=== PATIENT | female | born 1930 | race Caucasian/White ===

== ENCOUNTER 2016-07-16 15:06 | Emergency (ER) | payer MEDICARE, OTHER ==
[2016-07-16 15:14] VITALS: BMI 25.6
[2016-07-16 15:21] VITALS: RESP 18
[2016-07-16 16:09] LABS: ADD MANUAL DIFF? NO
[2016-07-16 16:14] LABS: BASO # 0.06 K/mm3 (0.0-2.0); BASO % 0.6 % (0.0-3.0); EOS # 0.1 (0.0-0.7); EOS % 1.3 % (1.5-5.0); GRAN # 8.74 (1.4-6.5); GRAN % 86.5 % (50.0-68.0); HEMATOCRIT 39.9 % (36.0-48.0); LYMPH # 0.7 (1.2-3.4); LYMPH % 6.9 % (22.0-35.0); MEAN CORPUSCULAR HEMOGLOBIN 32.1 pg (25.0-35.0); MEAN CORPUSCULAR HGB CONC 33.8 g/dl (31.0-37.0); MEAN PLATELET VOLUME 11.2 fl (7.0-11.0); MONO # 0.5 (0.1-0.6); MONO % 4.7 % (1.0-6.0); PLATELET COUNT 199 10^3/uL (120.0-450.0); RED CELL DISTRIBUTION WIDTH 14.9 % (11.5-14.5); WHITE BLOOD COUNT 10.1 10^3/ul (4.5-11.0)
[2016-07-16 16:24] LABS: BLOOD UREA NITROGEN 45 mg/dL (7-21); CALCIUM 9.9 mg/dL (8.4-10.5); CARBON DIOXIDE 28 mmol/L (21-33); CHLORIDE 98 mmol/L (98-107); GFR AFRICAN-AMERICAN 32; GLUCOSE,RANDOM 102 mg/dL (70-110); POTASSIUM 4.7 mmol/L (3.6-5.0); SODIUM 135 mmol/L (132-148)
--- NOTE | 2016-07-16 16:32 | ED PDOC ---
Arrival/HPI - General Chief Complaint: Palpitations Time Seen by Provider: 07/16/16 15:13 Historian: Patient, Family - History of Present Illness Narrative History of Present Illness (Text): 07/16/16 16:26 86 yo female, h/o DM, HCL, COPD, Pulmonary Fibrosis, GERD, Anxiety, presents to the ED c/o palpitations and shortness of exertion x 3 days. She doesn't feel it at rest. Patient states she gets shortness at times at baseline but recently it' s getting worse. No cough or fever. She has trace lower extremity swelling. No chest pain or back pain. PMD: Dr. Gold Past Medical History - Provider Review Nursing Documentation Reviewed: Yes - Infectious Disease Hx of Infectious Diseases: None - Tetanus Immunization Tetanus Immunization: Unknown - Cardiac Hx Cardiac Disorders: Yes Hx Congestive Heart Failure: Yes Hx Hypertension: Yes - Pulmonary Hx Asthma: Yes Hx Chronic Obstructive Pulmonary Disease (COPD): Yes - Neurological HX Cerebrovascular Accident: Yes - HEENT Hx HEENT Disorder: No (WEARS RX GLASSES) Hx Blind: No Hx Cataracts: No Hx Deafness: No Hx Difficulty Chewing: No Hx Epistaxis: No Hx Glaucoma: No Hx Macular Degeneration: No Other/Comment: WEARS RX GLASSES - Renal Hx Renal Failure: Yes - Endocrine/Metabolic Hx Diabetes Mellitus Type 1: Yes Hx Hypothyroidism: Yes - Hematological/Oncological Hx Blood Disorders: No Hx AIDS: No Hx Anemia: No Hx Cancer: No Hx Chemotherapy: No Hx Cirrhosis: No Hx Hemophilia: No Hx Hepatitis A: No Hx Hepatitis B: No Hx Hepatitis C: No Hx Metastasis: No Hx Shingles: No Hx Sickle Cell Disease: No Hx Unexplained Bleeding: No - Integumentary Hx Dermatological Disorder: No Hx Basal Cell Carcinoma: No Hx Eczema: No Hx Melanoma: No Hx Psoriasis: No Hx Squamous Cell Carcinoma: No Other/Comment: multiple brown discolorations chest and face - Musculoskeletal/Rheumatological Hx Arthritis: Yes - Gastrointestinal Hx Gastrointestinal Disorders: Yes Hx Colostomy: No Hx Crohn's Disease: No Hx Diverticulitis: Yes Hx Gall Bladder Disease: No Hx Gastroesophageal Reflux: Yes Hx Ileostomy: No Hx Liver Failure: No Hx Pancreatitis: No HX Swallowing Problems: No - Genitourinary/Gynecological Hx Reproductive Disorders: (neg r breast bx 35 yrs ago) - Psychiatric Hx Psychophysiologic Disorder: Yes Hx Anxiety: Yes Hx Bipolar Disorder: No Hx Depression: No Hx Emotional Abuse: No Hx Hallucinations: No Hx Panic Disorder: No Hx Post Traumatic Stress Disorder: No Hx Psychosis: No Hx Physical Abuse: No Hx Schizophrenia: No Hx Sexual Abuse: No Hx Substance Use: No - Past Surgical History Past Surgical History: No Previous - Surgical History Hx Amputation: No Hx Appendectomy: No Hx Cardiac Catheterization: No Hx Cholecystectomy: No Hx Coronary Stent: No Hx Gastric Bypass Surgery: No Hx Hysterectomy: No Hx Joint Replacement: No Hx Kidney Transplant: No Hx Liver Transplant: No Hx Mastectomy: No Hx Musculoskeletal Surgery: No Hx Open Heart Surgery: No Hx Orthopedic Surgery: No Hx Splenectomy: No Hx Valve Replacement: No Other/Comment: HX L BREAST BX/BENIGN - Anesthesia Hx Anesthesia: Yes Hx Anesthesia Reactions: No Hx Malignant Hyperthermia: No - Suicidal Assessment Feels Threatened In Home Enviroment: No Family/Social History - Physician Review Nursing Documentation Reviewed: Yes Family/Social History: No Known Family HX Smoking Status: Never Smoked Hx Alcohol Use: No Hx Substance Use: No Hx Substance Use Treatment: No Allergies/Home Meds Allergies/Adverse Reactions: Allergies levofloxacin [From Levaquin] Allergy (Verified 07/16/16 15:14) ANGIOEDEMA Home Medications: Home Meds Medication Instructions Recorded Confirmed Montelukast [Singulair] 10 mg PO HS 06/10/14 07/16/16 Omeprazole Magnesium [Prilosec Otc] 20 mg PO DAILY 06/10/14 07/16/16 Enalapril Maleate 2.5 mg PO DAILY 02/16/15 07/16/16 predniSONE [predniSONE Tab] 7.5 mg PO DAILY 02/16/15 07/16/16 Aspirin [Adult Low Dose Aspirin EC] 81 tab PO DAILY 11/21/15 07/16/16 Calcitonin,[place],Synthetic 1 in [place] PRN PRN 11/21/15 07/16/16 [Calcitonin-[place]] Furosemide [Furosemide] 20 tab PO DAILY 11/21/15 07/16/16 Ipratropium/Albuterol Sulfate 1 inh INH PRN PRN 11/21/15 07/16/16 [Combivent Respimat Inhal [place]] Isosorbide Mononitrate [Isosorbide 30 tab PO DAILY 11/21/15 07/16/16 Mononitrate ER] Methenamine Hippurate [Methenamine 1 gm PO DAILY 11/21/15 07/16/16 Hippurate] Metoprolol Tartrate [Lopressor] 25 mg PO BID 11/21/15 07/16/16 Simvastatin [Zocor] 20 mg PO DAILY 11/21/15 07/16/16 Review of Systems - Physician Review All systems were reviewed & negative as marked: Yes - Review of Systems Constitutional: Normal Eyes: Normal ENT: Normal Respiratory: SOB. absent: Cough, Sputum, Wheezing Cardiovascular: Palpitations, Edema, LYN. absent: Chest Pain, Calf Pain, Orthopnea, Syncope Gastrointestinal: Normal Genitourinary Female: Normal Musculoskeletal: Normal Skin: Normal Neurological: Normal Endocrine: Normal Hemo/Lymphatic: Normal Psychiatric: Normal Physical Exam Vital Signs Reviewed: Yes Vital Signs Temp Pulse Resp BP Pulse Ox 07/16/16 15:07 97.6 F 71 18 119/78 97 Temperature: Afebrile Blood Pressure: Normal Pulse: Regular Respiratory Rate: Normal Appearance: Positive for: Well-Appearing, Non-Toxic, Comfortable Pain Distress: None Mental Status: Positive for: Alert and Oriented X 3 - Systems Exam Head: Present: Atraumatic, Normocephalic Pupils: Present: PERRL Extroacular Muscles: Present: EOMI Conjunctiva: Present: Normal Mouth: Present: Moist Mucous Membranes Neck: Present: Normal Range of Motion Respiratory/Chest: Present: Clear to Auscultation, Good Air Exchange. No: Respiratory Distress, Accessory Muscle Use Cardiovascular: Present: Regular Rate and Rhythm, Normal S1, S2. No: Murmurs Abdomen: Present: Normal Bowel Sounds. No: Tenderness, Distention, Peritoneal Signs Back: Present: Normal Inspection Upper Extremity: Present: Normal Inspection. No: Cyanosis, Edema Lower Extremity: Present: Normal Inspection. No: Edema Neurological: Present: GCS=15, CN II-XII Intact, Speech Normal Skin: Present: Warm, Dry, Normal Color. No: Rashes Psychiatric: Present: Alert, Oriented x 3, Normal Insight, Normal Concentration Medical Decision Making ED Course and Treatment: 07/16/16 16:33 86 yo female with palpitations and LYN r/o CHF r/o arrythmia -- Labs -- CXR, EKG -- Reevaluate and disposition 07/16/16 17:12 On exam, lungs clear. No w/r/r. CXR no change from previous. Patient does not have symptoms now or as she walks in the ED. I discussed case with Dr. Gold. She agrees that patient can follow up as an outpatient. Advised her and her daughter to return if symptoms worsen or any other concern. - Lab Interpretations Lab Results: 07/16/16 15:15 07/16/16 15:15 Lab Results 07/16/16 15:15: WBC 10.1, RBC 4.20, Hgb 13.5, Hct 39.9, MCV 95.0, MCH 32.1, MCHC 33.8, RDW 14.9 H, Plt Count 199, MPV 11.2 H, Gran % 86.5 H, Lymph % (Auto) 6.9 L, [place] % (Auto) 4.7, Eos % (Auto) 1.3 L, Baso % (Auto) 0.6, Gran # 8.74 H, Lymph # 0.7 L, [place] # 0.5, Eos # 0.1, Baso # 0.06, Sodium 135, Potassium 4.7, Chloride 98, Carbon Dioxide 28, Anion Gap 14, BUN 45 H, Creatinine 1.8 H, Est GFR ( Amer) 32, Est GFR (Non-Af Amer) 27, Random Glucose 102, Calcium 9.9 , Lactate Dehydrogenase 580, Total Creatine Kinase 33 L, Troponin I < 0.01, NT- Pro-B Natriuret Pep 402 I have reviewed the lab results: Yes Interpretation: All labs normal - RAD Interpretation Radiology Orders: 07/16/16 15:41 CHEST PORTABLE [RAD] Stat Production Quality Manager: ED Physician - EKG Interpretation Interpreted by ED Physician: Yes (NSR at [address] elevations, nl intervals) Type: 12 lead EKG Disposition/Present on Arrival - Present on Arrival Any Indicators Present on Arrival: No History of DVT/PE: No History of Uncontrolled Diabetes: No Urinary Catheter: No History of Decub. Ulcer: No History Surgical Site Infection Following: None - Disposition Have Diagnosis and Disposition been Completed?: Yes Diagnosis: Palpitations Disposition: HOME/ ROUTINE Disposition Time: 17:15 Patient Plan: Discharge Patient Problems: Current Active Problems Problem Status Diagnosed COPD exacerbation Acute Condition: IMPROVED Referrals: Pretty Guerrero DO [Primary Care Provider] - Follow up with primary
--- NOTE | 2016-07-16 16:38 | RAD ---
HISTORY: sob r/o chf COMPARISON: CT chest from 06/10 2016 FINDINGS: LUNGS: There is low lung volume on the right and chronic changes in the right lung. The left lung is clear. PLEURA: There are extensive calcified pleural plaques on the right and a small calcified plaque in the left mid to lower. CARDIOVASCULAR: Stable in appearance. OSSEOUS STRUCTURES: No significant abnormalities. VISUALIZED UPPER ABDOMEN: Normal. OTHER FINDINGS: None. IMPRESSION: Extensive right calcified pleural plaques and chronic changes in the right lung with low lung volume on the right. No acute findings.
[2016-07-16 16:56] LABS: TROPONIN I < 0.01 ng/mL
[2016-07-16 17:27] VITALS: BP 125/78; PULSE 78; TEMP 99.8; O2SAT 98
--- NOTE | 2016-07-17 15:44 | CARD ---
APPROVED REPORT EKG Measurement Heart [id number] <Conclusion> Normal sinus rhythm Normal ECG
== END 2016-07-16 17:27 | disposition home or self-care (01) ==
LOC: ED 15:06
DX: R00.2 Palpitations (principal); I11.0 Hypertensive heart disease with heart failure; I50.9 Heart failure, unspecified; Z86.73 Personal history of transient ischemic attack (TIA), and cerebral infarction without residual deficits

== ENCOUNTER 2016-08-15 10:37 | Emergency (ER) | payer MEDICARE, OTHER ==
[2016-08-15 10:45] VITALS: BMI 25.4
[2016-08-15 10:53] VITALS: TEMP 97.3
[2016-08-15] MEDS ORDERED: Albuterol-Ipratrop 3 mg / 0.5 (3 ml) UD IH STA (10:55)
--- NOTE | 2016-08-15 11:00 | ED PDOC ---
Arrival/HPI - General Chief Complaint: Shortness Of Breath Time Seen by Provider: 08/15/16 10:49 Historian: Patient, Family (2 daughters) - History of Present Illness Time/Duration: Other (1-2 weeks) Symptom Onset: Gradual Symptom Course: Worsening Severity Level: Moderate Activities at Onset: Rest Associated Symptoms (Text): 08/15/16 10:57 Patient complains of a one to two-week history of increasing shortness of breath. There is a very mild intermittent nonproductive cough. No chest pain. No back pain. No fever. Patient gets no relief from her high flow nebulizer. Her dispute resolution analyst ordered home oxygen, but it has not arrived yet. No abdominal pain nausea vomiting or diarrhea. No genitourinary symptoms. She appears uncomfortable, though her pulse oximetry is 99% on room air. Past Medical History - Infectious Disease Hx of Infectious Diseases: None - Tetanus Immunization Tetanus Immunization: Unknown - Reproductive Menopause: Yes - Cardiac Hx Cardiac Disorders: Yes Hx Congestive Heart Failure: Yes Hx Hypertension: Yes - Pulmonary Hx Asthma: Yes Hx Chronic Obstructive Pulmonary Disease (COPD): Yes - Neurological HX Cerebrovascular Accident: Yes - HEENT Hx HEENT Disorder: No (WEARS RX GLASSES) Other/Comment: WEARS RX GLASSES - Renal Hx Renal Failure: Yes - Endocrine/Metabolic Hx Diabetes Mellitus Type 1: Yes Hx Hypothyroidism: Yes - Hematological/Oncological Hx Blood Disorders: No Hx Sickle Cell Disease: No Hx Unexplained Bleeding: No - Integumentary Hx Dermatological Disorder: No Other/Comment: multiple brown discolorations chest and face - Musculoskeletal/Rheumatological Hx Arthritis: Yes - Gastrointestinal Hx Gastrointestinal Disorders: Yes Hx Diverticulitis: Yes Hx Gastroesophageal Reflux: Yes - Genitourinary/Gynecological Hx Reproductive Disorders: (neg r breast bx 35 yrs ago) - Psychiatric Hx Psychophysiologic Disorder: Yes Hx Anxiety: Yes Hx Substance Use: No - Past Surgical History Past Surgical History: No Previous - Surgical History Other/Comment: HX L BREAST BX/BENIGN - Anesthesia Hx Anesthesia: Yes Hx Anesthesia Reactions: No Hx Malignant Hyperthermia: No - Suicidal Assessment Feels Threatened In Home Enviroment: No Family/Social History - Physician Review Nursing Documentation Reviewed: Yes Family/Social History: Unknown Family HX Smoking Status: Never Smoked Hx Alcohol Use: No Hx Substance Use: No Hx Substance Use Treatment: No Allergies/Home Meds Allergies/Adverse Reactions: Allergies levofloxacin [From Levaquin] Allergy (Verified 07/16/16 15:14) ANGIOEDEMA Home Medications: Home Meds Medication Instructions Recorded Confirmed Montelukast [Singulair] 10 mg PO HS 06/10/14 08/15/16 Omeprazole Magnesium [Prilosec Otc] 20 mg PO DAILY 06/10/14 08/15/16 Enalapril Maleate 2.5 mg PO DAILY 02/16/15 08/15/16 predniSONE [predniSONE Tab] 5 mg PO DAILY 02/16/15 08/15/16 Aspirin [Adult Low Dose Aspirin EC] 81 tab PO DAILY 11/21/15 08/15/16 Calcitonin,[place],Synthetic 1 in IN PRN PRN 11/21/15 08/15/16 [Calcitonin-[place]] Furosemide [Furosemide] 20 tab PO DAILY 11/21/15 08/15/16 Ipratropium/Albuterol Sulfate 1 inh INH PRN PRN 11/21/15 08/15/16 [Combivent Respimat Inhal [place]] Isosorbide Mononitrate [Isosorbide 30 tab PO DAILY 11/21/15 08/15/16 Mononitrate ER] Methenamine Hippurate [Methenamine 1 gm PO DAILY 11/21/15 08/15/16 Hippurate] Metoprolol Tartrate [Lopressor] 25 mg PO BID 11/21/15 08/15/16 Simvastatin [Zocor] 20 mg PO DAILY 11/21/15 08/15/16 Review of Systems - Physician Review All systems were reviewed & negative as marked: Yes - Review of Systems Constitutional: Fatigue. absent: Fevers Respiratory: SOB. absent: Sputum, Wheezing Cardiovascular: absent: Chest Pain, Palpitations, Syncope Gastrointestinal: absent: Abdominal Pain, Diarrhea, Nausea, Vomiting Genitourinary Female: absent: Dysuria, Frequency, Hematuria Neurological: absent: Headache, Dizziness Physical Exam Vital Signs Temp Pulse Resp BP Pulse Ox 08/15/16 10:55 22 08/15/16 10:37 97.3 F L 66 20 118/59 L 96 Temperature: Afebrile Blood Pressure: Normal Pulse: Regular Respiratory Rate: Normal Appearance: Positive for: Well-Appearing, Non-Toxic, Uncomfortable Pain Distress: None Mental Status: Positive for: Alert and Oriented X 3 - Systems Exam Head: Present: Atraumatic, Normocephalic Pupils: Present: PERRL Extroacular Muscles: Present: EOMI Conjunctiva: Present: Normal Ears: Present: NORMAL TM, Normal Canal. No: Erythema Mouth: Present: Moist Mucous Membranes Pharnyx: No: ERYTHEMA, EXUDATE, TONSILS ENLARGED Neck: Present: Normal Range of Motion. No: MIDLINE TENDERNESS, Paraspinal Tenderness Respiratory/Chest: Present: Clear to Auscultation, Good Air Exchange, Decreased Breath Sounds. No: Respiratory Distress, Accessory Muscle Use, Tender to Palpation Cardiovascular: Present: Regular Rate and Rhythm, Normal S1, S2. No: Murmurs Abdomen: Present: Normal Bowel Sounds. No: Tenderness, Distention, Peritoneal Signs, Rebound, Guarding Upper Extremity: Present: Normal Inspection. No: Cyanosis, Edema Lower Extremity: Present: Normal Inspection. No: Edema, CALF TENDERNESS Neurological: Present: GCS=15, CN II-XII Intact, Speech Normal, Motor Func Grossly Intact Skin: Present: Warm, Dry, Normal Color. No: Rashes Psychiatric: Present: Alert, Oriented x 3, Normal Insight, Normal Concentration Medical Decision Making ED Course and Treatment: 08/15/16 12:36 EKG shows normal sinus rhythm rate approximately [address] elevation consistent with pericarditis and no acute findings 08/15/16 16:31 CTA of the chest as read by the radiologist as negative for pulmonary embolus. 08/15/16 16:31 Discussed in detail with who requested consult with . was here and saw the patient and will discharge home and make arrangements for home oxygen. Follow-up in the office. Follow up in ER as needed. - Lab Interpretations Lab Results: 08/15/16 10:50 08/15/16 10:50 Lab Results 08/15/16 10:50: Sodium 141, Potassium 3.6, Chloride 101, Carbon Dioxide 28, Anion Gap 16, BUN 47 H, Creatinine 1.6 H, Est GFR ( Amer) 37, Est GFR ( Non-Af Amer) 31, Random Glucose 109, Calcium 9.2, Total Bilirubin 0.6, AST 24, ALT 31, Alkaline Phosphatase 46, Lactate Dehydrogenase 500, Total Creatine Kinase 40, Troponin I < 0.01, NT-Pro-B Natriuret Pep 338, Total Protein 6.6, Albumin 3.9, Globulin 2.8, Albumin/Globulin Ratio 1.4 08/15/16 10:50: PT 10.6, INR 0.98, APTT 24.1, D-Dimer, Quantitative 1.93 H 08/15/16 10:50: WBC 8.9, RBC 4.14, Hgb 12.7, Hct 39.9, MCV 96.4, MCH 30.7, MCHC 31.8, RDW 14.6 H, Plt Count 219, MPV 10.8, Gran % 71.5 H, Lymph % (Auto) 11.9 L , [place] % (Auto) 13.0 H, Eos % (Auto) 3.0, Baso % (Auto) 0.6, Gran # 6.39, Lymph # 1.1 L, [place] # 1.2 H, Eos # 0.3, Baso # 0.05 - RAD Interpretation Radiology Orders: 08/15/16 10:55 CHEST PORTABLE [RAD] Stat 08/15/16 11:29 ANGIO CHEST PE PROTOCOL [CT] Stat Chest 1 view shows extensive right sided pleural plaques, with a calcified left sided nodule no different from previous Store Hand: ED Physician - Medication Orders Current Medication Orders: Sodium Chloride (Sodium Chloride 0.9%) 500 mls @ 500 mls/hr IV ONCE ONE Stop: 08/15/16 17:29 Discontinued Medications Albuterol/Ipratropium (Duoneb 3 Mg/0.5 Mg (3 Ml) Ud) 3 ml IH ONCE STA Stop: 08/15/16 10:56 Last Admin: 08/15/16 11:16 Dose: 3 ml Sodium Chloride (Sodium Chloride 0.9%) 500 mls @ 500 mls/hr IV ONCE ONE Stop: 08/15/16 12:28 Last Admin: 08/15/16 11:30 Dose: 500 mls/hr Iodixanol (Visipaque 320 Mg/Ml 100 Ml) Confirm Administered Dose 100 ml IV .STK- MED ONE Stop: 08/15/16 14:17 Disposition/Present on Arrival - Present on Arrival Any Indicators Present on Arrival: No History of DVT/PE: No History of Uncontrolled Diabetes: No Urinary Catheter: No History of Decub. Ulcer: No History Surgical Site Infection Following: None - Disposition Have Diagnosis and Disposition been Completed?: Yes Diagnosis: Dyspnea Disposition: HOME/ ROUTINE Disposition Time: 16:32 Patient Plan: Discharge Condition: GOOD Discharge Instructions (ExitCare): Dyspnea (ED) Referrals: Marce Gold MD [Primary Care Provider] - Follow up with primary
[2016-08-15 11:01] LABS: ADD MANUAL DIFF? NO
[2016-08-15 11:07] LABS: BASO # 0.05 K/mm3 (0.0-2.0); BASO % 0.6 % (0.0-3.0); EOS # 0.3 (0.0-0.7); GRAN # 6.39 (1.4-6.5); GRAN % 71.5 % (50.0-68.0); HEMATOCRIT 39.9 % (36.0-48.0); LYMPH # 1.1 (1.2-3.4); LYMPH % 11.9 % (22.0-35.0); MEAN CELL VOLUME 96.4 fL (80.0-105.0); MEAN CORPUSCULAR HEMOGLOBIN 30.7 pg (25.0-35.0); MEAN CORPUSCULAR HGB CONC 31.8 g/dl (31.0-37.0); MEAN PLATELET VOLUME 10.8 fl (7.0-11.0); MONO # 1.2 (0.1-0.6); PLATELET COUNT 219 10^3/uL (120.0-450.0); RED CELL DISTRIBUTION WIDTH 14.6 % (11.5-14.5); WHITE BLOOD COUNT 8.9 10^3/ul (4.5-11.0)
[2016-08-15 11:14] LABS: INR 0.98 (0.93-1.08); PARTIAL THROMBOPLASTIN TIME 24.1 Seconds (23.7-30.8)
[2016-08-15 11:17] LABS: ALB/GLOB RATIO 1.4 (1.1-1.8); ALKALINE PHOSPHATASE 46 U/L (38-133); ALT/SGPT 31 U/L (7-56); AST/SGOT 24 U/L (15-39); BILIRUBIN,TOTAL 0.6 mg/dL (0.2-1.3); BLOOD UREA NITROGEN 47 mg/dL (7-21); CALCIUM 9.2 mg/dL (8.4-10.5); CARBON DIOXIDE 28 mmol/L (21-33); CHLORIDE 101 mmol/L (98-107); GFR AFRICAN-AMERICAN 37; GLUCOSE,RANDOM 109 mg/dL (70-110); POTASSIUM 3.6 mmol/L (3.6-5.0); SODIUM 141 mmol/L (132-148); TOTAL PROTEIN 6.6 g/dL (5.8-8.3)
[2016-08-15 11:27] LABS: D DIMER 1.93 mg/L FEU (0-0.50)
[2016-08-15] MEDS ORDERED: Sodium Chloride 0.9% 500 ML IV ONE ×3 (11:29→16:30)
[2016-08-15 11:45] LABS: TROPONIN I < 0.01 ng/mL
--- NOTE | 2016-08-15 12:30 | RAD ---
HISTORY: sob COMPARISON: 07/16/2016 FINDINGS: LUNGS: No active pulmonary disease. PLEURA: There is extensive calcification of the pleura in the right upper lobe. This is unchanged CARDIOVASCULAR: Normal. OSSEOUS STRUCTURES: No significant abnormalities. VISUALIZED UPPER ABDOMEN: Normal. OTHER FINDINGS: None. IMPRESSION: No active disease.
[2016-08-15] MEDS ORDERED: Iodixanol 320 MG/ML 100 ML BOTTLE IV ONE (14:16)
--- NOTE | 2016-08-15 15:21 | CT ---
PROCEDURE: CT Chest with contrast (Pulmonary Angiogram) HISTORY: elevated dimer COMPARISON: None available. TECHNIQUE: Axial computed tomography images were obtained of the chest in the pulmonary arterial phase of enhancement. Coronal and sagittal reformatted images were created and reviewed. Intravenous contrast dose: 100 cc of Visipaque Radiation dose: Total exam DLP = 366 mGy-cm. This CT exam was performed using one or more of the following dose reduction techniques: Automated exposure control, adjustment of the mA and/or kV according to patient size, and/or use of iterative reconstruction technique. FINDINGS: PULMONARY ARTERIES: Unremarkable. No pulmonary embolism. AORTA: No acute findings. No thoracic aortic aneurysm. LUNGS: Mild chronic interstitial changes. Volume loss in the right lung with apical scarring and pleural calcifications. There is a calcified granuloma in the left upper lobe PLEURAL SPACES: Pleural calcifications are seen on the right. HEART: Unremarkable. No cardiomegaly. No significant pericardial effusion. LYMPH NODES: No lymphadenopathy. BONES, CHEST WALL: Unremarkable. No fracture or destructive lesion OTHER FINDINGS: Unremarkable. IMPRESSION: No evidence of pulmonary embolus.
[2016-08-15 17:12] VITALS: BP 124/72; PULSE 75; RESP 18; O2SAT 99
--- NOTE | 2016-08-16 13:15 | CARD ---
APPROVED REPORT EKG Measurement Heart [id number] <Conclusion> Normal sinus rhythm Normal ECG
== END 2016-08-15 17:13 | disposition home or self-care (01) ==
LOC: ED 10:37
DX: R06.00 Dyspnea, unspecified (principal); I10 Essential (primary) hypertension
CPT/HCPCS: 71010; 71275; 80053; 82550; 83615; 83880; 84484; 85025; 85378; 85610; 85730; 93005; 96360; 96361; 99284; J7040; Q9967

== ENCOUNTER 2016-09-11 11:08 | Emergency (ER) | payer MEDICARE, OTHER ==
[2016-09-11 11:09] VITALS: BMI 25.4
[2016-09-11 11:25] VITALS: TEMP 98.4
--- NOTE | 2016-09-11 11:34 | ED PDOC ---
Arrival/HPI - General Chief Complaint: Shortness Of Breath Time Seen by Provider: 09/11/16 11:15 Historian: Patient, Family - History of Present Illness Narrative History of Present Illness (Text): 09/11/16 11:33 Patient is an 86 year old female whose past medical history includes COPD, pulmonary fibrosis, on home O2, presenting to the emergency department with shortness of breath and left rib pain for the past 2 weeks. Family also reports lower extremity swelling in the ankles. Family reports negative stress test in Mar/Apr of this year. Denies chest pain, fever, or cough. PMD: Dr. Gold Senior Portfolio Analyst: Dr. Ramon Equipment Sterilizer: Dr. Méndez Time/Duration: > week Symptom Onset: Gradual Symptom Course: Unchanged Modifying Factors (Text): None Past Medical History - Provider Review Nursing Documentation Reviewed: Yes - Infectious Disease Hx of Infectious Diseases: None - Tetanus Immunization Tetanus Immunization: Unknown - Cardiac Hx Cardiac Disorders: Yes Hx Congestive Heart Failure: Yes Hx Hypertension: Yes - Pulmonary Hx Asthma: Yes Hx Chronic Obstructive Pulmonary Disease (COPD): Yes - Neurological HX Cerebrovascular Accident: Yes - HEENT Hx HEENT Disorder: No Other/Comment: WEARS RX GLASSES - Renal Hx Renal Failure: Yes - Endocrine/Metabolic Hx Diabetes Mellitus Type 1: Yes Hx Hypothyroidism: Yes - Hematological/Oncological Hx Blood Disorders: No Hx Sickle Cell Disease: No Hx Unexplained Bleeding: No - Integumentary Hx Dermatological Disorder: No Other/Comment: multiple brown discolorations chest and face - Musculoskeletal/Rheumatological Hx Arthritis: Yes - Gastrointestinal Hx Gastrointestinal Disorders: Yes Hx Diverticulitis: Yes Hx Gastroesophageal Reflux: Yes - Genitourinary/Gynecological Hx Reproductive Disorders: (neg r breast bx 35 yrs ago) - Psychiatric Hx Psychophysiologic Disorder: Yes Hx Anxiety: Yes Hx Substance Use: No - Past Surgical History Past Surgical History: No Previous - Surgical History Other/Comment: HX L BREAST BX/BENIGN - Anesthesia Hx Anesthesia: Yes Hx Anesthesia Reactions: No Hx Malignant Hyperthermia: No - Suicidal Assessment Feels Threatened In Home Enviroment: No Family/Social History - Physician Review Nursing Documentation Reviewed: Yes Family/Social History: Unknown Family HX Smoking Status: Never Smoked Hx Alcohol Use: No Hx Substance Use: No Hx Substance Use Treatment: No Allergies/Home Meds Allergies/Adverse Reactions: Allergies lactose Allergy (Verified 09/11/16 11:13) VOMITING levofloxacin [From Levaquin] Allergy (Verified 09/11/16 11:13) ANGIOEDEMA Home Medications: Home Meds Medication Instructions Recorded Confirmed Montelukast [Singulair] 10 mg PO HS 06/10/14 09/11/16 Omeprazole Magnesium [Prilosec Otc] 20 mg PO DAILY 06/10/14 09/11/16 Enalapril Maleate 2.5 mg PO DAILY 02/16/15 09/11/16 predniSONE [predniSONE Tab] 7.5 mg PO DAILY 02/16/15 09/11/16 Aspirin [Adult Low Dose Aspirin EC] 81 tab PO DAILY 11/21/15 09/11/16 Furosemide [Furosemide] 20 mg PO DAILY 11/21/15 09/11/16 Ipratropium/Albuterol Sulfate 1 inh INH PRN PRN 11/21/15 09/11/16 [Combivent Respimat Inhal [place]] Isosorbide Mononitrate [Isosorbide 30 tab PO DAILY 11/21/15 09/11/16 Mononitrate ER] Methenamine Hippurate [Methenamine 1 gm PO DAILY 11/21/15 09/11/16 Hippurate] Metoprolol Tartrate [Lopressor] 25 mg PO BID 11/21/15 09/11/16 Simvastatin [Zocor] 20 mg PO DAILY 11/21/15 09/11/16 Review of Systems - Review of Systems Constitutional: absent: Fevers Eyes: absent: Vision Changes ENT: absent: Hearing Changes Respiratory: SOB, Cough, Wheezing. absent: Sputum Cardiovascular: Edema. absent: Chest Pain, Palpitations Gastrointestinal: absent: Abdominal Pain, Constipation, Diarrhea, Nausea, Vomiting Genitourinary Female: absent: Dysuria Musculoskeletal: absent: Arthralgias Skin: absent: Rash Neurological: absent: Headache, Dizziness Physical Exam Vital Signs Reviewed: Yes Vital Signs Temp Pulse Resp BP Pulse Ox 09/11/16 13:52 71 16 116/69 99 09/11/16 12:18 62 18 106/62 99 09/11/16 11:51 97 09/11/16 11:22 98.4 F 93 H 18 109/64 98 Temperature: Afebrile Blood Pressure: Normal Pulse: Regular Respiratory Rate: Normal Appearance: Positive for: Well-Appearing, Non-Toxic, Comfortable Pain Distress: None Mental Status: Positive for: Alert and Oriented X 3 - Systems Exam Head: Present: Atraumatic, Normocephalic Pupils: Present: PERRL Extroacular Muscles: Present: EOMI Conjunctiva: Present: Normal Mouth: Present: Moist Mucous Membranes Neck: Present: Normal Range of Motion Respiratory/Chest: Present: Other (Decreased air entry). No: Respiratory Distress, Accessory Muscle Use, Wheezes, Rales Cardiovascular: Present: Regular Rate and Rhythm, Normal S1, S2. No: Murmurs Abdomen: Present: Normal Bowel Sounds. No: Tenderness, Distention, Peritoneal Signs Back: Present: Normal Inspection Upper Extremity: Present: Normal Inspection. No: Cyanosis, Edema Lower Extremity: Present: Edema Neurological: Present: GCS=15, CN II-XII Intact, Speech Normal Skin: Present: Warm, Dry, Normal Color. No: Rashes Psychiatric: Present: Alert, Oriented x 3, Normal Insight, Normal Concentration Medical Decision Making ED Course and Treatment: Impression: Patient is an 86 year old female whose past medical history includes COPD, pulmonary fibrosis, on home O2, presenting to the emergency department with shortness of breath and left rib pain for the past 2 weeks. Plan: -- EKG, Chest X-ray -- Labs -- Reassess and disposition Prior Visits: Patient last seen in ED on 08/15/16 for shortness of breath and discharged home. Patient had abnormal stress test in April 2014. Progress Notes: EKG shows NSR at 62 BPM, compared to 08/15/16, morphology appears similar to prior ekg, with no evidence of reciprocal changes. 09/11/16 11:44 Dr. Gold evaluated patient at bedside. Reports that patient has had extensive cardiac workup including stress recently. Reports that Dr. Méndez pulmonary was working with patient due to end stage pulmonary fibrosis. Reports if xray negative and labs WNL, patient can be discharged. Chest X-ray Sap Administrator : Rodrick Nunez MD Report Date : 09/11/2016 12:37:17 IMPRESSION: Apical scarring and pleural calcifications on the right. No acute findings 09/11/16 12:45 Spoke to patient who states she feels better. Chest X-ray and labs grossly normal. Creatinine baseline. Will discuss with Dr. Méndez for recommendations, otherwise patient will be discharged home. 09/11/16 13:[address] Méndez. Will follow-up Sunday. Tushar mmends steroid taper with prednisone 20mg x 5 days, 10mg x 5 days and 5mg x 5 days. - Lab Interpretations Lab Results: 09/11/16 11:30 09/11/16 11:30 Lab Results 09/11/16 11:30: Sodium 141, Potassium 4.1, Chloride 103, Carbon Dioxide 31, Anion Gap 11, BUN 45 H, Creatinine 1.8 H, Est GFR ( Amer) 32, Est GFR ( Non-Af Amer) 27, Random Glucose 77, Calcium 9.2, Total Bilirubin 0.4, AST 31, ALT 31, Alkaline Phosphatase 48, Lactate Dehydrogenase 512, Total Creatine Kinase 50, Troponin I < 0.01, NT-Pro-B Natriuret Pep 483 H, Total Protein 6.3, Albumin 3.6, Globulin 2.7, Albumin/Globulin Ratio 1.3 09/11/16 11:30: WBC 8.5, RBC 4.06, Hgb 12.2, Hct 39.1, MCV 96.3, MCH 30.0, MCHC 31.2, RDW 14.5, Plt Count 200, MPV 10.8, Gran % 79.3 H, Lymph % (Auto) 9.7 L, [place] % (Auto) 7.7 H, Eos % (Auto) 2.7, Baso % (Auto) 0.6, Gran # 6.74 H, Lymph # 0.8 L, [place] # 0.7 H, Eos # 0.2, Baso # 0.05 - RAD Interpretation Radiology Orders: 09/11/16 11:30 CHEST PORTABLE [RAD] Stat - EKG Interpretation Interpreted by ED Physician: Yes Type: 12 lead EKG - Scribe Statement The provider has reviewed the documentation as recorded by the Marcelle Huizar Provider Scribe Attestation: All medical record entries made by the Marcelle were at my direction and personally dictated by me. I have reviewed the chart and agree that the record accurately reflects my personal performance of the history, physical exam, medical decision making, and the department course for this patient. I have also personally directed, reviewed, and agree with the discharge instructions and disposition. Disposition/Present on Arrival - Present on Arrival Any Indicators Present on Arrival: No History of DVT/PE: No History of Uncontrolled Diabetes: No Urinary Catheter: No History of Decub. Ulcer: No History Surgical Site Infection Following: None - Disposition Have Diagnosis and Disposition been Completed?: Yes Diagnosis: COPD exacerbation, Shortness of breath Disposition: HOME/ ROUTINE Disposition Time: 12:46 Patient Plan: Discharge Condition: GOOD Discharge Instructions (ExitCare): Dyspnea (ED) Additional Instructions: Follow up with PMD within 2 days. Return to ED if condition worsens. Follow- up with Dr. Méndez and Dr. Gold. Call at 930 next Sunday for appt with Dr. Méndez. Prescriptions: predniSONE [predniSONE Tab] 5 mg PO DAILY #35 tab Referrals: Marce Gold MD [Primary Care Provider] - Follow up with primary
[2016-09-11 11:38] LABS: ADD MANUAL DIFF? NO
[2016-09-11 11:42] LABS: BASO # 0.05 K/mm3 (0.0-2.0); BASO % 0.6 % (0.0-3.0); EOS # 0.2 (0.0-0.7); EOS % 2.7 % (1.5-5.0); GRAN # 6.74 (1.4-6.5); GRAN % 79.3 % (50.0-68.0); HEMATOCRIT 39.1 % (36.0-48.0); LYMPH # 0.8 (1.2-3.4); LYMPH % 9.7 % (22.0-35.0); MEAN CELL VOLUME 96.3 fL (80.0-105.0); MEAN CORPUSCULAR HGB CONC 31.2 g/dl (31.0-37.0); MEAN PLATELET VOLUME 10.8 fl (7.0-11.0); MONO # 0.7 (0.1-0.6); MONO % 7.7 % (1.0-6.0); PLATELET COUNT 200 10^3/uL (120.0-450.0); RED CELL DISTRIBUTION WIDTH 14.5 % (11.5-14.5); WHITE BLOOD COUNT 8.5 10^3/ul (4.5-11.0)
[2016-09-11 11:51] LABS: ALB/GLOB RATIO 1.3 (1.1-1.8); ALKALINE PHOSPHATASE 48 U/L (38-133); ALT/SGPT 31 U/L (7-56); AST/SGOT 31 U/L (15-39); BILIRUBIN,TOTAL 0.4 mg/dL (0.2-1.3); BLOOD UREA NITROGEN 45 mg/dL (7-21); CALCIUM 9.2 mg/dL (8.4-10.5); CARBON DIOXIDE 31 mmol/L (21-33); CHLORIDE 103 mmol/L (98-107); GFR AFRICAN-AMERICAN 32; GLUCOSE,RANDOM 77 mg/dL (70-110); POTASSIUM 4.1 mmol/L (3.6-5.0); SODIUM 141 mmol/L (132-148); TOTAL PROTEIN 6.3 g/dL (5.8-8.3)
[2016-09-11 12:03] LABS: TROPONIN I < 0.01 ng/mL
[2016-09-11 12:18] VITALS: O2SAT 99
--- NOTE | 2016-09-11 12:38 | RAD ---
HISTORY: shortness of breath COMPARISON: 08/15/2016 FINDINGS: LUNGS: No active pulmonary disease. PLEURA: Pleural calcification can be seen in the right upper lobe. Apical scarring with superior retraction of the jose miguel CARDIOVASCULAR: Normal. OSSEOUS STRUCTURES: No significant abnormalities. VISUALIZED UPPER ABDOMEN: Normal. OTHER FINDINGS: None. IMPRESSION: Apical scarring and pleural calcifications on the right. No acute findings
[2016-09-11 13:52] VITALS: PULSE 71; RESP 16
[2016-09-11 13:59] VITALS: BP 116/69
--- NOTE | 2016-09-11 20:26 | CARD ---
APPROVED REPORT EKG Measurement Heart [id number] <Conclusion> Normal sinus rhythm Low voltage QRS possible pericarditis VS Ischemia vs Early repolarization corelate clinacally. Abnormal ECG
--- NOTE | 2016-09-12 08:04 | CON ---
DATE: 09/11/2016 HISTORY OF PRESENT ILLNESS: This 86-year-old female was examined at her bedside. Her case was reviewed with Dr. Brittney Clark from the Emergency Room as well as both daughters present at the bedside, Paulette and Ida Peralta. The patient is an 86-year-old female with longstanding chronic obstructive pulmonary disease and advanced pulmonary fibrosis who was brought to the Emergency Room by her daughters with the complaint of shortness of breath. The patient is under the pulmonary care of Dr. Amor Méndez, who has currently prescribed both home O2 as well as portable O2 which initially the patient was resistant to using. However, the family demonstrated that she had brought her portable O2 PAP with her to the Emergency Room today. The patient has multiple medical comorbidities including chronic anxiety neurosis as well as chronic renal failure, chronic hypertension, stable atherosclerotic heart disease, chronic obstructive pulmonary disease, pulmonary fibrosis, hypertension, peptic ulcer disease with GERD, hyperlipidemia, recurrent urinary tract infections and degenerative arthritis. OUTPATIENT MEDICATIONS: Include Combivent inhaler, Advair Diskus inhaler, Ecotrin, Singulair, Imdur, prednisone, metoprolol tartrate, Prilosec, Lasix, enalapril, Zocor, methenamine hippurate. ALLERGIES: SHE HAS SENSITIVITIES TO LACTOSE AND LEVOFLOXACIN WHICH CAUSES ANGIOEDEMA. On further questioning of the patient, she denied any fever or chills. She complains of chronic shortness of breath. She denied any productive sputum, or hemoptysis and states her appetite has been good. REVIEW OF SYSTEMS: HEAD: No headache or seizures. EYES: No change in visual acuity. EARS: No hearing loss. THROAT: No swallowing difficulty. NECK: No stiffness. CARDIAC: She is status post a recent outpatient echocardiogram and stress test with Dr. Zackary Ramon, which was unremarkable. PULMONARY: Chronic obstructive pulmonary disease and advanced pulmonary fibrosis that is monitored by Dr. Amor Méndez from pulmonary. No hemoptysis. No productive sputum. GASTROINTESTINAL: Peptic ulcer disease with GERD. GENITOURINARY: Chronic renal failure, stage III. VASCULAR: No claudication. PSYCHOLOGICAL: Chronic anxiety. NEUROLOGICAL: No knowledge of stroke. ENDOCRINE: Diet controlled diabetes mellitus. FAMILY HISTORY: Noncontributory. SOCIAL HISTORY: She is a current nondrinker, nonsmoker, non-IV drug misuser. 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 PHYSICAL EXAMINATION: VITAL SIGNS: Temperature 98.4, respirations 18, pulse 62, blood pressure 106/ 62 with a pulse ox of 98%, wearing 2 liters nasal cannula. HEENT: Normocephalic, atraumatic. Eyes: No icterus. Ears clear. Throat not injected. NECK: Supple. HEART: S1, S2. No pathological rubs, murmurs, or gallops. LUNGS: No wheezing, no rhonchi. ABDOMEN: Soft. EXTREMITIES: No edema. SKIN: Without rash. NEUROLOGIC: Intact. PSYCHOLOGICAL: Chronic anxiety. VASCULAR: Legs warm to touch. LABORATORY DATA: Sodium 141, K 4.1, chloride 103, bicarb 31, BUN 45, creatinine 1.8, random blood sugar was 77. All liver function testing was normal including bilirubin 0.4, AST 31, ALT 31, alk phos 48. Her CPK was 50, normal. Troponin was less than 0.01, normal. White count 8500, hemoglobin 12.2 , hematocrit 39.1, platelets 200,000. Chest x-ray showed no active disease and changes of apical scarring, pulmonary fibrosis and chronic obstructive pulmonary disease. EKG reportedly showed normal sinus rhythm with nonspecific ST-T wave changes. IMPRESSION: An 86-year-old female with chronic obstructive pulmonary disease, pulmonary fibrosis, comorbidities of chronic hypertension, stable atherosclerotic heart disease, peptic ulcer disease with gastroesophageal reflux disease, degenerative arthritis, hyperlipidemia, chronic renal failure stage III, anxiety neurosis. The patient's case was discussed by the Emergency Room physician, Dr. Brittney Clark with Dr. Amor Méndez who will be seeing the patient within the next several days. The patient is rescheduled to have a PFT that she had canceled and will have her pulmonary medication followed and monitored by him. The case was discussed in detail with the patient and her 2 daughters at the bedside and she was advised for any change in signs and symptoms to represent to the [facility] ER. It was the patient and family's desire for her to be discharged to home and the patient was clinically stable for this recommendation. Her overall prognosis remains poor given the gravity of her multiple medical comorbidities and her advanced chronic obstructive pulmonary disease and pulmonary fibrosis which is now being managed with medication and portable and home O2 on a chronic basis. Greater than fifty minutes was spent in the care, review of care and coordination of care for this patient today. Family is aware of the above situation and prognosis. Marce Gold MD cc: [phone] TT: 09/11/2016 19:36:05 Confirmation # [id number] Dictation # [id number] [id number]
== END 2016-09-11 13:59 | disposition home or self-care (01) ==
LOC: ED 11:08
DX: J44.1 Chronic obstructive pulmonary disease with (acute) exacerbation (principal); J84.10 Pulmonary fibrosis, unspecified; Z99.81 Dependence on supplemental oxygen; I11.0 Hypertensive heart disease with heart failure; I50.9 Heart failure, unspecified; Z86.73 Personal history of transient ischemic attack (TIA), and cerebral infarction without residual deficits

== ENCOUNTER 2016-10-29 18:07 | Inpatient (IN) | payer MEDICARE, OTHER ==
[2016-10-29 18:07] VITALS: BMI 25.4
[2016-10-29] MEDS ORDERED: Levalbuterol 1.25 MG/3 ML Inhal Soln UD IH STA ×2 (18:21→18:22)
[2016-10-29] MEDS ORDERED: Ipratropium 0.02% Inhal Soln (0.5 mg/2.5 ml) UD IH STA (18:22)
--- NOTE | 2016-10-29 18:36 | ED PDOC ---
Arrival/HPI - General Chief Complaint: Shortness Of Breath Time Seen by Provider: 10/29/16 18:08 Historian: Patient, Parent (daughter ) - History of Present Illness Narrative History of Present Illness (Text): 10/29/16 18:31 Eloina Kennedy is a 86 year old female, with a history of COPD on home O2, pulmonary fibrosis, and CHF, presents to the emergency department complaining of shortness of breath since today morning. Patient reports of difficulty breathing since today morning despite using her usual home O2. She also complains of cough and bilateral lower extremity swelling since yesterday. Also reports of multiple episodes of dizzy spells today. Denies fever, chills, headache, chest pain, nausea, vomiting, diarrhea, urinary symptoms, or any other complaints at this time. Time/Duration: Other (today morning ) Symptom Onset: Gradual Symptom Course: Worsening Severity Level: Mild Activities at Onset: Light Context: Home Past Medical History - Provider Review Nursing Documentation Reviewed: Yes - Infectious Disease Hx of Infectious Diseases: None - Tetanus Immunization Tetanus Immunization: Unknown - Reproductive Menopause: Yes - Cardiac Hx Cardiac Disorders: Yes Hx Congestive Heart Failure: Yes Hx Hypertension: Yes - Pulmonary Hx Asthma: Yes Hx Chronic Obstructive Pulmonary Disease (COPD): Yes - Neurological HX Cerebrovascular Accident: Yes - HEENT Hx HEENT Disorder: No Other/Comment: WEARS RX GLASSES - Renal Hx Renal Failure: Yes - Endocrine/Metabolic Hx Diabetes Mellitus Type 1: Yes Hx Hypothyroidism: Yes - Hematological/Oncological Hx Blood Disorders: No Hx Sickle Cell Disease: No Hx Unexplained Bleeding: No - Integumentary Hx Dermatological Disorder: No Other/Comment: multiple brown discolorations chest and face - Musculoskeletal/Rheumatological Hx Arthritis: Yes - Gastrointestinal Hx Gastrointestinal Disorders: Yes Hx Diverticulitis: Yes Hx Gastroesophageal Reflux: Yes - Genitourinary/Gynecological Hx Reproductive Disorders: (neg r breast bx 35 yrs ago) - Psychiatric Hx Psychophysiologic Disorder: Yes Hx Anxiety: Yes Hx Substance Use: No - Past Surgical History Past Surgical History: No Previous - Surgical History Other/Comment: HX L BREAST BX/BENIGN - Anesthesia Hx Anesthesia: Yes Hx Anesthesia Reactions: No Hx Malignant Hyperthermia: No - Suicidal Assessment Feels Threatened In Home Enviroment: No Family/Social History - Physician Review Nursing Documentation Reviewed: Yes Family/Social History: No Known Family HX Smoking Status: Never Smoked Hx Alcohol Use: No Hx Substance Use: No Hx Substance Use Treatment: No Allergies/Home Meds Allergies/Adverse Reactions: Allergies lactose Allergy (Verified 10/29/16 18:13) VOMITING levofloxacin [From Levaquin] Allergy (Verified 10/29/16 18:13) ANGIOEDEMA Home Medications: Home Meds Medication Instructions Recorded Confirmed Omeprazole Magnesium [Prilosec Otc] 20 mg PO DAILY 06/10/14 10/29/16 Enalapril Maleate 2.5 mg PO DAILY 02/16/15 10/29/16 Aspirin [Adult Low Dose Aspirin EC] 81 tab PO DAILY 11/21/15 10/29/16 Furosemide [Furosemide] 20 mg PO DAILY 11/21/15 10/29/16 Ipratropium/Albuterol Sulfate 1 inh INH PRN PRN 11/21/15 10/29/16 [Combivent Respimat Inhal [place]] Methenamine Hippurate [Methenamine 1 gm PO DAILY 11/21/15 09/11/16 Hippurate] Simvastatin [Zocor] 20 mg PO DAILY 11/21/15 10/29/16 Review of Systems - Physician Review All systems were reviewed & negative as marked: Yes - Review of Systems Constitutional: Normal. absent: Fatigue, Fevers Respiratory: SOB, Cough. absent: Sputum Cardiovascular: absent: Chest Pain, Palpitations Gastrointestinal: absent: Diarrhea, Nausea, Vomiting Musculoskeletal: Other (b/l LE swelling ). absent: Back Pain Neurological: Dizziness. absent: Headache Physical Exam Vital Signs Reviewed: Yes Vital Signs Temp Pulse Resp BP Pulse Ox 10/29/16 18:16 98.2 F 82 20 114/58 L 100 Temperature: Afebrile Blood Pressure: Hypotensive Pulse: Regular Respiratory Rate: Normal Appearance: Positive for: Non-Toxic, Uncomfortable Pain Distress: None Mental Status: Positive for: Alert and Oriented X 3 - Systems Exam Head: Present: Atraumatic, Normocephalic Pupils: Present: PERRL Conjunctiva: Present: Normal Mouth: Present: Moist Mucous Membranes Pharnyx: Present: Normal. No: ERYTHEMA, EXUDATE Neck: No: JVD Respiratory/Chest: Present: Decreased Breath Sounds (Diminished breath sounds with crackles at right lung base. ). No: Respiratory Distress, Accessory Muscle Use Cardiovascular: Present: Regular Rate and Rhythm, Normal S1, S2. No: Murmurs Abdomen: Present: Normal Bowel Sounds. No: Tenderness, Distention, Peritoneal Signs Upper Extremity: Present: Normal Inspection. No: Cyanosis, Edema Lower Extremity: Present: Edema (Trace b/l lower extremity edema ), NORMAL PULSES, Neurovascularly Intact. No: CALF TENDERNESS, Tenderness, Swelling, Erythema, Deformity Neurological: Present: GCS=15, CN II-XII Intact, Speech Normal, Motor Func Grossly Intact, Normal Sensory Function Skin: Present: Warm, Dry, Normal Color. No: Rashes Psychiatric: Present: Alert, Oriented x 3, Normal Insight, Normal Concentration Medical Decision Making ED Course and Treatment: 10/29/16 18:40 Impression: A 86 year old female who presents to the emergency department complaining of worsening shortness of breath since today am. Differential Diagnosis include but are not limited to: COPD vs. CHF vs. pneumonia with underlying fibrosis Plan: -- EKG -- Labs, cardiac enzymes -- CXR -- Atrovent -- Xopenex -- Solumedrol -- Blood Culture -- Reassess and disposition Progress Notes: 10/29/16 20:10 Patient's labs are at baseline. Patient with improvement of symptoms but still with some tachypnea; maintained on her O2, she is able to saturate reasonably well, but will need close watch and be admitted given underlying COPD, CHF, and pulmonary fibrosis. Spoke with Dr. Gold, who said to admit and place on solumedrol Q6H. - Lab Interpretations Lab Results: 10/29/16 18:10 10/29/16 18:10 Lab Results 10/29/16 18:10: Sodium 137, Potassium 4.8, Chloride 104, Carbon Dioxide 25, Anion Gap 13, BUN 47 H, Creatinine 2.0 H, Est GFR ( Amer) 29, Est GFR ( Non-Af Amer) 24, Random Glucose 130 H, Calcium 9.1, Magnesium 1.9, Total Bilirubin 0.4, AST 27, ALT 29, Alkaline Phosphatase 51, Lactate Dehydrogenase 532, Total Creatine Kinase 62, Troponin I < 0.01, NT-Pro-B Natriuret Pep 752 H, Total Protein 6.5, Albumin 3.8, Globulin 2.7, Albumin/Globulin Ratio 1.4, Lipase 306 H 10/29/16 18:10: PT 10.7, INR 0.99, APTT 26.7 10/29/16 18:10: WBC 8.9, RBC 4.04, Hgb 12.2, Hct 38.8, MCV 96.0, MCH 30.2, MCHC 31.4, RDW 14.4, Plt Count 212, MPV 10.8, Gran % 81.2 H, Lymph % (Auto) 9.6 L, [place] % (Auto) 6.8 H, Eos % (Auto) 1.8, Baso % (Auto) 0.6, Gran # 7.22 H, Lymph # 0.9 L, [place] # 0.6, Eos # 0.2, Baso # 0.05 - RAD Interpretation Radiology Orders: 10/29/16 18:25 CHEST PORTABLE [RAD] Stat - EKG Interpretation EKG Interpretation (Text): 10/29/16 20:13 NSR @ 82 with normal intervals and normal axis; no ST/T changes. - Medication Orders Current Medication Orders: Furosemide (Lasix) 40 mg IVP STAT STA Stop: 10/29/16 20:10 Levalbuterol HCl (Xopenex) 0.63 mg IH ONCE STA Stop: 10/29/16 20:09 Methylprednisolone (Solu-Medrol) 60 mg IVP Q6H JEREMY Discontinued Medications Ipratropium [place] (Atrovent) 0.5 mg IH STAT STA Stop: 10/29/16 18:23 Last Admin: 10/29/16 18:51 Dose: 0.5 mg Levalbuterol HCl (Xopenex) 1.25 mg IH STAT STA Stop: 10/29/16 18:22 Last Admin: 10/29/16 18:50 Dose: 1.25 mg Levalbuterol HCl (Xopenex) 1.25 mg IH STAT STA Stop: 10/29/16 18:23 Last Admin: 10/29/16 18:51 Dose: 1.25 mg Methylprednisolone (Solu-Medrol) 125 mg IVP STAT STA Stop: 10/29/16 18:22 Last Admin: 10/29/16 18:50 Dose: 125 mg - Scribe Statement The provider has reviewed the documentation as recorded by the Marcelle Esteban Provider Attestation: Provider Deliciaibe Attestation: All medical record entries made by the Marcelle were at my direction and personally dictated by me. I have reviewed the chart and agree that the record accurately reflects my personal performance of the history, physical exam, medical decision making, and the department course for this patient. I have also personally directed, reviewed, and agree with the discharge instructions and disposition. Disposition/Present on Arrival - Present on Arrival Any Indicators Present on Arrival: No History of DVT/PE: No History of Uncontrolled Diabetes: No Urinary Catheter: No History of Decub. Ulcer: No History Surgical Site Infection Following: None - Disposition Have Diagnosis and Disposition been Completed?: Yes Diagnosis: COPD exacerbation, CHF (congestive heart failure), Pulmonary fibrosis Disposition: HOSPITALIZED Disposition Time: 20:00 Patient Plan: Admission Condition: FAIR Discharge Instructions (ExitCare): Heart Failure (ED)
[2016-10-29 18:39] LABS: BASO # 0.05 K/mm3 (0.0-2.0); BASO % 0.6 % (0.0-3.0); EOS # 0.2 (0.0-0.7); EOS % 1.8 % (1.5-5.0); GRAN # 7.22 (1.4-6.5); GRAN % 81.2 % (50.0-68.0); HEMOGLOBIN 12.2 gm/dL (12.0-16.0); LYMPH # 0.9 (1.2-3.4); LYMPH % 9.6 % (22.0-35.0); MEAN CORPUSCULAR HEMOGLOBIN 30.2 pg (25.0-35.0); MEAN CORPUSCULAR HGB CONC 31.4 g/dl (31.0-37.0); MEAN PLATELET VOLUME 10.8 fl (7.0-11.0); MONO # 0.6 (0.1-0.6); MONO % 6.8 % (1.0-6.0); PLATELET COUNT 212 10^3/uL (120.0-450.0); RBC 4.04 10^6/uL (3.5-6.1); RED CELL DISTRIBUTION WIDTH 14.4 % (11.5-14.5); WHITE BLOOD COUNT 8.9 10^3/ul (4.5-11.0)
[2016-10-29 18:50] LABS: INR 0.99 (0.93-1.08); PARTIAL THROMBOPLASTIN TIME 26.7 Seconds (23.7-30.8); PROTHROMBIN TIME 10.7 Seconds (9.9-11.8)
[2016-10-29 18:52] LABS: ALB/GLOB RATIO 1.4 (1.1-1.8); ALBUMIN 3.8 g/dL (3.0-4.8); ALT/SGPT 29 U/L (7-56); AST/SGOT 27 U/L (15-39); BLOOD UREA NITROGEN 47 mg/dL (7-21); CALCIUM 9.1 mg/dL (8.4-10.5); GFR AFRICAN-AMERICAN 29; GFR NON-AFRICAN AMERICAN 24; LIPASE 306 U/L (23-300); MAGNESIUM 1.9 mg/dL (1.7-2.2)
[2016-10-29 19:03] LABS: B-TYPE NATRIURETIC PEPTIDE 752 pg/mL (0-450)
[2016-10-29 19:35] LABS: TROPONIN I < 0.01 ng/mL
[2016-10-29] MEDS ORDERED: Levalbuterol 0.63 MG/3 ML Inhal Soln UD IH STA (20:08)
[2016-10-29] MEDS ORDERED: MethylPREDNISolone 40 mg Vial IVP SCH (20:15)
[2016-10-29] MEDS ORDERED: guaiFENesin 100 mg/5 ml Syrup UD PO PRN ×2 (23:12→23:19)
[2016-10-30] MEDS: Albuterol-Ipratrop 3 mg / 0.5 (3 ml) UD IH SCH ×4 (01:20→20:00)
[2016-10-30] MEDS: Pantoprazole 40 mg EC Tab PO SCH (07:25)
--- NOTE | 2016-10-30 07:46 | RAD ---
HISTORY: sob COMPARISON: Comparison made with prior study dated 09/11/[address] scan chest 08/15/2016. FINDINGS: LUNGS: No active pulmonary disease. PLEURA: Re- demonstrated is extensive pleural base calcification within the right upper and mid to lesser degree mid to lower lung field. Findings likely postinflammatory on. Exposure to asbestos not completely excluded though less likely due to the lack of obvious pleural base calcification not throughout the left lung. Large calcified granuloma left lower lobe . Chronic interstitial changes/ fibrosis/ scarring throughout both lung peralta. CARDIOVASCULAR: Normal. OSSEOUS STRUCTURES: No significant abnormalities. VISUALIZED UPPER ABDOMEN: Normal. OTHER FINDINGS: None. IMPRESSION: Extensive pleural base calcification within the right upper and mid to lesser degree mid to lower lung field. Findings likely postinflammatory on. Exposure to asbestos not completely excluded though less likely due to the lack of obvious pleural base calcification not throughout the left lung. Large calcified granuloma left lower lobe . Chronic interstitial changes/ fibrosis/ scarring throughout both lung peralta.
[2016-10-30] MEDS: Insulin Reg-LOW-Coverage SC SCH ×4 (07:48→21:18)
--- NOTE | 2016-10-30 09:08 | CP.PCM.PN ---
Subjective - Date & Time of Evaluation Date of Evaluation: 10/30/16 Time of Evaluation: 08:00 - Subjective Subjective: Patient was admitted with worsening SOB at home. This was despite using home O2 and nebulizers in her home. 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 The Patient has less SOB on IV antibiotics and IV steroids. She has a productive cough but no fever or chills today. While at the bedside with the patient and her daughter Rachele the patient was short of breath at rest and was wheezing while wearing nasal O2. Subjectively, she stated she feels better than yesterday. We reviewed her missing medications she takes at home. The daughter explained that Dr. Méndez had lowered her Prednisone to 5mg daily in the last 2 weeks. However, the patient only noted the change in her breathing in the past day or so. The family is aware of our concerns regarding her skilled nursing Prednisone use which although necessary runs the risk of multiple complications. Unfortunately, it remains necessary at present. Objective - Vital Signs/Intake and Output Vital Signs (last 24 hours): Temp Pulse Resp BP Pulse Ox 98.1 F 90 18 117/68 99 10/30/16 08:00 10/30/16 08:00 10/30/16 08:00 10/30/16 08:00 10/30/16 08:00 Intake and Output: 10/30/16 10/30/16 06:59 18:59 Intake Total 120 Balance 120 - Medications Medications: Current Medications Acetaminophen (Tylenol 325mg Tab) 650 mg PO Q6H PRN PRN Reason: pain Albuterol/Ipratropium (Duoneb 3 Mg/0.5 Mg (3 Ml) Ud) 3 ml IH [id number] [facility] Last Admin: 10/30/16 07:34 Dose: 3 ml Arformoterol Tartrate (Brovana) 15 mcg IH [id number] [facility] Arformoterol Tartrate (Brovana) 15 mcg IH [id number] [facility] Aspirin (Ecotrin) 81 mg PO DAILY [facility] Atorvastatin Calcium (Lipitor) 10 mg PO DIN [facility] Budesonide (Pulmicort Respules) 0.25 mg IH [id number] [facility] Calcium Carbonate (Oscal) 500 mg PO TID [facility] Furosemide (Lasix) 20 mg PO DAILY [facility] Guaifenesin (Robitussin) 100 mg PO Q6H PRN PRN Reason: Cough Ceftriaxone Sodium (Rocephin 1 Gram Ivpb) 1 gm in 100 mls @ 100 mls/hr IVPB DAILY [facility] PRN Reason: Protocol Insulin Human Regular (Humulin R Low) 0 units SC ACHS [facility] PRN Reason: Protocol Last Admin: 10/30/16 07:48 Dose: Not Given Isosorbide Mononitrate (Imdur) 30 mg PO DAILY [facility] Lisinopril (Zestril) 2.5 mg PO DAILY [facility] Methylprednisolone (Solu-Medrol) 60 mg IVP Q6H [facility] Last Admin: 10/29/16 20:35 Dose: Not Given Metoprolol Tartrate (Lopressor) 12.5 mg PO BRKDIN [facility] Pantoprazole Sodium (Protonix Ec Tab) 40 mg PO 0600 [facility] Last Admin: 10/30/16 07:25 Dose: Not Given - Labs Labs: PT 10.7 Seconds (9.9-11.8) 10/29/16 18:10 INR 0.99 (0.93-1.08) 10/29/16 18:10 APTT 26.7 Seconds (23.7-30.8) 10/29/16 18:10 - Constitutional Appears: Other - Head Exam Head Exam: NORMAL INSPECTION, NORMOCEPHALIC - Eye Exam Eye Exam: EOMI, Normal appearance Pupil Exam: NORMAL ACCOMODATION, PERRL - ENT Exam ENT Exam: Mucous Membranes Moist, Normal External Ear Exam, Normal Oropharynx - Neck Exam Neck Exam: Full ROM, Normal Inspection - Respiratory Exam Respiratory Exam: Decreased Breath Sounds, Rhonchi, Wheezes - Cardiovascular Exam Cardiovascular Exam: REGULAR RHYTHM - GI/Abdominal Exam GI & Abdominal Exam: Soft, Normal Bowel Sounds - Rectal Exam Rectal Exam: Deferred - Extremities Exam Extremities Exam: Full ROM, Normal Inspection - Back Exam Back Exam: Full ROM - Neurological Exam Neurological Exam: Awake, CN II-XII Intact, Oriented x3, Reflexes Normal - Psychiatric Exam Psychiatric exam: Anxious - Skin Skin Exam: Intact, Normal Color, Warm Assessment and Plan - Assessment and Plan (Free Text) Assessment: 1 COPD exacerbation with active wheezing 2 Advanced Pulmonary Fibrosis 3 ASHD 4 Hypertension 5 CHF 6 Chronic Renal Failure Stage 3/4 7 Diverticulosis 8 History of UTIs 9 DJD 10 Hyperlipidemia 11 PUD with GERD 12 Anxiety neurosis PLAN: The patient continues on nasal O2 IV Rocephin IV Solumedrol 60mg IV Q 6H PO Protonix for GI protection Nebulizer treatments Pulmonary treatments Physical therapy Zestril, Ecotrin, Lipitor, Oscal, Metoprolol, Imdur, Singulair TCU eval Overall prognosis remains poor given advanced pulmonary disease and comorbities. Greater than fifty minutes was spent in the care, discussion of care, review of care with the patient , her family, her nurse, Latoya and consultants today. Family will bring nonformulary medications from home and she will take eyedrops from home as labeled. This was reviewedi with her nurse in detail.
[2016-10-30] MEDS: cefTRIAXone 1 gm 1 GM/100 ML BAG IVPB SCH (09:27)
--- NOTE | 2016-10-30 09:45 | CP.PCM.PN ---
Subjective - Date & Time of Evaluation Date of Evaluation: 10/30/16 Time of Evaluation: 07:00 - Subjective Subjective: CONSULTATION (Dictation System not working) 86 F known to me with admission yesterday for SOB, edema and dizziness worsening over several days. She feels much better today after pulm tx. No CP, syncope,palpitations, abd pain, N,V, D, C, F, C, rigor, sweats, hemoptysis. PMH: Severe pulmonary disease with childhood TB, pulm. fibrosis and home o2, CAD with remote IL and sev. LVD, CHF, Diabetes, HBP, CKD, HLD, diverticulosis, osteoporosis, anxiety, UTIs, PUD/GERD. No RF, CVA, Gout. Meds: ASA, Combivent, enalapril, Lasix, methenamine, omeprazole, Zocor, metoprolol, Imdur All: lactose, levofloxacin SH: Lives at home. No tob or ETOH. FH: N/C ROS: 10 point ROS otherwise unremarkable except as noted above PE: HEENT: Neg. Lungs: rhonchi Cor: irreg, S1S2, sytolic murmur Abd.: soft Ext.: mild pedal edema Neuro.: alert Skin: W+D Psych: Nl. mood and affect ECG: RSR, no acute changes CXR: noted. Severe fibrosis and calcifications. See report. Lab noted: Cr. = 2.0, trop. < 0.01, BNP 752 Objective - Vital Signs/Intake and Output Vital Signs (last 24 hours): Temp Pulse Resp BP Pulse Ox 98.1 F 90 18 117/68 99 10/30/16 08:00 10/30/16 09:02 10/30/16 08:00 10/30/16 09:02 10/30/16 08:00 Intake and Output: 10/30/16 10/30/16 06:59 18:59 Intake Total 120 Balance 120 - Medications Medications: Current Medications Acetaminophen (Tylenol 325mg Tab) 650 mg PO Q6H PRN PRN Reason: pain Albuterol/Ipratropium (Duoneb 3 Mg/0.5 Mg (3 Ml) Ud) 3 ml IH [id number] [facility] Last Admin: 10/30/16 07:34 Dose: 3 ml Arformoterol Tartrate (Brovana) 15 mcg IH [id number] [facility] Aspirin (Ecotrin) 81 mg PO DAILY [facility] Last Admin: 10/30/16 09:00 Dose: 81 mg Atorvastatin Calcium (Lipitor) 10 mg PO DIN [facility] Budesonide (Pulmicort Respules) 0.25 mg IH [id number] [facility] Calcium Carbonate (Oscal) 500 mg PO TID [facility] Last Admin: 10/30/16 09:00 Dose: 500 mg Furosemide (Lasix) 20 mg PO DAILY [facility] Last Admin: 10/30/16 09:00 Dose: 20 mg Guaifenesin (Robitussin) 100 mg PO Q6H PRN PRN Reason: Cough Ceftriaxone Sodium (Rocephin 1 Gram Ivpb) 1 gm in 100 mls @ 100 mls/hr IVPB DAILY [facility] PRN Reason: Protocol Insulin Human Regular (Humulin R Low) 0 units SC ACHS [facility] PRN Reason: Protocol Last Admin: 10/30/16 07:48 Dose: Not Given Isosorbide Mononitrate (Imdur) 30 mg PO DAILY [facility] Last Admin: 10/30/16 09:01 Dose: 30 mg Lisinopril (Zestril) 2.5 mg PO DAILY [facility] Last Admin: 10/30/16 09:02 Dose: Not Given Methylprednisolone (Solu-Medrol) 60 mg IVP Q6H [facility] Last Admin: 10/30/16 08:59 Dose: 60 mg Metoprolol Tartrate (Lopressor) 12.5 mg PO BRKDIN [facility] Pantoprazole Sodium (Protonix Ec Tab) 40 mg PO 0600 [facility] Last Admin: 10/30/16 07:25 Dose: Not Given - Labs Labs: PT 10.7 Seconds (9.9-11.8) 10/29/16 18:10 INR 0.99 (0.93-1.08) 10/29/16 18:10 APTT 26.7 Seconds (23.7-30.8) 10/29/16 18:10 Assessment and Plan - Assessment and Plan (Free Text) Assessment: Dyspnea, Edema, Dizziness Severe chronic lung disease with exacerbation Pulm. 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 OOB to chair as stephanie. Will follow Conservative cardiac care anticipated.
--- NOTE | 2016-10-30 09:58 | CARD ---
APPROVED REPORT EKG Measurement Heart [id number] <Conclusion> Normal sinus rhythm with borderline 1st degree AVB
--- NOTE | 2016-10-30 10:33 | PQF CHF ---
This form is a permanent part of the medical record Dr. Gold, Please specify type and severity of CHF present in this patient Not present Clarification of your documentation is requested to better reflect the severity of illness and intensity of treatment of your patient. Indicators present [] Diagnosis of CHF and/or history of CHF [] BNP > 200 [] Imaging Finding of Pulmonary Edema /Pleural Effusions [] Fluid/Volume Overload [] Pitting edema [] Ejection Fraction < 40% (Indicative of Systolic Heart Failure) [] Ejection Fraction > 40% (Indicative of Diastolic Heart Failure) [] Dyspnea / Orthopenea / Paroxysmal Nocturnal Dyspnea [] Other: Location in the medical record that reflects the above clinical findings: [] Treatment Provided: [] PHYSICIAN'S RESPONSE Based on your medical judgment of the clinical indicators outlined above, are you treating this patient for a known or suspected: [] Acute CHF [] Systolic [] Diastolic [] Combined [] Chronic CHF [] Systolic [] Diastolic [] Combined [] Acute on Chronic CHF []Systolic [] Diastolic [] Combined [] CHF due hypertension [] Acute systolic []Chronic systolic [] Acute/ chronic systolic [] Other, please indicate: [] [] If Unable to Determine, please check the box, sign and date. Present On Admission (POA) Indicator: [] Present at the time of admission [x] Not present at the time of admission [] Clinically Undetermined In responding to this query, please exercise your independent professional judgment. The fact that a question is asked does not imply that any particular answer is desired or expected. Thank you for your clarification on this documentation. 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
--- NOTE | 2016-10-30 17:36 | CARD ---
APPROVED REPORT EKG Measurement Heart [id number] <Conclusion> Normal sinus rhythm Low voltage QRS Borderline ECG
[2016-10-30] MEDS: Arformoterol 15 mcg/2 ml Inh Sol IH SCH (20:00)
[2016-10-30] MEDS: Budesonide 0.25 mg/2 ml Inhal Susp UD IH SCH (20:00)
[2016-10-30] MEDS ORDERED: Arformoterol 15 mcg/2 ml Inh Sol IH SCH (20:00)
[2016-10-31] MEDS: Albuterol-Ipratrop 3 mg / 0.5 (3 ml) UD IH SCH ×4 (02:04→20:08)
[2016-10-31] MEDS: Pantoprazole 40 mg EC Tab PO SCH (06:01)
--- NOTE | 2016-10-31 07:47 | CP.PCM.PN ---
Subjective - Date & Time of Evaluation Date of Evaluation: 10/31/16 Time of Evaluation: 07:00 - Subjective Subjective: Stable on 3R. Breathing better. V/S noted. RSR PE: Lungs: rhonchi Cor.: S1S2 Abd.: soft Ext.: no edema Neuro.: alert Labs noted. trops neg x 2 BC x2 NG at 24 hrs. ECG 10/30: RSR. No acute changes Objective - Vital Signs/Intake and Output Vital Signs (last 24 hours): Temp Pulse Resp BP Pulse Ox 98 F 95 H 18 130/74 98 10/30/16 16:05 10/30/16 17:19 10/30/16 16:05 10/30/16 17:19 10/30/16 16:05 Intake and Output: 10/31/16 10/31/16 06:59 18:59 Intake Total 660 Balance 660 - Medications Medications: Current Medications Acetaminophen (Tylenol 325mg Tab) 650 mg PO Q6H PRN PRN Reason: pain Albuterol/Ipratropium (Duoneb 3 Mg/0.5 Mg (3 Ml) Ud) 3 ml IH [id number] [facility] Last Admin: 10/31/16 02:04 Dose: Not Given Arformoterol Tartrate (Brovana) 15 mcg IH [id number] [facility] Last Admin: 10/30/16 20:00 Dose: 15 mcg Aspirin (Ecotrin) 81 mg PO DAILY [facility] Last Admin: 10/30/16 09:00 Dose: 81 mg Atorvastatin Calcium (Lipitor) 10 mg PO DIN [facility] Last Admin: 10/30/16 17:19 Dose: 10 mg Budesonide (Pulmicort Respules) 0.25 mg IH [id number] [facility] Last Admin: 10/30/16 20:00 Dose: 0.25 mg Calcitonin [place] (Miacalcin) 200 iu NS DAILY [facility] Calcium Carbonate (Oscal) 500 mg PO TID [facility] Last Admin: 10/30/16 17:20 Dose: Not Given Furosemide (Lasix) 20 mg PO DAILY [facility] Last Admin: 10/30/16 09:00 Dose: 20 mg Guaifenesin (Robitussin) 100 mg PO Q6H PRN PRN Reason: Cough Last Admin: 10/30/16 21:15 Dose: 100 mg Ceftriaxone Sodium (Rocephin 1 Gram Ivpb) 1 gm in 100 mls @ 100 mls/hr IVPB DAILY [facility] PRN Reason: Protocol Last Admin: 10/30/16 09:27 Dose: 100 mls/hr Insulin Human Regular (Humulin R Low) 0 units SC ACHS [facility] PRN Reason: Protocol Last Admin: 10/30/16 21:18 Dose: Not Given Isosorbide Mononitrate (Imdur) 30 mg PO DAILY [facility] Last Admin: 10/30/16 09:01 Dose: 30 mg Lisinopril (Zestril) 2.5 mg PO DAILY [facility] Last Admin: 10/30/16 09:02 Dose: Not Given Methylprednisolone (Solu-Medrol) 60 mg IVP Q6H [facility] Last Admin: 10/31/16 02:32 Dose: 60 mg Metoprolol Tartrate (Lopressor) 12.5 mg PO BRKDIN [facility] Last Admin: 10/30/16 17:19 Dose: 12.5 mg Montelukast Sodium (Singulair) 10 mg PO HS [facility] Last Admin: 10/30/16 21:16 Dose: 10 mg Pantoprazole Sodium (Protonix Ec Tab) 40 mg PO 0600 [facility] Last Admin: 10/31/16 06:01 Dose: 40 mg - Labs Labs: PT 10.7 Seconds (9.9-11.8) 10/29/16 18:10 INR 0.99 (0.93-1.08) 10/29/16 18:10 APTT 26.7 Seconds (23.7-30.8) 10/29/16 18:10 Assessment and Plan - Assessment and Plan (Free Text) Assessment: Dyspnea, Edema, Dizziness Severe chronic lung disease with exacerbation Pulm. 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 OOB to chair as stephanie. Will follow Conservative cardiac care anticipated.
[2016-10-31] MEDS: Arformoterol 15 mcg/2 ml Inh Sol IH SCH ×2 (07:53→20:07)
[2016-10-31] MEDS: Budesonide 0.25 mg/2 ml Inhal Susp UD IH SCH ×2 (07:54→20:08)
[2016-10-31] MEDS: Insulin Reg-LOW-Coverage SC SCH ×4 (08:16→22:04)
[2016-10-31 08:24] VITALS: RESP 20
[2016-10-31 08:34] LABS: CALCIUM 9.4 mg/dL (8.4-10.5)
[2016-10-31] MEDS: MethylPREDNISolone 40 mg Vial IVP SCH ×3 (10:05→22:30)
[2016-10-31] MEDS: cefTRIAXone 1 gm 1 GM/100 ML BAG IVPB SCH (10:39)
[2016-10-31] MEDS: Calcitonin 200 Int Units/Inh Nasal Spray (3.7 ml) NS SCH (11:01)
[2016-11-01] MEDS: Albuterol-Ipratrop 3 mg / 0.5 (3 ml) UD IH SCH ×3 (01:10→13:01)
[2016-11-01] MEDS: MethylPREDNISolone 40 mg Vial IVP SCH ×3 (03:11→12:12)
[2016-11-01] MEDS: Pantoprazole 40 mg EC Tab PO SCH (06:13)
[2016-11-01] MEDS: Budesonide 0.25 mg/2 ml Inhal Susp UD IH SCH (07:30)
[2016-11-01] MEDS: Arformoterol 15 mcg/2 ml Inh Sol IH SCH (07:30)
[2016-11-01] MEDS: Insulin Reg-LOW-Coverage SC SCH ×2 (08:04→12:12)
[2016-11-01 08:13] VITALS: BP 129/79; PULSE 83; TEMP 98.1; O2SAT 98
[2016-11-01] MEDS: cefTRIAXone 1 gm 1 GM/100 ML BAG IVPB SCH (09:22)
[2016-11-01] MEDS: Calcitonin 200 Int Units/Inh Nasal Spray (3.7 ml) NS SCH (09:24)
--- NOTE | 2016-11-01 09:52 | CP.PCM.PN ---
Subjective - Date & Time of Evaluation Date of Evaluation: 11/01/16 Time of Evaluation: 08:45 - Subjective Subjective: Seen for followup. Feeling somewhat better. Continues to have exertional dyspnea , especially when off oxygen. Edema improved. Denies any chest pain. Objective - Vital Signs/Intake and Output Vital Signs (last 24 hours): Temp Pulse Resp BP Pulse Ox 98.1 F 83 20 129/79 98 11/01/16 08:12 11/01/16 09:22 11/01/16 08:12 11/01/16 09:23 11/01/16 08:12 Intake and Output: 11/01/16 11/01/16 06:59 18:59 Intake Total 420 Balance 420 - Medications Medications: Current Medications Acetaminophen (Tylenol 325mg Tab) 650 mg PO Q6H PRN PRN Reason: pain Albuterol/Ipratropium (Duoneb 3 Mg/0.5 Mg (3 Ml) Ud) 3 ml IH [id number] [facility] Last Admin: 11/01/16 07:30 Dose: 3 ml Arformoterol Tartrate (Brovana) 15 mcg IH [id number] [facility] Last Admin: 11/01/16 07:30 Dose: 15 mcg Aspirin (Ecotrin) 81 mg PO DAILY [facility] Last Admin: 11/01/16 09:22 Dose: 81 mg Atorvastatin Calcium (Lipitor) 10 mg PO DIN [facility] Last Admin: 10/31/16 17:00 Dose: 10 mg Budesonide (Pulmicort Respules) 0.25 mg IH [id number] [facility] Last Admin: 11/01/16 07:30 Dose: 0.25 mg Calcitonin [place] (Miacalcin) 200 iu NS DAILY [facility] Last Admin: 11/01/16 09:24 Dose: 200 iu Calcium Carbonate (Oscal) 500 mg PO TID [facility] Last Admin: 11/01/16 09:22 Dose: 500 mg Furosemide (Lasix) 20 mg PO DAILY [facility] Last Admin: 11/01/16 09:23 Dose: 20 mg Guaifenesin (Robitussin) 100 mg PO Q6H PRN PRN Reason: Cough Last Admin: 10/30/16 21:15 Dose: 100 mg Ceftriaxone Sodium (Rocephin 1 Gram Ivpb) 1 gm in 100 mls @ 100 mls/hr IVPB DAILY [facility] PRN Reason: Protocol Last Admin: 11/01/16 09:22 Dose: 100 mls/hr Insulin Human Regular (Humulin R Low) 0 units SC ACHS [facility] PRN Reason: Protocol Last Admin: 11/01/16 08:04 Dose: Not Given Isosorbide Mononitrate (Imdur) 30 mg PO DAILY [facility] Last Admin: 11/01/16 09:23 Dose: 30 mg Lisinopril (Zestril) 2.5 mg PO DAILY [facility] Last Admin: 11/01/16 09:22 Dose: 2.5 mg Loratadine (Claritin) 10 mg PO DAILY [facility] Last Admin: 11/01/16 09:22 Dose: 10 mg Methylprednisolone (Solu-Medrol) 40 mg IVP 0000,0600,1200,1800 [facility] Last Admin: 11/01/16 06:14 Dose: Not Given Metoprolol Tartrate (Lopressor) 25 mg PO BRKDIN [facility] Last Admin: 11/01/16 08:22 Dose: 25 mg Montelukast Sodium (Singulair) 10 mg PO HS [facility] Last Admin: 10/31/16 22:04 Dose: 10 mg Pantoprazole Sodium (Protonix Ec Tab) 40 mg PO 0600 [facility] Last Admin: 11/01/16 06:13 Dose: 40 mg - Labs Labs: 10/31/16 07:00 PT 10.7 Seconds (9.9-11.8) 10/29/16 18:10 INR 0.99 (0.93-1.08) 10/29/16 18:10 APTT 26.7 Seconds (23.7-30.8) 10/29/16 18:10 - Constitutional Appears: Chronically Ill - Neck Exam Neck Exam: Full ROM - Respiratory Exam Respiratory Exam: Rhonchi (bilateral scattered rhonchi present) - Cardiovascular Exam Cardiovascular Exam: REGULAR RHYTHM, Murmur (systolic murmur noted.. Soft heart tones present.) - GI/Abdominal Exam GI & Abdominal Exam: Soft, Normal Bowel Sounds - Extremities Exam Extremities Exam: Pedal Edema (trace ankle edema) - Psychiatric Exam Psychiatric exam: Normal Affect, Normal Mood Assessment and Plan - Assessment and Plan (Free Text) Assessment: Impression: * COPD exacerbation, clinically improved * Peripheral edema secondary to right heart failure, clinically improved * LV dysfunction, appears compensated * Pulmonary fibrosis. * anemia Recommendations: * Continue current cardiac medications. * Continue sodium woundrestriction. * Continue bronchodilator therapy. * Keep negative fluid balance in place. * Will follow.
[2016-11-01] MEDS ORDERED: Insulin Reg-LOW-Coverage SC SCH (11:30)
== END 2016-11-01 13:47 | DRG 191 ==
LOC: ED 18:07 → ERH 20:06 → 3RNO 21:35
PROVIDERS: ADMIT Internal Medicine; ATTEND Internal Medicine
DX: J44.1 Chronic obstructive pulmonary disease with (acute) exacerbation (principal); I42.9 Cardiomyopathy, unspecified; N18.4 Chronic kidney disease, stage 4 (severe); E11.22 Type 2 diabetes mellitus with diabetic chronic kidney disease; J84.10 Pulmonary fibrosis, unspecified; I12.9 Hypertensive chronic kidney disease with stage 1 through stage 4 chronic kidney disease, or unspecified chronic kidney disease; I25.10 Atherosclerotic heart disease of native coronary artery without angina pectoris; I25.2 Old myocardial infarction; E78.5 Hyperlipidemia, unspecified; M19.90 Unspecified osteoarthritis, unspecified site; M81.0 Age-related osteoporosis without current pathological fracture; K27.9 Peptic ulcer, site unspecified, unspecified as acute or chronic, without hemorrhage or perforation; K21.9 Gastro-esophageal reflux disease without esophagitis; K57.90 Diverticulosis of intestine, part unspecified, without perforation or abscess without bleeding; D64.9 Anemia, unspecified; E03.9 Hypothyroidism, unspecified; Z79.52 Long term (current) use of systemic steroids; Z79.82 Long term (current) use of aspirin; Z79.899 Other long term (current) drug therapy; Z86.73 Personal history of transient ischemic attack (TIA), and cerebral infarction without residual deficits; Z87.440 Personal history of urinary (tract) infections; Z99.81 Dependence on supplemental oxygen; L91.8 Other hypertrophic disorders of the skin; Z88.1 Allergy status to other antibiotic agents; F41.9 Anxiety disorder, unspecified; Z86.11 Personal history of tuberculosis

== ENCOUNTER 2016-11-01 13:50 | Inpatient (IN) | payer OTHER ==
[2016-11-01] MEDS ORDERED: MethylPREDNISolone 40 mg Vial IVP SCH (15:00)
[2016-11-01] MEDS ORDERED: Pneumococcal 23-Valent Vaccine IM ONE (16:51)
[2016-11-01 16:52] VITALS: BMI 25.9
[2016-11-01] MEDS: Insulin Reg-LOW-Coverage SC SCH ×2 (17:04→22:08)
[2016-11-01] MEDS: MethylPREDNISolone 40 mg Vial IVP SCH (17:50)
[2016-11-01] MEDS: Arformoterol 15 mcg/2 ml Inh Sol IH SCH (19:58)
[2016-11-01] MEDS: Albuterol-Ipratrop 3 mg / 0.5 (3 ml) UD IH SCH (19:59)
[2016-11-01] MEDS: Budesonide 0.25 mg/2 ml Inhal Susp UD IH SCH (20:28)
[2016-11-01] MEDS: guaiFENesin 100 mg/5 ml Syrup UD PO PRN (21:44)
[2016-11-02] MEDS: Albuterol-Ipratrop 3 mg / 0.5 (3 ml) UD IH SCH ×4 (01:01→20:03)
[2016-11-02] MEDS: MethylPREDNISolone 40 mg Vial IVP SCH ×5 (05:21→21:00)
[2016-11-02] MEDS ORDERED: Pantoprazole 40 mg EC Tab PO SCH (06:00)
[2016-11-02] MEDS: Insulin Reg-LOW-Coverage SC SCH ×4 (06:42→22:31)
[2016-11-02] MEDS: Arformoterol 15 mcg/2 ml Inh Sol IH SCH ×2 (07:11→20:03)
[2016-11-02] MEDS: Budesonide 0.25 mg/2 ml Inhal Susp UD IH SCH ×2 (07:11→20:02)
[2016-11-02] MEDS: METHENAMINE 1 GM PO SCH (09:51)
[2016-11-02] MEDS: cefTRIAXone 1 gm 1 GM/100 ML BAG IVPB SCH (09:51)
[2016-11-02] MEDS ORDERED: METHENAMINE PO SCH (10:00)
[2016-11-02] MEDS ORDERED: Home Med 1 UNIT PO SCH (10:00)
[2016-11-02] MEDS: Calcitonin 200 Int Units/Inh Nasal Spray (3.7 ml) NS SCH (10:28)
[2016-11-02] MEDS: guaiFENesin 100 mg/5 ml Syrup UD PO PRN (21:00)
[2016-11-03] MEDS: Albuterol-Ipratrop 3 mg / 0.5 (3 ml) UD IH SCH ×4 (02:27→21:34)
[2016-11-03] MEDS: MethylPREDNISolone 40 mg Vial IVP SCH ×3 (05:00→22:37)
[2016-11-03] MEDS: Pantoprazole 20 mg EC Tab PO SCH (05:12)
[2016-11-03] MEDS: Insulin Reg-LOW-Coverage SC SCH ×4 (07:13→23:17)
[2016-11-03] MEDS: Budesonide 0.25 mg/2 ml Inhal Susp UD IH SCH ×2 (07:17→21:35)
[2016-11-03] MEDS: Arformoterol 15 mcg/2 ml Inh Sol IH SCH ×2 (07:17→21:34)
[2016-11-03 08:09] LABS: HEMOGLOBIN 12.6 gm/dL (12.0-16.0)
[2016-11-03 08:17] LABS: CALCIUM 9.7 mg/dL (8.4-10.5)
[2016-11-03] MEDS: METHENAMINE 1 GM PO SCH (09:42)
[2016-11-03] MEDS: Calcitonin 200 Int Units/Inh Nasal Spray (3.7 ml) NS SCH (09:45)
[2016-11-03] MEDS: cefTRIAXone 1 gm 1 GM/100 ML BAG IVPB SCH (09:58)
[2016-11-03] MEDS ORDERED: MethylPREDNISolone 40 mg Vial IVP SCH (11:32)
[2016-11-04] MEDS: Albuterol-Ipratrop 3 mg / 0.5 (3 ml) UD IH SCH ×4 (02:29→19:55)
--- NOTE | 2016-11-04 05:11 | PN ---
DATE: 11/03/2016 SUBJECTIVE: This 86-year-old female was examined at her bedside. Her case was reviewed with her nurse and her daughter, Ida Peralta in detail. The patient remains hospitalized for acute exacerbation of chronic obstructive pulmonary disease for which she was admitted with overt wheezing and also shortness of breath. Since admission, the patient has been given parenteral IV Solu-Medrol as well as IV Lasix and her respiratory status improves daily. At present, she denies any chest pain. She denies any cough or hemoptysis and there have been no fever or chills reported. PHYSICAL EXAMINATION VITAL SIGNS: Her temperature is 98.1, respirations 18, pulse is 95, and blood pressure is 138/70 with a pulse oximetry of 99% on 2 liters nasal O2. HEENT: Head is normocephalic and atraumatic. Eyes: No icterus. Extraocular muscles are full. Pupils are equal, round, and reactive to light. Ears: Clear. Throat: Noninjected.. NECK: Supple. HEART: Regular S1 and S2. No pathological rubs, murmurs, or gallops. LUNGS: Posterior rhonchi. Mild expiratory wheezing that clears with coughing. ABDOMEN: Soft and nontender. There is no palpable organomegaly. There is no rebound. There is no guarding. There is no tenderness. EXTREMITIES: Trace edema. SKIN: Without rash. NEUROLOGIC: Intact. PSYCHOLOGIC: Chronic anxiety. VASCULAR: Legs are warm to touch. LABORATORY DATA: Hemoglobin 12.6, hematocrit 39.3. Sodium 140, K 4.2, chloride is 99, bicarbonate 31, BUN 66, creatinine 1.7. Estimated GFR is 28 mL per minute. Random blood sugar was 115. Blood sugars yesterday were fasting 122, before lunch 138, before dinner 210, and before bedtime 152. IMPRESSION: An 86-year-old female with exacerbation of chronic obstructive pulmonary disease manifested by shortness of breath and expiratory wheezing with history of pulmonary fibrosis, allergic rhinitis, history of remote myocardial infarction, history of cardiomyopathy, history of right heart failure manifested by pedal edema, also insulin-dependent diabetes mellitus, history of stable atherosclerotic heart disease, chronic hypertension, hyperlipidemia, osteoporosis, degenerative arthritis, peptic ulcer disease with gastroesophageal reflux disease, and asthma. PLAN: At present, continue heart healthy diabetic diet, nasal O2, blood sugar checks, a.c. meals and bedtime with regular low dose insulin coverage, a.c. meals and bedtime. She continues on daily physical therapy and occupational therapy. She will continue on Zestril 2.5 mg p.o. daily, Solu-Medrol 30 mg IV q. 8 hours., Singulair 10 mg p.o. bedtime, Rocephin 1 g IV daily, Robitussin DM 5 mL p.o. q.6 hours p.r.n. cough, Pulmicort and Brovana inhalational therapy, Protonix 20 mg p.o. daily, [place] 500 mg p.o. t.i.d., Miacalcin nasal spray alternate nostril daily, metoprolol tartrate 25 mg b.i.d., Lipitor 10 mg p.o. daily, Lasix 40 mg IV daily, Imdur 30 mg p.o. daily, Ecotrin 81 mg p.o. daily, DuoNeb nebulizer q.6 hours p.r.n. cough, Claritin 10 mg p.o. daily. The patient will have a repeat basic metabolic panel in the a.m. She will continue on steroid taper as tolerated. All of her above diagnoses have been discussed in detail with herself and her daughter at the bedside and greater than fifty minutes were spent in the care, coordination of care, review of care, and direction of care for this patient today. Overall, prognosis is still poor. The patient remains stable at present. Marce Gold MD MTDD
[2016-11-04] MEDS: MethylPREDNISolone 40 mg Vial IVP SCH ×3 (06:01→22:15)
[2016-11-04] MEDS: Pantoprazole 20 mg EC Tab PO SCH (06:03)
[2016-11-04] MEDS: Arformoterol 15 mcg/2 ml Inh Sol IH SCH ×2 (07:51→19:55)
[2016-11-04] MEDS: Budesonide 0.25 mg/2 ml Inhal Susp UD IH SCH ×2 (07:52→19:55)
[2016-11-04] MEDS: Insulin Reg-LOW-Coverage SC SCH ×4 (07:58→22:16)
[2016-11-04 08:23] LABS: CALCIUM 9.6 mg/dL (8.4-10.5)
[2016-11-04] MEDS: Calcitonin 200 Int Units/Inh Nasal Spray (3.7 ml) NS SCH (09:58)
[2016-11-04] MEDS: cefTRIAXone 1 gm 1 GM/100 ML BAG IVPB SCH (09:59)
[2016-11-04] MEDS ORDERED: Nitroglycerin 2% Ointment Foilpak UD TOP PRN (10:23)
[2016-11-04] MEDS: METHENAMINE 1 GM PO SCH (11:00)
[2016-11-04] MEDS ORDERED: Magnesium Hydroxide Susp 30 ml UD PO PRN (13:00)
[2016-11-05] MEDS: Albuterol-Ipratrop 3 mg / 0.5 (3 ml) UD IH SCH ×4 (01:59→20:59)
[2016-11-05] MEDS: MethylPREDNISolone 40 mg Vial IVP SCH ×3 (05:50→22:01)
[2016-11-05] MEDS: Pantoprazole 20 mg EC Tab PO SCH (05:50)
[2016-11-05] MEDS: Insulin Reg-LOW-Coverage SC SCH ×4 (06:34→22:00)
[2016-11-05] MEDS: Budesonide 0.25 mg/2 ml Inhal Susp UD IH SCH ×2 (07:33→20:59)
[2016-11-05] MEDS: Arformoterol 15 mcg/2 ml Inh Sol IH SCH ×2 (07:33→20:59)
--- NOTE | 2016-11-05 08:03 | PN ---
DATE: 11/04/2016 SUBJECTIVE: This 86-year-old female was examined at her bedside, and her case was reviewed in detail with nursing staff and her daughter, Ida Peralta. The patient is complaining of obstipation. 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 The patient denies any fever or chills. She has a cough that is productive of a clear sputum. She denies any active chest pain and is tolerating diet and medication and cooperating with physical and occupational therapy. PHYSICAL EXAMINATION VITAL SIGNS: Temperature is 98.3, respirations 20, pulse 92, and blood pressure 122/74 with pulse oximetry of 94% on room air. HEENT: Head is normocephalic and atraumatic. Eyes: No icterus. Ears clear. Throat non-injected. NECK: Supple. HEART: S1, S2, regular. No pathological rubs, murmurs or gallops. LUNGS: Have occasional rhonchi that clear with coughing. There is decreased wheezing noted in all lung peralta today. ABDOMEN: Soft, nontender. No palpable organomegaly. No rebound. No guarding. No tenderness. EXTREMITIES: Show no clubbing. No cyanosis. No edema. SKIN: Without rash. NEUROLOGICAL: Intact. PSYCHOLOGICAL: She is alert and oriented x3. VASCULAR: Legs are warm to touch. LABORATORY DATA: Hemoglobin 12.6, hematocrit 39.3. Sodium 140, potassium 4.3, chloride 101, bicarbonate 31, BUN 73, creatinine 1.7, estimated GFR 28 mL/min. Blood sugar a.c. breakfast 148 mg/dL and before lunch 122 mg/dL. IMPRESSION: This is an 86-year-old female with exacerbation of chronic obstructive pulmonary disease and pulmonary fibrosis, chronic respiratory insufficiency, history of allergic rhinitis, stable atherosclerotic heart disease, history of recurrent urinary tract infection, insulin-dependent diabetes mellitus, osteoporosis, chronic hypertension, chronic renal failure stage 4, hyperlipidemia, peptic ulcer disease with gastroesophageal reflux disease, anxiety neurosis, degenerative arthritis and now obstipation. PLAN: The plan as discussed with the patient and her daughter will be to order milk of magnesia 30 mL p.o. at bedtime tonight as per her request. She will continue on medications including Zestril 2.5 mg p.o. daily, Tylenol 650 mg p.o. q.6 hours p.r.n. pain or temperature greater than 101, Solu-Medrol 30 mg IV q.8 hours, Singulair 10 mg p.o. at bedtime, Rocephin 1 mg IV q.24 hours, Robitussin DM 5 mL p.o. q.6 hours p.r.n. cough, Pulmicort inhalation therapy q.12 hours, Protonix 20 mg p.o. daily, calcium carbonate 500 mg p.o. t.i.d., nitroglycerin ointment 1 inch to the chest wall q.4 hours if her systolic blood pressure greater than 160 or her diastolic blood pressure is greater than 100, Miacalcin nasal spray alternate nostril daily, metoprolol tartrate 50 mg p.o. b.i.d., Lipitor 10 mg p.o. at dinner time, Lasix 40 mg IV daily, Imdur 30 mg p.o. daily, regular low-dose insulin coverage a.c. meals and at bedtime, Ecotrin 81 mg p.o. daily, DuoNeb nebulizer inhalation therapy q.6 hours, Claritin 10 mg p.o. daily, and Brovana inhalation therapy q.12 hours. The patient continues on heart-healthy diabetic diet. She is receiving physical therapy for reconditioning and gait training. She will continue to need to have her blood sugars monitored, nasal O2, and ultimate plan will be for discharge to home with supervision by her family when medically stable. Greater than fifty minutes was spent in the care, coordination of care, review of care, and outlining of care and adjustment of mediation and discussion with the patient, nursing staff and her daughter Ida Peralta today. Marce Gold MD MTDD
[2016-11-05] MEDS: METHENAMINE 1 GM PO SCH (09:31)
[2016-11-05] MEDS: Calcitonin 200 Int Units/Inh Nasal Spray (3.7 ml) NS SCH (09:33)
[2016-11-05] MEDS: cefTRIAXone 1 gm 1 GM/100 ML BAG IVPB SCH (10:57)
[2016-11-06] MEDS: Albuterol-Ipratrop 3 mg / 0.5 (3 ml) UD IH SCH ×4 (01:48→19:02)
[2016-11-06] MEDS: Pantoprazole 20 mg EC Tab PO SCH (05:10)
[2016-11-06] MEDS: MethylPREDNISolone 40 mg Vial IVP SCH ×3 (05:11→23:01)
[2016-11-06] MEDS: Insulin Reg-LOW-Coverage SC SCH ×4 (06:49→23:27)
[2016-11-06] MEDS: Arformoterol 15 mcg/2 ml Inh Sol IH SCH ×2 (07:34→19:02)
[2016-11-06] MEDS: Budesonide 0.25 mg/2 ml Inhal Susp UD IH SCH ×2 (07:34→19:02)
[2016-11-06 08:01] LABS: HEMOGLOBIN 12.1 gm/dL (12.0-16.0)
[2016-11-06] MEDS: METHENAMINE 1 GM PO SCH (10:55)
[2016-11-06] MEDS: Calcitonin 200 Int Units/Inh Nasal Spray (3.7 ml) NS SCH (10:57)
[2016-11-06] MEDS: cefTRIAXone 1 gm 1 GM/100 ML BAG IVPB SCH (10:58)
--- NOTE | 2016-11-06 10:58 | PN ---
DATE: 11/02/2016 SUBJECTIVE: This 86-year-old female was examined while in physical therapy and her case was reviewed in detail with herself, her nurse, and physical therapist, Dank. The patient remains hospitalized with exacerbation of chronic obstructive pulmonary disease and comorbidities of stable atherosclerotic heart disease, history of pulmonary fibrosis advanced, chronic obstructive pulmonary disease for which the patient uses home O2 as well as history of remote myocardial infarction with cardiomyopathy, diet-controlled diabetes mellitus, hyperlipidemia, chronic hypertension, chronic renal failure stage 3 to 4, degenerative arthritis, osteoporosis, history of peptic ulcer disease with GERD, chronic anxiety, neurosis, history of asthma, and deconditioning. The patient was admitted to the [facility] with acute shortness of breath, expiratory wheezing, and was cleared by cardiology and pulmonary for transfer to transitional care rehab. The patient remains chronically anxious and is receiving medical therapy including Zestril, Tylenol, Solu-Medrol intravenously, Singulair, IV Rocephin, oral Robitussin, Pulmicort inhalational therapy, Brovana inhalational therapy, dual nebulizer inhalational therapy, oral Protonix, calcium carbonate, Miacalcin nasal spray, metoprolol tartrate, Lipitor, parenteral Lasix, oral Imdur, regular insulin coverage a.c. meals and at bedtime,Ecotrin and Claritin. On questioning the patient today, she is cooperating with physical therapy. She is feeling less short of breath and was doing her physical therapy without nasal O2. She denied any fever or chills. PHYSICAL EXAMINATION: VITAL SIGNS: Her temperature was 98.2, respirations 18, pulse 90, and blood pressure 110/62. HEENT: Head is normocephalic, atraumatic. Eyes show no icterus. Ears are clear. Throat is non-injected. NECK: Supple. CARDIOPULMONARY: Heart is regular S1 and S2. No pathological rubs, murmurs or gallops. LUNGS: Occasional rhonchi that cleared with coughing. There was no audible wheezing in the posterior lung peralta, but minimal audible wheezing in the anterior right lung field. ABDOMEN: Soft, nontender. No palpable organomegaly. No rebound. No guarding. No tenderness. EXTREMITIES: No clubbing. No cyanosis. No edema. SKIN: Without rash. No ulcerations. VASCULAR: Legs were warm to touch. PSYCHOLOGICAL: Alert, chronically anxious. NEUROLOGIC: Grossly intact. LABORATORY DATA: White count 8900, hemoglobin 12.2, hematocrit 38.8, platelets 212,000. PT/INR 0.99, PTT 26.7, normal. Sodium 133, potassium 4.9, chloride 98, bicarb 26, BUN 66, creatinine 2.0. Estimated GFR 24 mL/minute. Random blood sugar 136. All liver function testing was normal including bilirubin 0.4, AST 27, ALT 29, alk phos 51. Magnesium normal 1.9. CPK normal 62. Troponin normal less than 0.01 x2. Chest x-ray consistent with COPD, pulmonary fibrosis. No active CHF noted. IMPRESSION: An 86-year-old female with exacerbation of chronic obstructive pulmonary disease, advanced pulmonary fibrosis, respiratory insufficiency, which requires her to use nebulizers and nasal oxygen chronically at home and when ambulatory with comorbidities of allergic rhinitis, stable atherosclerotic heart disease, history of remote myocardial infarction, cardiomyopathy and stable right heart failure. Also with history of diet-controlled diabetes mellitus, history of hypertension, hyperlipidemia, degenerative arthritis, osteoporosis, peptic ulcer disease with gastroesophageal reflux disease and asthma. PLAN: At present is to continue her heart-healthy diabetic diet. She continues to receive physical and occupational therapy daily. She is ordered to have nasal O2 p.r.n. She is receiving medications including Zestril 2.5 mg p.o. daily, Tylenol 650 mg p.o. q. 6 hours p.r.n. pain or temperature greater than 101. I will decrease her Solu-Medrol to 30 mg IV q. 6, continue Singulair 10 mg at bedtime. She continues on Rocephin 1 g IV q. 24, Robitussin 5 mL p.o. q. 6 hours p.r.n. cough. She will continue on Pulmicort and Brovana inhalational therapy q. 12, dual nebulizer therapy inhalational q. 6, Protonix 20 mg p.o. daily, Os-Leon 500 mg p.o. t.i.d., Miacalcin nasal spray alternate nostril daily, metoprolol tartrate 25 mg p.o. b.i.d, Lipitor 10 mg p.o. daily, Lasix 40 mg IV daily, Imdur 30 mg p.o. daily, regular low-dose insulin coverage a.c. meals and at bedtime, Ecotrin 81 mg p.o. daily, Claritin 10 mg p.o. daily. The patient is ordered to have basic metabolic panel and a hemoglobin and hematocrit in the a.m. As discussed with her nurse, she will be remaining on a 1000 mL p.o. fluid restriction. She will receive pulmonary toiletry, cautious cardiovascular monitoring and overall prognosis so far remained stable at present. Greater than fifty minutes was spent in the care, coordination of care, review of care, and discussion of care with this patient, her nursing staff, physical therapist and family today. Marce Gold MD
--- NOTE | 2016-11-06 13:56 | PN ---
DATE: 11/06/2016 SUBJECTIVE: This is an 86-year-old female who was examined at her bedside. The case was reviewed with her daughter Ida Peralta and the nursing staff. The patient continues to require pulmonary toiletry, parenteral steroids, and inhalation therapy for exacerbation of chronic obstructive pulmonary disease in the setting of the advanced pulmonary fibrosis and chronic obstructive pulmonary disease. The patient denies any fever or chills and was able to move her bowels after the use of laxatives Sunday evening. PHYSICAL EXAMINATION VITAL SIGNS: Shows temperature of 98.2, respirations of 20, pulse of 78 and blood pressure of 128/78. HEENT: Head is normocephalic and atraumatic. Eyes: No icterus. Ears are clear. Throat is non-injected. NECK: Supple. HEART: Regular, S1 and S2. No pathological rubs, murmurs, or gallops. LUNGS: Have occasional wheezing that cleared with coughing and rhonchi that clear with coughing. There are no rales. ABDOMEN: Soft and nontender. EXTREMITIES: Show no clubbing and no cyanosis. Trace edema. SKIN: Without rash. NEUROLOGIC: Grossly intact. PSYCHOLOGIC: Chronic anxiety. VASCULAR: Legs warmth to touch. LABORATORY DATA: Hemoglobin 12.1 and hematocrit 38.7. Sodium 140, K 4.3, chloride 101, bicarb 31, BUN 73, creatinine 1.7, calcium normal 9.6. Blood sugar this morning 127. Blood sugar maximum yesterday 151 mg/dL. IMPRESSION: This is an 86-year-old female with exacerbation of chronic obstructive pulmonary disease and comorbidities including pulmonary fibrosis, allergic rhinitis, atherosclerotic heart disease,stable, history of remote myocardial infarction, cardiomyopathy with ejection fraction of approximately 28%, insulin-dependent diabetes mellitus, chronic renal failure stage III to IV, hyperlipidemia, chronic hypertension, osteoporosis, degenerative arthritis, anxiety neurosis, peptic ulcer disease, and gastroesophageal reflux disease. PLAN: At present is to continue heart healthy diabetic diet. She is receiving physical and occupational therapy, nasal O2 and pulmonary toiletry with Pulmicort inhalational therapy as well as Duo nebulizers. She will continue on Anusol HC suppositories b.i.d. for five days, Claritin 10 mg p.o. daily, Ecotrin 81 mg p.o. daily, regular low dose insulin protocol a.c. meals and at bedtime, Imdur 30 mg p.o. daily, Lasix 40 mg IV daily, Lipitor 10 mg p.o. daily, metoprolol tartrate 50 mg p.o. b.i.d., Miacalcin nasal spray alternate nostril daily, nitroglycerin ointment to chest wall 1 inch q. 4 hours. p.r.n. accelerated hypertension if systolic blood pressure greater than 160 or diastolic blood pressure greater than 100, Os-Leon 500 mg t.i.d., Protonix 20 mg p.o. daily, Rocephin 1 g IV q. 24 h., Singulair 10 mg p.o. at bedtime, Solu-Medrol 30 mg IV q. 8 h,, and Zestril 2.5 mg p.o. daily. She is wearing nasal O2. She remains on physical and occupational therapy and ultimate plan will be for discharge to home when medically stable. Greater than fifty minutes was spent in the coordination of care, review of care, ordering of care and discussion of care with this patient, her daughter and nursing staff today. Overall prognosis still poor, remains stable at present. Marce Gold MD MTDD
[2016-11-07] MEDS: Albuterol-Ipratrop 3 mg / 0.5 (3 ml) UD IH SCH ×4 (01:48→21:00)
[2016-11-07] MEDS: MethylPREDNISolone 40 mg Vial IVP SCH ×3 (06:11→22:44)
[2016-11-07] MEDS: Pantoprazole 20 mg EC Tab PO SCH (06:12)
[2016-11-07] MEDS: Budesonide 0.25 mg/2 ml Inhal Susp UD IH SCH ×2 (07:36→21:00)
[2016-11-07] MEDS: Arformoterol 15 mcg/2 ml Inh Sol IH SCH ×2 (07:36→21:00)
[2016-11-07] MEDS: Insulin Reg-LOW-Coverage SC SCH ×4 (07:48→22:42)
[2016-11-07] MEDS: cefTRIAXone 1 gm 1 GM/100 ML BAG IVPB SCH (10:00)
[2016-11-07] MEDS: METHENAMINE 1 GM PO SCH (12:28)
[2016-11-07] MEDS: Calcitonin 200 Int Units/Inh Nasal Spray (3.7 ml) NS SCH (12:30)
--- NOTE | 2016-11-07 17:13 | PN ---
DATE: 11/07/2016 HISTORY OF PRESENT ILLNESS: This 86-year-old female was examined at her bedside and her case was reviewed in detail with herself, her nurse and her daughter, Ida Peralta. The patient has multiple medical ongoing problems including exacerbation of chronic obstructive pulmonary disease, chronic pulmonary fibrosis, allergic rhinitis, stable atherosclerotic heart disease with remote myocardial infarction and cardiomyopathy, insulin-dependent diabetes mellitus, hyperlipidemia, chronic hypertension, chronic renal failure stage III, osteoporosis, peptic ulcer disease with GERD and anxiety neurosis. The patient has improved since admission with the addition of IV Solu-Medrol which is now being tapered along with pulmonary toiletry including Duo nebulizers and Pulmicort and Brovana inhalational therapy. She denies any fever, chills, chest pain or hemoptysis. PHYSICAL EXAMINATION VITAL SIGNS: At present, has a temperature of 98.7, respirations 18, pulse 75 and blood pressure 116/66 and a pulse ox of 96% on room air. HEENT: Head is normocephalic and atraumatic. Eyes, no icterus. Ears clear. Throat non-injected. NECK: Supple. HEART: Regular S1 and S2. No pathological rubs, murmurs, or gallops. LUNGS: Have occasional rhonchi that clears with cough. There is no audible wheezing. ABDOMEN: Soft and nontender, no palpable organomegaly. EXTREMITIES: No clubbing, no cyanosis, no edema. SKIN: Without rash. NEUROLOGIC: Intact. Motor strength 5/5 and sensory intact. VASCULAR: Legs warm to touch. PSYCHOLOGICAL: Alert and oriented x3. Chronic anxiety. LABORATORY DATA: Hemoglobin 12.1, hematocrit 38.7. Sodium 140, potassium 4.3, chloride 101, bicarb 31, BUN 73, creatinine 1.7, estimated GFR 28 mL/min. Random blood sugar showed fasting blood sugar 127; before lunch 234, before dinner 137 and at bedtime 153 that was last evening for 11/06/2016. IMPRESSION: This is an 86-year-old female with improving exacerbation of chronic obstructive pulmonary disease, advanced pulmonary fibrosis and comorbidities of allergic rhinitis, stable atherosclerotic heart disease, status post remote myocardial infarction with cardiomyopathy, history of insulin-dependent diabetes mellitus, chronic hypertension, hyperlipidemia, chronic renal failure stage III, degenerative arthritis, osteoporosis, peptic ulcer disease with gastroesophageal reflux disease, anxiety neurosis. PLAN: At present is to continue Zestril 2.5 mg p.o. daily. Her Solu-Medrol will be decreased to 20 mg IV q. 12. She continues on Singulair 10 mg p.o. at bedtime, Rocephin 1 mg IV q. 24, Robitussin 5 mL p.o. q. 6 hours p.r.n. cough, Pulmicort inhalational therapy q. 12, Brovana inhalational therapy q. 12 and Duo nebulizer inhalational therapy q. 6, Protonix 20 mg p.o. daily, Os-Leon 500 mg p.o. t.i.d., Miacalcin nasal spray alternate nostrils daily, metoprolol tartrate 50 mg b.i.d., Lipitor 10 p.o. at dinnertime, Lasix 40 mg IV daily, Imdur 30 mg p.o. daily, regular low-dose insulin coverage a.c. meals and at bedtime, Ecotrin 81 mg p.o. daily, Colace 100 mg p.o. daily, Claritin 10 mg p.o. daily. The plan for the patient is to continue her heart healthy renal diabetic diet. She is receiving daily physical and occupational therapy for reconditioning and gait training safety. She is being readied for discharge within the next 48 hours and the patient will be discharged to home with her outpatient support services as previously outlined. Greater than 50 minutes were spent in the care, coordination of care, review of care and discussion of care and ordering of care for this patient today. This case was reviewed in detail with social service and the case filler of the rehab unit as well. Marce Gold MD KIANA
[2016-11-08] MEDS: Albuterol-Ipratrop 3 mg / 0.5 (3 ml) UD IH SCH ×4 (03:00→20:45)
[2016-11-08] MEDS: Pantoprazole 20 mg EC Tab PO SCH (06:19)
[2016-11-08 06:58] VITALS: RESP 20; O2SAT 95
[2016-11-08] MEDS: Budesonide 0.25 mg/2 ml Inhal Susp UD IH SCH ×2 (07:23→20:45)
[2016-11-08] MEDS: Arformoterol 15 mcg/2 ml Inh Sol IH SCH ×2 (07:23→20:45)
[2016-11-08] MEDS: Insulin Reg-LOW-Coverage SC SCH ×4 (07:43→21:49)
[2016-11-08] MEDS: METHENAMINE 1 GM PO SCH (10:43)
[2016-11-08] MEDS: Calcitonin 200 Int Units/Inh Nasal Spray (3.7 ml) NS SCH (10:44)
[2016-11-08] MEDS: MethylPREDNISolone 40 mg Vial IVP SCH ×2 (11:48→22:56)
--- NOTE | 2016-11-08 16:59 | PN ---
DATE: 11/08/2016 SUBJECTIVE: This 86-year-old female was examined at her bedside. Her case was reviewed with herself, her daughter Ida Peralta, the nursing staff and physical therapy. She continues to improve. She was able to walk to therapy and complete her session without oxygen administration today. She denies any chest pain, shortness of breath, cough, hemoptysis, wheezing, shortness of breath, fever or chills. PHYSICAL EXAMINATION: VITAL SIGNS: Her temperature is 98.2, respirations 20, pulse 76 and blood pressure 144/81 with a pulse ox of 95% on room air. HEENT: Her head is normocephalic and atraumatic. Her eye exam, no icterus. Ears, clear. Throat, non-injected. NECK: Supple. HEART: Regular S1 and S2. No pathological rubs, murmurs, or gallops. LUNGS: Have no rhonchi. No wheezing. ABDOMEN: Soft and nontender, no palpable organomegaly. EXTREMITIES: No clubbing, no cyanosis, no edema. SKIN: Without rash. NEUROLOGIC: Intact. PSYCHOLOGICAL: Alert and oriented x3. VASCULAR: Legs are warm to touch. LABORATORY DATA: Her hemoglobin is 12.1, hematocrit 38.7. Blood sugar this morning was 122 and electrolytes show sodium 140, K 4.3, chloride 101, bicarbonate 31, BUN 73, creatinine 1.7 and estimated GFR 28 mL/min. Calcium is normal at 9.6. IMPRESSION: This is an 86-year-old female with improving exacerbation of chronic obstructive pulmonary disease, advanced pulmonary fibrosis and multiple comorbidities including allergic rhinitis, stable atherosclerotic heart disease, history of cardiomyopathy, remote myocardial infarction, history of recurrent urinary tract infections, insulin-dependent diabetes mellitus, hyperlipidemia, chronic hypertension, stage III chronic renal failure, degenerative arthritis, osteoporosis, anxiety neurosis, peptic ulcer disease with GERD. PLAN: At present is to continue nasal O2 p.r.n. The patient has home O2 ready for discharge. She continues on a heart healthy diabetic diet with insulin coverage a.c. meals and at bedtime. She is receiving daily physical and occupational therapy. She will continue on Zestril 2.5 mg p.o. daily, Tylenol 650 mg p.o. q. 6 hours p.r.n. pain, Solu-Medrol 20 mg IV q. 12, Singulair 10 mg p.o. at bedtime, Pulmicort, Brovana and Duo Nebulizer inhalational therapies, Protonix 20 mg p.o. daily, Os-Leon 500 mg p.o. t.i.d., Miacalcin nasal spray alternate nostrils daily, metoprolol tartrate 50 mg p.o. b.i.d., Lipitor 10 mg p.o. daily, Lasix 40 mg p.o. daily, Imdur 30 mg p.o. daily, regular low-dose insulin protocol a.c. meals and at bedtime, Ecotrin 81 mg p.o. daily, Colace 100 mg p.o. daily, Claritin 10 mg p.o. daily, and Anusol HC suppositories b.i.d.. Ultimate plan is for discharge to home tomorrow if medically stable. She will be monitored in my office as an outpatient closely. Overall prognosis, though poor, remains stable at present. She is ready with home O2, Greater than fifty minutes was spent in the care, coordination of care, review of care, outlining of care and discussion of care for this patient today. Marce Gold MD MTDD
[2016-11-09] MEDS: Albuterol-Ipratrop 3 mg / 0.5 (3 ml) UD IH SCH ×2 (02:40→07:26)
[2016-11-09] MEDS: Insulin Reg-LOW-Coverage SC SCH (06:32)
[2016-11-09] MEDS: Budesonide 0.25 mg/2 ml Inhal Susp UD IH SCH (07:26)
[2016-11-09] MEDS: Arformoterol 15 mcg/2 ml Inh Sol IH SCH (07:26)
--- NOTE | 2016-11-09 09:06 | PN ---
DATE: 11/05/2016 SUBJECTIVE: The patient is alert and oriented She has been complaining of blood in her stool after straining to move her bowels. Patient has known history of hemorrhoids and an unremarkable colonoscopy in the last year. At that time there were no polyps or cancers. PHYSICAL EXAMINATION GENERAL: No distress noted. Alert and oriented times three. VITAL SIGNS: VSS Afebrile HEAD; NC/Atraumatic HEENT: EYES; No icterus. EARS; Clear. THROAT; Noninjected. NECK: Supple. HEART: Regular, S1 and S2. LUNGS: Clear lung peralta. No rales appreciated. ABDOMEN: Soft, nontender, no rebound, no guarding, no tenderness. EXTREMITIES: Shows no clubbing, no cyanosis or edema. SKIN: Without rash. NEUROLOGIC: Intact. PSYCHOLOGICAL: Alert. VASCULAR: Legs are warm to touch. LABORATORY DATA: Hemoglobin of 12.6, hematocrit of 39.3. Sodium 140, K 4.3, chloride 101, bicarb 31, BUN is 73 creatinine 1.7 Morning blood sugar was 113 Calcium levels normal at 9.6. IMPRESSION: An 86-year-old female with exacebation of chronic obstructive pulmonary disease, advanced pulmonary fibrosis, history of allergic rhinitis, history of stable atherosclerotic heart disease, history of remote myocardial infarction with cardiomyopathy, also with history of chronic hypertension, hyperlipidemia, insulin-dependent diabetes mellitus, history of recurrent urinary tract infection, history of osteoporosis, degenerative arthritis. hemorrhoidal bleeding when straining to move her bowels. Negative colonoscopy in the recent past. History of peptic ulcer disease with gastroesophageal reflux disease, anxiety neurosis, asthmatic bronchitis, degenerative arthritis. PLAN: At present is to continue to 2 L nasal O2, heart-healthy diabetic diet, she continues on insulin coverage and is receiving physical and occupational therapies. She will continue Zestril 2.5 mg p.o. daily, Tylenol 650 mg p.o. q. 6 hours p.r.n. pain or temperature greater than 101, Solu-Medrol 30 mg IV q. 8, Singulair 10 mg p.o. at bedtime, Rocephin 1 g IV q. 24, Robitussin 5 mL p.o. q. 6 hours p.r.n. cough, Pulmicort and Brovana inhalation therapy q. 12, Protonix 20 mg p.o. daily, calcium carbonate 500 mg p.o. t.i.d., nitroglycerin ointment 1 inch to the chest wall q. 4 hours p.r.n. systolic blood pressure greater 160 or diastolic blood pressure greater than 100, Miacalcin nasal spray alternate nostril daily, Lopressor 50 mg p.o. b.i.d., Lipitor 10 mg p.o. at dinnertime, Lasix 40 mg IV daily, Imdur 30 mg p.o. daily, regular low-dose insulin coverage before meals and at bedtime, Ecotrin 81 mg p.o. daily, Duonebulizer inhalation therapy q. 6 hours, Claritin 10 mg p.o. daily. I will repeat the hemoglobin and hematocrit in the a.m. I have instructed the nursing staff to start her on Colace 100 mg p.o. daily. She will receive Anusol HC suppositories b.i.d. for 5 days and we will monitor her clinical progress. Greater than fifty minutes was spent in the care, coordination of care, review of care and outlining of medical care for this patient today. Her case was reviewed in detail with herself at the bedside along with her nursing staff. Marce Gold MD MTDD
[2016-11-09] MEDS: METHENAMINE 1 GM PO SCH (10:09)
[2016-11-09] MEDS: Calcitonin 200 Int Units/Inh Nasal Spray (3.7 ml) NS SCH (10:10)
[2016-11-09 10:12] VITALS: BP 127/71; PULSE 69
[2016-11-09 11:25] VITALS: TEMP 98.6
--- NOTE | 2016-11-10 05:20 | DS ---
FINAL DIAGNOSES: Exacerbation of chronic obstructive pulmonary disease, improved; chronic advance pulmonary fibrosis; chronic allergy; insulin-dependent diabetes mellitus; stable atherosclerotic heart disease; chronic renal failure stage IV; hyperlipidemia; history of remote myocardial infarction; cardiomyopathy; degenerative arthritis; osteoporosis; peptic ulcer disease with gastroesophageal reflux disease; anxiety; neurosis and hyperlipidemia. DISPOSITION: Home. Followup in my office 11/17/2016. DISCHARGE MEDICATIONS: Solu-Medrol Dosepak as directed to be followed by prednisone 5 mg p.o. daily, Lipitor 20 mg p.o. at bedtime, Ecotrin 81 mg p.o. daily, Imdur 30 mg p.o. daily, Lasix 40 mg p.o. daily, metoprolol tartrate 25 mg p.o. daily, [place] 500 mg p.o. t.i.d., Miacalcin nasal spray alternate nostril daily, Pepcid 20 mg p.o. at bedtime, DuoNeb nebulizer inhalational therapy q.6 hours p.r.n., Singulair 10 mg p.o. at bedtime, enalapril 2.5 mg p.o. daily. SUMMARY: This 86-year-old female was admitted to the [facility] with exacerbation of chronic obstructive pulmonary disease, cough, congestion and expiratory wheezing that was treated with pulmonary toiletry, IV Solu-Medrol taper, DuoNeb nebulizer therapy and physical and occupational therapy and nasal O2. At the time of discharge, the patient was ambulating independently and not requiring nasal O2 during physical therapy or ambulation. PHYSICAL EXAMINATION: VITAL SIGNS Temperature 98.6, respirations 20, pulse 69, and blood pressure of 127/71 with a pulse ox of 95% on room air. HEART: Regular S1 and S2. LUNGS: Clear to auscultation. ABDOMEN: Soft and nontender, EXTREMITIES: Showed no edema. LABORATORY DATA: Her hemoglobin was 12.1 with a hematocrit of 38.7. Random blood sugar was 114 and electrolytes showed sodium 140, K 4.3, chloride 100, bicarb 31, BUN 73, creatinine 1.7, calcium 9.6 and an estimated GFR is 28 mL/min. PLAN: The patient is discharged to home. She will have her assisted living home director services reinstated. She will followup in my office as an outpatient and with Dr. Amor Méndez, her director television news, and her overall prognosis though poor remains stable at present. Both she and family aware of any change in signs and symptoms to present at [facility] ER. Greater than fify minutes was spent in the managment of this patient today. Marce Gold MD MTDD
== END 2016-11-09 12:39 | disposition home or self-care (01) | DRG 191 ==
LOC: TRCU 13:50
PROVIDERS: ADMIT Internal Medicine; ATTEND Internal Medicine
DX: J44.1 Chronic obstructive pulmonary disease with (acute) exacerbation (principal); I12.9 Hypertensive chronic kidney disease with stage 1 through stage 4 chronic kidney disease, or unspecified chronic kidney disease; N18.4 Chronic kidney disease, stage 4 (severe); I42.9 Cardiomyopathy, unspecified; Z99.81 Dependence on supplemental oxygen; E11.22 Type 2 diabetes mellitus with diabetic chronic kidney disease; I50.9 Heart failure, unspecified; J84.10 Pulmonary fibrosis, unspecified; M81.0 Age-related osteoporosis without current pathological fracture; K21.9 Gastro-esophageal reflux disease without esophagitis; I25.10 Atherosclerotic heart disease of native coronary artery without angina pectoris; F41.1 Generalized anxiety disorder; E78.5 Hyperlipidemia, unspecified; M19.90 Unspecified osteoarthritis, unspecified site; K59.00 Constipation, unspecified; J45.909 Unspecified asthma, uncomplicated; Z87.11 Personal history of peptic ulcer disease; I25.2 Old myocardial infarction; Z79.4 Long term (current) use of insulin; Z87.440 Personal history of urinary (tract) infections

== ENCOUNTER 2016-11-18 11:08 | Inpatient (IN) | payer MEDICARE, OTHER ==
--- NOTE | 2016-11-18 11:45 | ED PDOC ---
Arrival/HPI - General Time Seen by Provider: 11/18/16 11:11 Historian: Patient, Other (Daughter) - History of Present Illness Narrative History of Present Illness (Text): 11/18/16 11:36 A 86 year old female, with a history of COPD on home O2, pulmonary fibrosis, and CHF, accompanied by her daughter presents to the emergency department complaining of nausea and abdominal pain every time she eats or drinks for the last few days. Also reports urinary hesitancy. For the past 3 days she notes flu like symptoms including generalized body aches. Also has sob at baseline. The patient denies cough, vomiting, diarrhea, dysuria, or any other symptoms at this time. Time/Duration: 1 week Symptom Onset: Gradual Symptom Course: Unchanged Quality: Other Activities at Onset: Rest, Light Context: Home Past Medical History - Infectious Disease Hx of Infectious Diseases: None - Tetanus Immunization Tetanus Immunization: Unknown - Reproductive Menopause: Yes - Cardiac Hx Cardiac Disorders: Yes Hx Congestive Heart Failure: Yes Hx Hypertension: Yes - Pulmonary Hx Chronic Obstructive Pulmonary Disease (COPD): Yes - Neurological HX Cerebrovascular Accident: Yes - HEENT Hx HEENT Disorder: No Other/Comment: WEARS RX GLASSES - Renal Hx Renal Failure: Yes - Endocrine/Metabolic Hx Diabetes Mellitus Type 1: Yes Hx Hypothyroidism: Yes - Hematological/Oncological Hx Blood Disorders: No Hx Sickle Cell Disease: No Hx Unexplained Bleeding: No - Integumentary Hx Dermatological Disorder: No Other/Comment: multiple brown discolorations chest and face - Musculoskeletal/Rheumatological Hx Arthritis: Yes - Gastrointestinal Hx Gastrointestinal Disorders: Yes (GERD,DIVERTICULITIS) - Genitourinary/Gynecological Hx Genitourinary Disorders: No Hx Reproductive Disorders: No - Psychiatric Hx Psychophysiologic Disorder: Yes Hx Anxiety: Yes Hx Substance Use: No - Past Surgical History Past Surgical History: No Previous - Surgical History Other/Comment: HX L BREAST BX/BENIGN - Anesthesia Hx Anesthesia: Yes Hx Anesthesia Reactions: No Hx Malignant Hyperthermia: No - Suicidal Assessment Feels Threatened In Home Enviroment: No Family/Social History Family/Social History: Other (nc) Smoking Status: Never Smoked Hx Alcohol Use: No Hx Substance Use: No Hx Substance Use Treatment: No Allergies/Home Meds Allergies/Adverse Reactions: Allergies lactose Allergy (Verified 11/01/16 15:27) VOMITING levofloxacin [From Levaquin] Allergy (Verified 11/01/16 15:27) ANGIOEDEMA Home Medications: Home Meds Medication Instructions Recorded Confirmed Enalapril Maleate 2.5 mg PO DAILY 02/16/15 11/18/16 Aspirin [Adult Low Dose Aspirin EC] 81 tab PO DAILY 11/21/15 11/18/16 Ipratropium/Albuterol Sulfate 1 inh INH PRN PRN 11/21/15 11/18/16 [Combivent Respimat Inhal [place]] Methenamine Hippurate 1 gm PO DAILY 11/21/15 11/18/16 Fluticasone/Salmeterol 500/50 1 inh INH BID 11/18/16 11/18/16 [Advair Diskus 500/50] Furosemide [Lasix] 20 mg PO BID 11/18/16 11/18/16 Metoprolol Tartrate [Lopressor] 25 mg PO BID 11/18/16 11/18/16 Omeprazole [Omeprazole] 20 mg PO DAILY 11/18/16 11/18/16 Prednisone [Laurent] 7.5 mg PO DAILY 11/18/16 11/18/16 Simvastatin [Zocor] 20 mg PO DAILY 11/18/16 11/18/16 Review of Systems - Physician Review All systems were reviewed & negative as marked: Yes - Review of Systems Constitutional: Fatigue, Fevers (subjective), Other (body aches) Respiratory: SOB (baseline from pulm fibrosis). absent: Cough Cardiovascular: absent: Chest Pain, Edema Gastrointestinal: Abdominal Pain (with eating), Constipation, Nausea. absent: Diarrhea, Vomiting Physical Exam Vital Signs Reviewed: Yes Vital Signs Temp Pulse Resp BP Pulse Ox 11/18/16 16:20 66 16 93/52 L 96 11/18/16 14:14 61 16 91/51 L 96 11/18/16 12:23 97.8 F 11/18/16 11:09 98.3 F 95 H 22 106/69 97 Appearance: Positive for: Well-Appearing, Non-Toxic, Comfortable Pain Distress: None Mental Status: Positive for: Alert and Oriented X 3 - Systems Exam Head: Present: Atraumatic Pupils: Present: PERRL Mouth: Present: Moist Mucous Membranes Neck: Present: Normal Range of Motion Respiratory/Chest: Present: Clear to Auscultation. No: Respiratory Distress, Accessory Muscle Use Cardiovascular: Present: Regular Rate and Rhythm Abdomen: Present: Tenderness (epigastric and LUQ). No: Distention, Peritoneal Signs, Rebound, Guarding Lower Extremity: No: Edema Neurological: Present: GCS=15, Motor Func Grossly Intact, Normal Sensory Function, Other (no focal deficits) Skin: Present: Warm, Dry Psychiatric: Present: Alert, Oriented x 3 Medical Decision Making ED Course and Treatment: 11/18/16 11:36 Progress Notes: EKG: Ordered, reviewed, and independently interpreted the EKG. Rate : 90 BPM Rhythm : NSR Interpretation : Normal axis. No STEMI. Comparison : Appears similar to prior EKG on 10/30/16. 11/18/16 12:30 EKG: Ordered, reviewed, and independently interpreted the EKG. Rate : 72 BPM Rhythm : NSR Interpretation : No significant changes. Comparison : No previous EKG for comparison. 11/18/16 12:55 Chest X-Ray is similar to prior. disc w Dr Gold- req HIDA, rocephin, flagyl and will admit for further eval - Lab Interpretations Lab Results: 11/18/16 12:00 11/18/16 12:00 Lab Results 11/18/16 13:35: Urine Color Yellow, Urine Appearance Clear, Urine pH 6.0, Ur Specific [place] 1.010, Urine Protein Negative, Urine Glucose (UA) Negative, Urine Ketones Negative, Urine Blood Negative, Urine Nitrate Negative, Urine Bilirubin Negative, Urine Urobilinogen 0.2, Ur Leukocyte Esterase Small H, Urine RBC Negative, Urine WBC 0 - 2, Ur Epithelial Cells 1 - 3, Urine Bacteria Trace 11/18/16 12:00: Sodium 136, Chloride 98, Potassium 4.4, Carbon Dioxide 30, Anion Gap 12, BUN 55 H, Creatinine 2.0 H, Est GFR ( Amer) 29, Est GFR ( Non-Af Amer) 24, Random Glucose 113 H, Calcium 9.4, Total Bilirubin 0.8, AST 23 , ALT 31, Alkaline Phosphatase 40, Troponin I < 0.01, NT-Pro-B Natriuret Pep 371 , Total Protein 5.4 L, Albumin 2.9 L, Globulin 2.5, Albumin/Globulin Ratio 1.2 11/18/16 12:00: pO2 27 L, VBG pH 7.30 L, VBG pCO2 66.0 H*, VBG HCO3 32.5 H, VBG Total CO2 34.5 H, VBG O2 Sat (Calc) 59.6, VBG Base Excess 4.1 H, VBG Potassium 4.0, Sodium 136.0, Chloride 99.0, Glucose 122 H, Lactate 1.4, FiO2 21.0, Venous Blood Potassium 4.0 11/18/16 12:00: WBC 12.3 H D, RBC 4.15, Hgb 12.3, Hct 39.5, MCV 95.2, MCH 29.6, MCHC 31.1, RDW 15.3 H, Plt Count 105 L, MPV 11.6 H, Gran % 81.8 H, Lymph % (Auto ) 6.8 L, [place] % (Auto) 7.6 H, Eos % (Auto) 3.6, Baso % (Auto) 0.2, Gran # 10.05 H, Lymph # 0.8 L, [place] # 0.9 H, Eos # 0.4, Baso # 0.03 - RAD Interpretation Radiology Orders: 11/18/16 11:46 CHEST PORTABLE [RAD] Stat 11/18/16 12:56 ABD & PELVIS W/O PO OR IV CONT [CT] Stat 11/18/16 15:28 BILIARY SCAN (HIDA) [NM] Stat GALLBLADDER & COMMON DUCT [US] Stat - Medication Orders Current Medication Orders: Acetaminophen (Tylenol 325mg Tab) 650 mg PO Q6H PRN PRN Reason: Fever >100.4 F Acetaminophen (Tylenol 325mg Tab) 650 mg PO Q6H PRN PRN Reason: Pain, moderate (4-7) Albuterol/Ipratropium (Duoneb 3 Mg/0.5 Mg (3 Ml) Ud) 3 ml IH [id number] [facility] Last Admin: 11/18/16 20:58 Dose: 3 ml Arformoterol Tartrate (Brovana) 15 mcg IH [id number] [facility] Last Admin: 11/18/16 20:58 Dose: 15 mcg Aspirin (Ecotrin) 81 mg PO DAILY [facility] Atorvastatin Calcium (Lipitor) 10 mg PO DIN [facility] Budesonide (Pulmicort Respules) 0.5 mg IH [id number] [facility] Last Admin: 11/18/16 20:58 Dose: 0.5 mg Calcitonin [place] (Miacalcin) 200 iu NS DAILY [facility] Furosemide (Lasix) 20 mg PO BID [facility] Home Med (Home Med) 1 unit PO DAILY [facility] Metronidazole (Flagyl) 500 mg in 100 mls @ 100 mls/hr IVPB Q8 JEREMY PRN Reason: Protocol Last Admin: 11/18/16 21:19 Dose: 100 mls/hr Ceftriaxone Sodium (Rocephin 1 Gram Ivpb) 1 gm in 100 mls @ 100 mls/hr IVPB DAILY [facility] PRN Reason: Protocol Sodium Chloride (Sodium Chloride 0.9%) 1,000 mls @ 50 mls/hr IV .Q20H [facility] Last Admin: 11/18/16 18:49 Dose: 50 mls/hr Lisinopril (Zestril) 2.5 mg PO DAILY [facility] Metoprolol Tartrate (Lopressor) 25 mg PO BID [facility] Montelukast Sodium (Singulair) 10 mg PO HS [facility] Last Admin: 11/18/16 21:19 Dose: 10 mg Ondansetron HCl (Zofran Inj) 4 mg IVP Q8H PRN PRN Reason: Nausea/Vomiting Pantoprazole Sodium (Protonix Inj) 20 mg IVP DAILY [facility] Prednisone (Prednisone Tab) 5 mg PO DAILY [facility] Discontinued Medications Acetaminophen (Tylenol 325mg Tab) 975 mg PO STAT STA Stop: 11/18/16 11:47 Last Admin: 11/18/16 12:22 Dose: 975 mg Re-Assess: RITESH Pain/Vitals Document 11/18/16 13:22 MB (Rec: 11/18/16 19:20 MB [id number]) Pain Reassessment Is This A Pain ReAssessment? Yes Sleep Is patient sleeping during reassessment? Yes Ceftriaxone Sodium (Rocephin 1 Gram Ivpb) 1 gm in 100 mls @ 200 mls/hr IVPB STAT STA PRN Reason: Protocol Stop: 11/18/16 15:57 Last Admin: 11/18/16 16:38 Dose: 200 mls/hr Sodium Chloride (Sodium Chloride 0.9%) 1,000 mls @ 100 mls/hr IV .Q10H [facility] Last Admin: 11/18/16 16:39 Dose: 100 mls/hr Ondansetron HCl (Zofran Inj) 4 mg IVP ONCE ONE Stop: 11/18/16 11:47 Last Admin: 11/18/16 12:22 Dose: 4 mg - Scribe Statement The provider has reviewed the documentation as recorded by the Deliciaibe Rosalba Wong Provider Scribe Attestation: All medical record entries made by the Scribe were at my direction and personally dictated by me. I have reviewed the chart and agree that the record accurately reflects my personal performance of the history, physical exam, medical decision making, and the department course for this patient. I have also personally directed, reviewed, and agree with the discharge instructions and disposition. Disposition/Present on Arrival - Present on Arrival Any Indicators Present on Arrival: No History of DVT/PE: No History of Uncontrolled Diabetes: No Urinary Catheter: No History of Decub. Ulcer: No History Surgical Site Infection Following: None - Disposition Have Diagnosis and Disposition been Completed?: Yes Diagnosis: Abdominal pain Disposition: HOSPITALIZED Disposition Time: 15:30 Patient Problems: Current Active Problems Problem Status Onset Abdominal pain Acute Condition: STABLE
[2016-11-18 12:06] LABS: ADD MANUAL DIFF? NO
[2016-11-18 12:08] LABS: BASO # 0.03 K/mm3 (0.0-2.0); BASO % 0.2 % (0.0-3.0); EOS # 0.4 (0.0-0.7); EOS % 3.6 % (1.5-5.0); GRAN # 10.05 (1.4-6.5); GRAN % 81.8 % (50.0-68.0); HEMATOCRIT 39.5 % (36.0-48.0); LYMPH # 0.8 (1.2-3.4); LYMPH % 6.8 % (22.0-35.0); MEAN CELL VOLUME 95.2 fL (80.0-105.0); MEAN CORPUSCULAR HEMOGLOBIN 29.6 pg (25.0-35.0); MEAN CORPUSCULAR HGB CONC 31.1 g/dl (31.0-37.0); MEAN PLATELET VOLUME 11.6 fl (7.0-11.0); MONO # 0.9 (0.1-0.6); MONO % 7.6 % (1.0-6.0); PLATELET COUNT 105 10^3/uL (120.0-450.0); RED CELL DISTRIBUTION WIDTH 15.3 % (11.5-14.5); VENOUS BLOOD GAS BASE EXCESS 4.1 mmol/L (0.0-2.0); WHITE BLOOD COUNT 12.3 10^3/ul (4.5-11.0)
[2016-11-18 12:35] LABS: ALB/GLOB RATIO 1.2 (1.1-1.8); ALKALINE PHOSPHATASE 40 U/L (38-133); ALT/SGPT 31 U/L (7-56); AST/SGOT 23 U/L (15-39); BILIRUBIN,TOTAL 0.8 mg/dL (0.2-1.3); BLOOD UREA NITROGEN 55 mg/dL (7-21); CALCIUM 9.4 mg/dL (8.4-10.5); CARBON DIOXIDE 30 mmol/L (21-33); CHLORIDE 98 mmol/L (98-107); GFR AFRICAN-AMERICAN 29; GLUCOSE,RANDOM 113 mg/dL (70-110); POTASSIUM 4.4 mmol/L (3.6-5.0); SODIUM 136 mmol/L (132-148); TOTAL PROTEIN 5.4 g/dL (5.8-8.3)
[2016-11-18 12:49] LABS: TROPONIN I < 0.01 ng/mL
[2016-11-18 13:46] LABS: URINE APPEARANCE CLEAR (CLEAR); URINE BILIRUBIN NEGATIVE (NEGATIVE); URINE BLOOD NEGATIVE (NEGATIVE); URINE COLOR YELLOW (YELLOW); URINE GLUCOSE (UA) NEGATIVE (NEGATIVE); URINE KETONE NEGATIVE (NEGATIVE); URINE LEUKOCYTE ESTERASE SMALL Leu/uL (NEGATIVE); URINE PROTEIN NEGATIVE mg/dL (<30 mg/dL); URINE UROBILINOGEN 0.2 E.U./dL (<1 E.U./dL)
[2016-11-18 13:55] LABS: URINE BACTERIA TRACE (NEG); URINE RBC NEGATIVE /hpf (0-2); URINE WBC 0 - 2 /hpf (0-6)
--- NOTE | 2016-11-18 15:16 | CT ---
PROCEDURE: CT Abdomen and Pelvis without intravenous contrast HISTORY: abd pain w eating COMPARISON: Chest CT with contrast 08/15/[address] without contrast 04/11/2014. TECHNIQUE: Technique. Contrast Dose: None Radiation dose: Total exam DLP = 404 mGy-cm. This CT exam was performed using one or more of the following dose reduction techniques: Automated exposure control, adjustment of the mA and/or kV according to patient size, and/or use of iterative reconstruction technique. FINDINGS: LOWER THORAX: A masslike infiltrate is identified below left lower lobe and image 3 series 2 measuring 1.7 cm. Calcified pleural plaque is again noted in the right lower lobe with limited femora changes changes otherwise evident at both lung bases. Cardiac size remains normal. No effusions. Small hiatal hernia is encountered. LIVER: A tiny lucency seen the medial left lobe liver too small to characterize with a similar focus present the upper spleen. Lack of contrast limits interpretation. GALLBLADDER AND BILE DUCTS: Sludge is identified layering in the dependent gallbladder with gallbladder mildly distended and otherwise unremarkable appearing. PANCREAS: Unremarkable. No gross lesion or ductal dilatation. SPLEEN: Unremarkable. ADRENALS: Unremarkable. No mass. KIDNEYS AND URETERS: Bilateral cortical atrophy is identified as well as the lower pole right renal cyst and an upper pole left renal cyst. No obstructive uropathy bilaterally. No radiodense urolithiasis. VASCULATURE: Unremarkable. No aortic aneurysm. BOWEL: Is no bowel obstruction appreciated and there is moderate fecal loading throughout the colon. Extensive colonic diverticular changes are seen throughout colon diffusely without diverticulitis. Small bowel loops are unremarkable appearing. APPENDIX: Unremarkable. Normal appendix. PERITONEUM: No measure edema. No free fluid. No free air. LYMPH NODES: Unremarkable. No enlarged lymph nodes. BLADDER: Urinary bladder is distended but otherwise unremarkable. REPRODUCTIVE: Unremarkable. BONES: No acute fracture. OTHER FINDINGS: None. IMPRESSION: Nonacute abdomen pelvis CT as discussed above. Diffuse colonic diverticulosis is appreciate without diverticulitis. Sludge layers in the dependent gallbladder which is distended but otherwise unremarkable appearing. 1.7 cm nodular infiltrates is seen in the left lower lobe in the interval, not seen on prior chest CT 08/15/2016. Clinical correlation CT follow-up are advised.
--- NOTE | 2016-11-18 15:19 | CARD ---
APPROVED REPORT EKG Measurement Heart [id number] <Conclusion> Normal sinus rhythm Normal ECG
[2016-11-18] MEDS ORDERED: cefTRIAXone 1 gm 1 GM/100 ML BAG IVPB STA (15:28)
[2016-11-18] MEDS ORDERED: Sodium Chloride 0.9% 1,000 ML IV SCH ×2 (15:30→18:08)
--- NOTE | 2016-11-18 16:15 | US ---
HISTORY: abd pain after eating COMPARISON: Preliminary abdomen pelvis CT 11/18/2016. TECHNIQUE: Sonographic evaluation of the right upper quadrant of the abdomen. FINDINGS: LIVER: Measures 13.2 cm in length. Normal echogenicity of the liver parenchyma. No mass. No intrahepatic bile duct dilatation. GALLBLADDER: Gallbladder is only mildly distended with sludge less apparent in the dependent portion than on the prior CT today 11/16/2018. There is borderline thickening of the gallbladder wall without pericholecystic fluid collection. Common bile duct caliber is borderline dilated to 7.0 mm is likely normal for the patient's age nevertheless. COMMON BILE DUCT: Measures 7.0 mm. No stones. Borderline dilated. PANCREAS: Unremarkable as visualized. No mass. No ductal dilatation. RIGHT KIDNEY: Measures 8.4 cm in length. Cortical atrophy. Lower pole renal cyst 3 point 4 cm greatest dimension. No calculus, mass, or hydronephrosis. AORTA: No aneurysmal dilatation. IVC: Unremarkable. OTHER FINDINGS: None . IMPRESSION: Borderline mural thickening or bladder without pericholecystic fluid collection. Borderline dilatation of the CBD without choledocholithiasis. Sludge is less apparent in the current examination on the prior CT. Further clinical correlation is advised. Simple cyst right kidney. Right renal cortical atrophy is identified.
--- NOTE | 2016-11-18 17:18 | RAD ---
HISTORY: sob COMPARISON: Prior portable chest radiograph 10/29/2016. FINDINGS: LUNGS: Right-sided volume loss and fibrosis calcified pleural plaque in seen in the right lateral chest/pleural space. Calcified triangular density at the mid left chest again evident. PLEURA: Fibrosis of the right costophrenic sulcus is again appreciated. No acute right pleural effusion. No left pleural effusion. CARDIOVASCULAR: Normal. OSSEOUS STRUCTURES: No significant abnormalities. VISUALIZED UPPER ABDOMEN: Normal. OTHER FINDINGS: None. IMPRESSION: No acute infiltrate or pleural effusion bilaterally. Chronic fibrotic pleural/pulmonary change again seen the right chest and mid left lung with marked right volume loss again appears stable.
[2016-11-18] MEDS: Albuterol-Ipratrop 3 mg / 0.5 (3 ml) UD IH SCH (20:58)
[2016-11-18] MEDS: Budesonide 0.5 mg/2 ml Inhal Susp UD IH SCH (20:58)
[2016-11-18] MEDS: Arformoterol 15 mcg/2 ml Inh Sol IH SCH (20:58)
[2016-11-18] MEDS: metroNIDAZOLE IV 500 mg/100 ml 500 MG/100 ML BAG IVPB SCH (21:19)
[2016-11-18 22:19] VITALS: BMI 24.7
[2016-11-18] MEDS ORDERED: Pneumococcal 23-Valent Vaccine IM ONE (22:21)
[2016-11-19] MEDS: Albuterol-Ipratrop 3 mg / 0.5 (3 ml) UD IH SCH ×5 (01:20→19:59)
[2016-11-19] MEDS: metroNIDAZOLE IV 500 mg/100 ml 500 MG/100 ML BAG IVPB SCH ×3 (05:12→21:31)
--- NOTE | 2016-11-19 05:13 | HP ---
HISTORY OF PRESENT ILLNESS: This 86-year-old female was examined at her bedside after presenting to the [facility] ER complaining of abdominal pain with associated nausea related to food intake over the past 3 days. The patient also was complaining of chronic shortness of breath in the setting of advanced chronic obstructive pulmonary disease and pulmonary fibrosis. The patient is treated at home with home O2 pulmonary toiletry, nebulizer therapies and prednisone treatment. She follows with Dr. Amor Méndez from pulmonary and has an extensive past medical history including stable atherosclerotic heart disease with a remote myocardial infarction and cardiomyopathy, chronic hypertension, chronic renal failure stage III, history of urinary tract infection, chronic obstructive pulmonary disease, advanced pulmonary fibrosis, chronic hypertension, peptic ulcer disease with GERD, history of diverticulosis and diverticulitis in the past, degenerative arthritis, osteoporosis, and hyperlipidemia. ALLERGIES: THE PATIENT HAS ALLERGIES TO LEVOFLOXACIN AND SENSTIVITIES TO LACTOSE. 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 REVIEW OF SYSTEMS: On head review, no headache or seizure. On eyes review, no change in visual acuity. On ears review, no hearing loss. On throat review, no swallowing difficulty. On neck review, no stiffness. On cardiac review; she has a history of remote myocardial infarction, hypertension, cardiomyopathy, atherosclerotic heart disease. On pulmonary; advanced chronic obstructive pulmonary disease and advanced pulmonary fibrosis. On GI, she has history of peptic ulcer disease with GERD, diverticulosis and history of diverticulitis in the past. Colonoscopy within the previous year was remarkable for internal hemorrhoids and diverticulosis. On ; she has a history of urinary tract infection. Vascular; no claudication. Psychological; chronic anxiety neurosis. Neurological; no knowledge of stroke. Endocrine; hyperlipidemia and diet controlled diabetes. FAMILY HISTORY: Noncontributory. PHYSICAL EXAMINATION: VITAL SIGNS: At present, temperature was 97.8, respirations 22, pulse 95 and blood pressure 106/69 with pulse ox of 97% on 2 L nasal O2. HEENT: Head is normocephalic and atraumatic. Eyes; no icterus. Ears are clear. Throat is non-injected. NECK: Supple. HEART: Regular S1 and S2. No pathological rubs, murmurs, or gallops. LUNGS: Occasional rhonchi that clear with coughing. No audible wheezing. ABDOMEN: Soft and nontender. No palpable organomegaly. No rebound. No guarding. No tenderness. EXTREMITIES: Show no clubbing, no cyanosis, no edema. NEUROLOGIC: Unchanged. PSYCHOLOGIC: Alert and oriented x3. VASCULAR: Legs warm to touch. SKIN: Without rash. Without ulceration. LABORATORY DATA: Sodium 136, K 4.4, chloride 98, bicarb 30, creatinine 2.0. Estimated GFR 24 mL per minute. Random blood sugar 113, bilirubin 0.8, AST 23, ALT 31 and alk phos of 40. White count 12,800, hemoglobin 12.3, hematocrit 39.5, and platelets 105,000. Urine; specific gravity 1.010, urine protein negative, 0-2 wbc's and trace bacteria. IMPRESSION: An 86-year-old female with abdominal pain rule out gastroenteritis, rule out cholecystitis with comorbidities of advanced chronic obstructive pulmonary disease, history of pulmonary fibrosis, remote myocardial infarction with stable atherosclerotic heart disease, chronic hypertension, history of cardiomyopathy, hyperlipidemia, peptic ulcer disease with gastroesophageal reflux disease, degenerative arthritis, osteoporosis, chronic renal failure stage III, anxiety neurosis and diet controlled diabetes mellitus. PLAN: At present I have discussed with the patient and Dr. Joseph Bateman, emergency room physician is to admit this patient. She will have blood and urine culture sent and she will be started on Rocephin 1 g IV q. 24 hour and Flagyl 500 mg q. 8 hours. As discussed with her nurse, Hattie Jacinto, she will be treated with Brovana inhalational therapy q. 12 hours, Duo nebulizer therapy q. 6 hours, 2 L nasal O2 p.r.n., Ecotrin 81 mg p.o. daily, Hiprex 1000 mg p.o. daily, Lasix 20 mg p.o. b.i.d., Lipitor 10 mg p.o. daily, metoprolol tartrate 25 mg p.o. b.i.d., holding metoprolol for any blood pressure systolic less than 110 or pulse less than 50; Miacalcin nasal spray alternate nostril daily, prednisone 5 mg p.o. daily, Protonix 20 mg IV daily, Singulair 10 mg p.o. at bedtime, 0.9 saline at 50 mL per hour, Zestril 2.5 mg p.o. daily, and Zofran 4 mg IV q. 8 hours p.r.n. nausea and vomiting. I have ordered HIDA scan. We are waiting results of CT of the abdomen and pelvis. She will be treated with clear liquid diet and is order to have CBC and basic metabolic panel repeated in the a.m. All of this was discussed in detail with the patient, her nurse and emergency room physician and overall prognosis remain stable at present. Marce Gold MD MTDD
[2016-11-19] MEDS: Arformoterol 15 mcg/2 ml Inh Sol IH SCH ×2 (07:04→19:59)
[2016-11-19] MEDS: Budesonide 0.5 mg/2 ml Inhal Susp UD IH SCH ×2 (07:05→19:59)
[2016-11-19 07:34] LABS: MEAN CELL VOLUME 94.4 fL (80.0-105.0); MEAN CORPUSCULAR HEMOGLOBIN 29.5 pg (25.0-35.0); MEAN CORPUSCULAR HGB CONC 31.3 g/dl (31.0-37.0); MEAN PLATELET VOLUME 10.9 fl (7.0-11.0); RED CELL DISTRIBUTION WIDTH 15.2 % (11.5-14.5); WHITE BLOOD COUNT 8.3 10^3/ul (4.5-11.0)
[2016-11-19 07:47] LABS: CALCIUM 8.5 mg/dL (8.4-10.5); POTASSIUM 4.2 mmol/L (3.6-5.0)
[2016-11-19 07:55] LABS: HEMATOCRIT 35.2 % (36.0-48.0)
[2016-11-19] MEDS ORDERED: cefTRIAXone 1 gm 1 GM/100 ML BAG IVPB SCH (10:00)
[2016-11-19] MEDS: METHENAMINE HIPPURATE 1 GM PO SCH (10:44)
[2016-11-19] MEDS: Calcitonin 200 Int Units/Inh Nasal Spray (3.7 ml) NS SCH (17:25)
--- NOTE | 2016-11-20 00:11 | PN ---
DATE: 11/19/2016 SUBJECTIVE: This 86-year-old female was examined at her bedside. She was examined in the presence of her nurse, Hattie Jacinto, and her daughter, Ida Peralta. The patient was admitted with abdominal pain and diffuse constitutional weakness, as well as nausea with no vomiting, Today she states she started to feel hungry and she is requesting to have her diet advanced. According to the patient and the nurse, there have been no reports of fever or chills. There has been no vomiting. No diarrhea. PHYSICAL EXAMINATION GENERAL: At present, the patient is lying in bed. She refuses to wear her nasal O2 at present, and she is chronically anxious. VITAL SIGNS: Her temperature is 98.9, respirations 20, pulse 74, blood pressure 101/65 with a pulse ox of 100%. HEENT: Head is normocephalic and atraumatic. Eyes, show no icterus. Ears clear. Throat non-injected. NECK: Supple. CARDIOPULMONARY: Heart is regular. S1 and S2. LUNGS: Occasional rhonchi that clear with coughing. No wheezing is appreciated. ABDOMEN: Soft, nontender, no palpable organomegaly, no rebound, no guarding, no tenderness. RECTAL: Show no mass, no impaction, guaiac-negative brown stool. EXTREMITIES: Show no clubbing, no cyanosis, no edema. SKIN: No rash. VASCULAR: Legs warm to touch. PSYCHOLOGICAL: Alert, anxious. NEUROLOGICAL: Intact. LABORATORY DATA: White count 8,300, hemoglobin 11, hematocrit 35.2, platelets 89,000. Sodium 136, K 4.2, chloride 101, bicarb 27, BUN 46, creatinine 2.0, random blood sugar was 78. All liver function testing was normal including bilirubin 0.8, AST 23, ALT 31, and alk phos 40. Urinalysis was unremarkable. Microbiology: Blood cultures showed no growth, urine cultures showed no growth. IMPRESSION: This is an 86-year-old female admitted with gastroenteritis, chronic obstructive pulmonary disease, history of chronic renal failure stage 3, hyperlipidemia, stable atherosclerotic heart disease, history of remote myocardial infarction and cardiomyopathy, degenerative arthritis, osteoporosis, anxiety neurosis, history of peptic ulcer disease with gastroesophageal reflux disease. PLAN: The plan at present is to await the results of her HIDA scan. She continues on Zestril 2.5 mg p.o. daily, 0.9 saline at 50 mL per hour, Singulair 10 mg p.o. bedtime, Rocephin 1 g IV q.24, Flagyl 500 mg IV q.8, Pulmicort inhalational therapy q.12, Protonix 20 mg IV q. day, prednisone 5 mg p.o. daily, sodium chloride nasal spray b.i.d. p.r.n., Miacalcin nasal spray alternate nostrils daily, metoprolol tartrate 25 mg b.i.d., Lipitor 10 mg p.o. daily, Lasix 20 mg b.i.d., Ecotrin 81 mg p.o. daily, Duo nebulizers q.6 h nasal O2 p.r.n. The patient will resume her Os-[place] 500 mg p.o. daily upon discharge. We are awaiting the results of her HIDA scan and based on the clinical progress with advancing of her diet, decision will be made for timing of discharge for patient to follow up with GI and Pulmonary upon discharge as an outpatient. Approximately, fifty minutes were spent in the care and management of this patient today and discussion of her case with herself, her family, and nursing staff. Marce Gold MD MTDD
[2016-11-20] MEDS: Albuterol-Ipratrop 3 mg / 0.5 (3 ml) UD IH SCH ×4 (01:03→19:56)
[2016-11-20] MEDS: metroNIDAZOLE IV 500 mg/100 ml 500 MG/100 ML BAG IVPB SCH (05:39)
[2016-11-20 07:08] LABS: HEMATOCRIT 33.1 % (36.0-48.0); MEAN CELL VOLUME 93.8 fL (80.0-105.0); MEAN CORPUSCULAR HEMOGLOBIN 29.5 pg (25.0-35.0); MEAN CORPUSCULAR HGB CONC 31.4 g/dl (31.0-37.0); MEAN PLATELET VOLUME 10.5 fl (7.0-11.0); RED CELL DISTRIBUTION WIDTH 14.9 % (11.5-14.5); WHITE BLOOD COUNT 6.6 10^3/ul (4.5-11.0)
[2016-11-20] MEDS: Budesonide 0.5 mg/2 ml Inhal Susp UD IH SCH ×2 (07:20→19:56)
[2016-11-20] MEDS: Arformoterol 15 mcg/2 ml Inh Sol IH SCH ×2 (07:20→19:56)
--- NOTE | 2016-11-20 07:21 | NM ---
PROCEDURE: Nuclear Medicine Hepatobiliary Scan HISTORY: Postprandial abdominal pain COMPARISON: 11/18/2016. Abdominal ultrasound. TECHNIQUE: 6.4 mCi of technetium 99m Mebrofenin was administered intravenously. Planar images of the abdomen were obtained at 5 min intervals to 60 mins. Delayed images were also obtained. FINDINGS: LIVER: Timely and homogenous uptake. COMMON BILE DUCT: identified at 5 mins. GALLBLADDER: identified at 15 mins. SMALL BOWEL: Identified at 60 mins. IMPRESSION: Normal Hepatobiliary Scan. The cystic duct is patent. Concordant results (preliminary interpretation) provided by [facility]. Procedure Completed: 17:51. Preliminary ([facility]) Report: Dictated and Authenticated: 18:25. Final Interpretation: 07:19. November 20, 2016.
[2016-11-20] MEDS: Calcitonin 200 Int Units/Inh Nasal Spray (3.7 ml) NS SCH (10:46)
--- NOTE | 2016-11-20 12:19 | PN ---
DATE: 11/20/2016 SUBJECTIVE: This 86-year-old female was examined at her bedside. Her case was reviewed in detail with herself and her nurse Sterilng Mendez. The patient is tolerating her soft bland diet. She was seen by Dr. Deluca from GI regarding the mild drop in her hemoglobin, hematocrit from admission; presently, 10.4 with hematocrit of 33.1, on admission 12.3 with hematocrit of 39.5. Of note, the patient was dehydrated on admission and received IV fluids as well. Rectal exam was guaiac negative and Dr. Deluca states he will perform a outpatient endoscopy when the patient is discharged and medically stable. He has no further workup plans for her admission complaints at this time and says that her common bile duct appears normal on review of radiographs including abdominal ultrasound, HIDA and CT of the abdomen. PHYSICAL EXAMINATION VITAL SIGNS: Temperature is 97.8, respirations 20, pulse 87 and blood pressure 134/67 with a pulse ox of 96% on room air. HEENT: Head is normocephalic, atraumatic. Eyes, no icterus. Ears clear. Throat, noninjected. NECK: Supple. HEART: Regular S1, S2. LUNGS: Without wheezing. ABDOMEN: Soft. EXTREMITIES: No edema. SKIN: Without rash. NEUROLOGICAL: Intact. PSYCHOLOGICAL: Alert. VASCULAR: Legs are warm to touch. LABORATORY DATA: White count 6,600, hemoglobin 10.4, hematocrit 33.1, platelets 103,000. Sodium 136, K 4.2, chloride 101, bicarb 27, BUN 46, creatinine 2.0, random blood sugar 78. All liver function testing was normal including bilirubin 0.8, AST 23, ALT 31 and alk phos 40. Urinalysis was unremarkable and blood culture shows no growth in 24 hours and urine culture is negative as well. IMPRESSION: This is an 86-year-old female admitted for gastroenteritis and concerns of cholecystitis that have been ruled out by negative HIDA scan, gallbladder ultrasound and CT of the abdomen. Dr. Deluca declines any intervention or treatment of her gallbladder sludge at this time and recommends a soft bland diet for the patient. She will be treated for chronic obstructive pulmonary disease, chronic hypertension, hyperlipidemia, degenerative arthritis, osteoporosis, peptic ulcer disease with gastroesophageal reflux disease and degenerative arthritis. Her CT of the abdomen noted a questionable mass like infiltrate in her left lower lobe for which a repeat CT of the chest without contrast was recommended. This has been ordered and discussed with the patient and her nurse. Pending the results of this testing and blood work in the a.m., the patient will be readied for discharge with outpatient followup with Dr. Deluca from GI and Dr. Amor Méndez from pulmonary. Overall prognosis remains poor but stable at present. Greater than fifty minutes was spent in the care and management of this patient today. Discussion of her case occured with coconsultants, nursing, herself and family. Marce Gold MD MTDD
--- NOTE | 2016-11-20 14:41 | CT ---
PROCEDURE: CT Chest without contrast HISTORY: ? LLL mass on recent ct of abd ? COMPARISON: None. TECHNIQUE: Contiguous axial images were obtained through the chest without intravenous contrast enhancement. Sagittal and coronal reconstructions were performed. Radiation dose (DLP): 399 mGy-cm. This CT exam was performed using one or more of the following dose reduction techniques: Automated exposure control, adjustment of the mA and/or kV according to patient size, and/or use of iterative reconstruction technique. FINDINGS: LUNGS: There is a mass or masslike consolidation in the left lower lobe measuring 10 x 14 mm seen on image 65 series 4. Follow-up in 4-6 weeks is recommended. This was not present on the study dated 06/10/2016. This could represent pneumonia. A malignancy cannot be excluded. There is a heavily calcified 14 mm nodule in the left upper lobe. There is thick heavy pleural calcification on the right side. There is some parenchymal scarring and bronchiectasis in the right upper lobe posteriorly. MEDIASTINUM: Unremarkable thoracic aorta. No aneurysm. Normal sized heart. Main pulmonary artery unremarkable. No vascular congestion. No lymphadenopathy. PLEURA: No pleural fluid. No pneumothorax. BONES: No fracture. No destructive lesion. UPPER ABDOMEN: Grossly unremarkable. OTHER FINDINGS: None. IMPRESSION: Mass or masslike consolidation in the left lower lobe measuring 10 x 14 mm. 4 to 6 week follow-up is recommended
[2016-11-20] MEDS: METHENAMINE HIPPURATE 1 GM PO SCH (17:19)
[2016-11-21] MEDS: Albuterol-Ipratrop 3 mg / 0.5 (3 ml) UD IH SCH ×4 (01:24→20:25)
--- NOTE | 2016-11-21 02:08 | CON ---
DATE: 11/20/2016 GASTROINTESTINAL FOLLOWUP NOTE Seen and examined at the bedside. This morning, the chart was reviewed, request for consult is for decreasing H and H. HISTORY OF PRESENT ILLNESS: This is an 86-year-old female with past medical history of COPD, on home O2; pulmonary fibrosis; CHF; came to the emergency room with her daughter, complaining of nausea and abdominal pain for the past few days usually after eating or drinking. The patient also complained of generalized body ache and urine hesitancy. Denies any vomiting, diarrhea, dysuria, or coughing. The patient did complain of constipation, but states that she had a bowel movement yesterday. No reports of any bleeding. On admission, she had a CAT scan done of the abdomen and pelvis without any contrast and that showed extensive colonic diverticular changes without diverticulitis. No obstruction, but there was moderate fecal loading throughout the colon. Also, found to have 1.79 nodule infiltrate in the left lower lobe in the interval, not seen on a prior CAT scan on 08/15/2016. There was also sludge layers in the gallbladder, which was extended, but otherwise unremarkable. She had a HIDA scan as well and that was negative for any cystic duct obstruction and also had an abdominal ultrasound, which did show a gallbladder that was mildly distended with sludge, was apparent in the distended portion, then the CT done on 11/16/2016. It showed borderline thickening of the gallbladder without pericholecystic fluid. The common bile duct was 7.0 mm. The patient denies any further abdominal pain. She is eating and tolerating and reported having a bowel movement yesterday. No reports of any melena or bright red blood, but she has also noted to have a dropping hemoglobin and hematocrit. Denies any symptoms of any reflux. She reports that she had an outpatient endoscopy done about a year and a half ago here at the [facility]. She actually had an endoscopy and a colonoscopy on 02/17/2017, by Dr. Borjas and was found to have hiatal hernia, diverticulosis. Biopsies were taken to rule out microscopic colitis. The random colon biopsy showed no evidence of active inflammation and rectal biopsy for rectal erythema showed mucosal ulcer. PAST MEDICAL HISTORY: As stated above, COPD, on home O2; chronic renal failure stage 3; hypertension; atherosclerotic heart disease; advanced pulmonary fibrosis; peptic ulcer disease. Diverticulosis and diverticulitis, hyperlipidemia, osteoporosis, degenerative arthritis. PAST SURGICAL HISTORY: Her last endoscopy and colonoscopy were of January 2016. Biopsies were negative for microscopic colitis. She had a biopsy of the left breast that was benign. No reports of any abdominal surgery. SOCIAL HISTORY: Denies smoking, EtOH, or recreational drugs. FAMILY HISTORY: Noncontributory at this time. ALLERGIES: LACTOSE AND LEVOFLAXACIN. MEDICATIONS: Reviewed as per MAR. REVIEW OF SYSTEMS: Systems reviewed with positive findings, see HPI. PHYSICAL EXAMINATION VITAL SIGNS: Temperature 97.8, blood pressure is 111/60, pulse 87, respirations 20, 96% on room air. HEENT: Sclerae anicteric. NECK: Supple. CARDIAC: S1, S2. LUNGS: With decreased breath sounds. Positive air entry with positive rhonchi. No wheezing. ABDOMEN: Bowel sounds soft, nontender, nondistended. No rebound or guarding. EXTREMITIES: Positive pedal pulses. No edema. NEURO: Awake, alert, and oriented. LABORATORY DATA: WBC is 6.6, H and H is 10.4 and 32.1, platelets are 103. Sodium 136, K 4.2, BUN 101, creatinine is 46, alkaline phosphatase is 2.0. Liver enzymes on 11/18/2016, are within normal limits. Urinalysis showed small amount of leukocyte esterase. Blood cultures negative x2 as well as the urine. ASSESSMENT: This is an 86-year-old female with a past medical history of chronic obstructive pulmonary disease on home O2, anemia, possible gastroenteritis, chronic renal failure stage 3, history of peptic ulcer disease, chronic constipation, and history of chronic renal failure. PLAN: Monitor H and H. We will check the patient's reticulocyte count. Continue GI prophylaxis, she is on Pepcid. She is also on aspirin. Discussed with the patient and Dr. Gold regarding elective outpatient endoscopy. The patient is also on prednisone. We will check the patient's iron studies, B12, ferritin, and folate. Thank you for this consult and for allowing to participate in your patient's care. We will make further recommendations based upon the patient's clinical course. The patient was seen and case discussed with Dr. Deluca. JENN Mir
[2016-11-21 07:08] LABS: RETIC% 2.06 % (0.5-1.5)
[2016-11-21] MEDS: Arformoterol 15 mcg/2 ml Inh Sol IH SCH ×2 (07:09→20:25)
[2016-11-21] MEDS: Budesonide 0.5 mg/2 ml Inhal Susp UD IH SCH ×2 (07:09→20:25)
[2016-11-21 07:11] LABS: HEMATOCRIT 34.4 % (36.0-48.0); MEAN CORPUSCULAR HEMOGLOBIN 29.2 pg (25.0-35.0); MEAN CORPUSCULAR HGB CONC 31.1 g/dl (31.0-37.0); MEAN PLATELET VOLUME 10.3 fl (7.0-11.0); RED CELL DISTRIBUTION WIDTH 14.8 % (11.5-14.5); WHITE BLOOD COUNT 5.6 10^3/ul (4.5-11.0)
[2016-11-21 08:22] LABS: IRON 50 ug/dL (45-180)
[2016-11-21] MEDS: Calcitonin 200 Int Units/Inh Nasal Spray (3.7 ml) NS SCH (10:14)
[2016-11-21] MEDS: METHENAMINE HIPPURATE 1 GM PO SCH (10:15)
[2016-11-21] MEDS ORDERED: POLYETHYLENE GLYCOL 3350 17 GM/Dose PACKET PO ONE (10:30)
[2016-11-21] MEDS: Piperacillin/Tazobact 2.25gm 2.25 GM/100 ML BAG IVPB SCH ×2 (12:21→17:39)
--- NOTE | 2016-11-21 12:31 | PN ---
DATE: 11/21/2016 SUBJECTIVE: This 86-year-old female was examined at the bedside and I did review her case with her daughter Mary Peralta, who has requested that the patient not be told regarding her new CAT scan findings. This was reviewed with Dr. Rodrick Kerr, from radiology and CT of the chest without contrast is now showing a mass like consolidation in the left lower lobe measuring 10 x 14 mm, which could represent pneumonia, however, a malignancy cannot be excluded. This are the new findings from her previous CT of the chest dated 06/10/2016. PHYSICAL EXAMINATION: GENERAL: The patient is denying chest pain or chills. VITAL SIGNS: Her current temperature is 98, respirations 20, pulse 77, and blood pressure 125/82 with a pulse ox of 96%. HEENT: Head is normocephalic atraumatic. Eyes: No icterus. Ears: Clear. Throat: Noninjected. NECK: Supple. HEART: Regular S1 and S2. LUNGS: Have decreased breath sounds at the left base. No rhonchi and no wheezing.. ABDOMEN: Soft, nontender. No palpable organomegaly. No rebound, no guarding, and no tenderness. EXTREMITIES: No clubbing, no cyanosis, and no edema. SKIN: Without rash. NEUROLOGIC: Unchanged. PSYCHOLOGICAL: Chronic anxiety. VASCULAR: Legs are warm to touch. LABORATORY DATA: White count 5600, hemoglobin 10.7, hematocrit 34.4 and platelets 115,000. Sodium 136, K 4.2, chloride 101, bicarbonate 27, BUN 46, creatinine 2.0. Random blood sugar was 78. Iron level 50. TIBC 249, percent saturation 20. All liver function testing was normal including bilirubin 0.8, AST 23, ALT 31 and alkaline phosphatase 40. Urinalysis was unremarkable. Blood cultures showed no growth at 48 hours, urine culture showed no growth. IMPRESSION: This is an 86-year-old female with multiple medical problems including gastroenteritis resolved, chronic obstructive pulmonary disease, history of pulmonary fibrosis now with a new CAT scan finding of a left lower lobe mass like consolidation to rule out malignancy, rule out pneumonia, also with comorbidities, stable atherosclerotic heart disease status post remote myocardial infarction with cardiomyopathy, chronic hypertension, hyperlipidemia, degenerative arthritis, osteoporosis, anemia of chronic disease, chronic renal failure stage III, peptic ulcer disease with gastroesophageal reflux disease, history of hemorrhoids, and anxiety neurosis. PLAN: At present, I discussed with Dr. Poole from the infectious disease to start this patient on Zosyn 2.25 g IV q.6h. She will continue on Zestril 2.5 mg p.o. daily, Singulair 10 mg p.o. bedtime, Pulmicort, and Duo Nebulizer inhalational therapy, prednisone 5 mg p.o. daily, Pepcid 20 mg p.o. bedtime, MiraLAX p.r.n. obstipation, Miacalcin nasal spray alternate nostril daily, metoprolol tartrate 25 mg p.o. b.i.d., Lipitor 10 mg p.o. at dinner time, Lasix 20 mg b.i.d., Ecotrin 81 mg p.o. daily, Colace 100 mg p.o. b.i.d. The patient will be evaluated for transitional care unit for antibiotic therapy. She will be medically optimized and be given pulmonary toiletry as per her family's request. No discussion will be had with the patient at this time regarding the possibility of pulmonary malignancy, and I have instructed the family that it is recommended to have this CAT scan repeated in four to six weeks at which time if the mass like consolidation persists, consideration to PET scanning and lung biopsy can be entertained. Her overall prognosis remains poor, but stable at present and approximately fifty minutes was spent in the care and management of this patient today including discussion with her, nursing, co-consultants and family. Marce Gold MD MTDD
[2016-11-21 12:42] LABS: FOLATE > 20.0 ng/mL
--- NOTE | 2016-11-21 18:56 | CP.PCM.CON ---
History of Present Illness - History of Present Illness History of Present Illness: Infectious Disease Consultation: November 21, 2016 86 yo female who presented with nausea and abdominal pain with 3 day history of flu like symptoms and generalized body aches. The patient had initial SOB. CT of the abd/pelvis as well as the chest is showing a new mass or mass-like structure in the left lower lobe of 10x[address] of chest and 1.[address] of the abd/pelvis 2 days prior to the CT chest. Clinically , the patient appears to be improved. PMHx: COPD, advanced pulmonary fibrosis, hypertension, ASHD, CHF, bronchitis, chronic renal insufficiency/CKD III, degenerative arthritis, anxiety, osteoporosis. PSHx: breast biopsy. Allergies: Levofloxacin Social Hx: No tobacco, EtOH, or illicit drug use. Active Medications Acetaminophen (Tylenol 325mg Tab) 650 mg PO Q6H PRN PRN Reason: Fever >100.4 F Acetaminophen (Tylenol 325mg Tab) 650 mg PO Q6H PRN PRN Reason: Pain, moderate (4-7) Albuterol/Ipratropium (Duoneb 3 Mg/0.5 Mg (3 Ml) Ud) 3 ml IH [id number] [facility] Last Admin: 11/21/16 13:21 Dose: 3 ml Arformoterol Tartrate (Brovana) 15 mcg IH [id number] [facility] Last Admin: 11/21/16 07:09 Dose: 15 mcg Aspirin (Ecotrin) 81 mg PO DAILY [facility] Last Admin: 11/21/16 10:12 Dose: 81 mg Atorvastatin Calcium (Lipitor) 10 mg PO DIN [facility] Last Admin: 11/21/16 17:33 Dose: 10 mg Budesonide (Pulmicort Respules) 0.5 mg IH [id number] [facility] Last Admin: 11/21/16 07:09 Dose: 0.5 mg Calcitonin [place] (Miacalcin) 200 iu NS DAILY [facility] Last Admin: 11/21/16 10:14 Dose: 1 spr Docusate Sodium (Colace) 100 mg PO BID [facility] Last Admin: 11/21/16 17:33 Dose: 100 mg Famotidine (Pepcid) 20 mg PO HS [facility] Last Admin: 11/20/16 21:15 Dose: 20 mg Furosemide (Lasix) 20 mg PO BID [facility] Last Admin: 11/21/16 17:33 Dose: 20 mg Home Med (Home Med) 1 unit PO DAILY [facility] Last Admin: 11/21/16 10:15 Dose: 1 unit Piperacillin Sod/Tazobactam Sod (Zosyn 2.25 Gm In 0.9% 100 Ml) 2.25 gm in 100 mls @ 100 mls/hr IVPB Q6 [facility] PRN Reason: Protocol Stop: 11/21/16 18:59 Last Admin: 11/21/16 17:39 Dose: 100 mls/hr Lisinopril (Zestril) 2.5 mg PO DAILY [facility] Last Admin: 11/21/16 10:10 Dose: 2.5 mg Metoprolol Tartrate (Lopressor) 25 mg PO BID [facility] Last Admin: 11/21/16 17:33 Dose: 25 mg Montelukast Sodium (Singulair) 10 mg PO HS [facility] Last Admin: 11/20/16 21:16 Dose: 10 mg Ondansetron HCl (Zofran Inj) 4 mg IVP Q8H PRN PRN Reason: Nausea/Vomiting Prednisone (Prednisone Tab) 5 mg PO DAILY [facility] Last Admin: 11/21/16 10:13 Dose: 5 mg Sodium Chloride (Festus Nasal [place]) 0 ml NS BID PRN PRN Reason: Nasal congestion Last Admin: 11/20/16 10:49 Dose: 2 sprays Family Hx: none ROS: Nausea, abdominal pain, chills, shortness of breath. No fevers, melena, hematuria, hematemesis, hematochezia, depression, anxiety, chest pain, loss of consciousness, diarrhea, dizziness. Past Patient History - Infectious Disease Hx of Infectious Diseases: None - Tetanus Immunizations Tetanus Immunization: Unknown - Past Social History Smoking Status: Never Smoked - CARDIAC Hx Cardiac Disorders: Yes Hx Congestive Heart Failure: Yes Hx Hypertension: Yes - PULMONARY Hx Chronic Obstructive Pulmonary Disease (COPD): Yes - NEUROLOGICAL HX Cerebrovascular Accident: Yes - HEENT Hx HEENT Problems: No Other/Comment: WEARS RX GLASSES - RENAL Hx Renal Failure: Yes - ENDOCRINE/METABOLIC Hx Diabetes Mellitus Type 1: Yes Hx Hypothyroidism: Yes - HEMATOLOGICAL/ONCOLOGICAL Hx Blood Disorders: No Hx Sickle Cell Disease: No Hx Unexplained Bleeding: No - INTEGUMENTARY Hx Dermatological Problems: No Other/Comment: multiple brown discolorations chest and face - MUSCULOSKELETAL/RHEUMATOLOGICAL Hx Arthritis: Yes - GASTROINTESTINAL Hx Gastrointestinal Disorders: Yes (GERD,DIVERTICULITIS) - GENITOURINARY/GYNECOLOGICAL Hx Genitourinary Disorders: No Hx Reproductive Disorders: No - PSYCHIATRIC Hx Psychophysiologic Disorder: Yes Hx Anxiety: Yes Hx Substance Use: No - SURGICAL HISTORY Other/Comment: HX L BREAST BX/BENIGN - ANESTHESIA Hx Anesthesia: Yes Hx Anesthesia Reactions: No Hx Malignant Hyperthermia: No Meds Allergies/Adverse Reactions: Allergies Allergy/AdvReac Type Severity Reaction Status Date / Time lactose Allergy VOMITING Verified 11/01/16 15:27 levofloxacin [From Levaquin] Allergy ANGIOEDEMA Verified 11/01/16 15:27 - Medications Medications: Current Medications Acetaminophen (Tylenol 325mg Tab) 650 mg PO Q6H PRN PRN Reason: Fever >100.4 F Acetaminophen (Tylenol 325mg Tab) 650 mg PO Q6H PRN PRN Reason: Pain, moderate (4-7) Albuterol/Ipratropium (Duoneb 3 Mg/0.5 Mg (3 Ml) Ud) 3 ml IH [id number] [facility] Last Admin: 11/21/16 13:21 Dose: 3 ml Arformoterol Tartrate (Brovana) 15 mcg IH [id number] [facility] Last Admin: 11/21/16 07:09 Dose: 15 mcg Aspirin (Ecotrin) 81 mg PO DAILY [facility] Last Admin: 11/21/16 10:12 Dose: 81 mg Atorvastatin Calcium (Lipitor) 10 mg PO DIN [facility] Last Admin: 11/21/16 17:33 Dose: 10 mg Budesonide (Pulmicort Respules) 0.5 mg IH [id number] [facility] Last Admin: 11/21/16 07:09 Dose: 0.5 mg Calcitonin [place] (Miacalcin) 200 iu NS DAILY [facility] Last Admin: 11/21/16 10:14 Dose: 1 spr Docusate Sodium (Colace) 100 mg PO BID [facility] Last Admin: 11/21/16 17:33 Dose: 100 mg Famotidine (Pepcid) 20 mg PO HS [facility] Last Admin: 11/20/16 21:15 Dose: 20 mg Furosemide (Lasix) 20 mg PO BID [facility] Last Admin: 11/21/16 17:33 Dose: 20 mg Home Med (Home Med) 1 unit PO DAILY [facility] Last Admin: 11/21/16 10:15 Dose: 1 unit Piperacillin Sod/Tazobactam Sod (Zosyn 2.25 Gm In 0.9% 100 Ml) 2.25 gm in 100 mls @ 100 mls/hr IVPB Q6 [facility] PRN Reason: Protocol Stop: 11/21/16 18:59 Last Admin: 11/21/16 17:39 Dose: 100 mls/hr Lisinopril (Zestril) 2.5 mg PO DAILY [facility] Last Admin: 11/21/16 10:10 Dose: 2.5 mg Metoprolol Tartrate (Lopressor) 25 mg PO BID [facility] Last Admin: 11/21/16 17:33 Dose: 25 mg Montelukast Sodium (Singulair) 10 mg PO HS [facility] Last Admin: 11/20/16 21:16 Dose: 10 mg Ondansetron HCl (Zofran Inj) 4 mg IVP Q8H PRN PRN Reason: Nausea/Vomiting Prednisone (Prednisone Tab) 5 mg PO DAILY [facility] Last Admin: 11/21/16 10:13 Dose: 5 mg Sodium Chloride (Festus Nasal [place]) 0 ml NS BID PRN PRN Reason: Nasal congestion Last Admin: 11/20/16 10:49 Dose: 2 sprays Physical Exam - Constitutional Appears: Non-toxic, No Acute Distress, Chronically Ill - Head Exam Head Exam: ATRAUMATIC, NORMOCEPHALIC - Eye Exam Eye Exam: EOMI, PERRL Pupil Exam: NORMAL ACCOMODATION, PERRL - ENT Exam ENT Exam: Mucous Membranes Moist, Normal External Ear Exam, TM's Normal Bilaterally - Neck Exam Neck exam: Positive for: Full Rom, Normal Inspection - Respiratory Exam Respiratory Exam: Decreased Breath Sounds, NORMAL BREATHING PATTERN. absent: Rales, Rhonchi, Wheezes - Cardiovascular Exam Cardiovascular Exam: REGULAR RHYTHM, RRR, +S1, +S2 - GI/Abdominal Exam GI & Abdominal Exam: Normal Bowel Sounds, Soft. absent: Distended, Tenderness - Extremities Exam Extremities exam: Positive for: full ROM Additional comments: +1 edema of the feet - left slightly worse than the right. - Neurological Exam Neurological exam: Alert, CN II-XII Intact, Oriented x3 - Psychiatric Exam Psychiatric exam: Normal Affect, Normal Mood - Skin Skin Exam: Intact, Normal Color Results - Vital Signs Recent Vital Signs: Last Vital Signs Temp 98 F 11/21/16 07:47 Pulse 77 11/21/16 10:10 Resp 20 11/21/16 07:47 BP 111/66 11/21/16 17:33 Pulse Ox 96 11/21/16 07:47 - Labs Result Diagrams: 11/21/16 06:20 11/19/16 07:25 Labs: Laboratory Results - last 24 hr 11/21/16 11/21/16 11/21/16 05:00 06:20 06:20 WBC 5.6 RBC 3.66 Hgb 10.7 L Hct 34.4 L MCV 94.0 MCH 29.2 MCHC 31.1 RDW 14.8 H Plt Count 115 L MPV 10.3 Retic Count 2.06 H Iron TIBC % Saturation Ferritin 90.1 Vitamin B12 999 H Folate > 20.0 11/21/16 06:20 WBC RBC Hgb Hct MCV MCH MCHC RDW Plt Count MPV Retic Count Iron 50 TIBC 249 L % Saturation 20 Ferritin Vitamin B12 Folate Assessment & Plan - Assessment and Plan (Free Text) Assessment: 86 yo female who presented with abdominal pain, SOB, and nausea. Found to have a masslike structure in the left lower lobe under 2cm in size. This structure was not present on the July 2016 studies. Unclear if this is a pneumonia versus mass/tumor. The patient complains of occasional midepigastric discomfort. Supportive care. On Zosyn for now. If the patient is a candidate for TCU and accepted, would give the Zosyn for 7- 10 day course. If she is unable to go to the TCU (and the patient has refused subacute care), would consider use of Keflex 500 mg TID with Flagyl 500 mg TID for 10-14 days at home. Patient will require a new CT chest a few months from now. Thank you for allowing me to participate in the care of the patient, we will follow with you.
--- NOTE | 2016-11-21 21:23 | PN ---
SUBJECTIVE: Seen and examined at the bedside earlier today. Daughter was at the bedside. The patient is complaining of hard stool. No bleeding per rectum. Denies any nausea, vomiting or abdominal pain. PHYSICAL EXAMINATION VITAL SIGNS: Temperature 98, blood pressure 125/82, pulse 77, respirations 20 and 96% room air. HEENT: Sclerae is anicteric. NECK: Supple. CARDIAC: S1 and S2. LUNGS: With decreased breath sounds, but good air entry. No rales or wheeze. ABDOMEN: Bowel sounds soft. Nontender. No rebound or guarding. LABORATORY DATA: Today, WBC is 5.6, H&H is 10.7 and 34.4. Ferritin was done, it was 90.1, vitamin B12 is 999, folate is greater than 20.0. The patient went for a CT of the chest yesterday and found to have a mass or mass like consolidation in the left lower lobe. This was not present on the study dated on 06/10/2016, could represent pneumonia/malignancy cannot be excluded. ASSESSMENT: This is an 86-year-old female with a past medical history of chronic obstructive pulmonary disease on home O2, anemia, gastroenteritis, history of peptic ulcer disease, chronic renal failure stage III, chronic constipation, and now with abnormal chest CT reporting mass or mass like consolidation in the left lower lobe, pneumonia versus malignancy. PLAN: The patient complaining of hard stools and incomplete bowel movement, put the patient on stool softener b.i.d., and also give a dose of MiraLax. Currently, the patient is on IV antibiotic of Zosyn. Continue GI prophylaxis, is also on aspirin and is on prednisone. Discussed with the patient and daughter who was at the bedside regarding elective outpatient endoscopy for workup of anemia. The patient for evaluation with ID regarding chest CT. The patient was seen and case discussed with Dr. Car. JENN Mir
[2016-11-22] MEDS: Piperacillin/Tazobact 2.25gm 2.25 GM/100 ML BAG IVPB SCH ×4 (00:11→17:46)
[2016-11-22] MEDS: Albuterol-Ipratrop 3 mg / 0.5 (3 ml) UD IH SCH ×3 (01:27→13:04)
[2016-11-22] MEDS: Arformoterol 15 mcg/2 ml Inh Sol IH SCH (07:12)
[2016-11-22] MEDS: Budesonide 0.5 mg/2 ml Inhal Susp UD IH SCH (07:12)
[2016-11-22 08:22] VITALS: TEMP 98.1
[2016-11-22] MEDS: METHENAMINE HIPPURATE 1 GM PO SCH ×2 (10:13→17:42)
[2016-11-22] MEDS: Calcitonin 200 Int Units/Inh Nasal Spray (3.7 ml) NS SCH (10:13)
--- NOTE | 2016-11-22 14:21 | PN ---
DATE: SUBJECTIVE: Seen and examined at the bedside earlier this morning. The patient started on stool softener and given a dose of MiraLax yesterday, but the patient did not have any further bowel movement. She does have sensation for defecation though. Denies nausea, vomiting, or abdominal pain. No acute overnight events reported. PHYSICAL EXAMINATION VITAL SIGNS: Temperature is 98.1, blood pressure 128/85, pulse 82, respirations 20, 95% on room air. HEENT: Sclerae is anicteric. NECK: Supple. CARDIAC: S1 and S2. LUNGS: Decreased breath sounds mostly in left base, but good air entry. No rales or wheeze. ABDOMEN: Bowel sounds soft, nondistended, no tenderness on palpation, rebound or guarding. EXTREMITIES: Positive pedal pulses. No edema. NEUROLOGIC: Awake, alert, and oriented. LABORATORY DATA: No new labs are noted for today. ASSESSMENT: This is an 86-year-old female with past medical history of chronic obstructive lung disease on home O2, anemia, history of peptic ulcer disease came with gastroenteritis, which has resolved. She is now constipated. She is now found to have abnormal CT of the chest reporting pneumonia versus malignancy. PLAN: Current plan is patient is on IV antibiotics. She is for evaluation for TCU for IV antibiotic therapy. She is on prednisone. We will continue the stool softeners and give a dose of lactulose today. Continue GI prophylaxis. The patient is also on aspirin and we will plan for elective outpatient endoscopy workup for the anemia and continue to monitor H and H for any overt GI bleed. The patient was seen and case discussed with Dr. Deluca. JENN Mir
--- NOTE | 2016-11-22 15:41 | CP.PCM.PN ---
Subjective - Date & Time of Evaluation Date of Evaluation: 11/22/16 Time of Evaluation: 14:45 - Subjective Subjective: Infectious Disease Follow Up: November 22, 2016 86 yo female who presented with nausea and abdominal pain with 3 day history of flu like symptoms and generalized body aches. The patient had initial SOB. CT of the abd/pelvis as well as the chest is showing a new mass or mass-like structure in the left lower lobe of 10x[address] of chest and 1.[address] of the abd/pelvis 2 days prior to the CT chest. Clinically , the patient appears to be improved. Spoke with the patient's daughters. Objective - Vital Signs/Intake and Output Vital Signs (last 24 hours): Temp Pulse Resp BP Pulse Ox 98.1 F 83 20 128/85 95 11/22/16 08:21 11/22/16 09:59 11/22/16 08:21 11/22/16 09:59 11/22/16 08:21 Intake and Output: 11/22/16 11/22/16 06:59 18:59 Intake Total 660 600 Balance 660 600 - Medications Medications: Current Medications Acetaminophen (Tylenol 325mg Tab) 650 mg PO Q6H PRN PRN Reason: Fever >100.4 F Acetaminophen (Tylenol 325mg Tab) 650 mg PO Q6H PRN PRN Reason: Pain, moderate (4-7) Albuterol/Ipratropium (Duoneb 3 Mg/0.5 Mg (3 Ml) Ud) 3 ml IH [id number] [facility] Last Admin: 11/22/16 13:04 Dose: 3 ml Arformoterol Tartrate (Brovana) 15 mcg IH [id number] [facility] Last Admin: 11/22/16 07:12 Dose: 15 mcg Aspirin (Ecotrin) 81 mg PO DAILY [facility] Last Admin: 11/22/16 09:54 Dose: 81 mg Atorvastatin Calcium (Lipitor) 10 mg PO DIN [facility] Last Admin: 11/21/16 17:33 Dose: 10 mg Budesonide (Pulmicort Respules) 0.5 mg IH [id number] [facility] Last Admin: 11/22/16 07:12 Dose: 0.5 mg Calcitonin [place] (Miacalcin) 200 iu NS DAILY [facility] Last Admin: 11/22/16 10:13 Dose: Not Given Docusate Sodium (Colace) 100 mg PO BID [facility] Last Admin: 11/22/16 09:53 Dose: 100 mg Famotidine (Pepcid) 20 mg PO HS [facility] Last Admin: 11/21/16 21:38 Dose: 20 mg Furosemide (Lasix) 20 mg PO BID [facility] Last Admin: 11/22/16 09:57 Dose: 20 mg Home Med (Home Med) 1 unit PO DAILY [facility] Last Admin: 11/22/16 10:13 Dose: Not Given Piperacillin Sod/Tazobactam Sod (Zosyn 2.25 Gm In 0.9% 100 Ml) 2.25 gm in 100 mls @ 100 mls/hr IVPB Q6 [facility] PRN Reason: Protocol Stop: 12/01/16 06:59 Last Admin: 11/22/16 12:24 Dose: 100 mls/hr Lisinopril (Zestril) 2.5 mg PO DAILY [facility] Last Admin: 11/22/16 09:59 Dose: 2.5 mg Metoprolol Tartrate (Lopressor) 25 mg PO BID [facility] Last Admin: 11/22/16 09:57 Dose: 25 mg Montelukast Sodium (Singulair) 10 mg PO HS [facility] Last Admin: 11/21/16 21:38 Dose: 10 mg Ondansetron HCl (Zofran Inj) 4 mg IVP Q8H PRN PRN Reason: Nausea/Vomiting Prednisone (Prednisone Tab) 5 mg PO DAILY [facility] Last Admin: 11/22/16 10:00 Dose: 5 mg Sodium Chloride ([place] Nasal [place]) 0 ml NS BID PRN PRN Reason: Nasal congestion Last Admin: 11/20/16 10:49 Dose: 2 sprays - Labs Labs: 11/21/16 06:20 11/19/16 07:25 - Constitutional Appears: Non-toxic, No Acute Distress, Chronically Ill - Head Exam Head Exam: ATRAUMATIC, NORMOCEPHALIC - Eye Exam Eye Exam: EOMI, PERRL Pupil Exam: NORMAL ACCOMODATION, PERRL - ENT Exam ENT Exam: Mucous Membranes Moist, Normal External Ear Exam, TM's Normal Bilaterally - Neck Exam Neck Exam: Full ROM, Normal Inspection - Respiratory Exam Respiratory Exam: Clear to Ausculation Bilateral, NORMAL BREATHING PATTERN. absent: Rales, Rhonchi, Wheezes - Cardiovascular Exam Cardiovascular Exam: REGULAR RHYTHM, RRR, +S1, +S2 - GI/Abdominal Exam GI & Abdominal Exam: Soft, Normal Bowel Sounds. absent: Distended, Tenderness - Extremities Exam Extremities Exam: Full ROM, Normal Inspection - Neurological Exam Neurological Exam: Alert, Awake, CN II-XII Intact, Oriented x3 - Psychiatric Exam Psychiatric exam: Normal Affect, Normal Mood - Skin Skin Exam: Intact, Normal Color Assessment and Plan - Assessment and Plan (Free Text) Assessment: 86 yo female who presented with abdominal pain, SOB, and nausea. Found to have a masslike structure in the left lower lobe under 2cm in size. This structure was not present on the July 2016 studies. Unclear if this is a pneumonia versus mass/tumor. The patient complains of occasional midepigastric discomfort. Supportive care. On Zosyn for now. If the patient is a candidate for TCU and accepted, would give the Zosyn for 7- 10 day course. If she is unable to go to the TCU (and the patient has refused subacute care), would consider use of Keflex 500 mg TID with Flagyl 500 mg TID for 10-14 days at home. Patient will require a new CT chest a few months from now. Appears the patient was accepted into the TCU. Thank you for allowing me to participate in the care of the patient, we will follow with you.
[2016-11-22 17:33] VITALS: BP 112/76; PULSE 77; RESP 18; O2SAT 97
--- NOTE | 2016-11-23 06:05 | DS ---
FINAL DIAGNOSES: Gastroenteritis improved, chronic obstructive pulmonary disease, newly noted left lower lobe mass-like infiltrate, stable atherosclerotic heart disease, chronic hypertension, hyperlipidemia, osteoporosis, degenerative arthritis, peptic ulcer disease with gastroesophageal reflux disease, anemia of chronic disease, chronic renal failure stage 3, anxiety neurosis, obstipation. DISPOSITION: Transitional care rehab. CONSULTANTS: Dr. Deluca from GI, Dr. Chris Poole from infectious disease. DISCHARGE MEDICATIONS: Pulmicort inhalational therapy q. 12 hours, Colace 100 mg p.o. b.i.d., DuoNeb q. 6 hours, Ecotrin 81 mg p.o. daily, Hiprex 1 g p.o. daily, Lasix 20 mg b.i.d., Lipitor 10 mg p.o. at dinnertime, metoprolol tartrate 25 mg p.o. b.i.d., Miacalcin nasal spray daily, Pepcid 20 mg p.o. at bedtime, prednisone 5 mg p.o. daily, Singulair 10 mg p.o. at bedtime, Zestril 2.5 mg p.o. daily, and Zofran 4 mg IV q. 8 hours p.r.n. nausea and vomiting, Zosyn 2.25 g IV q. 6 hours for an additional 7 days. SUMMARY: This 86-year-old female was admitted to [facility] with cough, shortness of breath, leukocytosis, and abdominal discomfort. She underwent GI workup that was negative for cholecystitis and was felt to have clinical gastroenteritis which improved and CT of the abdomen and pelvis was noted to have a new left lower lobe mass-like density that measured 10 x 14 mm. This was not seen on her previous CT of the chest on 06/10/2016. This was reviewed by Dr. Rodrick Farmer and Dr. Chris Poole from infectious disease. It was decided after discussion with all of the above consultants that a trial of parenteral antibiotic therapy would be given, and I have discussed this finding in detail with the patient's daughter, Ida Alves, who requested that the patient because of her anxiety neurosis, not be told of the potential possibility of cancer at this point in time. The plan at the time of discharge is to transfer the patient to transitional care rehab for an additional 1 week of parenteral IV Zosyn with pulmonary toiletry. She will have a repeat CT of the chest scheduled in approximately 6 weeks, at which time the family will decide based on the results if they want any further workup done. I have explained that she may need a PET scan and possibly a CT-guided biopsy, and I also have recommended that the patient follow up with the pulmonary team that they know at the [facility] under the direction of Dr.Omar Méndez from pulmonary. This will also be decided in the near future. At the time of transfer, the patient remains anxious, short of breath at rest secondary to her chronic COPD and pulmonary fibrosis. Her vital signs are; temp 98.1, respirations 20, pulse 83, and blood pressure 128/85 with a pulse ox of 95%. Laboratory show a white count of 5600, hemoglobin 10.7, hematocrit 34.4, and platelets 115,000. Initial white count on admission was 12,300. Her most recent chemistry showed sodium 136, K 4.2, chloride 101, bicarbonate 27, BUN 46, creatinine 2.0, and estimated GFR 24 mL/minute, transferrin saturation was 20% consistent with anemia of chronic disease, B12 and folate levels were normal. All of her liver function testing was normal as well including bilirubin 0.8, AST 23, ALT 31 and alkaline phosphatase 40. Microbiology report showed blood and urine cultures negative to date. The patient remained stable at present. Overall prognosis is poor and the patient will be treated in a conservative compassionate way as per her and family request. Greater than fifty minutes were spent in outlining of care and discharge management of this patient today. I have reviewed all of her orders with the transitional care rehab unit in detail. Marce Gold MD [facility]
--- NOTE | 2016-11-27 23:59 | CP.PCM.CON ---
Past Patient History - Infectious Disease Hx of Infectious Diseases: None - Tetanus Immunizations Tetanus Immunization: Unknown - Past Social History Smoking Status: Never Smoked - CARDIAC Hx Cardiac Disorders: Yes Hx Congestive Heart Failure: Yes Hx Hypertension: Yes - PULMONARY Hx Chronic Obstructive Pulmonary Disease (COPD): Yes - NEUROLOGICAL HX Cerebrovascular Accident: Yes - HEENT Hx HEENT Problems: No Other/Comment: WEARS RX GLASSES - RENAL Hx Renal Failure: Yes - ENDOCRINE/METABOLIC Hx Diabetes Mellitus Type 1: Yes Hx Hypothyroidism: Yes - HEMATOLOGICAL/ONCOLOGICAL Hx Blood Disorders: No Hx Sickle Cell Disease: No Hx Unexplained Bleeding: No - INTEGUMENTARY Hx Dermatological Problems: No Other/Comment: multiple brown discolorations chest and face - MUSCULOSKELETAL/RHEUMATOLOGICAL Hx Arthritis: Yes - GASTROINTESTINAL Hx Gastrointestinal Disorders: Yes (GERD,DIVERTICULITIS) - GENITOURINARY/GYNECOLOGICAL Hx Genitourinary Disorders: No Hx Reproductive Disorders: No - PSYCHIATRIC Hx Psychophysiologic Disorder: Yes Hx Anxiety: Yes Hx Substance Use: No - SURGICAL HISTORY Other/Comment: HX L BREAST BX/BENIGN - ANESTHESIA Hx Anesthesia: Yes Hx Anesthesia Reactions: No Hx Malignant Hyperthermia: No Meds Home Medications: Home Medication List Medication Instructions Recorded Confirmed Type Aspirin [Ecotrin] 81 mg PO DAILY 11/22/16 Rx Atorvastatin [Lipitor] 10 mg PO DIN tab 11/22/16 Rx Calcitonin ([place]) [Miacalcin] 200 iu NS DAILY spr 11/22/16 Rx Famotidine [Pepcid] 20 mg PO HS tab 11/22/16 Rx Furosemide [Lasix] 20 mg PO BID tab 11/22/16 Rx Home Med 1 unit PO DAILY ea 11/22/16 Rx Metoprolol Tartrate [Lopressor] 25 mg PO BID tab 11/22/16 Rx Montelukast [Singulair] 10 mg PO HS tab 11/22/16 Rx predniSONE [predniSONE Tab] 5 mg PO DAILY tab 11/22/16 Rx Allergies/Adverse Reactions: Allergies Allergy/AdvReac Type Severity Reaction Status Date / Time lactose Allergy VOMITING Verified 11/22/16 19:38 levofloxacin [From Levaquin] Allergy ANGIOEDEMA Verified 11/22/16 19:38 - Medications Medications: Current Medications Acetaminophen (Tylenol 325mg Tab) 650 mg PO Q6H PRN PRN Reason: Fever >100.4 F Acetaminophen (Tylenol 325mg Tab) 650 mg PO Q6H PRN PRN Reason: Pain, moderate (4-7) Albuterol/Ipratropium (Duoneb 3 Mg/0.5 Mg (3 Ml) Ud) 3 ml IH [id number] [facility] Last Admin: 11/20/16 19:56 Dose: 3 ml Arformoterol Tartrate ([place]) 15 mcg IH [id number] [facility] Last Admin: 11/20/16 19:56 Dose: 15 mcg Aspirin (Ecotrin) 81 mg PO DAILY [facility] Last Admin: 11/20/16 10:38 Dose: 81 mg Atorvastatin Calcium (Lipitor) 10 mg PO DIN [facility] Last Admin: 11/20/16 17:18 Dose: 10 mg Budesonide (Pulmicort Respules) 0.5 mg IH [id number] [facility] Last Admin: 11/20/16 19:56 Dose: 0.5 mg Calcitonin [place] (Miacalcin) 200 iu NS DAILY [facility] Last Admin: 11/20/16 10:46 Dose: 1 spr Famotidine (Pepcid) 20 mg PO HS [facility] Last Admin: 11/20/16 21:15 Dose: 20 mg Furosemide (Lasix) 20 mg PO BID [facility] Last Admin: 11/20/16 17:18 Dose: 20 mg Home Med (Home Med) 1 unit PO DAILY [facility] Last Admin: 11/20/16 17:19 Dose: 1 unit Lisinopril (Zestril) 2.5 mg PO DAILY [facility] Last Admin: 11/20/16 10:19 Dose: 2.5 mg Metoprolol Tartrate (Lopressor) 25 mg PO BID [facility] Last Admin: 11/20/16 17:17 Dose: 25 mg Montelukast Sodium (Singulair) 10 mg PO HS [facility] Last Admin: 11/20/16 21:16 Dose: 10 mg Ondansetron HCl (Zofran Inj) 4 mg IVP Q8H PRN PRN Reason: Nausea/Vomiting Prednisone (Prednisone Tab) 5 mg PO DAILY [facility] Last Admin: 11/20/16 10:38 Dose: 5 mg Sodium Chloride ([place] Nasal [place]) 0 ml NS BID PRN PRN Reason: Nasal congestion Last Admin: 11/20/16 10:49 Dose: 2 sprays Results - Vital Signs Recent Vital Signs: Last Vital Signs Temp 97.7 F 11/20/16 16:00 Pulse 82 11/20/16 16:00 Resp 20 11/20/16 16:00 BP 118/62 11/20/16 17:18 Pulse Ox 96 11/20/16 16:00 - Labs Result Diagrams: 11/21/16 06:20 11/19/16 07:25 Labs: Laboratory Results - last 24 hr 11/20/16 06:40 WBC 6.6 D RBC 3.53 Hgb 10.4 L Hct 33.1 L MCV 93.8 MCH 29.5 MCHC 31.4 RDW 14.9 H Plt Count 103 L Manual Plt Count 135 MPV 10.5 Assessment & Plan - Assessment and Plan (Free Text) Assessment: presented to the GI consultation report dictated by Ida Nixon APN. The patient was seen and evaluated here earlier. History of nausea and epigastric discomfort. Chronic kidney disease feeling slightly better previous endoscopy evaluations and colonoscopy evaluation noticed reviewed. On examination abdomen soft no masses mild tenderness on deep palpation otherwise unremarkable Discussed with the patient at length she would benefit from outpatient endoscopic evaluation Thank you very much allowing us to participate in the care of the patient - Date & Time Date: 11/20/16 Time: 10:30
== END 2016-11-22 19:21 | DRG 392 ==
LOC: ED 11:08 → ERH 15:30 → 5RNO 18:17 → OBSVTOIN 21:34
PROVIDERS: ADMIT Internal Medicine; ATTEND Internal Medicine
PROC: 3E0F7GC Introduction of Other Therapeutic Substance into Respiratory Tract, Via Natural or Artificial Opening (ICD-10-PCS; principal; 2016-11-18)
DX: K52.9 Noninfective gastroenteritis and colitis, unspecified (principal); I13.0 Hypertensive heart and chronic kidney disease with heart failure and stage 1 through stage 4 chronic kidney disease, or unspecified chronic kidney disease; J84.10 Pulmonary fibrosis, unspecified; J44.9 Chronic obstructive pulmonary disease, unspecified; Z99.81 Dependence on supplemental oxygen; E86.0 Dehydration; I50.9 Heart failure, unspecified; N18.3 Chronic kidney disease, stage 3 (moderate); I42.9 Cardiomyopathy, unspecified; M81.0 Age-related osteoporosis without current pathological fracture; K21.9 Gastro-esophageal reflux disease without esophagitis; I25.10 Atherosclerotic heart disease of native coronary artery without angina pectoris; K27.9 Peptic ulcer, site unspecified, unspecified as acute or chronic, without hemorrhage or perforation; E78.5 Hyperlipidemia, unspecified; D63.8 Anemia in other chronic diseases classified elsewhere; R39.11 Hesitancy of micturition; M19.90 Unspecified osteoarthritis, unspecified site; K44.9 Diaphragmatic hernia without obstruction or gangrene; F41.1 Generalized anxiety disorder; K64.9 Unspecified hemorrhoids; K59.09 Other constipation; R91.8 Other nonspecific abnormal finding of lung field; K57.90 Diverticulosis of intestine, part unspecified, without perforation or abscess without bleeding; I25.2 Old myocardial infarction; Z87.440 Personal history of urinary (tract) infections

== ENCOUNTER 2016-11-22 19:21 | Inpatient (IN) | payer OTHER ==
[2016-11-22] MEDS: Albuterol-Ipratrop 3 mg / 0.5 (3 ml) UD IH SCH (20:00)
[2016-11-22] MEDS: Budesonide 0.5 mg/2 ml Inhal Susp UD IH SCH (20:00)
[2016-11-22 23:04] VITALS: BMI 25.7
[2016-11-22] MEDS ORDERED: Pneumococcal 23-Valent Vaccine IM ONE (23:05)
[2016-11-23] MEDS ORDERED: TAZOBACT IV SCH
[2016-11-23] MEDS ORDERED: PIPERACILLIN IV SCH
[2016-11-23] MEDS: Albuterol-Ipratrop 3 mg / 0.5 (3 ml) UD IH SCH ×4 (01:15→20:11)
[2016-11-23] MEDS: Piperacillin/Tazobact 2.25gm 2.25 GM/100 ML BAG IVPB SCH ×5 (05:11→23:19)
[2016-11-23] MEDS: Budesonide 0.5 mg/2 ml Inhal Susp UD IH SCH ×2 (07:35→20:11)
[2016-11-23] MEDS: METHENAMINE HIPPURATE PO SCH (09:12)
[2016-11-23] MEDS: Calcitonin 200 Int Units/Inh Nasal Spray (3.7 ml) NS SCH (09:26)
--- NOTE | 2016-11-23 12:40 | CP.PCM.PN ---
Subjective - Date & Time of Evaluation Date of Evaluation: 11/23/16 Time of Evaluation: 09:20 - Subjective Subjective: S&E at bedside, had BM yesterday, gave dose of Lactulose. No bleeding noted. Breathing Ok, SOB at times, no distress. Eating ok, No N/V or abdominal pain. Objective - Vital Signs/Intake and Output Vital Signs (last 24 hours): Temp Pulse Resp BP Pulse Ox 98.6 F 103 H 20 136/78 92 L 11/23/16 10:49 11/23/16 10:49 11/23/16 10:49 11/23/16 10:49 11/23/16 10:49 - Medications Medications: Current Medications Acetaminophen (Tylenol 325mg Tab) 650 mg PO Q6H PRN PRN Reason: Pain, moderate (4-7) Last Admin: 11/23/16 10:48 Dose: 650 mg Albuterol/Ipratropium (Duoneb 3 Mg/0.5 Mg (3 Ml) Ud) 3 ml IH [id number] [facility] Last Admin: 11/23/16 07:35 Dose: 3 ml Aspirin (Ecotrin) 81 mg PO DAILY [facility] Last Admin: 11/23/16 09:05 Dose: 81 mg Atorvastatin Calcium (Lipitor) 10 mg PO DIN [facility] Budesonide (Pulmicort Respules) 0.5 mg IH [id number] [facility] Last Admin: 11/23/16 07:35 Dose: 0.5 mg Calcitonin [place] (Miacalcin) 200 iu NS DAILY [facility] Last Admin: 11/23/16 09:26 Dose: 1 spr Docusate Sodium (Colace) 100 mg PO BID [facility] Last Admin: 11/23/16 09:05 Dose: 100 mg Famotidine (Pepcid) 20 mg PO HS [facility] Last Admin: 11/22/16 21:47 Dose: 20 mg Furosemide (Lasix) 20 mg PO BID [facility] Last Admin: 11/23/16 09:05 Dose: 20 mg Home Med (Home Med) 1 unit PO DAILY [facility] Last Admin: 11/23/16 09:12 Dose: 1 unit Piperacillin Sod/Tazobactam Sod (Zosyn 2.25 Gm In 0.9% 100 Ml) 2.25 gm in 100 mls @ 200 mls/hr IVPB Q6 [facility] Last Admin: 08/03/17 05:11 Dose: 200 mls/hr Lisinopril (Zestril) 2.5 mg PO DAILY [facility] Last Admin: 11/23/16 09:10 Dose: 2.5 mg Metoprolol Tartrate (Lopressor) 25 mg PO BID [facility] Last Admin: 11/23/16 09:10 Dose: 25 mg Montelukast Sodium (Singulair) 10 mg PO HS [facility] Last Admin: 11/22/16 21:47 Dose: 10 mg Ondansetron HCl (Zofran Inj) 4 mg IVP Q8H PRN PRN Reason: Nausea/Vomiting Prednisone (Prednisone Tab) 5 mg PO DAILY [facility] Last Admin: 11/23/16 09:05 Dose: 5 mg - Constitutional Appears: No Acute Distress - Head Exam Head Exam: NORMOCEPHALIC - Eye Exam Eye Exam: Normal appearance. absent: Scleral icterus - ENT Exam ENT Exam: Mucous Membranes Moist - Neck Exam Neck Exam: Normal Inspection - Respiratory Exam Respiratory Exam: Decreased Breath Sounds, NORMAL BREATHING PATTERN. absent: Respiratory Distress Additional comments: decreased Left bases, no wheezing, (+) faint rhonci/rales right side - Cardiovascular Exam Cardiovascular Exam: +S1, +S2 - GI/Abdominal Exam GI & Abdominal Exam: Soft, Normal Bowel Sounds. absent: Distended, Guarding, Tenderness, Organomegaly, Rebound - Extremities Exam Extremities Exam: Normal Capillary Refill. absent: Calf Tenderness, Pedal Edema - Neurological Exam Neurological Exam: Alert, Awake, Oriented x3 Assessment and Plan - Assessment and Plan (Free Text) Assessment: ASSESSMENT: Pneumonia VS lung malignancy H/O COPD on home O2 Anemia S/P Gastroentertis H/O PUD Consitpation PLAN: on IV antibiotic on Prednisone continue GI prophylaxsis continue colace on aspirin trend H/H monitor for overt GI bleed ID following Current plan is for elective outpatient Endoscopy for Anemia, will continue to monitor H/H & for overt GI bleeding. Seen and discussed with w/ Dr. Deluca.
--- NOTE | 2016-11-23 15:44 | PN ---
DATE: 11/23/2016 SUBJECTIVE: This 86-year-old female who was examined at her bedside. Her case was reviewed in detail with her family and her nursing staff. The patient remains anxious, she is receiving parenteral Zosyn 2.25 g IV q.6 hours for an additional 7 days for a new mass-like infiltrate measuring 10 x 14 mm in her left lung base newly noted on CAT scan that was not there previously. The patient states she feels weak and deconditioned. She denies fever, chills, or productive cough. PHYSICAL EXAMINATION: VITAL SIGNS: At present, temperature is 98.6, respirations 20, pulse 103, blood pressure 136/78, and pulse oximetry is 92%. HEENT: Head is normocephalic and atraumatic. Eyes; no icterus. Ears; clear. Throat noninjected. NECK: Supple. HEART: Regular S1 and S2. LUNGS: Have rhonchi at the left base. ABDOMEN: Soft. EXTREMITIES: No edema. SKIN: Without rash. NEUROLOGIC: Unchanged. PSYCHOLOGIC: Alert and oriented. VASCULAR: Legs warm to touch. IMPRESSION: An 86-year-old female with multiple medical problems including left lower lobe pneumonia, chronic obstructive pulmonary disease, history of pulmonary fibrosis, rule out underlying pulmonary malignancy, stable atherosclerotic heart disease, history of remote myocardial infarction, chronic hypertension, chronic renal failure stage III, hyperlipidemia, anemia of chronic disease, osteoporosis, peptic ulcer disease with gastroesophageal reflux disease, degenerative arthritis, and deconditioning and anxiety neurosis. PLAN: At present is to continue physical and occupational therapy for deconditioning and gait training. She remains on fall precautions, nasal oxygen p.r.n. and soft bland diet. She will continue on Zosyn 2.25 g IV q.6 hours, Zestril 2.5 mg p.o. daily, Singulair 10 mg p.o. at bedtime, Pulmicort inhalational therapy q.12 hours, prednisone 5 mg p.o. daily, Pepcid 20 mg p.o. at bedtime, Miacalcin nasal spray alternate nostril daily, metoprolol tartarate 25 mg b.i.d., Lipitor 10 mg p.o. at dinnertime, Lasix 20 mg p.o. b.i.d., Ecotrin 81 mg p.o. daily, Duo nebulizer q.6 hours, and Colace 100 mg p.o. b.i.d. Ultimate plan will be for discharge to home when medically stable with follow up CAT scan in approximately 6 weeks. The family has requested that the patient not be told of any possibility of lung malignancy and her overall prognosis remains stable at present. Greater than fifty minutes were spent in the care, coordination of care, and management of care with this patient today and discussion of her case with herself, family, nursing, and co-consultants. Marce Gold MD MTDD
--- NOTE | 2016-11-23 17:59 | CP.PCM.CON ---
History of Present Illness - History of Present Illness History of Present Illness: Infectious Disease Consultation/Follow Up: November 23, 2016 86 yo female who presented with nausea and abdominal pain with 3 day history of flu like symptoms and generalized body aches. The patient had initial SOB. CT of the abd/pelvis as well as the chest is showing a new mass or mass-like structure in the left lower lobe of 10x14 mm [address] of chest and 1.[address] of the abd/pelvis 2 days prior to the CT chest. Clinically , the patient appears to be improved. I had a long discussion with the patient's daughters. PMHx: COPD, advanced pulmonary fibrosis, hypertension, ASHD, CHF, bronchitis, chronic renal insufficiency/CKD III, degenerative arthritis, anxiety, osteoporosis. PSHx: breast biopsy. Allergies: Levofloxacin Social Hx: No tobacco, EtOH, or illicit drug use. Active Medications Acetaminophen (Tylenol 325mg Tab) 650 mg PO Q6H PRN PRN Reason: Pain, moderate (4-7) Last Admin: 11/23/16 10:48 Dose: 650 mg Albuterol/Ipratropium (Duoneb 3 Mg/0.5 Mg (3 Ml) Ud) 3 ml IH [id number] [facility] Last Admin: 11/23/16 13:38 Dose: 3 ml Aspirin (Ecotrin) 81 mg PO DAILY [facility] Last Admin: 11/23/16 09:05 Dose: 81 mg Atorvastatin Calcium (Lipitor) 10 mg PO DIN [facility] Last Admin: 11/23/16 17:41 Dose: 10 mg Budesonide (Pulmicort Respules) 0.5 mg IH [id number] [facility] Last Admin: 11/23/16 07:35 Dose: 0.5 mg Calcitonin [place] (Miacalcin) 200 iu NS DAILY [facility] Last Admin: 11/23/16 09:26 Dose: 1 spr Docusate Sodium (Colace) 100 mg PO BID [facility] Last Admin: 11/23/16 17:41 Dose: 100 mg Famotidine (Pepcid) 20 mg PO HS [facility] Last Admin: 11/22/16 21:47 Dose: 20 mg Furosemide (Lasix) 20 mg PO BID [facility] Last Admin: 11/23/16 17:41 Dose: 20 mg Home Med (Home Med) 1 unit PO DAILY [facility] Last Admin: 11/23/16 09:12 Dose: 1 unit Piperacillin Sod/Tazobactam Sod (Zosyn 2.25 Gm In 0.9% 100 Ml) 2.25 gm in 100 mls @ 200 mls/hr IVPB Q6 [facility] Last Admin: 11/23/16 17:40 Dose: 200 mls/hr Lisinopril (Zestril) 2.5 mg PO DAILY [facility] Last Admin: 11/23/16 09:10 Dose: 2.5 mg Metoprolol Tartrate (Lopressor) 25 mg PO BID [facility] Last Admin: 11/23/16 17:41 Dose: 25 mg Montelukast Sodium (Singulair) 10 mg PO HS [facility] Last Admin: 11/22/16 21:47 Dose: 10 mg Ondansetron HCl (Zofran Inj) 4 mg IVP Q8H PRN PRN Reason: Nausea/Vomiting Prednisone (Prednisone Tab) 5 mg PO DAILY [facility] Last Admin: 11/23/16 09:05 Dose: 5 mg Family Hx: none ROS: Nausea, abdominal pain, chills, shortness of breath. No fevers, melena, hematuria, hematemesis, hematochezia, depression, anxiety, chest pain, loss of consciousness, diarrhea, dizziness. Past Patient History - Infectious Disease Hx of Infectious Diseases: None - Tetanus Immunizations Tetanus Immunization: Unknown - Past Social History Smoking Status: Never Smoked - CARDIAC Hx Cardiac Disorders: Yes Hx Congestive Heart Failure: Yes Hx Hypertension: Yes - PULMONARY Hx Chronic Obstructive Pulmonary Disease (COPD): Yes - NEUROLOGICAL HX Cerebrovascular Accident: Yes - HEENT Hx HEENT Problems: No Other/Comment: WEARS RX GLASSES - RENAL Hx Renal Failure: Yes - ENDOCRINE/METABOLIC Hx Diabetes Mellitus Type 1: Yes Hx Hypothyroidism: Yes - HEMATOLOGICAL/ONCOLOGICAL Hx Blood Disorders: No Hx Sickle Cell Disease: No Hx Unexplained Bleeding: No - INTEGUMENTARY Hx Dermatological Problems: No Other/Comment: multiple brown discolorations chest and face - MUSCULOSKELETAL/RHEUMATOLOGICAL Hx Arthritis: Yes - GASTROINTESTINAL Hx Gastrointestinal Disorders: Yes (GERD,DIVERTICULITIS) - GENITOURINARY/GYNECOLOGICAL Hx Genitourinary Disorders: No Hx Reproductive Disorders: Yes (hx left breast lump) - PSYCHIATRIC Hx Psychophysiologic Disorder: Yes Hx Anxiety: Yes - SURGICAL HISTORY Other/Comment: HX L BREAST BX/BENIGN - ANESTHESIA Hx Anesthesia: Yes Hx Anesthesia Reactions: No Hx Malignant Hyperthermia: No Meds Allergies/Adverse Reactions: Allergies Allergy/AdvReac Type Severity Reaction Status Date / Time lactose Allergy VOMITING Verified 11/22/16 19:38 levofloxacin [From Levaquin] Allergy ANGIOEDEMA Verified 11/22/16 19:38 - Medications Medications: Current Medications Acetaminophen (Tylenol 325mg Tab) 650 mg PO Q6H PRN PRN Reason: Pain, moderate (4-7) Last Admin: 11/23/16 10:48 Dose: 650 mg Albuterol/Ipratropium (Duoneb 3 Mg/0.5 Mg (3 Ml) Ud) 3 ml IH [id number] [facility] Last Admin: 11/23/16 13:38 Dose: 3 ml Aspirin (Ecotrin) 81 mg PO DAILY [facility] Last Admin: 11/23/16 09:05 Dose: 81 mg Atorvastatin Calcium (Lipitor) 10 mg PO DIN [facility] Last Admin: 11/23/16 17:41 Dose: 10 mg Budesonide (Pulmicort Respules) 0.5 mg IH [id number] [facility] Last Admin: 11/23/16 07:35 Dose: 0.5 mg Calcitonin [place] (Miacalcin) 200 iu NS DAILY [facility] Last Admin: 11/23/16 09:26 Dose: 1 spr Docusate Sodium (Colace) 100 mg PO BID [facility] Last Admin: 11/23/16 17:41 Dose: 100 mg Famotidine (Pepcid) 20 mg PO HS [facility] Last Admin: 11/22/16 21:47 Dose: 20 mg Furosemide (Lasix) 20 mg PO BID [facility] Last Admin: 11/23/16 17:41 Dose: 20 mg Home Med (Home Med) 1 unit PO DAILY [facility] Last Admin: 11/23/16 09:12 Dose: 1 unit Piperacillin Sod/Tazobactam Sod (Zosyn 2.25 Gm In 0.9% 100 Ml) 2.25 gm in 100 mls @ 200 mls/hr IVPB Q6 [facility] Last Admin: 11/23/16 17:40 Dose: 200 mls/hr Lisinopril (Zestril) 2.5 mg PO DAILY [facility] Last Admin: 11/23/16 09:10 Dose: 2.5 mg Metoprolol Tartrate (Lopressor) 25 mg PO BID [facility] Last Admin: 11/23/16 17:41 Dose: 25 mg Montelukast Sodium (Singulair) 10 mg PO HS [facility] Last Admin: 11/22/16 21:47 Dose: 10 mg Ondansetron HCl (Zofran Inj) 4 mg IVP Q8H PRN PRN Reason: Nausea/Vomiting Prednisone (Prednisone Tab) 5 mg PO DAILY [facility] Last Admin: 11/23/16 09:05 Dose: 5 mg Physical Exam - Constitutional Appears: Non-toxic, No Acute Distress, Chronically Ill - Head Exam Head Exam: ATRAUMATIC, NORMOCEPHALIC - Eye Exam Eye Exam: EOMI, PERRL Pupil Exam: NORMAL ACCOMODATION, PERRL - ENT Exam ENT Exam: Mucous Membranes Moist, Normal External Ear Exam, TM's Normal Bilaterally - Neck Exam Neck exam: Positive for: Full Rom, Normal Inspection - Respiratory Exam Respiratory Exam: Clear to Auscultation Bilateral, NORMAL BREATHING PATTERN. absent: Rales, Rhonchi, Wheezes - Cardiovascular Exam Cardiovascular Exam: REGULAR RHYTHM, RRR, +S1, +S2 - GI/Abdominal Exam GI & Abdominal Exam: Normal Bowel Sounds, Soft. absent: Distended, Tenderness - Extremities Exam Extremities exam: Positive for: full ROM, normal inspection - Neurological Exam Neurological exam: Alert, CN II-XII Intact, Oriented x3 - Psychiatric Exam Psychiatric exam: Normal Affect, Normal Mood - Skin Skin Exam: Intact, Normal Color Results - Vital Signs Recent Vital Signs: Last Vital Signs Temp 98.1 F 11/23/16 16:00 Pulse 80 11/23/16 17:41 Resp 14 11/23/16 16:00 BP 118/76 11/23/16 17:41 Pulse Ox 92 L 11/23/16 10:49 Assessment & Plan - Assessment and Plan (Free Text) Assessment: 86 yo female who presented with abdominal pain, SOB, and nausea. Found to have a masslike structure in the left lower lobe under 2cm in size. This structure was not present on the July 2016 studies. Unclear if this is a pneumonia versus mass/tumor. The patient complains of occasional midepigastric discomfort. Supportive care. On Zosyn for now. If the patient is a candidate for TCU and accepted, would give/complete the Zosyn for 7-10 day course. Patient will require a new CT chest a few months from now. Appears the patient was accepted into the TCU. Thank you for allowing me to participate in the care of the patient, we will follow with you.
[2016-11-24] MEDS: Albuterol-Ipratrop 3 mg / 0.5 (3 ml) UD IH SCH ×4 (02:01→20:11)
[2016-11-24] MEDS: Piperacillin/Tazobact 2.25gm 2.25 GM/100 ML BAG IVPB SCH ×3 (05:27→17:58)
[2016-11-24] MEDS: Budesonide 0.5 mg/2 ml Inhal Susp UD IH SCH ×2 (07:13→20:11)
[2016-11-24 08:28] LABS: HEMOGLOBIN 11.3 gm/dL (12.0-16.0)
[2016-11-24 08:37] LABS: CALCIUM 8.8 mg/dL (8.4-10.5)
[2016-11-24] MEDS: METHENAMINE HIPPURATE PO SCH (10:04)
[2016-11-24] MEDS: Calcitonin 200 Int Units/Inh Nasal Spray (3.7 ml) NS SCH (10:05)
--- NOTE | 2016-11-24 15:34 | CP.PCM.PN ---
Subjective - Date & Time of Evaluation Date of Evaluation: 11/24/16 Time of Evaluation: 15:31 - Subjective Subjective: Infectious Disease Follow Up: November 24, 2016 86 yo female who presented with nausea and abdominal pain with 3 day history of flu like symptoms and generalized body aches. The patient had initial SOB. CT of the abd/pelvis as well as the chest is showing a new mass or mass-like structure in the left lower lobe of 10x14 mm [address] of chest and 1.[address] of the abd/pelvis 2 days prior to the CT chest. Clinically , the patient appears to be improved. I had a long discussion with the patient's daughters. They do not want the patient being told of the potential mass in the LLL. Objective - Vital Signs/Intake and Output Vital Signs (last 24 hours): Temp Pulse Resp BP Pulse Ox 97.9 F 81 18 131/74 98 11/24/16 10:00 11/24/16 10:06 11/24/16 10:00 11/24/16 10:11/24/16 10:00 - Medications Medications: Current Medications Acetaminophen (Tylenol 325mg Tab) 650 mg PO Q6H PRN PRN Reason: Pain, moderate (4-7) Last Admin: 11/23/16 10:48 Dose: 650 mg Albuterol/Ipratropium (Duoneb 3 Mg/0.5 Mg (3 Ml) Ud) 3 ml IH [id number] [facility] Last Admin: 11/24/16 13:11 Dose: 3 ml Aspirin (Ecotrin) 81 mg PO DAILY [facility] Last Admin: 11/24/16 10:03 Dose: 81 mg Atorvastatin Calcium (Lipitor) 10 mg PO DIN [facility] Last Admin: 11/23/16 17:41 Dose: 10 mg Budesonide (Pulmicort Respules) 0.5 mg IH [id number] [facility] Last Admin: 11/24/16 07:13 Dose: 0.5 mg Calcitonin [place] (Miacalcin) 200 iu NS DAILY [facility] Last Admin: 11/24/16 10:05 Dose: 1 spr Calcium Carbonate (Oscal) 500 mg PO DAILY [facility] Docusate Sodium (Colace) 100 mg PO BID [facility] Last Admin: 11/24/16 10:02 Dose: 100 mg Famotidine (Pepcid) 20 mg PO HS [facility] Last Admin: 11/23/16 21:26 Dose: 20 mg Furosemide (Lasix) 20 mg PO BID [facility] Last Admin: 11/24/16 10:04 Dose: 20 mg Home Med (Home Med) 1 unit PO DAILY [facility] Last Admin: 11/24/16 10:04 Dose: 1 unit Piperacillin Sod/Tazobactam Sod (Zosyn 2.25 Gm In 0.9% 100 Ml) 2.25 gm in 100 mls @ 200 mls/hr IVPB Q6 [facility] Last Admin: 11/24/16 12:20 Dose: 200 mls/hr Lisinopril (Zestril) 2.5 mg PO DAILY [facility] Last Admin: 11/24/16 10:06 Dose: 2.5 mg Metoprolol Tartrate (Lopressor) 25 mg PO BID [facility] Last Admin: 11/24/16 10:05 Dose: 25 mg Montelukast Sodium (Singulair) 10 mg PO HS [facility] Last Admin: 11/23/16 21:26 Dose: 10 mg Ondansetron HCl (Zofran Inj) 4 mg IVP Q8H PRN PRN Reason: Nausea/Vomiting Prednisone (Prednisone Tab) 5 mg PO DAILY [facility] Last Admin: 11/24/16 10:06 Dose: 5 mg - Labs Labs: 11/24/16 08:00 11/24/16 08:00 - Constitutional Appears: Non-toxic, No Acute Distress, Chronically Ill - Head Exam Head Exam: ATRAUMATIC, NORMOCEPHALIC - Eye Exam Eye Exam: EOMI, PERRL Pupil Exam: NORMAL ACCOMODATION, PERRL - ENT Exam ENT Exam: Mucous Membranes Moist, Normal External Ear Exam, TM's Normal Bilaterally - Neck Exam Neck Exam: Full ROM, Normal Inspection - Respiratory Exam Respiratory Exam: Clear to Ausculation Bilateral, NORMAL BREATHING PATTERN. absent: Rales, Rhonchi, Wheezes - Cardiovascular Exam Cardiovascular Exam: REGULAR RHYTHM, RRR, +S1, +S2 - GI/Abdominal Exam GI & Abdominal Exam: Soft, Normal Bowel Sounds. absent: Distended, Tenderness - Extremities Exam Extremities Exam: Full ROM, Normal Inspection - Neurological Exam Neurological Exam: Alert, Awake, CN II-XII Intact, Oriented x3 - Psychiatric Exam Psychiatric exam: Normal Affect, Normal Mood - Skin Skin Exam: Intact, Normal Color Assessment and Plan - Assessment and Plan (Free Text) Assessment: 86 yo female who presented with abdominal pain, SOB, and nausea. Found to have a masslike structure in the left lower lobe under 2cm in size. This structure was not present on the July 2016 studies. Unclear if this is a pneumonia versus mass/tumor. The patient complains of occasional midepigastric discomfort. Supportive care. On Zosyn for now. If the patient is a candidate for TCU and accepted, would give/complete the Zosyn for 7-10 day course. Patient will require a new CT chest a few months from now. Patient currently in the TCU for care. Thank you for allowing me to participate in the care of the patient, we will follow with you.
--- NOTE | 2016-11-24 16:28 | PN ---
SUBJECTIVE: This 86-year-old female was examined at the bedside and her case was reviewed in detail with nursing staff, patient's family and physical therapist. The patient continues to attend physical therapy without nasal O2 and is able to exercise with O2 sats of approximately 92% at the present time. She denies any fever, chills or constitutional symptoms of aches or pains and has had no hematolysis, hematemesis or obstipation at present. PHYSICAL EXAMINATION: VITAL SIGNS: Shows temperature is 97.9, respirations 18, pulse 81 and blood pressure 131/74 with a pulse ox of 98%. HEENT: Head is normocephalic and atraumatic. Eyes; no icterus. Ears; clear. Throat non-injected. NECK: Supple. HEART: Regular S1 and S2. LUNGS: Have occasional rhonchi at the left base that clear with coughing. No audible wheezing. ABDOMEN: Soft. No palpable organomegaly. No rebound, no guarding, no tenderness. EXTREMITIES: No clubbing, no cyanosis, no edema. SKIN: Without rash. NEUROLOGIC: Unchanged. PSYCHOLOGIC: Alert and anxious. VASCULAR: Legs warm to touch. LABORATORY DATA: Hemoglobin 11.3, hematocrit 36.3. Sodium 140, potassium 3.9, chloride 106, bicarbonate 26, BUN 23, creatinine 2.0, estimated GFR is 24 mL/min. IMPRESSION: This is an 86-year-old female with a newly noted base of the left lung infiltrate versus mass measuring 10 x 14 mm, not seen previously on her May 2016 CAT scan, malignancy rule out pneumonia, chronic obstructive pulmonary disease, pulmonary fibrosis, atherosclerotic heart disease stable, history of remote mild cardial infarction, chronic hypertension, hyperlipidemia, chronic renal failure stage III, osteoporosis, peptic ulcer disease with GERD, anemia of chronic disease, degenerative arthritis and anxiety neurosis. PLAN: At present is to continue soft bland diet. Nasal O2 p.r.n., Zosyn 2.25 g IV q. 6, Zestril 2.5 mg p.o. daily, Singulair 10 mg p.o. at bedtime, Pulmicort inhalational therapy q. 12, DuoNeb nebulizer therapy q. 6, prednisone 5 mg p.o. daily, Pepcid 20 mg p.o. at bedtime, [place] 500 mg p.o. daily, Miacalcin nasal spray alternate nostril daily, metoprolol tartrate 25 mg p.o. b.i.d., Lipitor 10 mg p.o. at dinner time, Lasix 20 mg p.o. b.i.d., Ecotrin 1 tablet 81 mg p.o. daily, Colace 100 mg p.o. b.i.d. The patient will continue full course of parental antibiotics. She remains on fall precautions, physical therapy, occupational therapy with the ultimate plan to be discharged to home and have followup CT of the lung in approximately 6 weeks. All the above has been discussed with the patient's family, nursing and physical therapy as noted before that patient's family has requested that she not be told of the possibility of malignancy given her overall medical status and anxiety neurosis. They state that they will cooperate with followup CT of the lung in approximately 6 weeks. Greater than fifty minutes was spent in the care and management of this patient today and review of her case with co-consultants, nursing, patient's family and therapy. Marce Gold MD MTDWilner
[2016-11-25] MEDS: Albuterol-Ipratrop 3 mg / 0.5 (3 ml) UD IH SCH ×5 (01:37→22:02)
[2016-11-25] MEDS: Piperacillin/Tazobact 2.25gm 2.25 GM/100 ML BAG IVPB SCH ×4 (05:15→17:27)
[2016-11-25] MEDS: Budesonide 0.5 mg/2 ml Inhal Susp UD IH SCH ×2 (07:20→22:02)
[2016-11-25] MEDS: METHENAMINE HIPPURATE PO SCH (10:29)
[2016-11-25] MEDS: Calcitonin 200 Int Units/Inh Nasal Spray (3.7 ml) NS SCH (10:30)
--- NOTE | 2016-11-25 17:34 | CP.PCM.PN ---
Subjective - Date & Time of Evaluation Date of Evaluation: 11/25/16 Time of Evaluation: 16:45 - Subjective Subjective: Infectious Disease Follow Up: November 25, 2016 86 yo female who presented with nausea and abdominal pain with 3 day history of flu like symptoms and generalized body aches. The patient had initial SOB. CT of the abd/pelvis as well as the chest is showing a new mass or mass-like structure in the left lower lobe of 10x14 [address] of chest and 1.[address] of the abd/pelvis 2 days prior to the CT chest. Clinically , the patient appears to be improved. I had a long discussion with the patient's daughters a few days ago. They do not want the patient being told of the potential mass in the LLL. Objective - Vital Signs/Intake and Output Vital Signs (last 24 hours): Temp Pulse Resp BP Pulse Ox 98.5 F 70 20 121/68 100 11/25/16 16:00 11/25/16 16:00 11/25/16 16:00 11/25/16 16:00 11/25/16 16:00 - Medications Medications: Current Medications Acetaminophen (Tylenol 325mg Tab) 650 mg PO Q6H PRN PRN Reason: Pain, moderate (4-7) Last Admin: 11/23/16 10:48 Dose: 650 mg Albuterol/Ipratropium (Duoneb 3 Mg/0.5 Mg (3 Ml) Ud) 3 ml IH [id number] [facility] Last Admin: 11/25/16 15:50 Dose: 3 ml Aspirin (Ecotrin) 81 mg PO DAILY [facility] Last Admin: 11/25/16 10:29 Dose: 81 mg Atorvastatin Calcium (Lipitor) 10 mg PO DIN [facility] Last Admin: 11/24/16 17:34 Dose: 10 mg Budesonide (Pulmicort Respules) 0.5 mg IH [id number] [facility] Last Admin: 11/25/16 07:20 Dose: 0.5 mg Calcitonin [place] (Miacalcin) 200 iu NS DAILY [facility] Last Admin: 11/25/16 10:30 Dose: 1 spr Calcium Carbonate (Oscal) 500 mg PO DAILY [facility] Last Admin: 11/25/16 10:30 Dose: 500 mg Docusate Sodium (Colace) 100 mg PO BID [facility] Last Admin: 11/25/16 10:28 Dose: 100 mg Famotidine (Pepcid) 20 mg PO [facility] Last Admin: 11/24/16 22:14 Dose: 20 mg Furosemide (Lasix) 20 mg PO BID [facility] Last Admin: 11/25/16 10:29 Dose: 20 mg Home Med (Home Med) 1 unit PO DAILY [facility] Last Admin: 11/25/16 10:29 Dose: 1 unit Piperacillin Sod/Tazobactam Sod (Zosyn 2.25 Gm In 0.9% 100 Ml) 2.25 gm in 100 mls @ 200 mls/hr IVPB Q6 [facility] Last Admin: 11/25/16 12:07 Dose: 200 mls/hr Lisinopril (Zestril) 2.5 mg PO DAILY [facility] Last Admin: 11/25/16 10:31 Dose: 2.5 mg Metoprolol Tartrate (Lopressor) 25 mg PO BID [facility] Last Admin: 11/25/16 10:30 Dose: 25 mg Montelukast Sodium (Singulair) 10 mg PO [facility] Last Admin: 11/24/16 22:14 Dose: 10 mg Ondansetron HCl (Zofran Inj) 4 mg IVP Q8H PRN PRN Reason: Nausea/Vomiting Prednisone (Prednisone Tab) 5 mg PO DAILY [facility] Last Admin: 11/25/16 10:30 Dose: 5 mg - Labs Labs: 11/24/16 08:00 11/24/16 08:00 - Constitutional Appears: Non-toxic, No Acute Distress, Chronically Ill - Head Exam Head Exam: ATRAUMATIC, NORMOCEPHALIC - Eye Exam Eye Exam: EOMI, PERRL Pupil Exam: NORMAL ACCOMODATION, PERRL - ENT Exam ENT Exam: Mucous Membranes Moist, Normal External Ear Exam, TM's Normal Bilaterally - Neck Exam Neck Exam: Full ROM, Normal Inspection - Respiratory Exam Respiratory Exam: Clear to Ausculation Bilateral, NORMAL BREATHING PATTERN. absent: Rales, Rhonchi, Wheezes - Cardiovascular Exam Cardiovascular Exam: REGULAR RHYTHM, RRR, +S1, +S2 - GI/Abdominal Exam GI & Abdominal Exam: Soft, Normal Bowel Sounds. absent: Distended, Tenderness - Extremities Exam Extremities Exam: Full ROM, Normal Inspection - Neurological Exam Neurological Exam: Alert, Awake, CN II-XII Intact, Oriented x3 - Psychiatric Exam Psychiatric exam: Anxious, Normal Affect - Skin Skin Exam: Intact, Normal Color Assessment and Plan - Assessment and Plan (Free Text) Assessment: 86 yo female who presented with abdominal pain, SOB, and nausea. Found to have a masslike structure in the left lower lobe under 2cm in size. This structure was not present on the July 2016 studies. Unclear if this is a pneumonia versus mass/tumor. The patient complains of occasional midepigastric discomfort. Supportive care. On Zosyn for now. Complete the Zosyn therapy with a total of 7-10 days course. Patient will require a new CT chest a few months from now. Patient currently in the TCU for care. Thank you for allowing me to participate in the care of the patient, we will follow with you.
--- NOTE | 2016-11-25 22:06 | PN ---
DATE: 11/25/2016 SUBJECTIVE: This 86-year-old female was examined at her bedside. The patient remained anxious and denying shortness of breath, fever, or chills, while being treated for left lower lobe mass-like infiltrate on recent CT of the lung. There are no reports of hemoptysis or hematemesis. She is eating better and having bowel movements without difficulty. She denies chest pain. No shortness of breath at rest. PHYSICAL EXAMINATION VITAL SIGNS: Temperature is 98.5, respirations 18, pulse 94, and blood pressure 140/84, pulse ox 97%. HEENT: Head is normocephalic and atraumatic. Eyes, no icterus. Ears, clear. Throat, noninjected. NECK: Supple. HEART: Irregular S1, S2. No pathological rubs, murmurs, or gallops. LUNGS: With decreased breath sounds at the left base. Occasional rhonchi that clear with coughing. ABDOMEN: Soft, nontender. EXTREMITIES: No clubbing, no cyanosis, no edema. SKIN: Without rash. NEUROLOGICAL: Unchanged. PSYCHOLOGICAL: Chronic anxiety. VASCULAR: Legs, warm to touch. LABORATORY DATA: Hemoglobin 11.3, hematocrit 36.1. Sodium 140, potassium 3.9, chloride 106, bicarbonate 26, BUN was 23, creatinine 2.0, random blood sugar 86. IMPRESSION: This is an 86-year-old female with a newly noted left lower lung mass-like infiltrate measuring 10 x 14 mm, not seen on previous CT of the lung in the setting of advanced chronic obstructive pulmonary disease, pulmonary fibrosis, and comorbidities and atherosclerotic heart disease, remote myocardial infarction, chronic hypertension, hyperlipidemia, degenerative arthritis, chronic renal failure stage 3, anemia of chronic disease, peptic ulcer disease with GERD and history of diverticulosis and internal hemorrhoids. PLAN: At present is to continue Zosyn 2.25 g IV q.6 for full 7 day IV course with followup CT of the lung in approximately 6 weeks, also with nasal O2 p.r.n., home O2 as outlined. Duo nebulizers q.6 hours and treatment with Ecotrin 81 mg p.o. daily, Lasix 20 mg p.o. b.i.d., Lipitor 10 mg p.o. dinner time, metoprolol tartrate 25 mg p.o. b.i.d., Os-Leon 500 mg p.o. daily, Miacalcin nasal spray alternate nostril daily, Pepcid 20 mg p.o. at bedtime, prednisone 5 mg p.o. daily, Pulmicort inhalational therapy q.12, Singulair 10 mg p.o. at bedtime, Zestril 2.5 mg p.o. daily. The case was reviewed in detail with the patient, her family, nursing staff and therapy. Approximately fifty minutes was spent in the care management and ordering of care for this patient today. Overall prognosis remains poor, but stable at present. Marce Gold MD MTDD
[2016-11-26] MEDS: Piperacillin/Tazobact 2.25gm 2.25 GM/100 ML BAG IVPB SCH ×5 (00:11→23:41)
[2016-11-26] MEDS: Albuterol-Ipratrop 3 mg / 0.5 (3 ml) UD IH SCH ×4 (02:45→21:35)
[2016-11-26] MEDS: Budesonide 0.5 mg/2 ml Inhal Susp UD IH SCH ×2 (07:29→21:35)
[2016-11-26] MEDS: Calcitonin 200 Int Units/Inh Nasal Spray (3.7 ml) NS SCH (09:25)
[2016-11-26] MEDS: METHENAMINE HIPPURATE PO SCH (09:26)
--- NOTE | 2016-11-26 17:26 | CP.PCM.PN ---
Subjective - Date & Time of Evaluation Date of Evaluation: 11/26/16 Time of Evaluation: 16:30 - Subjective Subjective: Infectious Disease Follow Up: November 26, 2016 86 yo female who presented with nausea and abdominal pain with 3 day history of flu like symptoms and generalized body aches. The patient had initial SOB. CT of the abd/pelvis as well as the chest is showing a new mass or mass-like structure in the left lower lobe of 10x14 mm on [address] of chest and 1.[address] of the abd/pelvis 2 days prior to the CT chest. Clinically , the patient appears to be improved. I had a long discussion with the patient's daughters a few days ago. They do not want the patient being told of the potential mass in the LLL. Patient with no new issues at this time. Objective - Vital Signs/Intake and Output Vital Signs (last 24 hours): Temp Pulse Resp BP Pulse Ox 98.2 F 88 20 127/75 95 11/26/16 16:08 11/26/16 17:07 11/26/16 16:08 11/26/16 17:07 11/26/16 16:08 - Medications Medications: Current Medications Acetaminophen (Tylenol 325mg Tab) 650 mg PO Q6H PRN PRN Reason: Pain, moderate (4-7) Last Admin: 11/23/16 10:48 Dose: 650 mg Albuterol/Ipratropium (Duoneb 3 Mg/0.5 Mg (3 Ml) Ud) 3 ml IH [id number] [facility] Last Admin: 11/26/16 13:22 Dose: 3 ml Aspirin (Ecotrin) 81 mg PO DAILY [facility] Last Admin: 11/26/16 09:25 Dose: 81 mg Atorvastatin Calcium (Lipitor) 10 mg PO DIN [facility] Last Admin: 11/26/16 17:07 Dose: 10 mg Budesonide (Pulmicort Respules) 0.5 mg IH [id number] [facility] Last Admin: 11/26/16 07:29 Dose: 0.5 mg Calcitonin [place] (Miacalcin) 200 iu NS DAILY [facility] Last Admin: 11/26/16 09:25 Dose: 1 spr Calcium Carbonate (Oscal) 500 mg PO DAILY [facility] Last Admin: 11/26/16 09:25 Dose: 500 mg Docusate Sodium (Colace) 100 mg PO BID [facility] Last Admin: 11/26/16 17:06 Dose: Not Given Famotidine (Pepcid) 20 mg PO [facility] Furosemide (Lasix) 20 mg PO BID [facility] Last Admin: 11/26/16 17:07 Dose: 20 mg Home Med (Home Med) 1 unit PO DAILY [facility] Last Admin: 11/26/16 09:26 Dose: 1 unit Piperacillin Sod/Tazobactam Sod (Zosyn 2.25 Gm In 0.9% 100 Ml) 2.25 gm in 100 mls @ 200 mls/hr IVPB Q6 [facility] Last Admin: 11/26/16 17:07 Dose: 200 mls/hr Lisinopril (Zestril) 2.5 mg PO DAILY [facility] Last Admin: 11/26/16 09:26 Dose: 2.5 mg Metoprolol Tartrate (Lopressor) 25 mg PO BID [facility] Last Admin: 11/26/16 17:07 Dose: 25 mg Montelukast Sodium (Singulair) 10 mg PO [facility] Last Admin: 11/25/16 21:54 Dose: 10 mg Ondansetron HCl (Zofran Inj) 4 mg IVP Q8H PRN PRN Reason: Nausea/Vomiting Prednisone (Prednisone Tab) 5 mg PO DAILY [facility] Last Admin: 11/26/16 09:25 Dose: 5 mg - Labs Labs: 11/24/16 08:00 11/24/16 08:00 - Constitutional Appears: Non-toxic, No Acute Distress, Chronically Ill - Head Exam Head Exam: ATRAUMATIC, NORMOCEPHALIC - Eye Exam Eye Exam: EOMI, PERRL Pupil Exam: NORMAL ACCOMODATION, PERRL - ENT Exam ENT Exam: Mucous Membranes Moist, Normal External Ear Exam, TM's Normal Bilaterally - Neck Exam Neck Exam: Full ROM, Normal Inspection - Respiratory Exam Respiratory Exam: Clear to Ausculation Bilateral, NORMAL BREATHING PATTERN. absent: Rales, Rhonchi, Wheezes - Cardiovascular Exam Cardiovascular Exam: REGULAR RHYTHM, RRR, +S1, +S2 - GI/Abdominal Exam GI & Abdominal Exam: Soft, Normal Bowel Sounds. absent: Distended, Tenderness - Extremities Exam Extremities Exam: Full ROM, Normal Inspection - Neurological Exam Neurological Exam: Alert, Awake, CN II-XII Intact, Oriented x3 - Psychiatric Exam Psychiatric exam: Normal Affect, Normal Mood - Skin Skin Exam: Intact, Normal Color Assessment and Plan - Assessment and Plan (Free Text) Assessment: 86 yo female who presented with abdominal pain, SOB, and nausea. Found to have a masslike structure in the left lower lobe under 2cm in size. This structure was not present on the July 2016 studies. Unclear if this is a pneumonia versus mass/tumor. The patient complains of occasional midepigastric discomfort. Supportive care. On Zosyn for now. Complete the Zosyn therapy with a total of 7-10 days course. Patient will require a new CT chest a few months from now. Currently no new issues and patient appears mostly comfortable. Patient currently in the TCU for care. Thank you for allowing me to participate in the care of the patient, we will follow with you.
[2016-11-27] MEDS: Albuterol-Ipratrop 3 mg / 0.5 (3 ml) UD IH SCH ×5 (02:50→22:00)
--- NOTE | 2016-11-27 03:28 | PN ---
DATE: 11/26/2016 SUBJECTIVE: This 86-year-old female who was examined at her bedside. Her family was present including her daughter and son-in-law. The patient denied fever, chills, chest pain or shortness of breath, is tolerating diet and medication and cooperating with physical therapy. Of note, she is receiving Zosyn 2.25 g IV q.6 hours for a newly noted left lower lobe mass like infiltrate on her most recent CT of the lung. PHYSICAL EXAMINATION: VITAL SIGNS: Temperature was 98.2, respiration 20, pulse 88, blood pressure 127/75 with a pulse ox of 95%. HEENT: Head normocephalic and atraumatic. Eyes; no icterus. Ears clear. Throat non-injected. NECK: Supple. HEART: S1 and S2. No pathological rubs, murmurs, or gallops. LUNGS: Clear to auscultation. Occasional rhonchi at her left lung base that clear with coughing. ABDOMEN: Soft. EXTREMITIES: No edema. SKIN: Without rash. NEUROLOGICAL: Unchanged. PSYCHOLOGICAL: Alert. VASCULAR: Legs, warm to touch. LABORATORY DATA: Hemoglobin 11.3 and hematocrit 36.3. Sodium 140, potassium 3.9, chloride 106, bicarbonate 26, BUN 23, creatinine 2.0 and random blood sugar 86. IMPRESSION: This is an 86-year-old female with possible left lower lobe pneumonia, newly noted mass like infiltrate in the base of the left lung on most recent CT of the lung with comorbidities and chronic obstructive pulmonary disease, pulmonary fibrosis, stable atherosclerotic heart disease, remote myocardial infarction, cardiomyopathy, chronic hypertension, hyperlipidemia, chronic renal failure stage III, anemia of chronic disease, peptic ulcer disease, osteoporosis, degenerative arthritis and anxiety. PLAN: At present is to continue Zosyn 2.25 g IV q.6 hours, Zestril 2.5 mg p.o. daily, Singulair 10 mg p.o. at bedtime, Pulmicort inhalation therapy q.12, DuoNeb nebulizer therapy q.6, prednisone 5 mg p.o. daily, Pepcid 20 mg p.o. daily, Os-Leon 500 mg p.o. daily, Miacalcin nasal spray alternate nostril daily, metoprolol tartarate 25 mg p.o. b.i.d., Lipitor 10 mg p.o. at dinner, Lasix 20 mg p.o. b.i.d., Ecotrin 81 mg p.o. daily and Colace 100 mg p.o. b.i.d. The patient continues on a soft bland diet. Follow up precautions, physical and occupational therapy and ultimate plan will be for discharge to home when antibiotic therapy is completed for follow up CAT scan of her lungs in 6 weeks. All of the above was discussed in details with the patient and her family at the bedside. Marce Gold MD MTDD
[2016-11-27] MEDS: Piperacillin/Tazobact 2.25gm 2.25 GM/100 ML BAG IVPB SCH ×4 (05:11→23:22)
[2016-11-27] MEDS: Budesonide 0.5 mg/2 ml Inhal Susp UD IH SCH ×2 (07:27→22:00)
[2016-11-27] MEDS: METHENAMINE HIPPURATE PO SCH (09:20)
[2016-11-27] MEDS: Calcitonin 200 Int Units/Inh Nasal Spray (3.7 ml) NS SCH (09:22)
[2016-11-27] MEDS: guaiFENesin DM 100 mg-10 mg/5 ml UD PO PRN ×2 (12:17→23:24)
--- NOTE | 2016-11-27 15:48 | PN ---
DATE: 11/27/2016 SUBJECTIVE: This is an 86-year-old female who was examined at her bedside, her daughter Mary Alves was present for the interview. The patient now complaints of a cough with some clear white sputum and is requesting a decongestant. She denies any shortness of breath at rest and is cooperating with physical therapy daily. Of note, she denies fever, chills, hematemesis, or melena. There has been no reported diarrhea and her appetite has improved. PHYSICAL EXAMINATION: VITAL SIGNS: Temperature was 98.6, respiration 18, pulse 68, blood pressure 121/72 with a pulse ox of 96% on room air. HEENT: Head is normocephalic and atraumatic. Eyes; no icterus. Ears clear. Throat non-injected. NECK: Supple. HEART: Regular S1 and S2. No pathological rubs, murmurs, or gallops. LUNGS: Have decrease breath sounds at the left base and rhonchi that cleared with coughing. No wheezing. ABDOMEN: Soft and nontender. No palpable. No organomegaly. No rebound. No guarding. No tenderness. EXTREMITIES: No clubbing, no cyanosis, no edema. SKIN: Without rash. NEUROLOGICAL: Intact. PSYCHOLOGICAL: Alert and oriented x3. VASCULAR: Legs, warm to touch. LABORATORY DATA: Hemoglobin 11.3 and hematocrit 36.3. Sodium 140, potassium 3.9, chloride 106, bicarbonate 26, BUN 23, creatinine 2.0 and random blood sugar is 86. IMPRESSION: This is an 86-year-old female with newly noted left lower lung infiltrative mass on recent CT, not seen on prior CAT scans with history of advanced chronic obstructive pulmonary disease, advanced pulmonary fibrosis, and comorbidities of stable atherosclerotic heart disease, statu post remote myocardial infarction, cardiomyopathy, chronic hypertension, hyperlipidemia, osteoporosis, degenerative arthritis, peptic ulcer disease with gastroesophageal reflex disease, and anxiety neurosis. PLAN: The plan at present is to continue the patient on physical and occupational therapy. She continues on fall risk protocol. She is receiving a soft bland diet, Nasal O2 p.r.n., pulmonary toiletry including Pulmicort inhalation therapy q. 12, DuoNeb nebulizer therapy q. 6 hours Zosyn 2.25 g IV q.6 hours, Zestril 2.5 mg p.o. daily, Singulair 10 mg p.o. at bedtime, Robitussin DM 5 mL p.o. q. 6 hours p.r.n. cough, prednisone 5 mg p.o. daily, Pepcid 20 mg p.o. daily, Os-Leon 500 mg p.o. daily, Miacalcin nasal spray daily, metoprolol tartarate 25 mg p.o. b.i.d., Lipitor 10 mg p.o. at dinner, Lasix 20 mg p.o. b.i.d., and Ecotrin 81 mg p.o. daily. The patient will receive aggressive physical and pulmonary telemetry ultimate plan will be for discharge to home upon completion of parenteral antibiotics. She will continue on close pulmonary monitoring as an outpatient. She will be rescheduled for CT of the chest in approximately six weeks at which time the family will decide what if any further workup should be entertained. As per the family's request the patient will not be informed of the potential of malignancy given her comorbidities and anxiety neurosis and the family has requested this on previous occasions as well as today. Her overall prognosis is still poor, She remains stable at present and approximately forty minutes was spent in the management discussion and ordering of care for this patient today. Marce Gold MD MTDD
--- NOTE | 2016-11-27 18:46 | CP.PCM.PN ---
Subjective - Date & Time of Evaluation Date of Evaluation: 11/27/16 Time of Evaluation: 17:15 - Subjective Subjective: Infectious Disease Follow Up: November 27, 2016 86 yo female who presented with nausea and abdominal pain with 3 day history of flu like symptoms and generalized body aches. The patient had initial SOB. CT of the abd/pelvis as well as the chest is showing a new mass or mass-like structure in the left lower lobe of 10x14 mm on the [address] of chest and 1.[address] of the abd/pelvis 2 days prior to the CT chest. Clinically , the patient appears to be improved. I had a long discussion with the patient's daughters a few days ago. They do not want the patient being told of the potential mass in the LLL. Patient with no new issues at this time. Remains on Zosyn at this time. Objective - Vital Signs/Intake and Output Vital Signs (last 24 hours): Temp Pulse Resp BP Pulse Ox 98.6 F 79 18 129/72 96 11/27/16 11:01 11/27/16 18:15 11/27/16 11:01 11/27/16 18:15 11/27/16 11:01 - Medications Medications: Current Medications Acetaminophen (Tylenol 325mg Tab) 650 mg PO Q6H PRN PRN Reason: Pain, moderate (4-7) Last Admin: 11/23/16 10:48 Dose: 650 mg Albuterol/Ipratropium (Duoneb 3 Mg/0.5 Mg (3 Ml) Ud) 3 ml IH [id number] [facility] Last Admin: 11/27/16 13:43 Dose: 3 ml Aspirin (Ecotrin) 81 mg PO DAILY [facility] Last Admin: 11/27/16 09:20 Dose: 81 mg Atorvastatin Calcium (Lipitor) 10 mg PO DIN [facility] Last Admin: 11/27/16 18:15 Dose: 10 mg Budesonide (Pulmicort Respules) 0.5 mg IH [id number] [facility] Last Admin: 11/27/16 07:27 Dose: 0.5 mg Calcitonin [place] (Miacalcin) 200 iu NS DAILY [facility] Last Admin: 11/27/16 09:22 Dose: 1 spr Calcium Carbonate (Oscal) 500 mg PO DAILY [facility] Last Admin: 11/27/16 09:22 Dose: 500 mg Docusate Sodium (Colace) 100 mg PO BID [facility] Last Admin: 11/27/16 18:13 Dose: Not Given Famotidine (Pepcid) 20 mg PO HS [facility] Last Admin: 11/27/16 09:22 Dose: 20 mg Furosemide (Lasix) 20 mg PO BID [facility] Last Admin: 11/27/16 18:14 Dose: 20 mg Guaifenesin/Dextromethorphan (Robitussin Dm) 5 ml PO Q6H PRN PRN Reason: Cough Last Admin: 11/27/16 12:17 Dose: 5 ml Home Med (Home Med) 1 unit PO DAILY [facility] Last Admin: 11/27/16 09:20 Dose: 1 unit Piperacillin Sod/Tazobactam Sod (Zosyn 2.25 Gm In 0.9% 100 Ml) 2.25 gm in 100 mls @ 200 mls/hr IVPB Q6 [facility] Last Admin: 11/27/16 18:16 Dose: 200 mls/hr Lisinopril (Zestril) 2.5 mg PO DAILY [facility] Last Admin: 11/27/16 09:23 Dose: 2.5 mg Metoprolol Tartrate (Lopressor) 25 mg PO BID [facility] Last Admin: 11/27/16 18:15 Dose: 25 mg Montelukast Sodium (Singulair) 10 mg PO HS [facility] Last Admin: 11/26/16 21:35 Dose: 10 mg Ondansetron HCl (Zofran Inj) 4 mg IVP Q8H PRN PRN Reason: Nausea/Vomiting Prednisone (Prednisone Tab) 5 mg PO DAILY [facility] Last Admin: 11/27/16 09:23 Dose: 5 mg - Labs Labs: 11/24/16 08:00 11/24/16 08:00
--- NOTE | 2016-11-27 18:52 | CP.PCM.PN ---
Subjective - Date & Time of Evaluation Date of Evaluation: 11/27/16 Time of Evaluation: 17:15 - Subjective Subjective: Infectious Disease Follow Up: November 27, 2016 86 yo female who presented with nausea and abdominal pain with 3 day history of flu like symptoms and generalized body aches. The patient had initial SOB. CT of the abd/pelvis as well as the chest is showing a new mass or mass-like structure in the left lower lobe of 10x[address] of chest and 1.[address] of the abd/pelvis 2 days prior to the CT chest. Clinically , the patient appears to be improved. I had a long discussion with the patient's daughters a few days ago. They do not want the patient being told of the potential mass in the LLL. Patient with no new issues at this time. Remains on Zosyn at this time. Objective - Vital Signs/Intake and Output Vital Signs (last 24 hours): Temp Pulse Resp BP Pulse Ox 98.6 F 79 18 129/72 96 11/27/16 11:01 11/27/16 18:15 11/27/16 11:01 11/27/16 18:15 11/27/16 11:01 - Medications Medications: Current Medications Acetaminophen (Tylenol 325mg Tab) 650 mg PO Q6H PRN PRN Reason: Pain, moderate (4-7) Last Admin: 11/23/16 10:48 Dose: 650 mg Albuterol/Ipratropium (Duoneb 3 Mg/0.5 Mg (3 Ml) Ud) 3 ml IH [id number] [facility] Last Admin: 11/27/16 13:43 Dose: 3 ml Aspirin (Ecotrin) 81 mg PO DAILY [facility] Last Admin: 11/27/16 09:20 Dose: 81 mg Atorvastatin Calcium (Lipitor) 10 mg PO DIN [facility] Last Admin: 11/27/16 18:15 Dose: 10 mg Budesonide (Pulmicort Respules) 0.5 mg IH [id number] [facility] Last Admin: 11/27/16 07:27 Dose: 0.5 mg Calcitonin [place] (Miacalcin) 200 iu NS DAILY [facility] Last Admin: 11/27/16 09:22 Dose: 1 spr Calcium Carbonate (Oscal) 500 mg PO DAILY [facility] Last Admin: 11/27/16 09:22 Dose: 500 mg Docusate Sodium (Colace) 100 mg PO BID [facility] Last Admin: 11/27/16 18:13 Dose: Not Given Famotidine (Pepcid) 20 mg PO HS [facility] Last Admin: 11/27/16 09:22 Dose: 20 mg Furosemide (Lasix) 20 mg PO BID [facility] Last Admin: 11/27/16 18:14 Dose: 20 mg Guaifenesin/Dextromethorphan (Robitussin Dm) 5 ml PO Q6H PRN PRN Reason: Cough Last Admin: 11/27/16 12:17 Dose: 5 ml Home Med (Home Med) 1 unit PO DAILY [facility] Last Admin: 11/27/16 09:20 Dose: 1 unit Piperacillin Sod/Tazobactam Sod (Zosyn 2.25 Gm In 0.9% 100 Ml) 2.25 gm in 100 mls @ 200 mls/hr IVPB Q6 [facility] Last Admin: 11/27/16 18:16 Dose: 200 mls/hr Lisinopril (Zestril) 2.5 mg PO DAILY [facility] Last Admin: 11/27/16 09:23 Dose: 2.5 mg Metoprolol Tartrate (Lopressor) 25 mg PO BID [facility] Last Admin: 11/27/16 18:15 Dose: 25 mg Montelukast Sodium (Singulair) 10 mg PO HS [facility] Last Admin: 11/26/16 21:35 Dose: 10 mg Ondansetron HCl (Zofran Inj) 4 mg IVP Q8H PRN PRN Reason: Nausea/Vomiting Prednisone (Prednisone Tab) 5 mg PO DAILY [facility] Last Admin: 11/27/16 09:23 Dose: 5 mg - Labs Labs: 11/24/16 08:00 11/24/16 08:00 - Constitutional Appears: Non-toxic, No Acute Distress, Chronically Ill - Head Exam Head Exam: ATRAUMATIC, NORMOCEPHALIC - Eye Exam Eye Exam: EOMI, PERRL Pupil Exam: NORMAL ACCOMODATION, PERRL - ENT Exam ENT Exam: Mucous Membranes Moist, Normal External Ear Exam, TM's Normal Bilaterally - Neck Exam Neck Exam: Full ROM, Normal Inspection - Respiratory Exam Respiratory Exam: Clear to Ausculation Bilateral, Wheezes, NORMAL BREATHING PATTERN. absent: Rales, Rhonchi - Cardiovascular Exam Cardiovascular Exam: REGULAR RHYTHM, RRR, +S1, +S2 - GI/Abdominal Exam GI & Abdominal Exam: Soft, Normal Bowel Sounds. absent: Distended, Tenderness - Extremities Exam Extremities Exam: Full ROM, Normal Inspection - Neurological Exam Neurological Exam: Alert, Awake, CN II-XII Intact, Oriented x3 - Psychiatric Exam Psychiatric exam: Normal Affect, Normal Mood - Skin Skin Exam: Intact, Normal Color Assessment and Plan - Assessment and Plan (Free Text) Assessment: 86 yo female who presented with abdominal pain, SOB, and nausea. Found to have a masslike structure in the left lower lobe under 2cm in size. This structure was not present on the July 2016 studies. Unclear if this is a pneumonia versus mass/tumor. The patient complains of occasional midepigastric discomfort. Supportive care. On Zosyn for now. Complete the Zosyn therapy with a total of 7-10 days course. Patient will require a new CT chest a few months from now. Currently no new issues and patient appears mostly comfortable. She is still SOB on short ambulatory walks like to the bathroom. My understanding is that this is still close to her baseline physical status. Patient currently in the TCU for care. Thank you for allowing me to participate in the care of the patient, we will follow with you.
[2016-11-28] MEDS: Albuterol-Ipratrop 3 mg / 0.5 (3 ml) UD IH SCH ×4 (02:35→20:36)
[2016-11-28] MEDS: Piperacillin/Tazobact 2.25gm 2.25 GM/100 ML BAG IVPB SCH ×3 (06:14→17:51)
[2016-11-28] MEDS: Budesonide 0.5 mg/2 ml Inhal Susp UD IH SCH ×2 (07:25→20:36)
[2016-11-28] MEDS: METHENAMINE HIPPURATE PO SCH (10:52)
[2016-11-28] MEDS: Calcitonin 200 Int Units/Inh Nasal Spray (3.7 ml) NS SCH (10:53)
--- NOTE | 2016-11-28 14:39 | PN ---
DATE: 11/28/2016 SUBJECTIVE: This is an 86-year-old female who was examined at her bedside, in the presence of her daughter. She denied any chest pain, shortness of breath, cough, hemoptysis, fever or chills. The patient is tolerating diet and medication and parenteral antibiotics. PHYSICAL EXAMINATION VITAL SIGNS: Temperature is 98.5, respirations are 20, pulse is 86, and blood pressure is 130/82, with a pulse oximetry of 98% on room air. HEENT: Head is normocephalic and atraumatic. Eyes; no icterus. Ears clear. Throat non-injected. NECK: Supple. HEART: Regular S1 and S2. LUNGS: Clear to auscultation. ABDOMEN: Soft and nontender. No palpable organomegaly. No rebound, no guarding, and no tenderness. EXTREMITIES: Show no clubbing, no cyanosis, and no edema. SKIN: Show no rash. VASCULAR: Legs are warm to touch. PSYCHOLOGICAL: Alert and oriented x3. NEUROLOGICAL: Grossly Intact. LABORATORY DATA: Hemoglobin of 11.3 and hematocrit of 36.3. Sodium of 140, potassium of 3.9, chloride of 106, bicarbonate of 26, BUN of 23, creatinine of 2.0, and random blood sugar is 86. IMPRESSION: This is an 86-year-old female with newly noted left lower lung infiltrative mass measuring 10 x 14 mm not seen on pervious CAT scan. 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 PLAN: At present is to continue physical and occupational therapy. The patient continues on fall risk protocol. She is tolerating soft bland diet with nasal O2 p.r.n. She will complete Zosyn 2.25 grams IV q 6 hours. as recommended by infectious disease for a 7 to 10 days' course, Zestril 2.5 mg p.o daily, Singulair 10 mg p.o at bedtime, Robitussin DM 5 mL p.o q. 6 hours. p.r.n. for cough, Pulmicort inhalation therapy q 12 hours, prednisone 5 mg p.o daily, Pepcid 20 mg p.o at bedtime, [place] 500 mg p.o daily, Miacalcin nasal spray alternate nostril daily, Lopressor 25 mg p.o. b.i.d., Lipitor 10 mg p.o. daily, Lasix 20 mg p.o., b.i.d., Ecotrin 81 mg p.o. daily, Duo-nebulizer therapy q 6 hours. and Colace 100 mg p.o. b.i.d. The ultimate plan will be for discharge to home with family providing 24 hours supervision. She will be scheduled for follow up CT of the lung in 6 weeks and will not be informed at the possibility of malignancy based on her daughter's recommendation. Approximately fifty minutes was spent in the care and management of this patient today as well as counseling and discussion with the patient and family. Marce Gold MD MTDD
--- NOTE | 2016-11-28 18:26 | CP.PCM.PN ---
Subjective - Date & Time of Evaluation Date of Evaluation: 11/28/16 Time of Evaluation: 17:00 - Subjective Subjective: Infectious Disease Follow Up: November 28, 2016 86 yo female who presented with nausea and abdominal pain with 3 day history of flu like symptoms and generalized body aches. The patient had initial SOB. CT of the abd/pelvis as well as the chest is showing a new mass or mass-like structure in the left lower lobe of 10x14 mm [address] of chest and 1.[address] of the abd/pelvis 2 days prior to the CT chest. Clinically , the patient appears to be improved. I had a long discussion with the patient's daughters a few days ago. They do not want the patient being told of the potential mass in the LLL. Patient with no new issues at this time. Remains on Zosyn at this time. Still with SOB on light exertion such as walking to the bathroom. Objective - Vital Signs/Intake and Output Vital Signs (last 24 hours): Temp Pulse Resp BP Pulse Ox 98 F 78 14 125/76 92 L 11/28/16 16:00 11/28/16 17:52 11/28/16 16:00 11/28/16 17:52 11/28/16 16:00 - Medications Medications: Current Medications Acetaminophen (Tylenol 325mg Tab) 650 mg PO Q6H PRN PRN Reason: Pain, moderate (4-7) Last Admin: 11/23/16 10:48 Dose: 650 mg Albuterol/Ipratropium (Duoneb 3 Mg/0.5 Mg (3 Ml) Ud) 3 ml IH [id number] [facility] Last Admin: 11/28/16 13:06 Dose: 3 ml Aspirin (Ecotrin) 81 mg PO 0800 [facility] Atorvastatin Calcium (Lipitor) 10 mg PO DIN [facility] Last Admin: 11/28/16 17:52 Dose: 10 mg Budesonide (Pulmicort Respules) 0.5 mg IH [id number] [facility] Last Admin: 11/28/16 07:25 Dose: 0.5 mg Calcitonin [place] (Miacalcin) 200 iu NS DAILY [facility] Last Admin: 11/28/16 10:53 Dose: 1 spr Calcium Carbonate (Oscal) 500 mg PO DAILY [facility] Last Admin: 11/28/16 10:53 Dose: 500 mg Docusate Sodium (Colace) 100 mg PO BID [facility] Last Admin: 11/28/16 17:59 Dose: Not Given Famotidine (Pepcid) 20 mg PO HS [facility] Last Admin: 11/27/16 23:23 Dose: 20 mg Furosemide (Lasix) 20 mg PO BID [facility] Last Admin: 11/28/16 17:52 Dose: 20 mg Guaifenesin/Dextromethorphan (Robitussin Dm) 5 ml PO Q6H PRN PRN Reason: Cough Last Admin: 11/27/16 23:24 Dose: 5 ml Home Med (Home Med) 1 unit PO DAILY [facility] Last Admin: 11/28/16 10:52 Dose: 1 unit Piperacillin Sod/Tazobactam Sod (Zosyn 2.25 Gm In 0.9% 100 Ml) 2.25 gm in 100 mls @ 200 mls/hr IVPB Q6 [facility] Last Admin: 11/28/16 17:51 Dose: 200 mls/hr Lisinopril (Zestril) 2.5 mg PO DAILY [facility] Last Admin: 11/28/16 10:54 Dose: 2.5 mg Metoprolol Tartrate (Lopressor) 25 mg PO BID [facility] Last Admin: 11/28/16 17:52 Dose: 25 mg Montelukast Sodium (Singulair) 10 mg PO HS [facility] Last Admin: 11/27/16 23:23 Dose: 10 mg Ondansetron HCl (Zofran Inj) 4 mg IVP Q8H PRN PRN Reason: Nausea/Vomiting Prednisone (Prednisone Tab) 5 mg PO DAILY [facility] Last Admin: 11/28/16 10:53 Dose: 5 mg - Labs Labs: 11/24/16 08:00 11/24/16 08:00 - Constitutional Appears: Non-toxic, No Acute Distress, Chronically Ill - Head Exam Head Exam: ATRAUMATIC, NORMOCEPHALIC - Eye Exam Eye Exam: EOMI, PERRL Pupil Exam: NORMAL ACCOMODATION, PERRL - ENT Exam ENT Exam: Mucous Membranes Moist, Normal External Ear Exam, TM's Normal Bilaterally - Neck Exam Neck Exam: Full ROM, Normal Inspection - Respiratory Exam Respiratory Exam: Clear to Ausculation Bilateral, NORMAL BREATHING PATTERN. absent: Rales, Rhonchi, Wheezes - Cardiovascular Exam Cardiovascular Exam: REGULAR RHYTHM, RRR, +S1, +S2 - GI/Abdominal Exam GI & Abdominal Exam: Soft, Normal Bowel Sounds. absent: Distended, Tenderness - Extremities Exam Extremities Exam: Full ROM, Normal Inspection - Neurological Exam Neurological Exam: Alert, Awake, CN II-XII Intact, Oriented x3 - Psychiatric Exam Psychiatric exam: Normal Affect, Normal Mood - Skin Skin Exam: Intact, Normal Color Assessment and Plan - Assessment and Plan (Free Text) Assessment: 86 yo female who presented with abdominal pain, SOB, and nausea. Found to have a masslike structure in the left lower lobe under 2cm in size. This structure was not present on the July 2016 studies. Unclear if this is a pneumonia versus mass/tumor. The patient complained of occasional midepigastric discomfort during hospitalization. Supportive care. On Zosyn for now. Complete the Zosyn therapy with a total of 7-10 days course. Patient will require a new CT chest a few months from now. Currently no new issues and patient appears mostly comfortable. She is still SOB on short ambulatory walks like to the bathroom. My understanding is that this is still close to her baseline physical status. Patient currently in the TCU for care. Thank you for allowing me to participate in the care of the patient, we will follow with you.
[2016-11-28] MEDS: guaiFENesin DM 100 mg-10 mg/5 ml UD PO PRN (21:48)
[2016-11-29] MEDS: Piperacillin/Tazobact 2.25gm 2.25 GM/100 ML BAG IVPB SCH ×3 (00:51→23:42)
[2016-11-29] MEDS: Albuterol-Ipratrop 3 mg / 0.5 (3 ml) UD IH SCH ×4 (02:37→21:12)
[2016-11-29 06:53] VITALS: O2SAT 99
[2016-11-29] MEDS: Budesonide 0.5 mg/2 ml Inhal Susp UD IH SCH ×2 (07:22→21:12)
[2016-11-29] MEDS: METHENAMINE HIPPURATE PO SCH (10:12)
[2016-11-29] MEDS: Calcitonin 200 Int Units/Inh Nasal Spray (3.7 ml) NS SCH (10:14)
[2016-11-29 11:37] VITALS: RESP 18; TEMP 98.4
[2016-11-29] MEDS ORDERED: Piperacillin/Tazobact 2.25gm 2.25 GM/100 ML BAG IVPB SCH (12:00)
--- NOTE | 2016-11-29 12:43 | PN ---
SUBJECTIVE: This 86-year-old female was examined at her bedside. Case was reviewed with nursing, herself, family and physical therapy. She is tolerating medical therapy, physical therapy, occupational therapy and is receiving Zofran for a newly noted mass-like infiltrate at the base of her left lung on a recent CT that was not there prior. The patient denies chest pain, shortness of breath, fever, chills, hemoptysis. Denies any abdominal pain. PHYSICAL EXAMINATION: VITAL SIGNS: Temperature is 98.4, respirations 18, pulse 92, and blood pressure 109/67 with a pulse ox of 99%. HEENT: Head is normocephalic and atraumatic. Eyes, no icterus. Ears, clear. Throat, non-injected. NECK: Supple. HEART: Regular S1 and S2. LUNGS: Have occasional rhonchi that cleared with coughing. ABDOMEN: Soft, nontender. No palpable organomegaly. No rebound, no guarding, no tenderness. EXTREMITIES: No clubbing, no cyanosis, no edema. SKIN: Without rash. NEUROLOGIC: Unchanged. PSYCHOLOGIC: Chronic anxiety. VASCULAR: Legs warm to touch. LABORATORY DATA: Hemoglobin 11.3, hematocrit 36.3. Sodium 140, K 3.9, chloride 106, bicarbonate 26, BUN 23, creatinine 2.0, random blood sugar is 86. IMPRESSION: An 86-year-old female with advanced chronic obstructive pulmonary disease, advanced pulmonary fibrosis, newly noted mass-like infiltrate at the base of her left lung, rule out pneumonia, rule out malignancy with comorbidities with stable atherosclerotic heart disease, history of remote myocardial infarction, chronic hypertension, hyperlipidemia, chronic renal failure stage III, degenerative arthritis, osteoporosis, anemia of chronic disease, and anxiety neurosis. PLAN: At present is to continue soft bland diet. She continues on physical and occupational therapy, fall precautions, O2 and also has home O2. She continues on Zestril 2.5 mg p.o. daily, Singulair 10 mg p.o. at bedtime, Robitussin DM 5 mL p.o q. 6 hours, prednisone 5 mg p.o daily, Pepcid 20 mg p.o at bedtime, [place] 500 mg p.o daily, Miacalcin nasal spray alternate nostril daily, metoprolol tartrate 25 mg b.i.d., Lipitor 10 mg p.o. daily, Lasix 20 mg b.i.d., Ecotrin 81 mg p.o. daily, Duo-nebulizer q. 6 hours. The patient is nearing the completion of medical therapy. She will be discharged home to the care of her family who provide 24-hour supervision for this patient and plan is for a follow-up CT of the lung without contrast in approximately 6 weeks. As per family request, the patient not be told of the possibility of pulmonary malignancy at this time. Marce Gold MD
--- NOTE | 2016-11-29 16:53 | CP.PCM.PN ---
Subjective - Date & Time of Evaluation Date of Evaluation: 11/29/16 Time of Evaluation: 16:47 - Subjective Subjective: Infectious Disease Follow Up: November 29, 2016 86 yo female who presented with nausea and abdominal pain with 3 day history of flu like symptoms and generalized body aches. The patient had initial SOB. CT of the abd/pelvis as well as the chest is showing a new mass or mass-like structure in the left lower lobe of 10x[address] of chest and 1.[address] of the abd/pelvis 2 days prior to the CT chest. Clinically , the patient appears to be improved. I had a long discussion with the patient's daughters a few days ago. They do not want the patient being told of the potential mass in the LLL. Patient with no new issues at this time. Remains on Zosyn at this time. Still with SOB on light exertion such as walking to the bathroom. Objective - Vital Signs/Intake and Output Vital Signs (last 24 hours): Temp Pulse Resp BP Pulse Ox 98.4 F 92 H 18 109/67 99 11/29/16 11:36 11/29/16 11:36 11/29/16 11:36 11/29/16 11:36 11/29/16 11:36 - Medications Medications: Current Medications Acetaminophen (Tylenol 325mg Tab) 650 mg PO Q6H PRN PRN Reason: Pain, moderate (4-7) Last Admin: 11/23/16 10:48 Dose: 650 mg Albuterol/Ipratropium (Duoneb 3 Mg/0.5 Mg (3 Ml) Ud) 3 ml IH [id number] [facility] Last Admin: 11/29/16 13:27 Dose: 3 ml Aspirin (Ecotrin) 81 mg PO 0800 [facility] Last Admin: 11/29/16 08:38 Dose: 81 mg Atorvastatin Calcium (Lipitor) 10 mg PO DIN [facility] Last Admin: 11/28/16 17:52 Dose: 10 mg Budesonide (Pulmicort Respules) 0.5 mg IH [id number] [facility] Last Admin: 11/29/16 07:22 Dose: 0.5 mg Calcitonin [place] (Miacalcin) 200 iu NS DAILY [facility] Last Admin: 11/29/16 10:14 Dose: 1 spr Calcium Carbonate (Oscal) 500 mg PO DAILY [facility] Last Admin: 11/29/16 10:14 Dose: 500 mg Docusate Sodium (Colace) 100 mg PO BID [facility] Last Admin: 11/29/16 10:18 Dose: Not Given Famotidine (Pepcid) 20 mg PO HS [facility] Last Admin: 11/28/16 21:48 Dose: 20 mg Furosemide (Lasix) 20 mg PO BID [facility] Last Admin: 11/29/16 10:12 Dose: 20 mg Guaifenesin/Dextromethorphan (Robitussin Dm) 5 ml PO Q6H PRN PRN Reason: Cough Last Admin: 11/28/16 21:48 Dose: 5 ml Home Med (Home Med) 1 unit PO DAILY [facility] Last Admin: 11/29/16 10:12 Dose: 1 unit Piperacillin Sod/Tazobactam Sod (Zosyn 2.25 Gm In 0.9% 100 Ml) 2.25 gm in 100 mls @ 100 mls/hr IVPB Q6 [facility] PRN Reason: Protocol Stop: 11/30/16 12:59 Lisinopril (Zestril) 2.5 mg PO DAILY [facility] Last Admin: 11/29/16 10:15 Dose: 2.5 mg Metoprolol Tartrate (Lopressor) 25 mg PO BID [facility] Last Admin: 11/29/16 10:13 Dose: 25 mg Montelukast Sodium (Singulair) 10 mg PO HS [facility] Last Admin: 11/28/16 21:48 Dose: 10 mg Ondansetron HCl (Zofran Inj) 4 mg IVP Q8H PRN PRN Reason: Nausea/Vomiting Prednisone (Prednisone Tab) 5 mg PO DAILY [facility] Last Admin: 11/29/16 10:15 Dose: 5 mg - Labs Labs: 11/24/16 08:00 11/24/16 08:00 - Constitutional Appears: Non-toxic, No Acute Distress, Chronically Ill - Head Exam Head Exam: ATRAUMATIC, NORMOCEPHALIC - Eye Exam Eye Exam: EOMI, PERRL Pupil Exam: NORMAL ACCOMODATION, PERRL - ENT Exam ENT Exam: Mucous Membranes Moist, Normal External Ear Exam, TM's Normal Bilaterally - Neck Exam Neck Exam: Full ROM, Normal Inspection - Respiratory Exam Respiratory Exam: Clear to Ausculation Bilateral, NORMAL BREATHING PATTERN. absent: Rales, Rhonchi, Wheezes - Cardiovascular Exam Cardiovascular Exam: REGULAR RHYTHM, RRR, +S1, +S2 - GI/Abdominal Exam GI & Abdominal Exam: Soft, Normal Bowel Sounds. absent: Distended, Tenderness - Extremities Exam Extremities Exam: Full ROM, Normal Inspection - Neurological Exam Neurological Exam: Alert, Awake, CN II-XII Intact, Oriented x3 - Psychiatric Exam Psychiatric exam: Normal Affect, Normal Mood - Skin Skin Exam: Intact, Normal Color Assessment and Plan - Assessment and Plan (Free Text) Assessment: 86 yo female who presented with abdominal pain, SOB, and nausea. Found to have a masslike structure in the left lower lobe under 2cm in size. This structure was not present on the July 2016 studies. Unclear if this is a pneumonia versus mass/tumor. The patient complained of occasional midepigastric discomfort during hospitalization. Supportive care. On Zosyn for now. Complete the Zosyn therapy with a total of 7-10 days course. Patient will require a new CT chest a few months from now. Currently no new issues and patient appears mostly comfortable. She is still SOB on short ambulatory walks like to the bathroom. My understanding is that this is still close to her baseline physical status. Patient currently in the TCU for care. Spoke with Dr. Gold regarding patient' s case. Thank you for allowing me to participate in the care of the patient, we will follow with you.
[2016-11-29 17:58] VITALS: BP 102/63; PULSE 85
[2016-11-30] MEDS: Albuterol-Ipratrop 3 mg / 0.5 (3 ml) UD IH SCH ×3 (01:40→13:24)
[2016-11-30] MEDS: Piperacillin/Tazobact 2.25gm 2.25 GM/100 ML BAG IVPB SCH (05:24)
[2016-11-30] MEDS: Budesonide 0.5 mg/2 ml Inhal Susp UD IH SCH (07:13)
--- NOTE | 2016-11-30 16:30 | CP.PCM.PN ---
Subjective - Date & Time of Evaluation Date of Evaluation: 11/30/16 Time of Evaluation: 11:00 - Subjective Subjective: Infectious Disease Follow Up: November 30, 2016 86 yo female who presented with nausea and abdominal pain with 3 day history of flu like symptoms and generalized body aches. The patient had initial SOB. CT of the abd/pelvis as well as the chest is showing a new mass or mass-like structure in the left lower lobe of 10x14 mm [address] of chest and 1.[address] of the abd/pelvis 2 days prior to the CT chest. Clinically , the patient appears to be improved. I had a long discussion with the patient's daughters a few days ago. They do not want the patient being told of the potential mass in the LLL. Patient with no new issues at this time. Remains on Zosyn at this time. Still with SOB on light exertion such as walking to the bathroom. For discharge today. Objective - Vital Signs/Intake and Output Vital Signs (last 24 hours): Temp Pulse Resp BP Pulse Ox 98.4 F 85 18 102/63 99 11/29/16 11:36 11/29/16 17:56 11/29/16 11:36 11/29/16 17:56 11/29/16 11:36 - Labs Labs: 11/24/16 08:00 11/24/16 08:00 - Constitutional Appears: Non-toxic, No Acute Distress, Chronically Ill - Head Exam Head Exam: ATRAUMATIC, NORMOCEPHALIC - Eye Exam Eye Exam: EOMI, PERRL Pupil Exam: NORMAL ACCOMODATION, PERRL - ENT Exam ENT Exam: Mucous Membranes Moist, Normal External Ear Exam, TM's Normal Bilaterally - Neck Exam Neck Exam: Full ROM, Normal Inspection - Respiratory Exam Respiratory Exam: Clear to Ausculation Bilateral, NORMAL BREATHING PATTERN. absent: Rales, Rhonchi, Wheezes - Cardiovascular Exam Cardiovascular Exam: REGULAR RHYTHM, RRR, +S1, +S2 - GI/Abdominal Exam GI & Abdominal Exam: Soft, Normal Bowel Sounds. absent: Distended, Tenderness - Extremities Exam Extremities Exam: Full ROM, Normal Inspection - Neurological Exam Neurological Exam: Alert, Awake, CN II-XII Intact - Psychiatric Exam Psychiatric exam: Normal Affect, Normal Mood - Skin Skin Exam: Intact, Normal Color Assessment and Plan - Assessment and Plan (Free Text) Assessment: 86 yo female who presented with abdominal pain, SOB, and nausea. Found to have a masslike structure in the left lower lobe under 2cm in size. This structure was not present on the July 2016 studies. Unclear if this is a pneumonia versus mass/tumor. The patient complained of occasional midepigastric discomfort during hospitalization. Supportive care. On Zosyn for now. Complete the Zosyn therapy with a total of 7-10 days course. Patient will require a new CT chest a few months from now. Currently no new issues and patient appears mostly comfortable. She is still SOB on short ambulatory walks like to the bathroom. My understanding is that this is still close to her baseline physical status. Patient currently in the TCU for care. Spoke with Dr. Gold regarding patient' s case. For discharge today. Thank you for allowing me to participate in the care of the patient, we will follow with you.
--- NOTE | 2016-12-01 11:06 | DS ---
FINAL DIAGNOSES: 1. Left lower lobe infiltrate with mass 10 x 14 mm newly noted. 2. Rule out pneumonia. 3. Rule out malignancy. 4. Chronic obstructive pulmonary disease. 5. Pulmonary fibrosis. 6. Stable atherosclerotic heart disease. 7. History of remote myocardial infarction. 8. Chronic hypertension. 9. Hyperlipidemia. 10. Degenerative arthritis. 11. Osteoporosis. 12. Peptic ulcer disease with gastroesophageal reflux disease. 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 14. Anemia of chronic disease. 15. Chronic renal failure stage 3. DISPOSITION: Home with family providing 24-hour supervision. Followup in my office within [address] Amor Méndez, Process Design Engineer. DISCHARGE DIET: Heart healthy, renal, soft, bland. DISCHARGED MEDICATIONS: 1. Duo nebulizer via home nebulizer q. 6 hours. 2. Ecotrin 81 mg p.o. daily. 3. Lasix 20 mg p.o. b.i.d. 4. Lipitor 10 mg p.o. at bedtime. 5. Lopressor 25 mg p.o. b.i.d. 6. Miacalcin nasal spray to alternate nostril daily. 7. Os-Leon 500 mg p.o. daily. 8. Pepcid 20 mg p.o. at bedtime. 9. Combivent inhaler 2 puffs q. 6 hours p.r.n. 10. Singulair 10 mg p.o. at bedtime. 11. Enalapril 2.5 mg p.o. daily. SUMMARY: This 86-year-old female was admitted to [facility] and on workup was noted to have a newly noted left lower lobe infiltrate with mass 10 x [address] of the lung that was not there previously. She was seen in consultation by Infectious Disease consultant rn Dr. Chris Poole who recommended a treatment course of Zosyn 2.25 g IV q. 6 to treat the possibility of pneumonia in this patient was chronic obstructive pulmonary disease and pulmonary fibrosis. As discussed with patient and family, patient will have a followup CT of the lung in approximately 6 weeks to see if the infiltrative mass is resolved. If not, family will decide wants any further workup will be entertained. At this point in time, the family has requested that the patient not be told of the possibility of possible lung cancer given her multiple comorbidities, advantaged age, and chronic anxiety neurosis. PHYSICAL EXAMINATION: At the time of discharge: VITAL SIGNS: Temperature was 98.4, respirations 18, pulse 85, and blood pressure 109/67 with the pulse ox of 99%. HEART: Regular S1 and S2.. No pathological rubs, murmurs or gallops. LUNGS: Has no wheezing. ABDOMEN: Soft. EXTREMITIES: No edema. LABORATORY DATA: Hemoglobin was 11.3, hematocrit 36.3. Sodium 140, K 3.9, chloride 106, carbon dioxide 26, BUN 23, creatinine 2.0, and a random blood sugar of 86. ASSESSMENT AND PLAN: The patient is discharged to home. Will be monitored closely as an outpatient. Overall prognosis remains stable at present. Marce Gold MD
== END 2016-11-30 14:09 | disposition home health service (06) | DRG 190 ==
LOC: TRCU 19:21
PROVIDERS: ADMIT Internal Medicine; ATTEND Internal Medicine
PROC: F07Z9ZZ Gait Training/Functional Ambulation Treatment (ICD-10-PCS; principal; 2016-11-24)
PROC: F07L6YZ Therapeutic Exercise Treatment of Musculoskeletal System - Lower Back / Lower Extremity using Other Equipment (ICD-10-PCS; 2016-11-24)
PROC: F08Z2ZZ Grooming/Personal Hygiene Treatment (ICD-10-PCS; 2016-11-25)
PROC: F08Z1FZ Dressing Techniques Treatment using Assistive, Adaptive, Supportive or Protective Equipment (ICD-10-PCS; 2016-11-25)
DX: J44.0 Chronic obstructive pulmonary disease with (acute) lower respiratory infection (principal); J18.9 Pneumonia, unspecified organism; I13.0 Hypertensive heart and chronic kidney disease with heart failure and stage 1 through stage 4 chronic kidney disease, or unspecified chronic kidney disease; I42.9 Cardiomyopathy, unspecified; I50.9 Heart failure, unspecified; J84.10 Pulmonary fibrosis, unspecified; R91.8 Other nonspecific abnormal finding of lung field; D63.8 Anemia in other chronic diseases classified elsewhere; N18.3 Chronic kidney disease, stage 3 (moderate); M81.0 Age-related osteoporosis without current pathological fracture; I25.10 Atherosclerotic heart disease of native coronary artery without angina pectoris; M19.90 Unspecified osteoarthritis, unspecified site; F41.9 Anxiety disorder, unspecified; K21.9 Gastro-esophageal reflux disease without esophagitis; F41.1 Generalized anxiety disorder; K57.90 Diverticulosis of intestine, part unspecified, without perforation or abscess without bleeding; E78.5 Hyperlipidemia, unspecified; K64.8 Other hemorrhoids; Z87.11 Personal history of peptic ulcer disease; I25.2 Old myocardial infarction; Z99.81 Dependence on supplemental oxygen

== ENCOUNTER 2017-05-01 19:22 | Inpatient (IN) | payer MEDICARE, OTHER ==
[2017-05-01] MEDS ORDERED: Albuterol 0.5% Inhal Sol (2.5 mg/0.5 ml) UD IH STA (20:15)
--- NOTE | 2017-05-01 20:42 | ED PDOC ---
Arrival/HPI - General Chief Complaint: Shortness Of Breath Time Seen by Provider: 05/01/17 19:46 - History of Present Illness Narrative History of Present Illness (Text): 05/01/17 20:20 Patient to ED PMHX COPD,CHF,Pulmonary Fibrosis on home O2 therapy presents with c/o sob over past couple of days.Some orthopnea.No chest pain. No fever, chills or cough. Past Medical History - Provider Review Nursing Documentation Reviewed: Yes - Travel History Have you recently traveled outside [place] w/in the past 3 mons?: No - Infectious Disease Hx of Infectious Diseases: None - Tetanus Immunization Tetanus Immunization: Unknown - Cardiac Hx Cardiac Disorders: Yes Hx Congestive Heart Failure: Yes Hx Hypertension: Yes - Pulmonary Hx Chronic Obstructive Pulmonary Disease (COPD): Yes - Neurological HX Cerebrovascular Accident: Yes - HEENT Hx HEENT Disorder: No Other/Comment: WEARS RX GLASSES - Renal Hx Renal Failure: Yes - Endocrine/Metabolic Hx Diabetes Mellitus Type 1: Yes Hx Hypothyroidism: Yes - Hematological/Oncological Hx Blood Disorders: No Hx Sickle Cell Disease: No Hx Unexplained Bleeding: No - Integumentary Hx Dermatological Disorder: No Other/Comment: multiple brown discolorations chest and face - Musculoskeletal/Rheumatological Hx Arthritis: Yes - Gastrointestinal Hx Gastrointestinal Disorders: Yes (GERD,DIVERTICULITIS) - Genitourinary/Gynecological Hx Reproductive Disorders: Yes (hx left breast lump) - Psychiatric Hx Psychophysiologic Disorder: Yes Hx Anxiety: Yes Hx Substance Use: No - Past Surgical History Past Surgical History: No Previous - Surgical History Other/Comment: HX L BREAST BX/BENIGN - Anesthesia Hx Anesthesia: Yes Hx Anesthesia Reactions: No Hx Malignant Hyperthermia: No - Suicidal Assessment Feels Threatened In Home Enviroment: No Family/Social History - Physician Review Nursing Documentation Reviewed: Yes Family/Social History: CAD/SC Smoking Status: Never Smoked Hx Alcohol Use: No Hx Substance Use: No Hx Substance Use Treatment: No Allergies/Home Meds Allergies/Adverse Reactions: Allergies lactose Allergy (Verified 11/22/16 19:38) VOMITING levofloxacin [From Levaquin] Allergy (Verified 11/22/16 19:38) ANGIOEDEMA Review of Systems - Review of Systems Constitutional: Normal Eyes: Normal ENT: Normal Respiratory: SOB Cardiovascular: Normal Gastrointestinal: Normal Genitourinary Female: Normal Musculoskeletal: Normal Skin: Normal Neurological: Normal Endocrine: Normal Hemo/Lymphatic: Normal Psychiatric: Normal Physical Exam Vital Signs Temp Pulse Resp BP Pulse Ox 05/01/17 19:53 98.2 F 75 20 121/64 100 Temperature: Afebrile Blood Pressure: Normal Pulse: Regular Respiratory Rate: Normal Appearance: Positive for: Well-Appearing, Non-Toxic, Comfortable Pain Distress: None Mental Status: Positive for: Alert and Oriented X 3 - Systems Exam Head: Present: Atraumatic, Normocephalic Pupils: Present: PERRL Extroacular Muscles: Present: EOMI Conjunctiva: Present: Normal Ears: Present: Normal Mouth: Present: Moist Mucous Membranes Neck: Present: Normal Range of Motion Respiratory/Chest: Present: Good Air Exchange, Rhonchi. No: Respiratory Distress, Accessory Muscle Use Cardiovascular: Present: Regular Rate and Rhythm, Normal S1, S2. No: Murmurs Abdomen: Present: Normal Bowel Sounds. No: Tenderness, Distention, Peritoneal Signs Back: Present: Normal Inspection Upper Extremity: Present: Normal Inspection. No: Cyanosis, Edema Lower Extremity: Present: Normal Inspection. No: Edema Neurological: Present: GCS=15, CN II-XII Intact, Speech Normal, Motor Func Grossly Intact, Normal Sensory Function Skin: Present: Warm, Dry, Normal Color. No: Rashes Psychiatric: Present: Alert, Oriented x 3, Normal Insight, Normal Concentration Medical Decision Making ED Course and Treatment: 05/01/17 21:56 Impression: 87 year old female presents to the Emergency department for shortness of breath. Plan: -- EKG -- Chest X-ray -- Reassess and disposition Progress Notes: 05/01/17 21:56 EKG: Ordered, reviewed, and independently interpreted the EKG. Rate : 66 BPM Rhythm : NSR Interpretation : No ST-segment elevations or depressions, no T-wave inversions, normal intervals. 05/01/17 21:56 Chest X-ray reviewed, shows chronic fibrotic and pleural pulmonary changes to the right chest and mid left lung with marked right volume loss, appears stable. 05/01/17 22:32 Case discussed with PMD Dr. Gold, who is aware and agrees with plan to accept patient under his service. Patient will go to [facility] floor for observation. - Lab Interpretations Lab Results: 05/01/17 20:55 05/01/17 20:55 Lab Results 05/01/17 20:55: Sodium 139, Potassium 4.7, Chloride 101, Carbon Dioxide 31, Anion Gap 12, BUN 45 H, Creatinine 1.8 H, Est GFR ( Amer) 32, Est GFR ( Non-Af Amer) 27, Random Glucose 117 H, Calcium 9.9, Total Bilirubin 0.3, AST 35 , ALT 27, Alkaline Phosphatase 43, Lactate Dehydrogenase 501, Total Creatine Kinase 52, Troponin I < 0.01, NT-Pro-B Natriuret Pep 455 H, Total Protein 6.2, Albumin 3.7, Globulin 2.4, Albumin/Globulin Ratio 1.5 05/01/17 20:55: WBC 8.9 D, RBC 3.84, Hgb 11.3 L, Hct 37.0, MCV 96.4, MCH 29.4, MCHC 30.5 L, RDW 14.8 H, Plt Count 196, MPV 11.1 H, Gran % 78.7 H, Lymph % (Auto ) 8.4 L, [place] % (Auto) 11.3 H, Eos % (Auto) 1.1 L, Baso % (Auto) 0.5, Gran # 6.97 H, Lymph # 0.7 L, [place] # 1.0 H, Eos # 0.1, Baso # 0.04 05/01/17 20:55: PT 10.7, INR 0.94, APTT 25.2 - RAD Interpretation Radiology Orders: 05/01/17 20:16 CHEST PORTABLE [RAD] Stat Dental Technologist: ED Physician - EKG Interpretation Interpreted by ED Physician: Yes Type: 12 lead EKG - Medication Orders Current Medication Orders: Discontinued Medications Albuterol Sulfate (Albuterol 0.5% Inhal [place] (2.5 Mg/0.5 Ml) Ud) 2.5 mg IH STAT STA Stop: 05/01/17 20:16 Last Admin: 05/01/17 21:00 Dose: 2.5 mg Methylprednisolone (Solu-Medrol) 125 mg IVP ONCE ONE Stop: 05/01/17 22:07 Disposition/Present on Arrival - Present on Arrival Any Indicators Present on Arrival: No History of DVT/PE: No History of Uncontrolled Diabetes: No Urinary Catheter: No History of Decub. Ulcer: No History Surgical Site Infection Following: None - Disposition Have Diagnosis and Disposition been Completed?: Yes Diagnosis: COPD exacerbation Disposition: HOSPITALIZED Disposition Time: 22:32 Patient Problems: Current Active Problems Problem Status Onset COPD exacerbation Acute Condition: STABLE Referrals: Marce Gold MD [Primary Care Provider] - Follow up with primary Forms: [employer] (Italian)
[2017-05-01 21:12] LABS: BASO # 0.04 K/mm3 (0.0-2.0); BASO % 0.5 % (0.0-3.0); EOS # 0.1 (0.0-0.7); EOS % 1.1 % (1.5-5.0); GRAN # 6.97 (1.4-6.5); GRAN % 78.7 % (50.0-68.0); HEMOGLOBIN 11.3 g/dL (12.0-16.0); LYMPH # 0.7 (1.2-3.4); LYMPH % 8.4 % (22.0-35.0); MEAN CELL VOLUME 96.4 fl (80.0-105.0); MEAN CORPUSCULAR HEMOGLOBIN 29.4 pg (25.0-35.0); MEAN CORPUSCULAR HGB CONC 30.5 g/dl (31.0-37.0); MEAN PLATELET VOLUME 11.1 fl (7.0-11.0); MONO % 11.3 % (1.0-6.0); RBC 3.84 10^6/uL (3.5-6.1); RED CELL DISTRIBUTION WIDTH 14.8 % (11.5-14.5); WHITE BLOOD COUNT 8.9 10^3/ul (4.5-11.0)
[2017-05-01 21:23] LABS: ALB/GLOB RATIO 1.5 (1.1-1.8); ALBUMIN 3.7 g/dL (3.0-4.8); ALT/SGPT 27 U/L (7-56); AST/SGOT 35 U/L (14-36); BLOOD UREA NITROGEN 45 mg/dL (7-21); CALCIUM 9.9 mg/dL (8.4-10.5); GFR AFRICAN-AMERICAN 32; GFR NON-AFRICAN AMERICAN 27
[2017-05-01 21:34] LABS: B-TYPE NATRIURETIC PEPTIDE 455 pg/mL (0-450); TROPONIN I < 0.01 ng/mL
[2017-05-01 21:48] LABS: INR 0.94 (0.93-1.08); PARTIAL THROMBOPLASTIN TIME 25.2 Seconds (25.1-36.5); PROTHROMBIN TIME 10.7 SECONDS (9.4-12.5)
[2017-05-01] MEDS ORDERED: Albuterol-Ipratrop 3 mg / 0.5 (3 ml) UD IH PRN (22:32)
[2017-05-02 05:17] VITALS: BMI 25.1
--- NOTE | 2017-05-02 09:18 | RAD ---
HISTORY: sob COMPARISON: 11/18/2016 FINDINGS: LUNGS: No active pulmonary disease. PLEURA: There is extensive calcification of the pleura on the right side. There is a calcified granuloma in the left upper lobe. CARDIOVASCULAR: Normal. OSSEOUS STRUCTURES: No significant abnormalities. VISUALIZED UPPER ABDOMEN: Normal. OTHER FINDINGS: None. IMPRESSION: No active disease.
[2017-05-02] MEDS ORDERED: guaiFENesin DM 100 mg-10 mg/5 ml UD PO PRN (09:47)
[2017-05-02] MEDS: MethylPREDNISolone 40 mg Vial IV SCH ×3 (11:15→23:28)
[2017-05-02] MEDS: Calcitonin 200 Int Units/Inh Nasal Spray (3.7 ml) NS SCH (11:16)
[2017-05-02] MEDS: Insulin Reg-LOW-Coverage SC SCH ×3 (11:30→22:17)
[2017-05-02] MEDS: Albuterol-Ipratrop 3 mg / 0.5 (3 ml) UD IH SCH ×3 (11:34→19:44)
--- NOTE | 2017-05-02 12:26 | CARD ---
APPROVED REPORT EKG Measurement Heart [id number] <Conclusion> Normal sinus rhythm Normal ECG
[2017-05-02] MEDS: Budesonide 0.25 mg/2 ml Inhal Susp UD IH SCH (19:44)
[2017-05-02] MEDS: Arformoterol 15 mcg/2 ml Inh Sol IH SCH (19:44)
[2017-05-02] MEDS ORDERED: Arformoterol 15 mcg/2 ml Inh Sol IH SCH (20:00)
--- NOTE | 2017-05-02 20:51 | HP ---
HISTORY OF PRESENT ILLNESS: This 87-year-old female was examined at the bedside. Her daughter, Ida Peralta, was present for the interview. The patient presented to the [facility] Emergency Room late last evening complaining of 48 hours of cough, congestion and mild respiratory discomfort. She has a significant past medical history of pulmonary fibrosis, chronic obstructive pulmonary disease and history of comorbidities including stable atherosclerotic heart disease, diet-controlled diabetes mellitus, chronic hypertension, hyperlipidemia, degenerative arthritis, osteoporosis, peptic ulcer disease with GERD, asthma, and degenerative arthritis and chronic renal failure, stage III as well as anemia of chronic disease. MEDICATIONS: Outpatient medications include prednisone 5 mg p.o. daily, Singulair 10 mg p.o. at bedtime, Lopressor 25 mg p.o. b.i.d., Zestril 2.5 mg p.o. daily, Lasix 20 mg p.o. b.i.d., Pepcid 20 mg p.o. at bedtime, Miacalcin nasal spray 20 International Units alternate nostrils daily, Lipitor 10 mg p.o. daily, Ecotrin 81 mg p.o. daily and dual nebulizer q.6 hours via her nebulizer at home. The patient also has nasal O2 for home O2 use as well. ALLERGIES: PATIENT HAS SENSITIVITIES TO LACTOSE AND LEVOTHYROXINE. SOCIAL HISTORY: She is a nondrinker, nonsmoker, non IV drug misuser. FAMILY HISTORY: Noncontributory. REVIEW OF SYSTEMS: CONSTITUTIONAL: She denied fever or chills. HEENT: Head review, denied seizure or loss of consciousness. Eye review, no change in visual acuity. Ear review, no hearing loss. Throat review, no swallowing difficulty. NECK: No stiffness. CARDIAC: Stable atherosclerotic heart disease and chronic hypertension. PULMONARY: As per HPI. GASTROINTESTINAL: Chronic GERD. GENITOURINARY: History of recurrent urinary tract infections. VASCULAR: No claudication. PSYCHOLOGICAL: Chronic anxiety. NEUROLOGICAL: No stroke. ENDOCRINOLOGICAL: Diet-controlled diabetes mellitus and hyperlipidemia. FAMILY HISTORY: Noncontributory. PHYSICAL EXAMINATION: VITAL SIGNS: Temperature 97.8, respirations 18, pulse 77, blood pressure 128/73 with a pulse ox of 94% room air. HEENT: Head: Normocephalic, atraumatic. Eyes: No icterus. Ears: Clear. Throat: Noninjected. NECK: Supple. HEART: Regular S1, S2. No pathological rubs, murmurs or gallops. LUNGS: Have expiratory wheezing posteriorly throughout the entire right posterior lung field. No rales. Occasional rhonchi that clear with coughing. ABDOMEN: Soft. EXTREMITIES: No edema. SKIN: Without rash. NEUROLOGICAL: Intact. PSYCHOLOGICAL: Alert. VASCULAR: Legs warm to touch. LABORATORY DATA: White count 8900, hemoglobin 11.3, hematocrit 37.0, platelets 196,000. PT/INR 0.94, PTT 25.2. Sodium 139, K 4.7, chloride 101, bicarb 31, BUN 45, creatinine 1.8. Estimated GFR 27 mL per minute. Random blood sugar 117. Bilirubin 0.3, AST 35, ALT 27, alk phos 43. CPK normal 52. Troponin less than 0.01. BNP elevated at 455. Chest x-ray was reviewed and it shows extensive calcifications of the pleura on the right side with calcified granuloma stable in the left upper lung. No obvious infiltrate or effusion or pneumothorax was noted. EKG was reviewed. It shows normal sinus rhythm with nonspecific ST-T wave changes. IMPRESSION: An 87-year-old female with exacerbation of chronic obstructive pulmonary disease as well as advanced pulmonary fibrosis and comorbidities of stable atherosclerotic heart disease, diet controlled diabetes mellitus, chronic hypertension, hyperlipidemia, peptic ulcer disease with gastroesophageal reflux disease, osteoporosis, degenerative arthritis, asthma, anemia of chronic disease and chronic renal failure, stage III. PLAN: Plan as discussed with the patient, nursing, daughter at bedside, will be to do order physical therapy for reconditioning and gait training and to order a heart-healthy diabetic diet. She continues on nasal O2 p.r.n. and has orders for Zofran 4 mg IV q.6 hours p.r.n. nausea and vomiting, Zestril 2.5 mg p.o. daily, Tylenol 650 p.o. q.6 hours p.r.n. fever or pain, Solu-Medrol 40 mg IV q.6 hours, Singulair 10 mg p.o. at bedtime, Robitussin DM 5 mL q.4 hours p.r.n. cough, Pulmicort inhalational therapy q.12., Pepcid 20 mg p.o. at bedtime, Os-Leon 500 mg p.o. daily, Miacalcin nasal spray alternate nostrils daily, Lopressor 25 mg p.o. b.i.d., Lipitor 10 mg p.o. at dinner time, Lasix 20 mg p.o. q.12, regular low-dose insulin protocol a.c. meals and at bedtime, Ecotrin 81 mg p.o. daily, dual nebulizer therapy q.6 hours, Brovana inhalational therapy q.12 hours. Patient will have a comprehensive metabolic panel and CBC ordered for the a.m. She has been requested to have a TCU evaluation for continued pulmonary toiletry, IV steroids and reconditioning and gait training. She is on inpatient admission. I will call a consultation with her graphic artist, Dr. Morris, and all of the above was discussed in detail for greater than seventy five minutes with patient, nursing, daughter at bedside. Time was spent on the review of x-rays, labs, medications and ordering of labs, medication, diet and consultations for this patient today. All questions were answered. Marce Gold MD MTDD
[2017-05-03] MEDS: Albuterol-Ipratrop 3 mg / 0.5 (3 ml) UD IH SCH ×4 (01:59→19:58)
[2017-05-03] MEDS: MethylPREDNISolone 40 mg Vial IV SCH ×3 (05:46→17:26)
[2017-05-03 07:21] LABS: MEAN CELL VOLUME 93.6 fl (80.0-105.0); MEAN CORPUSCULAR HEMOGLOBIN 29.6 pg (25.0-35.0); MEAN CORPUSCULAR HGB CONC 31.6 g/dl (31.0-37.0); MEAN PLATELET VOLUME 10.6 fl (7.0-11.0); RBC 4.06 10^6/uL (3.5-6.1); RED CELL DISTRIBUTION WIDTH 14.5 % (11.5-14.5); WHITE BLOOD COUNT 11.4 10^3/ul (4.5-11.0)
[2017-05-03] MEDS: Arformoterol 15 mcg/2 ml Inh Sol IH SCH ×2 (07:49→19:58)
[2017-05-03] MEDS: Budesonide 0.25 mg/2 ml Inhal Susp UD IH SCH ×2 (07:50→19:58)
[2017-05-03 07:52] LABS: ALB/GLOB RATIO 1.5 (1.1-1.8); ALBUMIN 3.8 g/dL (3.0-4.8); CALCIUM 9.8 mg/dL (8.4-10.5)
[2017-05-03] MEDS: Insulin Reg-LOW-Coverage SC SCH ×4 (08:26→21:23)
--- NOTE | 2017-05-03 10:21 | CON ---
DATE: 05/02/2017 PULMONARY CONSULT REFERRING PHYSICIAN: Marce Gold MD REASON FOR CONSULT: Cough, shortness of breath, history of chronic lung disease. HISTORY OF PRESENT ILLNESS: This is an 87-year-old female who has secondhand smoking, carry diagnosis of chronic lung disease, also history of pulmonary fibrosis, atherosclerotic heart disease, diabetes, hypertension, hyperlipidemia, peptic ulcer, GERD, renal failure, comes in to emergency room with cough, shortness of breath, and wheezing. No nausea. No vomiting. No diarrhea. No leg pain or leg swelling. PAST MEDICAL HISTORY: As per history of present illness. ALLERGIES: TO LEVOTHYROXINE AND LACTULOSE, WHICH IS MORE LIKE A SENSITIVITY REACTION. SOCIAL HISTORY: Nonsmoker; no drug use, but history of secondhand smoking. FAMILY HISTORY: No significant cardiopulmonary disease reported. REVIEW OF SYSTEMS: No headache, no rhinitis. Admit to snoring at nighttime, daytime sleepy and tired, cough, shortness of breath. No nausea. No vomiting. No diarrhea. No leg pain or leg swelling. PHYSICAL EXAMINATION GENERAL: Sitting up in bed, mild distress secondary to cough and shortness of breath. VITAL SIGNS: Temperature is 98, heart rate is 81, respiratory rate is 20, blood pressure 132/72, pulse ox 92% . HEENT: Moist mucous membranes. Small oral cavity. Crowded airway. NECK: Supple. No JVD. LUNGS: Have scattered rhonchi, has a prolonged expiratory phase, some crackles. HEART: S1, S2. ABDOMEN: Soft, nontender. No organomegaly. EXTREMITIES: No edema. NEUROLOGICAL: Awake, alert, follows simple commands. LABORATORY DATA: Shows hemoglobin 11.3, hematocrit 37.0, WBC 8.9, platelet is 196,000. INR is 0.94, PTT 25. Sodium 139, potassium 4.7, chloride 101, bicarbonate 31, BUN 45, creatinine 1.8, glucose 117, calcium 9.9, total bilirubin 0.3, ALT of 35. , alkaline phosphatase 43, LDH 501, troponin less than 0.01. ProBNP 455. Albumin is 3.7. Chest x-ray done yesterday in ER shows extensive calcification in the pleura on the right side. There are calcified granuloma in the left upper lobe. She also had CAT scan of the chest done in 01/18/2017, which shows there are underlying lung nodules, also had bronchiectasis in the right upper and lower lobe, extensive pleural calcification of the right hemithorax, multiple calcified granulomas. IMPRESSION AND PLAN: Chronic obstructive lung disease, history of bronchiectasis, pleural calcified granulomas, diabetes, hypertension, hyperlipidemia, peptic ulcer disease, gastroesophageal reflux disease, anemia, renal insufficiency. Case discussed with the family at bedside. All the questions answered. I agree with continued IV and inhaled bronchodilator. Continue antibiotics, gastric and deep vein thrombosis prophylaxis. We will get procalcitonin and proBNP. Need echocardiogram to assess left ventricular and right ventricular function. Sleep apnea precaution upon discharge. Will benefit from attended sleep study as an outpatient. Should also do swallow evaluation to assure there is no oropharyngeal dysphagia. Thank you and we will follow with you. Neftali Morris MD
[2017-05-03] MEDS: Calcitonin 200 Int Units/Inh Nasal Spray (3.7 ml) NS SCH (10:49)
--- NOTE | 2017-05-03 16:46 | CARD ---
APPROVED REPORT EXAM: Two-dimensional and M-mode echocardiogram with Doppler and color Doppler. INDICATION Pulmonary Hypertention 2D DIMENSIONS Left Atrium (2D)2.7 (1.6-4.0cm)IVSd1.1 (0.7-1.1cm) Aortic Root (2D)2.8 (2.0-3.7cm)LVDd3.6 (3.9-5.9cm) PWd1.0 (0.7-1.1cm)LVDs1.8 (2.5-4.0cm) FS (%) 49.6 %LVEF (%)81.8 (>50%) M-Mode DIMENSIONS Aortic Cusp Exc.1.60 (1.5-2.0cm) Aortic Valve AoV Peak Nkucbdlz052.0cm/Lamin Peak GR.12mmHg Mitral Valve MV E Wzpstzix23.0cm/sMV A Tydbwsjl266.0cm/sE/A ratio0.5 TDI Lateral E' Peak V6.04cm/sMedial E' Peak V4.87cm/sE/Lateral E'12.3 E/Medial E'15.2 Pulmonary Valve PV Peak Hjdowoxu486.0cm/sPV Peak Grad.7mmHg Tricuspid Valve TR Peak Hljequtz573lw/sRAP [id number] Peak Gr.13mmHg [id number] LEFT VENTRICLE The left ventricle is normal size. There is mild concentric left ventricular hypertrophy. The left ventricular function is normal. The left ventricular ejection fraction is within the normal range. There is normal LV segmental wall motion. Transmitral Doppler flow pattern is Grade I-abnormal relaxation pattern. RIGHT VENTRICLE The right ventricle is normal size. There is normal right ventricular wall thickness. The right ventricular systolic function is normal. ATRIA The left atrium size is normal. The right atrium size is normal. AORTIC VALVE The aortic valve is normal in structure. No aortic regurgitation is present. There is no aortic valvular stenosis. MITRAL VALVE The mitral valve is normal in structure. There is no mitral valve regurgitation noted. There is no mitral valve stenosis. TRICUSPID VALVE The tricuspid valve is normal in structure. There is no tricuspid valve regurgitation noted. GREAT VESSELS The aortic root is normal in size. The IVC was not visualized. PERICARDIAL EFFUSION There is a small loculated anterior pericardial effusion. <Conclusion> The left ventricle is normal size. There is mild concentric left ventricular hypertrophy. The left ventricular function is normal. The left ventricular ejection fraction is within the normal range. There is normal LV segmental wall motion. Transmitral Doppler flow pattern is Grade I-abnormal relaxation pattern. There is a small loculated anterior pericardial effusion.
[2017-05-03] MEDS: MethylPREDNISolone 40 mg Vial IVP SCH (23:03)
--- NOTE | 2017-05-04 00:30 | PN ---
DATE: 05/03/2017 PULMONARY PROGRESS NOTE REFERRING PHYSICIAN: Dr. Rodríguez SUBJECTIVE: She is out of bed to chair, feels better, decreased cough, decreased shortness of breath. No nausea, no vomiting, no diarrhea. No leg pain or leg swelling. OBJECTIVE: VITAL SIGNS: Temperature is 98, heart rate 79, respiratory is 18, blood pressure 128/86, pulse of 98% on room air. HEENT: Moist mucous membranes. Crowded airway, Mallampati score is IV. NECK: Supple. No JVD. LUNGS: Has a prolonged expiratory phase. Wheezing is much better. HEART: S1, S2. ABDOMEN: Soft, nontender. No organomegaly. EXTREMITIES: No edema. NEUROLOGIC: Awake and alert, follows simple command. MEDICATIONS: She is on Brovana inhaled twice a day, doxycycline 100 mg twice a day, DuoNeb q. 4 hours p.r.n., Ecotrin 81 mg daily, insulin coverage, Lasix 20 mg twice a day, Lipitor 10 mg daily, metoprolol tartrate 25 mg twice a day, calcitonin (salmon) 200 IU and may have it daily, Os-Leon 500 mg daily, Pepcid 20 mg daily, Pulmicort inhaled twice a day, Robitussin DM 5 mL q. 4 hours p.r.n., Singulair 10 mg daily, Solu-Medrol 40 mg q. 6 hours, Tylenol p.r.n., Zestril 2.5 mg daily, Zofran p.r.n. basis. LABORATORY DATA: Shows hemoglobin 12.0, hematocrit 38.0, WBC 11.4, platelets is 199. Sodium 37, potassium 4.8, chloride 99, bicarbonate is 30, BUN of 53, creatinine 1.7, glucose 161, calcium is 9.8, AST 25, ALT 26, alk phos is 38. Albumin is 3.8. Echocardiogram shows mild concentric left ventricular hypertrophy with grade 1 abnormal relaxation pattern, right ventricular systolic pressure is 16. IMPRESSION AND PLAN: Chronic obstructive lung disease, bronchiectasis, history of pleural calcification and granuloma, diabetes, hypertension, hyperlipidemia, peptic ulcer disease, gastroesophageal reflux disease, anemia, renal insufficiency, may have a component of sleep apnea syndrome, clinically much improved since yesterday, decrease Solu-Medrol to 40 q. 12 hours. Continue antibiotics, inhaled bronchodilator, gastric prophylaxis, deep vein thrombosis prophylaxis, outpatient PFT and sleep study. Thank you and we will follow with you. Neftali Morris MD
[2017-05-04] MEDS: Albuterol-Ipratrop 3 mg / 0.5 (3 ml) UD IH SCH ×4 (02:15→21:05)
[2017-05-04] MEDS: Budesonide 0.25 mg/2 ml Inhal Susp UD IH SCH ×2 (07:35→21:05)
[2017-05-04] MEDS: Arformoterol 15 mcg/2 ml Inh Sol IH SCH ×2 (07:35→21:05)
[2017-05-04] MEDS: Insulin Reg-LOW-Coverage SC SCH ×4 (07:54→21:05)
--- NOTE | 2017-05-04 08:13 | PN ---
DATE: 05/03/2017 SUBJECTIVE: This 87-year-old female was examined at her bedside. Her daughter, Paulette Arroyo was present for the interview. The patient was out of bed to chair. She has a productive cough. She denied any fever or chills and states she has had no chest pain since admission. PHYSICAL EXAMINATION: GENERAL: At the time of her physical exam, she remains chronically anxious. VITAL SIGNS: Temperature of 98.3, respirations 18, pulse 94 and blood pressure 129/74. Pulse ox 95%. HEENT: Head normocephalic, atraumatic. Eyes, no icterus. Ears, clear. Throat, noninjected. NECK: Supple. HEART: Regular S1, S2. No pathological rubs, murmurs or gallops. LUNGS: With rhonchi and expiratory wheezing. EXTREMITIES: No edema. SKIN: Without rash. NEUROLOGIC: Intact. PSYCHOLOGIC: Alert and anxious. VASCULAR: Legs are warm to touch. LABORATORY DATA: White count 11,400, previously 8900, hemoglobin 12, hematocrit 38.0, platelets 199,000. PT/INR 0.94, PTT 25.2. Sodium 137, K 4.8, chloride 99, bicarb 30, BUN 53, creatinine 1.7, random blood sugar 172. Liver function: Bilirubin 0.3, AST 25, ALT 26, alk phos 38. Chest x-ray was reviewed. It shows extensive calcification of her pleura on the right side with a calcified granuloma in her left upper lobe and changes consistent with pulmonary fibrotic disease, chronic. EKG was reviewed. It shows normal sinus rhythm. IMPRESSION: An 87-year-old female with advanced pulmonary fibrosis, history of chronic obstructive pulmonary disease, now with acute exacerbation and comorbidities of stable atherosclerotic heart disease, insulin-dependent diabetes mellitus, chronic renal failure stage III, hyperlipidemia, chronic hypertension, degenerative arthritis, osteoporosis, peptic ulcer disease with gastroesophageal reflux disease, asthma and anxiety neurosis. PLAN: As discussed with the patient, family, nursing pulmonary, will be to encourage out of bed to chair, heart healthy diet and ambulation with physical therapy. She is ordered to have nasal O2 p.r.n., Zestril 2.5 mg p.o. daily, Solu-Medrol 40 mg IV q. 6, Singulair 10 mg p.o. at bedtime, Robitussin DM 5 mL p.o. q.4h. p.r.n. cough, Pulmicort and Brovana inhalational therapy, Pepcid 20 mg p.o. at bedtime, Os-Leon 500 mg p.o. daily, Miacalcin nasal spray alternate nostrils daily, Lopressor 25 mg p.o. b.i.d., Lipitor 10 mg p.o. at dinner time, Lasix 20 mg p.o. q. 12, regular low-dose insulin protocol a.c. meals and at bedtime, Ecotrin 81 mg p.o. daily, dual nebulizer inhalational therapy q. 6 and Brovana inhalational therapy q.12 hours. This patient has been started on doxycycline 100 mg p.o. q.12 hours. She will have a 2-D echocardiogram. She has been scheduled for therapy and a TCU evaluation and the patient and family are aware that she will require parenteral steroids as well as inhalational steroids until clinically improved and wheezing has ceased. All of the above was discussed in detail with the patient, family, nursing and co-collection systems consultant, Dr. Morris from pulmonary. Greater than 35 minutes was spent in the care management, review of x-rays, labs, medication and ordering of treatment for this patient today. All questions were answered. Marce Gold MD MTDWilner
[2017-05-04] MEDS: MethylPREDNISolone 40 mg Vial IVP SCH ×2 (09:27→21:09)
[2017-05-04] MEDS: Calcitonin 200 Int Units/Inh Nasal Spray (3.7 ml) NS SCH (09:29)
--- NOTE | 2017-05-05 01:50 | PN ---
DATE: 05/04/2017 PULMONARY PROGRESS NOTE REFERRING PHYSICIAN: Dr. Gold. SUBJECTIVE: Patient is sitting up in the chair. Night was unremarkable. Feels better. Still has mild cough and wheezing. No nausea, no vomiting, no diarrhea. No leg pain or leg swelling. OBJECTIVE: GENERAL: In no acute distress. VITAL SIGNS: Temperature is 98, heart rate is 74, respiratory rate is 18, blood pressure is 132/84, pulse oximetry 96% on 2 L nasal cannula. HEENT: Moist mucous membranes. No ulcer or thrush noted. NECK: Supple. No JVD. LUNGS: Has a prolonged expiratory phase with few wheezing and right base few crackles. HEART: S1 and S2. ABDOMEN: Soft, nontender. No organomegaly. EXTREMITIES: No edema. NEUROLOGIC: Awake and alert, follows simple command. MEDICATIONS: She is on Brovana inhaled twice a day, doxycycline 100 mg twice a day, DuoNeb q. 4 hours p.r.n., q. 6 hours around the clock, Ecotrin 81 mg daily, insulin coverage, Lasix 20 mg twice a day, Lipitor 10 mg daily, metoprolol tartrate 25 mg twice a day, calcitonin 200 international units daily, normal saline nostrils daily, calcium carbonate 500 mg daily, Pepcid 20 mg at bedtime, Pulmicort inhaled twice a day, Robitussin DM q. 4 hours p.r.n., Singulair 10 mg daily, Solu-Medrol 40 mg q. 12 hours, Tylenol p.r.n., Zestril 2.5 mg daily, Zofran p.r.n. basis. LABORATORY DATA: Shows blood sugar this morning 121. IMPRESSION AND PLAN: Chronic obstructive lung disease, bronchiectasis, history of pleural calcification and granuloma, diabetes, hypertension, hyperlipidemia, peptic ulcer disease, gastroesophageal reflux disease, anemia, renal insufficiency, may have a component of sleep apnea syndrome. From pulmonary point of view, doing okay. Continue IV steroids, inhaled bronchodilator, antibiotics, gastric prophylaxis, deep vein thrombosis prophylaxis, incentive spirometer. Thank you and we will follow with you. Neftali Morris MD
[2017-05-05] MEDS: Albuterol-Ipratrop 3 mg / 0.5 (3 ml) UD IH SCH ×3 (02:19→14:16)
[2017-05-05] MEDS: Budesonide 0.25 mg/2 ml Inhal Susp UD IH SCH (08:20)
[2017-05-05] MEDS: Arformoterol 15 mcg/2 ml Inh Sol IH SCH (08:20)
[2017-05-05 08:49] VITALS: PULSE 77; RESP 20; TEMP 98.3; O2SAT 97
[2017-05-05] MEDS: MethylPREDNISolone 40 mg Vial IVP SCH (09:52)
[2017-05-05 10:01] VITALS: BP 116/52
--- NOTE | 2017-05-05 22:11 | PN ---
DATE: 05/05/2017 PULMONARY PROGRESS NOTE REFERRING PHYSICIAN: Marce Gold MD SUBJECTIVE: She is out of bed to chair. Family is at bedside. Night was unremarkable. Feels better, decreased temp, shortness of breath. No wheezing. No nausea, no vomiting or diarrhea, no leg swelling. OBJECTIVE: GENERAL: In no acute distress. VITAL SIGNS:. Temperature is 98, heart rate 77, respiratory rate is 18, blood pressure 116/52, pulse of 97% on 2 L nasal cannula. HEENT: Moist mucous membranes. Crowded airway, Mallampati score is IV. NECK: Supple. No JVD. LUNGS: Have a prolonged expiratory phase. A few wheezings of the base. HEART: S1 and S2. ABDOMEN: Soft, nontender. No organomegaly. EXTREMITIES: No edema. NEUROLOGIC: Awake and alert. Follows simple command. . No new lab is available since yesterday. IMPRESSION AND PLAN: Chronic obstructive lung disease, bronchiectasis, history of pleural calcification, has a granuloma, diabetes, hypertension, hyperlipidemia, peptic ulcer disease, gastroesophageal reflux disease, anemia, renal insufficiency, may have a component of sleep apnea syndrome. Spoke to the patient and the patient's family at bedside. All the questions answered. Continue IV and inhaled bronchodilator, gastric prophylaxis, DVT prophylaxis. We will follow with you. Neftali Morris MD
--- NOTE | 2017-05-06 02:46 | DS ---
FINAL DIAGNOSES: Exacerbation of chronic obstructive pulmonary disease, pulmonary fibrosis, stable atherosclerotic heart disease, insulin-dependent diabetes mellitus, hyperlipidemia, chronic hypertension, degenerative arthritis, osteoporosis, peptic ulcer disease with gastroesophageal reflux disease, AND asthma. DISPOSITION: Transitional Care Rehab. DISCHARGE MEDICINES: Brovana inhalational therapy q. 12, doxycycline 100 mg p.o. b.i.d., dual nebulizer therapy q. 6 hours scheduled, Ecotrin 81 mg p.o. daily, regular low-dose insulin protocol a.c. meals at bedtime, Lasix 20 mg IV q. 12, Lipitor 10 mg p.o. at dinner time, Lopressor 25 mg b.i.d., Miacalcin nasal spray alternate nostrils daily Os-Leon 500 mg p.o. daily, Pepcid 20 mg p.o. at bedtime, Pulmicort inhalational therapy q. 12, Robitussin DM 5 mL p.o. q. 4 hours p.r.n. cough, Singulair 10 mg p.o. at bedtime, Solu-Medrol 40 mg IV q. 12,Tylenol 650 p.o. q. 6 hours p.r.n. pain or temperature greater than 101, Zestril 2.5 mg p.o. daily, Zofran 4 mg IV q. 6 hours p.r.n. nausea, vomiting. RETIREMENT ASSISTANT: Dr. Morris from Pulmonary. SUMMARY: This 87-year-old female was admitted to [facility] with cough, congestion and shortness of breath in the setting of advanced pulmonary fibrosis and exacerbation of chronic obstructive pulmonary disease. The patient was fully cultured, started on parenteral antibiotics and was seen in consultation by Dr. Morris from Pulmonary, who recommended continued medications as outlined and an echocardiogram that showed no evidence of right heart failure. At the time of discharge, temperature 98.3, respirations 20, pulse 77, blood pressure 116/52 and pulse ox 97%. The patient will be transferred to transitional care. She will have medications as outlined, nasal O2, heart healthy, soft bland diabetic diet and Physical Therapy for ambulation safety. The patient is actively wheezing at present. She will be discharged when medically stabilized and she has home O2 as well. All of the above was discussed in detail with the patient, nursing and pulmonary consultants. All questions were answered. Marce Gold MD KIANA
--- NOTE | 2017-05-07 09:02 | PN ---
DATE: 05/04/2017 SUBJECTIVE: This 87-year-old female was examined at bedside. This case was reviewed in detail with herself and her nurse, Camelia Thomas, registered nurse. The patient was out of bed to chair. She had a dry cough. She states her appetite is improving and she denies fever or chills. There were no reports of chest pain, hemoptysis, hematemesis or melena. PHYSICAL EXAMINATION: VITAL SIGNS: Temperature was 97.9 with a respiration of 20, pulse 88, blood pressure 118/65 and pulse ox 98%. HEAD: Normocephalic, atraumatic. Eyes: No icterus. Ears: Clear. Throat: Noninjected. Neck: Supple. HEART: Regular S1, S2. LUNGS: Have rhonchi and expiratory wheezing throughout both posterior lung peralta. ABDOMEN: Soft. EXTREMITIES: No edema. SKIN: Without rash. NEUROLOGICAL: Intact. PSYCHOLOGICAL: Anxiety. VASCULAR: Legs warm to touch. LABORATORY DATA: White count 11,400, hemoglobin 12, hematocrit 38.0, platelets 199,000. PT/INR 0.94, PTT 25.2. Random blood sugar 170. Sodium 137, K 4.8, chloride 99, bicarb 30, BUN 53, creatinine 1.7. Estimated GFR 28 mL per minute. All liver function testing was normal including bilirubin 0.3, AST 25, ALT 26, alk phos 38. Echocardiogram was reviewed. Right ventricular systolic pressure 16 mmHg. Left ventricle was normal in size with concentric left ventricular hypertrophy. Left ventricular function was normal, left ventricular ejection fraction was within normal range, normal left ventricular segmental wall motion was noted, left atrium was normal in size. No aortic valvular stenosis was appreciated. No significant valvular pathology was noted. IMPRESSION: This is an 87-year-old female with exacerbation of chronic obstructive pulmonary disease with history of pulmonary fibrosis, now with insulin-dependent diabetes mellitus, history of stable atherosclerotic heart disease, chronic hypertension, stable congestive heart failure, hyperlipidemia, degenerative arthritis, osteoporosis, peptic ulcer disease with gastroesophageal reflux disease, anxiety neurosis. PLAN: As discussed with the patient, family, nursing and Dr. Morris from pulmonary, will be to order physical therapy for ambulation safety. She continues on a heart-healthy bland diabetic diet with nasal O2 p.r.n. She will continue with Zestril 2.5 mg p.o. daily, Solu-Medrol 40 mg IV q. 12, Singulair 10 mg p.o. at bedtime, Robitussin DM 5 mL p.o. q. 4 hours p.r.n. cough, Pulmicort inhalational therapy q. 12, Brovana inhalational therapy q. 12, Pepcid 20 mg p.o. at bedtime, calcium carbonate 500 mg p.o. daily, Miacalcin nasal spray alternate nostril daily, Lopressor 25 mg b.i.d., Lipitor 10 mg p.o. daily, Lasix 20 mg p.o. q. 12, regular low-dose insulin protocol a.c. meals and at bedtime, Ecotrin 81 mg p.o. daily, doxycycline 100 mg p.o. b.i.d. The patient is awaiting evaluation for transitional care rehab. All of the above was discussed in detail for greater than 35 minutes with the patient, family, nursing, and physical therapy. All questions were answered. Marce Gold MD KIANA
== END 2017-05-05 15:30 | DRG 191 ==
LOC: ED 19:22 → ERH 22:30 → 5RNO 05-02 01:23 → OBSVTOIN 05-02 09:46 → 5RSO 05-02 14:36
PROVIDERS: ADMIT Internal Medicine; ATTEND Internal Medicine
PROC: 3E0F7GC Introduction of Other Therapeutic Substance into Respiratory Tract, Via Natural or Artificial Opening (ICD-10-PCS; principal; 2017-05-02)
DX: J44.1 Chronic obstructive pulmonary disease with (acute) exacerbation (principal); I13.0 Hypertensive heart and chronic kidney disease with heart failure and stage 1 through stage 4 chronic kidney disease, or unspecified chronic kidney disease; J84.10 Pulmonary fibrosis, unspecified; I50.9 Heart failure, unspecified; Z99.81 Dependence on supplemental oxygen; D63.8 Anemia in other chronic diseases classified elsewhere; N18.3 Chronic kidney disease, stage 3 (moderate); I25.10 Atherosclerotic heart disease of native coronary artery without angina pectoris; E78.5 Hyperlipidemia, unspecified; K21.9 Gastro-esophageal reflux disease without esophagitis; K27.9 Peptic ulcer, site unspecified, unspecified as acute or chronic, without hemorrhage or perforation; M19.90 Unspecified osteoarthritis, unspecified site; M81.0 Age-related osteoporosis without current pathological fracture; F41.1 Generalized anxiety disorder; Z86.73 Personal history of transient ischemic attack (TIA), and cerebral infarction without residual deficits; Z79.4 Long term (current) use of insulin

== ENCOUNTER 2017-05-05 15:34 | Inpatient (IN) | payer OTHER ==
[2017-05-05] MEDS: Insulin Reg-LOW-Coverage SC SCH ×2 (17:30→21:55)
[2017-05-05 17:59] VITALS: BMI 38.9
[2017-05-05] MEDS ORDERED: Influenza Vaccine 60 mcg/0.5 mL SYR (4YR UP) IM ONE (17:59)
[2017-05-05] MEDS ORDERED: Pneumococcal 23-Valent Vaccine IM ONE (17:59)
[2017-05-05] MEDS: Arformoterol 15 mcg/2 ml Inh Sol IH SCH ×2 (20:00→20:13)
[2017-05-05] MEDS: Albuterol-Ipratrop 3 mg / 0.5 (3 ml) UD IH SCH (20:13)
[2017-05-05] MEDS: Budesonide 0.25 mg/2 ml Inhal Susp UD IH SCH (20:13)
[2017-05-05] MEDS: MethylPREDNISolone 40 mg Vial IVP SCH (21:58)
[2017-05-06] MEDS: Albuterol-Ipratrop 3 mg / 0.5 (3 ml) UD IH SCH ×4 (01:29→15:30)
[2017-05-06] MEDS: Insulin Reg-LOW-Coverage SC SCH ×4 (06:48→22:24)
[2017-05-06] MEDS: Arformoterol 15 mcg/2 ml Inh Sol IH SCH ×3 (07:34→20:07)
[2017-05-06] MEDS: Budesonide 0.25 mg/2 ml Inhal Susp UD IH SCH ×2 (07:34→20:07)
[2017-05-06 08:13] LABS: ALB/GLOB RATIO 1.6 (1.1-1.8); ALBUMIN 3.8 g/dL (3.0-4.8); CALCIUM 10.7 mg/dL (8.4-10.5)
[2017-05-06 08:20] LABS: BASO # 0.02 K/mm3 (0.0-2.0); BASO % 0.2 % (0.0-3.0); GRAN # 8.75 (1.4-6.5); GRAN % 88.1 % (50.0-68.0); HEMOGLOBIN 12.7 g/dL (12.0-16.0); LYMPH # 0.4 (1.2-3.4); MEAN CELL VOLUME 93.3 fl (80.0-105.0); MEAN CORPUSCULAR HEMOGLOBIN 30.6 pg (25.0-35.0); MEAN CORPUSCULAR HGB CONC 32.8 g/dl (31.0-37.0); MEAN PLATELET VOLUME 11.2 fl (7.0-11.0); MONO # 0.8 (0.1-0.6); MONO % 7.7 % (1.0-6.0); PLATELET COUNT 209 10^3/uL (120.0-450.0); RBC 4.15 10^6/uL (3.5-6.1); RED CELL DISTRIBUTION WIDTH 14.7 % (11.5-14.5); WHITE BLOOD COUNT 9.9 10^3/ul (4.5-11.0)
[2017-05-06 09:31] LABS: LYMPHOCYTE 9 % (22.0-35.0); MONOCYTE 8 % (1.0-6.0); MYELOCYTE 1 %; NEUTROPHIL 82 % (50.0-70.0); PLATELET ESTIMATE NORMAL (NORMAL)
[2017-05-06] MEDS: MethylPREDNISolone 40 mg Vial IVP SCH ×2 (10:25→21:28)
[2017-05-06] MEDS: Calcitonin 200 Int Units/Inh Nasal Spray (3.7 ml) NS SCH (11:00)
--- NOTE | 2017-05-07 05:46 | CON ---
DATE: 05/06/2017 REFERRING PHYSICIAN: Dr. Marce Gold. REASON FOR CONSULTATION: Chronic lung disease, bronchiectasis. HISTORY OF PRESENT ILLNESS: This is an 87-year-old female with past medical history significant for chronic obstructive lung disease, history of bronchiectasis, history of pleural calcification, granuloma,diabetes, hypertension, hyperlipidemia, peptic ulcer disease, GERD, anemia, renal insufficiency, suspected sleep apnea syndrome, presented with cough and shortness of breath, was admitted, started on antibiotics and inhaled bronchodilators with good result, presently transported to [facility] for continued care. She is sitting up in a chair. Daughter is at bedside. She does have some cough and shortness of breath. No nausea, vomiting or diarrhea. PAST MEDICAL HISTORY: As per history of present illness. ALLERGIES: TO LEVOTHYROXINE AND LACTULOSE. SOCIAL HISTORY: Has a history of secondhand smoking, no alcohol abuse. FAMILY HISTORY: No significant cardiopulmonary disease reported. MEDICATIONS: She is on Brovana inhaled twice daily, DuoNeb q. 4 hours p.r.n., Ecotrin 81 mg daily, insulin coverage, Lasix 20 mg daily, Lipitor 10 mg daily, metoprolol tartrate 25 mg twice a day, Miacalcin 200 IU nasally, calcium carbonate 500 mg daily, Pepcid 20 mg daily, Pulmicort inhaled twice a day, Robitussin DM 5 mL q. 4 hours p.r.n., Singulair 10 mg daily, Solu-Medrol 40 mg q. 12 hours, Tylenol p.r.n., Zestril 2.5 mg daily, Zofran p.r.n. basis. LABORATORY DATA: Shows hemoglobin 12.7, hematocrit 38.7, WBC 9.9, platelet count is 209. Sodium 138,potassium 4.9, chloride 97, bicarbonate 30, BUN 85, creatinine 2.2, glucose 108, calcium is 10.7. AST 20, ALT 31, alk phos is 37, albumin is 3.8. IMPRESSION AND PLAN: Chronic obstructive lung disease, bronchiectasis, history of pleural calcifications, has granuloma, diabetes, hypertension, hyperlipidemia, peptic ulcer disease, gastroesophageal reflux disease, renal insufficiency. May have component of sleep apnea syndrome. I spoke to the patient's daughter at bedside. All the questions answered. Decrease Solu-Medrol to 20 q.12 hours. Continue inhaled bronchodilators. Change DuoNeb to q. 6 hours p.r.n., continue Brovana q. 12 hours. Gastric prophylaxis and deep vein thrombosis prophylaxis. Outpatient pulmonary function test. May benefit from sleep study. Thank you and we will follow with you. Neftali Morris MD
[2017-05-07] MEDS: Insulin Reg-LOW-Coverage SC SCH ×4 (06:50→22:02)
[2017-05-07] MEDS: Arformoterol 15 mcg/2 ml Inh Sol IH SCH ×2 (07:30→21:15)
[2017-05-07] MEDS: Budesonide 0.25 mg/2 ml Inhal Susp UD IH SCH ×2 (07:30→21:15)
--- NOTE | 2017-05-07 09:09 | PN ---
DATE: 05/06/2017 SUBJECTIVE: This 87-year-old female was examined at her bedside and this case was reviewed in detail with herself and her nurse, Eleanor Escobar, registered nurse. The patient was out of bed to chair. She just received the pulmonary toiletry treatment. She was complaining of cough and expiratory wheezing and denied any fever, chills, chest pain or shortness of breath. PHYSICAL EXAMINATION: VITAL SIGNS: Temperature was 98.5, respirations 16, pulse 103, blood pressure 157/92, and pulse ox 96%. HEENT: Head: Normocephalic, atraumatic. Eyes: No icterus. Ears: Clear. Throat: Noninjected. NECK: Supple. HEART: Regular S1, S2. LUNGS: With rhonchi and wheezing that cleared with coughing, right greater than left posterior lung peralta. ABDOMEN: Soft. EXTREMITIES: No edema. SKIN: Without rash. NEUROLOGIC: Unchanged. PSYCHOLOGICAL: Alert. VASCULAR: Legs warm to touch. LABORATORY DATA: White count 9900, hemoglobin 12.7, hematocrit 38.7, platelets 209,000. Sodium 138, K 4.9, chloride 97, bicarb 30, BUN 85, creatinine 2.2, random blood sugar 117, glucose 108, bilirubin 0.5, AST 20, ALT 31, and alk phos 37. IMPRESSION: This is an 87-year-old female with acute on chronic renal insufficiency in the setting of exacerbation of chronic obstructive pulmonary disease and advanced pulmonary fibrosis with comorbidities of stable atherosclerotic heart disease, insulin-dependent diabetes mellitus, chronic hypertension, hyperlipidemia, degenerative arthritis, osteoporosis, peptic ulcer disease with gastroesophageal reflux disease, asthma, and anxiety neurosis. PLAN: As discussed with the patient, nursing and respiratory therapist at the patient's bedside during this discussion will be to continue physical therapy for reconditioning and gait training as well as heart healthy soft bland diet, nasal O2 p.r.n. She is ordered to receive Zestril 2.5 mg p.o. daily, Solu-Medrol 40 mg IV q.12, Singulair 10 mg p.o. at bedtime, Robitussin DM 5 mL p.o. q.4 hours. p.r.n. cough, Pulmicort inhalational therapy, Pepcid 20 mg p.o. at bedtime, OsCal 500 mg p.o. daily, Miacalcin Nasal [place] alternate nostrils daily, Lopressor 25 mg p.o. b.i.d., Lipitor 10 mg p.o. daily, Lasix 20 mg p.o. daily which was dose reduced from 40 mg p.o. daily given her prerenal azotemia and absence of congestive heart failure symptomatology. Also, she will continue on low-dose insulin coverage a.c. meals and at bedtime, Ecotrin 81 mg p.o. daily, dual nebulizer therapy q.4 hours, and Brovana inhalational therapy b.i.d. She will have physical therapy for reconditioning and gait training, pulmonary toiletry, and the patient was encouraged to expectorate loose secretions. All of the above was discussed in detail with the patient and nursing. Greater than 35 minutes was spent in the care management, review of labs, x-rays, medication and discussion of this with the patient at bedside. All questions were answered. Marce Gold MD MTDD
[2017-05-07] MEDS: Calcitonin 200 Int Units/Inh Nasal Spray (3.7 ml) NS SCH (09:53)
[2017-05-07] MEDS: MethylPREDNISolone 40 mg Vial IVP SCH ×2 (09:54→20:59)
--- NOTE | 2017-05-07 20:47 | PN ---
DATE: 05/07/2017 PULMONARY PROGRESS NOTE REFERRING PHYSICIAN: Dr. Gold SUBJECTIVE: Patient is sitting up in a chair, feels okay, still has some cough, clear sputum and wheezing. No nausea. No vomiting. No diarrhea. No leg pain or leg swelling. PHYSICAL EXAMINATION GENERAL: No acute distress. VITAL SIGNS: Temp is 98, heart rate is 69, respiratory rate is 18, blood pressure is 145/75, pulse ox is 96% on room air. HEENT: Moist mucous membranes. No ulcer or thrush. NECK: Supple. No JVD. LUNGS: Prolonged expiratory phase. There is some wheezing. Few crackles on the right base. HEART: S1, S2. ABDOMEN: Soft, nontender, no organomegaly. EXTREMITIES: There is no edema. NEUROLOGIC: Awake and alert. Follows simple commands. MEDICATIONS: She is on Brovana inhaled twice a day, DuoNeb every 4 hours p.r.n., Ecotrin 81 mg daily, insulin coverage, Lasix 20 mg daily, Lipitor 10 mg daily, metoprolol tartarate 25 mg twice a day, calcitonin (salmon) 200 international units nasally daily, Os-Leon 500 mg daily, Pepcid 20 mg bedtime, Pulmicort inhaled twice a day, Robitussin DM 5 mL every 4 hours p.r.n., Singulair 10 mg daily, Solu-Medrol 20 mg every 12 hours, Tylenol p.r.n., Zestril 2.5 mg daily, Zofran on p.r.n. basis. LABORATORY DATA: Reviewed and noted. Blood sugar this morning 96. IMPRESSION AND PLAN: Chronic obstructive lung disease, bronchiectasis, history of pleural calcification, has a granuloma, diabetes, hypertension, hyperlipidemia, peptic ulcer disease, gastroesophageal reflux disease, renal insufficiency. From pulmonary point of view, doing okay. Continue IV and inhaled bronchodilator, antibiotics, gastric prophylaxis, DVT prophylaxis, sleep apnea precaution while sedation as outpatient, will need sleep study and PFT. Thank you and we will follow with you. Neftali Morris MD
[2017-05-07] MEDS: guaiFENesin DM 100 mg-10 mg/5 ml UD PO PRN (20:56)
--- NOTE | 2017-05-08 00:23 | PN ---
DATE: 05/07/2017 SUBJECTIVE: This 87-year-old female was examined at the bedside and this case was reviewed in detail with herself and nurse, Ginny Chiang, as well as her daughter, Ida Alves. The patient was out of bed to chair. She remains anxious. She denied any fever, chills, chest pain or hemoptysis. Lasix was lowered in dosage because of prerenal azotemia and patient was instructed to increase p.o. fluid intake. PHYSICAL EXAMINATION: VITAL SIGNS: At present, temperature is 97.6, respirations 18, pulse 104 and blood pressure 137/78 with a pulse ox of 97%. HEENT: Head: Normocephalic, atraumatic. Eyes: No icterus. Ears: Clear. Throat: Noninjected. NECK: Supple. HEART: Regular S1, S2. LUNGS: Have occasional rhonchi that clear with coughing. No wheezing was appreciated. ABDOMEN: Soft. EXTREMITIES: No edema. SKIN: Without rash. NEUROLOGICAL: Intact. PSYCHOLOGICAL: Alert. VASCULAR: Legs warm to touch. LABORATORY DATA: White count 9900, hemoglobin 12.7, hematocrit 38.7, platelets 209,000. Sodium 138, K 4.9, chloride 97, bicarb 30, BUN 85, creatinine 2.2, random blood sugar ranged from 64 to 111 mg/dL. All liver function testing was normal including bilirubin 0.5, AST 20, ALT 31 and alk phos 37. IMPRESSION: An 87-year-old female with exacerbation of chronic obstructive pulmonary disease; pulmonary fibrosis; anxiety neurosis; atherosclerotic heart disease, stable; insulin-dependent diabetes mellitus; chronic renal failure, stage III; hyperlipidemia; degenerative arthritis; osteoporosis; peptic ulcer disease with gastroesophageal reflux disease; asthma; chronic hypertension. PLAN: Plan as discussed with the patient, nursing, family and physical and occupational therapy will be to continue, physical therapy for reconditioning and gait training. She continues on heart-healthy diabetic diet with nasal O2 p.r.n. She continues on Zestril 2.5 mg p.o. daily, Solu-Medrol 20 mg IV q.12, dose reduced, now that the patient had no wheezing today, Singulair 10 mg p.o. at bedtime, Robitussin DM 5 mL p.o. q.4 hours p.r.n. cough, Pulmicort inhalational therapy q.12, Pepcid 20 mg p.o. at bedtime, Os-Leon 500 mg p.o. daily, Miacalcin nasal spray alternate nostril daily, Lopressor 25 mg b.i.d., Lipitor 10 mg p.o. daily, Lasix 20 mg p.o. daily, regular low-dose insulin protocol a.c. meals and at bedtime, Ecotrin 81 mg p.o. daily, dual nebulizer therapy q.4 hours and Brovana inhalational therapy q.12. Ultimate plan will be for discharge to home when medically stable. All of the above was reviewed in detail with the patient, nursing and family as well as Dr. Morris from Pulmonary. Approximately 30 minutes was spent in the care and discussion of this patient today. All questions were answered. Marce Gold MD MTDWilner
[2017-05-08] MEDS: Insulin Reg-LOW-Coverage SC SCH ×4 (06:35→22:25)
[2017-05-08] MEDS: Budesonide 0.25 mg/2 ml Inhal Susp UD IH SCH ×2 (07:17→21:30)
[2017-05-08] MEDS: Arformoterol 15 mcg/2 ml Inh Sol IH SCH ×2 (07:17→21:30)
[2017-05-08] MEDS: guaiFENesin DM 100 mg-10 mg/5 ml UD PO PRN (08:15)
[2017-05-08] MEDS: MethylPREDNISolone 40 mg Vial IVP SCH ×2 (10:16→21:49)
[2017-05-08] MEDS: Calcitonin 200 Int Units/Inh Nasal Spray (3.7 ml) NS SCH (10:16)
[2017-05-08] MEDS ORDERED: guaiFENesin DM 100 mg-10 mg/5 ml UD PO SCH (12:00)
[2017-05-08] MEDS ORDERED: guaiFENesin 200 mg/10 ml Syrup UD PO SCH (12:06)
[2017-05-08] MEDS: guaiFENesin DM 200 mg-20 mg/10 ml UD PO SCH ×3 (12:39→21:00)
--- NOTE | 2017-05-08 18:22 | PN ---
DATE: 05/08/2017 SUBJECTIVE: This 87-year-old female was examined at bedside. This was done in the presence of her daughter, Ida Alves, and this case was reviewed in detail as well with her nurse, Ginny Chiang, Registered Nurse. The patient was out of bed to chair. She was complaining of a cough and cold symptoms. She denied any active fever, chills, chest pain, or shortness of breath. PHYSICAL EXAMINATION: VITAL SIGNS: Was noted to have a temperature 98.5, respirations 18, pulse 84, and blood pressure 117/61. Pulse ox was 96%. HEENT: Head: Normocephalic, atraumatic. Eyes: No icterus. Ears: Clear. Throat: Noninjected. Neck: Supple. HEART: Regular. S1, S2. LUNGS: With occasional rhonchi that cleared with coughing. No wheezing was appreciated. ABDOMEN: Soft. EXTREMITIES: No edema. SKIN: Without rash. NEUROLOGICAL: Intact. PSYCHOLOGICAL: Anxious. VASCULAR: Legs warm to touch. LABORATORY DATA: White count 9900, hemoglobin 12.7, hematocrit 38.7, platelets 209,000. Random blood sugar 83. Sodium 138, potassium 4.9, chloride 97, bicarb 30, BUN 85, creatinine 2.2. All liver function testing normal including bilirubin 0.5, AST 20, ALT 31, and alk phos 37. IMPRESSION: An 87-year-old female with [id number] exacerbation of chronic obstructive pulmonary disease with history of advanced pulmonary fibrosis, anxiety neurosis, atherosclerotic heart disease - stable, history of chronic hypertension, chronic renal failure stage 3, hyperlipidemia, degenerative arthritis, osteoporosis, peptic ulcer disease with gastroesophageal reflux disease, anxiety neurosis, asthma. PLAN: As discussed with the patient, family, and nursing and Dr. Morris from Pulmonary will be to continue physical therapy for reconditioning and gait training while continuing on a heart-healthy, renal, diabetic diet, nasal O2 p.r.n. She continues with Zofran 4 mg IV q.6 hours p.r.n. nausea and vomiting, Zestril 2.5 mg p.o. daily, Solu-Medrol 20 mg IV q.12, Singulair 10 mg p.o. at bedtime, Robitussin 5 mL p.o. q.6 hours, Pulmicort inhalational therapy q.12, Pepcid 20 mg p.o. at bedtime, calcium carbonate 500 mg p.o. daily, Miacalcin nasal spray to alternate nostril daily, Lopressor 25 mg p.o. b.i.d., Lipitor 10 mg p.o. at dinnertime, Lasix 20 mg p.o. daily, regular low-dose insulin protocol before meals and at bedtime, Ecotrin 81 mg p.o. daily, dual nebulizer therapy q.4 hours, and Brovana inhalational q.12. Ultimate plan will be for discharge to home with family providing 24-hour supervision of this patient. All of the above was discussed in detail with the patient, nursing, and family. Greater than 35 minutes was spent in the care management and review of x-rays, labs, medications, and orders for this patient today. All questions were answered. Marce Gold MD MTDWilner
--- NOTE | 2017-05-08 20:03 | PN ---
DATE: 05/08/2017 PULMONARY PROGRESS NOTE REFERRING PHYSICIAN: Marce Gold MD SUBJECTIVE: The patient is lying in the bed, head at 45 degree, on nebulizer treatment. Night was unremarkable. Still has some cough and wheezing. No nausea. No vomiting. No diarrhea. No leg pain or leg swelling. PHYSICAL EXAMINATION GENERAL: In no acute distress. VITAL SIGNS: Temperature 98, heart rate 84, respiratory rate is 20, blood pressure 117/61, pulse 97% on 2 liters nasal cannula. HEENT: Moist mucous membranes. Crowded airway. NECK: Supple. No JVD. LUNGS: Has few crackles on the right base, few scattered rhonchi. HEART: S1 and S2. ABDOMEN: Soft, nontender. No organomegaly. EXTREMITIES: No edema. NEUROLOGIC: Awake and follows simple command. MEDICATIONS: She is on Brovana 15 mcg inhaled twice a day, DuoNeb q. 4 hours p.r.n., Ecotrin 81 mg daily, insulin coverage, Lasix 20 mg daily, Lipitor 10 mg daily, metoprolol tartrate 25 mg twice a day, Miacalcin nasal daily, Os-Leon 500 mg daily, Pepcid 20 mg at bedtime, Pulmicort inhaled twice a day, Robitussin DM 15 mL q. 4 hour p.r.n., Singulair 10 mg daily, Solu-Medrol 20 mg q. 12 hours, Tylenol p.r.n. basis, Zestril 2.5 mg daily and Zofran p.r.n. basis. LABORATORY DATA: Reviewed. Blood sugar this morning is 83. IMPRESSION AND PLAN: Chronic obstructive lung disease, bronchiectasis, has a pleural plaques, history of granuloma, diabetes, hypertension, hyperlipidemia, peptic ulcer disease, esophageal reflux, renal insufficiency. Pulmonary point of view, continue IV and inhaled bronchodilator. Keep head at 45 degrees. Aspiration precaution. Gastric prophylaxis, deep venous thrombosis prophylaxis. Thank you and we will follow with you. Neftali Morris MD
[2017-05-09] MEDS: guaiFENesin DM 200 mg-20 mg/10 ml UD PO SCH ×7 (00:07→23:00)
[2017-05-09] MEDS: Insulin Reg-LOW-Coverage SC SCH ×4 (06:43→22:11)
[2017-05-09] MEDS: Arformoterol 15 mcg/2 ml Inh Sol IH SCH ×2 (07:46→19:47)
[2017-05-09] MEDS: Budesonide 0.25 mg/2 ml Inhal Susp UD IH SCH ×2 (07:46→19:47)
[2017-05-09] MEDS: MethylPREDNISolone 40 mg Vial IVP SCH ×3 (10:28→22:11)
[2017-05-09] MEDS: Calcitonin 200 Int Units/Inh Nasal Spray (3.7 ml) NS SCH (10:30)
[2017-05-09] MEDS ORDERED: MethylPREDNISolone 40 mg Vial IVP SCH (12:00)
--- NOTE | 2017-05-09 20:00 | PN ---
DATE: 05/09/2017 PULMONARY PROGRESS NOTE REFERRING PHYSICIAN: Marce Gold MD SUBJECTIVE: The patient is out bed to chair. Night was unremarkable. Feels some cough and sputum production. No nausea. No vomiting. No diarrhea. No leg pain or leg swelling. OBJECTIVE: GENERAL: In no acute distress. VITAL SIGNS: Temp is 98, heart rate is 61, respiratory rate is 20, blood pressure is 114/70, pulse ox is 97% on nasal cannula. HEENT: Moist mucous membranes. No ulcer or thrush. NECK: Supple. No JVD. LUNGS: Has a few crackles on the right base with scattered rhonchi. HEART: S1, S2. ABDOMEN: Soft, nontender, no organomegaly. EXTREMITIES: No edema. NEUROLOGIC: Awake and alert. Follows simple commands. MEDICATIONS: She is on Brovana inhaled twice a day, DuoNeb q. 4 hours p.r.n., Ecotrin 81 mg daily, Lasix 20 mg daily, Lipitor 10 mg daily, metoprolol tartarate 25 mg twice a day, Miacalcin 200 international units daily, Os-Leon 500 mg daily, Pepcid 20 mg at bedtime, Pulmicort inhaled twice a day, Robitussin 10 mg at bedtime, Singulair 10 mg daily, Solu-Medrol 20 mg q. 8 hours, Tylenol p.r.n., Zestril 2.5 mg daily, Zofran on p.r.n. basis. LABORATORY DATA: Reviewed shows blood sugar this morning 59. IMPRESSION AND PLAN: Chronic obstructive lung disease, bronchiectasis, pleural plaque granuloma, diabetes, hypertension, hyperlipidemia, peptic ulcer disease, esophageal reflux, renal insufficiency. From pulmonary point of view, doing okay. Continue IV and inhaled bronchodilator, gastric prophylaxis, SCDs to lower extremity. Continue therapy. Thank you and we will follow with you. Neftali Morris MD
--- NOTE | 2017-05-09 23:48 | PN ---
DATE: 05/09/2017 SUBJECTIVE: This 87-year-old female was examined in her room at the bedside. She was out of bed to chair and her daughter, Ida Alves was present for the interview. This case was also reviewed with her nurse, Lou Edmond, registered nurse. The patient remains anxious. She states she has cough and wheeze. She remains concerned regarding her multiple medical problems and is cooperating with nursing and physical and occupational therapy. She denies any fever, chills, chest pain or shortness of breath, and there have been no reports of hemoptysis. PHYSICAL EXAMINATION VITAL SIGNS: Temperature is 97.2, respirations 14, pulse 61, blood pressure 114/70, and pulse ox 97%. HEENT: Head: Normocephalic, atraumatic. Eyes: No icterus. Ears: Clear. Throat: Noninjected. NECK: Supple. HEART: Irregular S1, S2. LUNGS: Have wheezing in the right posterior lung field throughout. ABDOMEN: Soft. EXTREMITIES: No edema. SKIN: Without rash. NEUROLOGICAL: Intact. PSYCHOLOGICAL: Chronic anxiety. VASCULAR: Legs warm to touch. LABORATORY DATA: White count 9900, hemoglobin 12.7, hematocrit 38.7, platelets 209,000. Random blood sugar ranges from 59 to 139. Sodium 138, potassium 4.9, chloride 97, bicarb 30, BUN 85, creatinine 2.2. All liver function testing was normal including bilirubin 0.5, AST 20, ALT 31, and alk phos 37. Chest x-ray was reviewed. It shows evidence of COPD, pleural plaques, chronic obstructive pulmonary disease, no pneumothorax, no infiltrate, and no effusion. IMPRESSION: This is an 87-year-old female with exacerbation of chronic obstructive pulmonary disease as well as advanced pulmonary fibrosis and comorbidities of atherosclerotic heart disease stable, chronic hypertension, chronic renal failure stage 3, hyperlipidemia, degenerative arthritis, osteoporosis, peptic ulcer disease with gastroesophageal reflux disease, asthma, anxiety neurosis, and chronic hypertension. PLAN: Discussed with the patient, daughter, nursing, physical and occupational therapy will be to continue physical and occupational therapy for reconditioning and gait training while continuing a soft bland, heart healthy diet, and nasal O2 p.r.n. She has chronic renal failure stage III. She is to continue medications including Zestril 2.5 mg p.o. daily, Solu-Medrol will be increased to 20 mg IV q.8h. given her recent wheezing. She continues on Singulair 10 mg p.o. at bedtime. Robitussin will be increased to 10 mL p.o. q.4h. She will continue on Pulmicort inhalational therapy, Pepcid 20 mg p.o. at bedtime, Os-Leon 500 mg p.o. daily, Miacalcin nasal spray alternate nostril daily, Lopressor 25 mg p.o. b.i.d., Lipitor 10 mg p.o. at dinner time, Lasix 20 mg p.o. daily, regular low-dose insulin protocol a.c., meals and at bedtime, Ecotrin 81 mg p.o. daily, dual nebulizer therapy q.4h. and Brovana inhalational therapy q.12h. Plan as discussed with the patient, nursing, physical and occupational therapy and daughter will be to achieve stabilization of her respiratory status and alleviate pulmonary symptomatology and wheezing with ultimate plans for discharge to home and family providing 24 hours supervision of this patient. Overall prognosis though poor remains stable at present. Greater than 35 minutes was spent in the care, review of x-rays, labs, medication and adjustment of orders for this patient today. This case was reviewed in detail with her daughter and nurse at the bedside. All questions were answered. Marce Gold MD KIANA
[2017-05-10] MEDS: MethylPREDNISolone 40 mg Vial IVP SCH (05:21)
[2017-05-10] MEDS: guaiFENesin DM 200 mg-20 mg/10 ml UD PO SCH ×5 (05:23→21:29)
[2017-05-10] MEDS: Insulin Reg-LOW-Coverage SC SCH ×4 (06:34→21:33)
[2017-05-10] MEDS: Arformoterol 15 mcg/2 ml Inh Sol IH SCH ×2 (07:35→20:53)
[2017-05-10] MEDS: Budesonide 0.25 mg/2 ml Inhal Susp UD IH SCH ×2 (07:35→20:53)
[2017-05-10] MEDS: Calcitonin 200 Int Units/Inh Nasal Spray (3.7 ml) NS SCH (09:15)
[2017-05-10] MEDS ORDERED: MethylPREDNISolone 40 mg Vial IVP SCH (13:30)
[2017-05-11] MEDS: guaiFENesin DM 200 mg-20 mg/10 ml UD PO SCH ×6 (00:09→20:04)
--- NOTE | 2017-05-11 03:02 | PN ---
DATE: 05/10/2017 REFERRING PHYSICIAN: Dr. Gold. SUBJECTIVE: She is out of bed to chair. Night was unremarkable. Usually gets cough at night. Not much sputum production. No nausea or vomiting. No diarrhea. No leg pain or leg swelling. OBJECTIVE: GENERAL: In no acute distress. VITAL SIGNS: Temperature 98, heart rate is 74, respiratory rate is 20, blood pressure 116/70, pulse oximetry 97% on 2 L nasal cannula. HEENT: Moist mucous membranes. No ulcer or thrush. NECK: Supple. No JVD. LUNGS: Has diffused scattered rhonchi. HEART: S1, S2. ABDOMEN: Soft, nontender, no organomegaly. EXTREMITIES: No edema. NEUROLOGIC: Awake and alert. Follows simple commands. MEDICATIONS: She is on Brovana inhaled twice a day, DuoNeb q.4 hours p.r.n., Ecotrin 81 mg daily, insulin coverage, Lasix 20 mg daily, Lipitor 10 mg daily, Lopressor 25 mg twice a day, Miacalcin 200 international units nasally, Os-Leon 500 mg daily, Pepcid 20 mg at bedtime, Pulmicort inhaled twice a day, Robitussin DM 10 mL q.4 hours p.r.n., Singulair 10 mg daily, Solu-Medrol 10 mg q.12 hours, Tessalon Perles 200 mg at bedtime, Tylenol p.r.n., Zestril 2.5 mg daily, Zofran on p.r.n. basis. LABORATORY DATA: Reviewed. Blood sugar is 114. IMPRESSION AND PLAN: Chronic obstructive lung disease, bronchiectasis, pleural plaques, history of granuloma, diabetes, hypertension, hyperlipidemia, peptic ulcer disease, gastroesophageal reflux disease, renal insufficiency. She has usually cough at night time, questioned if that she has a gastroesophageal reflux disease aspirating while sleeping at night time causing cough. Second, she may also have oropharyngeal dysphagia noted, Dr. Gold added Tessalon Perles at nighttime. We will suggest gastroesophageal reflux disease precaution. Keep head at 45 degrees. We will given her Protonix at nighttime for few days and see how she does, also do swallow evaluation. Continue inhaled bronchodilator. Thank you, and we will follow you. Neftali Morris MD
[2017-05-11] MEDS: MethylPREDNISolone 40 mg Vial IVP SCH ×2 (05:21→18:14)
[2017-05-11] MEDS: Pantoprazole 40 mg EC Tab PO SCH (05:22)
[2017-05-11] MEDS: Insulin Reg-LOW-Coverage SC SCH ×4 (06:58→22:09)
[2017-05-11] MEDS: Budesonide 0.25 mg/2 ml Inhal Susp UD IH SCH ×2 (08:02→20:18)
[2017-05-11] MEDS: Arformoterol 15 mcg/2 ml Inh Sol IH SCH ×2 (08:02→20:17)
--- NOTE | 2017-05-11 08:19 | PN ---
DATE: 05/10/2017 SUBJECTIVE: This 87-year-old female was examined at her bedside in the presence of her two daughters, Ida Peralta and Paulette. The patient was out of bed to chair. She complained that she had a bad evening last night with insomnia secondary to cough and congestion, but at present, denies any fever, chills, chest pain, or shortness of breath. She is anxious to eat lunch. OBJECTIVE: VITAL SIGNS: Temperature was 97.8, respirations 19, pulse 85, blood pressure 134/80, and pulse ox 96%. HEENT: Head: Normocephalic and atraumatic. Eyes: No icterus. Ears: Clear. Throat: Noninjected. NECK: Supple. HEART: Regular S1 and S2. LUNGS: Clear. No rhonchi. No wheezing. ABDOMEN: Soft. EXTREMITIES: No edema. SKIN: Without rash. NEUROLOGICAL: Intact. PSYCHOLOGICAL: Alert. VASCULAR: Legs warm to touch. LABORATORY DATA: Hemoglobin 9.9, hematocrit 12.7, hematocrit 38.7, and platelets 209,000. Random blood sugar 92. Sodium 138, K 4.9, chloride 97, bicarb 30, BUN 85, and creatinine 2.2. Estimated GFR 21 mL per minute. All liver function testing normal including bilirubin 0.5, AST 20, ALT 31, and alk phos 37. IMPRESSION: This is an 87-year-old female with exacerbation of chronic obstructive pulmonary disease, advanced pulmonary fibrosis, and comorbidities of insulin-dependent diabetes mellitus, stable atherosclerotic heart disease, chronic hypertension, hyperlipidemia, degenerative arthritis, osteoporosis, peptic ulcer disease with gastroesophageal reflux disease, chronic renal failure stage III, asthma, and anxiety neurosis. PLAN: As discussed with the patient, nursing, and family at bedside will be to continue physical therapy for reconditioning and gait training while continuing insulin coverage a.c. meals and at bedtime and a heart-healthy bland renal diet. She continues on nasal O2 p.r.n. and has home O2 when discharge. She will continue on Zestril 2.5 mg p.o. daily and Solu-Medrol will be decreased to 20 mg IV q.12 hours. She continues on Singulair 10 mg p.o. at bedtime, Robitussin DM 10 mL p.o. q.4 hours., Pulmicort inhalational therapy q.12 hours, Pepcid 20 mg p.o. at bedtime, Os-Leon 500 mg p.o. daily, Miacalcin nasal spray alternate nostril daily, Lopressor 25 mg p.o. b.i.d., Lipitor 10 mg p.o. at dinnertime, Lasix 20 mg p.o. daily, insulin regular low-dose insulin coverage a.c. meals and at bedtime, Ecotrin 81 mg p.o. daily, Duo nebulizer therapy q.4 hours, and Brovana inhalational therapy q.12 hours. I will order Tessalon Perles 200 mg p.o. at bedtime to help the patient with the evening cough that has disrupted her sleep pattern and ultimate plan will be for discharge to home with home O2 when medically stable. All of the above was discussed in detail with the patient, nursing, and family at bedside. Greater than 30 minutes was spent in the care, review of x-rays, labs, medication, and adjustment of orders for this patient today. Her case was reviewed in detail with her daughters at the bedside. All questions were answered. Marce Gold MD [facility]NA
[2017-05-11] MEDS: Calcitonin 200 Int Units/Inh Nasal Spray (3.7 ml) NS SCH (09:11)
[2017-05-11] MEDS: Albuterol-Ipratrop 3 mg / 0.5 (3 ml) UD IH PRN ×2 (12:03→12:17)
[2017-05-11] MEDS: Sodium Chloride 0.45% 1,000 ML IV SCH (16:38)
[2017-05-11] MEDS ORDERED: Oseltamivir 6 MG/ML PO STA (18:28)
--- NOTE | 2017-05-11 23:52 | PN ---
DATE: 05/11/2017 PULMONARY PROGRESS NOTE REFERRING PHYSICIAN: Dr. Gold. SUBJECTIVE: She is out of bed to chair. Night was unremarkable. Still had some cough. No nausea or vomiting. No diarrhea. No leg pain or leg swelling. OBJECTIVE: GENERAL: In no acute distress. VITAL SIGNS: Temperature 98, heart rate is 85, respiratory rate is 18, blood pressure 120/79, pulse oximetry 97% on 2 L nasal cannula. HEENT: Moist mucous membranes. No ulcer or thrush. NECK: Supple. No JVD. LUNGS: Has few crackles at the bases, scattered rhonchi. HEART: S1, S2. ABDOMEN: Soft, nontender, no organomegaly. EXTREMITIES: No edema. NEUROLOGIC: Awake and alert. Follows simple commands. MEDICATIONS: She is on Brovana inhaled twice a day, DuoNeb q.4 hours p.r.n., Ecotrin 81 mg daily, insulin coverage, Lasix 20 mg daily, Lipitor 10 mg daily, metoprolol tartrate 25 mg twice a day, Miacalcin 200 international unit daily, Os-Leon 500 mg daily, Protonix 40 mg daily, Pulmicort inhaled twice a day, Robitussin DM 10 mL q.4 hour p.r.n., Singulair 10 mg daily, IV fluid half normal saline 70 mL/hour, Solu-Medrol 20 mg q.12 hours, Tamiflu 30 mg daily, Tessalon Perles 200 mg at bedtime, Tylenol p.r.n., Zestril 2.5 mg daily, Zofran p.r.n. basis. LABORATORY DATA: Reviewed. Blood sugar this morning is 107. Influenza A is positive. IMPRESSION AND PLAN: Chronic obstructive lung disease, bronchiectasis, pleural plaques, history of granuloma, diabetes, hypertension, hyperlipidemia, peptic ulcer disease, gastroesophageal reflux disease, renal insufficiency, and with influenza A infection, started on Tamiflu. Continue bronchodilator. Keep head at 45 degrees. Gastric prophylaxis. Thank you, and we will follow with you. Neftali Morris MD
[2017-05-12] MEDS: guaiFENesin DM 200 mg-20 mg/10 ml UD PO SCH ×6 (05:49→21:19)
[2017-05-12] MEDS: Pantoprazole 40 mg EC Tab PO SCH (05:49)
[2017-05-12] MEDS: MethylPREDNISolone 40 mg Vial IVP SCH (05:50)
[2017-05-12] MEDS: Sodium Chloride 0.45% 1,000 ML IV SCH (06:01)
[2017-05-12] MEDS: Insulin Reg-LOW-Coverage SC SCH ×3 (06:40→17:14)
[2017-05-12] MEDS: Arformoterol 15 mcg/2 ml Inh Sol IH SCH ×2 (07:45→20:25)
[2017-05-12] MEDS: Budesonide 0.25 mg/2 ml Inhal Susp UD IH SCH ×2 (07:47→20:25)
[2017-05-12 09:00] LABS: HEMOGLOBIN 12.5 g/dL (12.0-16.0); MEAN CELL VOLUME 96.5 fl (80.0-105.0); MEAN CORPUSCULAR HEMOGLOBIN 29.5 pg (25.0-35.0); MEAN CORPUSCULAR HGB CONC 30.6 g/dl (31.0-37.0); MEAN PLATELET VOLUME 11.8 fl (7.0-11.0); RBC 4.24 10^6/uL (3.5-6.1); RED CELL DISTRIBUTION WIDTH 15.3 % (11.5-14.5)
[2017-05-12 09:05] LABS: WHITE BLOOD COUNT 20.6 10^3/ul (4.5-11.0)
[2017-05-12 09:13] LABS: CALCIUM 8.3 mg/dL (8.4-10.5)
[2017-05-12] MEDS: Calcitonin 200 Int Units/Inh Nasal Spray (3.7 ml) NS SCH (10:19)
[2017-05-12] MEDS: Oseltamivir 6 MG/ML PO SCH (10:46)
[2017-05-13] MEDS: Albuterol-Ipratrop 3 mg / 0.5 (3 ml) UD IH PRN ×2 (03:09→20:15)
[2017-05-13] MEDS: guaiFENesin DM 200 mg-20 mg/10 ml UD PO SCH ×6 (03:10→21:19)
[2017-05-13] MEDS: Insulin Reg-LOW-Coverage SC SCH ×5 (05:29→21:28)
[2017-05-13] MEDS: Sodium Chloride 0.45% 1,000 ML IV SCH ×2 (05:31→15:34)
--- NOTE | 2017-05-13 05:34 | PN ---
DATE: 05/12/2017 PULMONARY PROGRESS NOTE REFERRING PHYSICIAN: Dr. Gold. SUBJECTIVE: She is sitting up in the bed. Complaining of body aches and cough. No nausea. No vomiting. No diarrhea. No leg pain or leg swelling. OBJECTIVE: GENERAL: In no acute distress. VITAL SIGNS: Temperature 98, heart rate is 74, respiratory rate is 20, and blood pressure 121/66. HEENT: Moist mucous membranes. Crowded airway. NECK: Supple. No JVD. LUNGS: Has scattered rhonchi, few crackles at the right base. HEART: S1, S2. ABDOMEN: Soft and nontender. No organomegaly. EXTREMITIES: No edema. NEUROLOGIC: Awake and alert. Follows simple commands. MEDICATIONS: She is on Brovana 50 mcg inhaled twice a day, DuoNeb q. 4 hours p.r.n., Ecotrin 80 mg daily, insulin coverage, Lasix 20 mg daily, Lipitor 10 mg daily, metoprolol tartrate 25 mg twice a day, Miacalcin 200 international units nasally, Os-Leon 500 mg daily, Protonix 40 mg daily, Pulmicort inhaled twice a day, Robitussin 10 mL q. 4 hour, Singulair 10 mg daily, IV fluid half normal saline 70 mL/hour, Tamiflu 30 mg daily, Tessalon Perles 200 mg at bedtime, Tylenol p.r.n., Zestril 2.5 mg daily, and Zofran p.r.n. basis. LABORATORY DATA: Shows hemoglobin 12.5, hematocrit 40.9, WBC 20,000, and platelet is 160. Sodium 133, potassium 4.5, chloride 99, bicarbonate 25, BUN 62, creatinine 1.6, glucose 196, and calcium is 8.3. IMPRESSION AND PLAN: Chronic obstructive lung disease, bronchiectasis, pleural plaques, history of granuloma, diabetes, hypertension, hyperlipidemia, peptic ulcer disease, gastroesophageal reflux disease, renal insufficiency, and influenza A infection. Pulmonary point of view, doing okay. Continue IV and inhaled bronchodilator. Gastric prophylaxis. On IV fluid. Continue Tamiflu, Tylenol on p.r.n. basis. Thank you and we will follow with you. Neftali Morris MD
[2017-05-13 06:58] LABS: HEMOGLOBIN 12.5 g/dL (12.0-16.0); MEAN CORPUSCULAR HEMOGLOBIN 29.3 pg (25.0-35.0); MEAN CORPUSCULAR HGB CONC 30.6 g/dl (31.0-37.0); MEAN PLATELET VOLUME 11.8 fl (7.0-11.0); RBC 4.26 10^6/uL (3.5-6.1); RED CELL DISTRIBUTION WIDTH 15.1 % (11.5-14.5)
[2017-05-13] MEDS: Arformoterol 15 mcg/2 ml Inh Sol IH SCH ×2 (07:34→20:15)
[2017-05-13] MEDS: Budesonide 0.25 mg/2 ml Inhal Susp UD IH SCH ×2 (07:35→20:15)
[2017-05-13] MEDS: Calcitonin 200 Int Units/Inh Nasal Spray (3.7 ml) NS SCH (09:18)
[2017-05-13] MEDS: Oseltamivir 6 MG/ML PO SCH (09:45)
[2017-05-13] MEDS ORDERED: Vancomycin 1gm in NS 250ml 1 GM/250 ML BAG IVPB STA (11:53)
[2017-05-13] MEDS ORDERED: Cefepime (Maxipime) 1 g Inj IVPB STA (11:54)
[2017-05-13] MEDS ORDERED: Cefepime 1gm in NS 100ml 1 GM/100 ML BAG IVPB STA (12:01)
[2017-05-13] MEDS ORDERED: Potassium Chloride 20 mEq ER Tab PO ONE (14:14)
--- NOTE | 2017-05-13 16:58 | RAD ---
HISTORY: congestion COMPARISON: Chest x-ray performed 05/01/17 TECHNIQUE: Chest PA and lateral FINDINGS: LUNGS: Extensive pleural calcification within the right upper thorax. Extensive scarring, fibrosis, and patchy opacities with associated right-sided volume loss. Patchy left lower lobe atelectasis or pneumonia. Probable tiny bilateral pleural effusions. No definite pneumothorax. Please note that chest x-ray has limited sensitivity for the detection of pulmonary masses. CARDIOVASCULAR: Mild cardiomegaly. OSSEOUS STRUCTURES: Osseous demineralization. Degenerative changes. VISUALIZED UPPER ABDOMEN: Unremarkable. OTHER FINDINGS: None. IMPRESSION: Extensive pleural calcification within the right upper thorax. Extensive scarring, fibrosis, and patchy opacities with associated right-sided volume loss. Patchy left lower lobe atelectasis or pneumonia. Probable tiny bilateral pleural effusions. Mild cardiomegaly.
[2017-05-13 18:19] VITALS: O2SAT 97
--- NOTE | 2017-05-13 18:46 | CP.PCM.CON ---
History of Present Illness - History of Present Illness History of Present Illness: Infectious Disease Consultation/Follow Up: May 13, 2017 87 yo female who presented with SOB and COPD exacerbation. Patient was evaluated for Influenza on 05/11/2017 which was positive. On isolation and started on Tamiflu. The patient with leukocytosis up to 21. Followed also by Pulmonology who indicates that the patient has been improving. PMHx: COPD, advanced pulmonary fibrosis, hypertension, ASHD, CHF, bronchitis, chronic renal insufficiency/CKD III, degenerative arthritis, anxiety, osteoporosis. PSHx: breast biopsy. Allergies: Levofloxacin Social Hx: No tobacco, EtOH, or illicit drug use. Active Medications Acetaminophen (Tylenol 325mg Tab) 650 mg PO Q6H PRN; Protocol PRN Reason: Fever >100.4 F Last Admin: 05/13/17 05:31 Dose: 650 mg Albuterol/Ipratropium (Duoneb 3 Mg/0.5 Mg (3 Ml) Ud) 3 ml IH Q4 PRN; Protocol PRN Reason: Shortness of Breath Last Admin: 05/13/17 03:09 Dose: 3 ml Arformoterol Tartrate (Brovana) 15 mcg IH [id number] JEREMY Last Admin: 05/13/17 07:34 Dose: 15 mcg Aspirin (Ecotrin) 81 mg PO DAILY JEREMY PRN Reason: Protocol Last Admin: 05/13/17 09:16 Dose: 81 mg Atorvastatin Calcium (Lipitor) 10 mg PO DIN JEREMY PRN Reason: Protocol Last Admin: 05/13/17 16:36 Dose: 10 mg Benzonatate (Tessalon Perles) 200 mg PO HS JEREMY Last Admin: 05/12/17 21:20 Dose: 200 mg Budesonide (Pulmicort Respules) 0.25 mg IH [id number] JEREMY PRN Reason: Protocol Last Admin: 05/13/17 07:35 Dose: 0.25 mg Calcitonin [place] (Miacalcin) 200 intlu NS DAILY JEREMY PRN Reason: Protocol Last Admin: 05/13/17 09:18 Dose: 1 spray Calcium Carbonate (Oscal) 500 mg PO DAILY JEREMY PRN Reason: Protocol Last Admin: 05/13/17 09:18 Dose: 500 mg Furosemide (Lasix) 20 mg PO DAILY JEREMY PRN Reason: Protocol Last Admin: 05/13/17 09:16 Dose: 20 mg Guaifenesin/Dextromethorphan (Robitussin Dm) 10 ml PO Q4H JEREMY PRN Reason: Protocol Last Admin: 05/13/17 16:36 Dose: 10 ml Sodium Chloride (Sodium Chloride 0.45%) 1,000 mls @ 70 mls/hr IV .[id number] [facility] Last Admin: 05/13/17 15:34 Dose: 70 mls/hr Insulin Human Regular (Humulin R Low) 0 units SC ACHS JEREMY PRN Reason: Protocol Last Admin: 05/13/17 16:56 Dose: Not Given Lisinopril (Zestril) 2.[address] [facility] PRN Reason: Protocol Last Admin: 05/13/17 09:20 Dose: 2.5 mg Metoprolol Tartrate (Lopressor) [address] [facility] PRN Reason: Protocol Last Admin: 05/13/17 18:23 Dose: 25 mg Montelukast Sodium (Singulair) [address] [facility] PRN Reason: Protocol Last Admin: 05/12/17 21:20 Dose: 10 mg Ondansetron HCl (Zofran Inj) 4 mg IVP Q6H PRN; Protocol PRN Reason: Nausea/Vomiting Oseltamivir Phosphate (Tamiflu Susp) [address] [facility] Stop: 05/16/17 10:01 Last Admin: 05/13/17 09:45 Dose: 30 mg Pantoprazole Sodium (Protonix Ec Tab) [address] [facility] Last Admin: 05/12/17 05:49 Dose: 40 mg Family Hx: none ROS: Nausea, abdominal pain, chills, shortness of breath. No fevers, melena, hematuria, hematemesis, hematochezia, depression, anxiety, chest pain, loss of consciousness, diarrhea, dizziness. Past Patient History - Infectious Disease Hx of Infectious Diseases: None - Tetanus Immunizations Tetanus Immunization: Unknown - Past Social History Smoking Status: Never Smoked - CARDIAC Hx Cardiac Disorders: Yes Hx Hypertension: Yes - PULMONARY Hx Chronic Obstructive Pulmonary Disease (COPD): Yes - NEUROLOGICAL HX Cerebrovascular Accident: Yes - HEENT Hx HEENT Problems: No Other/Comment: WEARS RX GLASSES - RENAL Hx Renal Failure: Yes - ENDOCRINE/METABOLIC Hx Diabetes Mellitus Type 2: Yes - HEMATOLOGICAL/ONCOLOGICAL Hx Blood Disorders: No Hx Sickle Cell Disease: No Hx Unexplained Bleeding: No - INTEGUMENTARY Hx Dermatological Problems: No Other/Comment: multiple brown discolorations chest and face - MUSCULOSKELETAL/RHEUMATOLOGICAL Hx Arthritis: Yes - GASTROINTESTINAL Hx Gastroesophageal Reflux: Yes - GENITOURINARY/GYNECOLOGICAL Hx Reproductive Disorders: Yes (left breast lumpectomy) - PSYCHIATRIC Hx Psychophysiologic Disorder: Yes Hx Anxiety: Yes - SURGICAL HISTORY Other/Comment: HX L BREAST BX/BENIGN - ANESTHESIA Hx Anesthesia: Yes Hx Anesthesia Reactions: No Hx Malignant Hyperthermia: No Meds Allergies/Adverse Reactions: Allergies Allergy/AdvReac Type Severity Reaction Status Date / Time lactose Allergy VOMITING Verified 05/05/17 16:07 levofloxacin [From Levaquin] Allergy ANGIOEDEMA Verified 05/05/17 16:07 - Medications Medications: Current Medications Acetaminophen (Tylenol 325mg Tab) 650 mg PO Q6H PRN; Protocol PRN Reason: Fever >100.4 F Last Admin: 05/13/17 05:31 Dose: 650 mg Albuterol/Ipratropium (Duoneb 3 Mg/0.5 Mg (3 Ml) Ud) 3 ml IH Q4 PRN; Protocol PRN Reason: Shortness of Breath Last Admin: 05/13/17 03:09 Dose: 3 ml Arformoterol Tartrate (Brovana) 15 mcg IH [id number] JEREMY Last Admin: 05/13/17 07:34 Dose: 15 mcg Aspirin (Ecotrin) 81 mg PO DAILY JEREMY PRN Reason: Protocol Last Admin: 05/13/17 09:16 Dose: 81 mg Atorvastatin Calcium (Lipitor) 10 mg PO DIN JEREMY PRN Reason: Protocol Last Admin: 05/13/17 16:36 Dose: 10 mg Benzonatate (Tessalon Perles) 200 mg PO HS JEREMY Last Admin: 05/12/17 21:20 Dose: 200 mg Budesonide (Pulmicort Respules) 0.25 mg IH [id number] JEREMY PRN Reason: Protocol Last Admin: 05/13/17 07:35 Dose: 0.25 mg Calcitonin [place] (Miacalcin) 200 intlu NS DAILY JEREMY PRN Reason: Protocol Last Admin: 05/13/17 09:18 Dose: 1 spray Calcium Carbonate (Oscal) 500 mg PO DAILY JEREMY PRN Reason: Protocol Last Admin: 05/13/17 09:18 Dose: 500 mg Furosemide (Lasix) 20 mg PO DAILY JEREMY PRN Reason: Protocol Last Admin: 05/13/17 09:16 Dose: 20 mg Guaifenesin/Dextromethorphan (Robitussin Dm) 10 ml PO Q4H JEREMY PRN Reason: Protocol Last Admin: 05/13/17 16:36 Dose: 10 ml Sodium Chloride (Sodium Chloride 0.45%) 1,000 mls @ 70 mls/hr IV .[id number] [facility] Last Admin: 05/13/17 15:34 Dose: 70 mls/hr Insulin Human Regular (Humulin R Low) 0 units SC ACHS JEREMY PRN Reason: Protocol Last Admin: 05/13/17 16:56 Dose: Not Given Lisinopril (Zestril) 2.5 mg PO DAILY JEREMY PRN Reason: Protocol Last Admin: 05/13/17 09:20 Dose: 2.5 mg Metoprolol Tartrate (Lopressor) 25 mg PO BID JEREMY PRN Reason: Protocol Last Admin: 05/13/17 18:23 Dose: 25 mg Montelukast Sodium (Singulair) [address] [facility] PRN Reason: Protocol Last Admin: 05/12/17 21:20 Dose: 10 mg Ondansetron HCl (Zofran Inj) 4 mg IVP Q6H PRN; Protocol PRN Reason: Nausea/Vomiting Oseltamivir Phosphate (Tamiflu Susp) [address] [facility] Stop: 05/16/17 10:01 Last Admin: 05/13/17 09:45 Dose: 30 mg Pantoprazole Sodium (Protonix Ec Tab) [address] [facility] Last Admin: 05/12/17 05:49 Dose: 40 mg Physical Exam - Constitutional Appears: Non-toxic, No Acute Distress, Chronically Ill - Head Exam Head Exam: ATRAUMATIC, NORMOCEPHALIC - Eye Exam Eye Exam: EOMI, PERRL Pupil Exam: NORMAL ACCOMODATION, PERRL - ENT Exam ENT Exam: Mucous Membranes Moist, Normal External Ear Exam, TM's Normal Bilaterally - Neck Exam Neck exam: Positive for: Full Rom, Normal Inspection - Respiratory Exam Respiratory Exam: Decreased Breath Sounds, Rhonchi, NORMAL BREATHING PATTERN - Cardiovascular Exam Cardiovascular Exam: REGULAR RHYTHM, RRR, +S1, +S2 - GI/Abdominal Exam GI & Abdominal Exam: Normal Bowel Sounds, Soft. absent: Distended, Tenderness - Extremities Exam Extremities exam: Positive for: full ROM, normal inspection. Negative for: joint swelling, pedal edema - Neurological Exam Neurological exam: Alert, CN II-XII Intact, Oriented x3 - Psychiatric Exam Psychiatric exam: Normal Affect, Normal Mood - Skin Skin Exam: Intact, Normal Color Results - Vital Signs Recent Vital Signs: Last Vital Signs Temp 98.7 F 05/13/17 18:18 Pulse 82 05/13/17 18:18 Resp 20 05/13/17 18:18 BP 126/82 05/13/17 18:23 Pulse Ox 97 05/13/17 18:18 - Labs Result Diagrams: 05/13/17 06:30 05/12/17 08:00 Labs: Laboratory Results - last 24 hr 05/12/17 05/13/17 05/13/17 21:45 05:28 06:30 WBC 20.0 H RBC 4.26 Hgb 12.5 Hct 40.9 MCV 96.0 MCH 29.3 MCHC 30.6 L RDW 15.1 H Plt Count 156 MPV 11.8 H POC Glucose (mg/dL) 132 H 78 05/13/17 05/13/17 12:13 16:47 WBC RBC Hgb Hct MCV MCH MCHC RDW Plt Count MPV POC Glucose (mg/dL) 94 136 H Assessment & Plan - Assessment and Plan (Free Text) Assessment: 87 yo female known to me from previous hospitalizations. The patient is awake and alert. Treated for COPD exacerbation but later found out to have influenza A as well. Tamiflu started (day 2 now). Give for 5 days total. Respiratory isolation for the patient while in hospital. The patient does not need to complete Tamiflu in hospital but requires a total of 5 days of treatment. Supportive care. Thank you for allowing me to participate in the care of the patient, we will follow with you.
[2017-05-13] MEDS ORDERED: Potassium Chloride 10 mEq ER Tab PO STA (20:41)
[2017-05-13] MEDS: Pantoprazole 40 mg EC Tab PO SCH (21:20)
[2017-05-13] MEDS: MethylPREDNISolone 40 mg Vial IVP SCH (22:22)
[2017-05-14] MEDS: guaiFENesin DM 200 mg-20 mg/10 ml UD PO SCH ×6 (00:40→20:34)
--- NOTE | 2017-05-14 03:38 | PN ---
DATE: 05/13/2017 PULMONARY PROGRESS NOTE REFERRING PHYSICIAN: Marce Gold MD SUBJECTIVE: She is sitting in the bed with daughter at the bedside. Has cough with sputum production. No nausea. No vomiting. No diarrhea. No leg pain. No leg swelling. OBJECTIVE: GENERAL: In no acute distress. VITAL SIGNS: Temperature is 98, heart rate is 82, respiratory rate is 20, blood pressure is 121/65, pulse oximetry is 97% on nasal cannula. HEENT: Moist mucous membrane. Crowded airway. Mallampati score is 4. NECK: Supple. No JVD. LUNGS: Have increased wheezing and rhonchi. HEART: S1 and S2. ABDOMEN: Soft, nontender. No organomegaly. EXTREMITIES: No edema. NEUROLOGICAL: Awake and alert, follows simple commands. MEDICATIONS: She is on Brovana inhaled twice a day, DuoNeb q.4 hours p.r.n., Ecotrin 81 mg daily, insulin coverage, Lasix 20 mg daily, Lipitor 10 mg daily, metoprolol tartrate 25 mg twice a day, Miacalcin 200 international units nasally daily, Protonix 40 mg daily, Pulmicort inhaled twice a day, Robitussin DM 10 mL q. 4 hours, Singulair 10 mg daily, Tamiflu 30 mg daily, Tessalon Perles 200 mg at bedtime, Tylenol p.r.n., lisinopril 2.5 mg daily. LABORATORY DATA: Shows hemoglobin 12.5, hematocrit 40.9, WBC 20, and platelet is 156. Blood sugar is 136. Influenza A is positive. Microbiology, blood culture has been negative. Had a chest x-ray done today which shows extensive pleural classification within the right upper thorax, extensive scarring, fibrosis and patchy opacity with associated right side volume loss, patchy left lower lobe atelectasis or pneumonia, mild cardiomegaly. IMPRESSION AND PLAN: Influenza A infection, chronic obstructive lung disease, history of bronchiectasis, pleural plaque, granuloma, diabetes, hypertension, hyperlipidemia, peptic ulcer disease, gastroesophageal reflux disease, renal insufficiency, so clinically getting worse if this influenza trigger further chronic obstructive lung disease or heart failure or combination, we will send procalcitonin for the morning, ProBNP for the morning, increase steroids, may increase Lasix for a day or so, follow up electrolytes and CBC. The patient will be seen by Infectious Disease. Thank you and we will follow with you. Neftali Morris MD
[2017-05-14] MEDS: Pantoprazole 40 mg EC Tab PO SCH (05:13)
[2017-05-14] MEDS: Insulin Reg-LOW-Coverage SC SCH ×4 (06:46→22:02)
[2017-05-14 07:20] LABS: BASO # 0.02 K/mm3 (0.0-2.0); BASO % 0.1 % (0.0-3.0); GRAN # 14.47 (1.4-6.5); GRAN % 97.6 % (50.0-68.0); HEMOGLOBIN 11.9 g/dL (12.0-16.0); LYMPH # 0.2 (1.2-3.4); LYMPH % 1.1 % (22.0-35.0); MEAN CELL VOLUME 95.8 fl (80.0-105.0); MEAN CORPUSCULAR HEMOGLOBIN 29.5 pg (25.0-35.0); MEAN CORPUSCULAR HGB CONC 30.8 g/dl (31.0-37.0); MEAN PLATELET VOLUME 11.2 fl (7.0-11.0); MONO # 0.2 (0.1-0.6); MONO % 1.2 % (1.0-6.0); PLATELET COUNT 148 10^3/uL (120.0-450.0); RBC 4.03 10^6/uL (3.5-6.1); RED CELL DISTRIBUTION WIDTH 15.2 % (11.5-14.5); WHITE BLOOD COUNT 14.8 10^3/ul (4.5-11.0)
[2017-05-14 07:35] LABS: CALCIUM 8.5 mg/dL (8.4-10.5)
[2017-05-14] MEDS: Albuterol-Ipratrop 3 mg / 0.5 (3 ml) UD IH PRN (07:37)
[2017-05-14] MEDS: Budesonide 0.25 mg/2 ml Inhal Susp UD IH SCH ×2 (07:37→20:26)
[2017-05-14] MEDS: Arformoterol 15 mcg/2 ml Inh Sol IH SCH ×2 (07:37→20:26)
--- NOTE | 2017-05-14 08:01 | PN ---
DATE: 05/11/2017 SUBJECTIVE: This 87-year-old female was examined at the bedside and this case was reviewed in detail with herself and her daughter, Ida Alves. The case was also reviewed in detail with charge nurse, Khushi Byrnes. The patient complains of fever and chills late last evening associated with abdominal discomfort and crampy diarrhea. The patient states her productive cough is slowly improving. OBJECTIVE: VITAL SIGNS: Temperature at present is 98.4, respirations 20, pulse 85, and blood pressure 135/69 with a pulse ox of 97%. HEENT: Head is normocephalic and atraumatic. Eyes: No icterus. Ears: Clear. Throat: Noninjected. NECK: Supple. HEART: Regular S1 and S2. LUNGS: Have occasional rhonchi that is clear with coughing. ABDOMEN: Soft. EXTREMITIES: No edema. SKIN: Without rash. NEUROLOGICAL: Intact. PSYCHOLOGICAL: Anxious. VASCULAR: Legs warm to touch. LABORATORY DATA: White count 9900, hemoglobin 12.7, hematocrit 38.7, and platelets 209,000. Random blood sugar was 119. Sodium 138, K 4.9, chloride 97, bicarb 30, BUN 85, and creatinine 2.2. All liver function testing was normal including bilirubin 0.5, AST 20, ALT 31, and alk phos 37. IMPRESSION: This is an 87-year-old female with [id number] exacerbation of chronic obstructive pulmonary disease with comorbidities of stable atherosclerotic heart disease, insulin-dependent diabetes mellitus, chronic renal failure stage III, chronic hypertension, hyperlipidemia, degenerative arthritis, osteoporosis, anxiety neurosis, asthma, and now with viral syndrome, rule out acute influenza A or B, and also rule out stool Clostridium difficile toxin. PLAN: As discussed with the patient, daughter, nursing, physical therapy, and social service will be to continue physical and occupational therapy for reconditioning and gait training while continuing a soft bland, heart-healthy renal diabetic diet. She continues on nasal O2 p.r.n., Zestril 2.5 mg p.o. daily, Tessalon Perles 200 mg p.o. at bedtime, Solu-Medrol 20 mg IV q.12 hours, Singulair 10 mg p.o. at bedtime, Robitussin DM 5 mL p.o. q.4 hours, Pulmicort inhalational therapy q.12 hours, Protonix 40 mg p.o. daily, Os-Leon 500 mg p.o. daily, Miacalcin nasal spray alternate nostril daily, Lopressor 25 mg b.i.d., Lipitor 10 mg p.o. at dinnertime, Lasix 20 mg p.o. daily, insulin low-dose protocol a.c. meals and at bedtime, Ecotrin 81 mg p.o. daily, Duo nebulizer inhalational therapy q.4 hours p.r.n., Brovana inhalational therapy q.12 hours, and 0.45 saline at 70 mL/hour. The patient is ordered to have stool C. diff toxin antigen as well as an influenza A and B rapid test screen. I will order basic metabolic panel and CBC for a.m. and all of the above was reviewed with the patient, daughter, and nursing. Greater than 30 minutes was spent in the care management and review of medication and orders today for the patient. All questions were answered. Marce Gold MD MTDWilner
--- NOTE | 2017-05-14 08:07 | PN ---
DATE: 05/12/2017 SUBJECTIVE: This 87-year-old female who was examined at her bedside and this case was reviewed in detail with herself, her daughter, Ida Peralta at the bedside and her nurse, Marce Maria. The patient is newly diagnosed with influenza A and is on dose reduced Tamiflu because of chronic renal failure. She feels slightly better today, having experienced severe myalgias, arthralgias, fever and chills yesterday and she does have a productive cough of white sputum in the setting of exacerbation of chronic obstructive pulmonary disease in this patient with advanced pulmonary fibrosis and chronic obstructive pulmonary disease. She has been receiving IV Solu-Medrol dose reduced during her hospital course because of exacerbation of COPD and of note had a white blood cell count of 20,600 in the absence of fever or obvious bacterial infection. PHYSICAL EXAMINATION: VITAL SIGNS: At present on physical exam, temperature is 97.7, respirations are 16, pulse is 85, blood pressure is 135/69 and pulse oximetry is 97%. HEENT: Head is normocephalic and atraumatic. Eyes: No icterus. Ears: Clear. Throat: Non-injected. NECK: Supple. CARDIOVASCULAR: Heart is regular S1 and S2. LUNGS: With rhonchi. No wheezing. GASTROINTESTINAL: Abdomen is soft. EXTREMITIES: No edema. SKIN: Without rash. NEUROLOGICAL: Intact. PSYCHOLOGICAL: Alert. VASCULAR: Legs warm to touch. LABORATORY DATA: White count of 20,600, hemoglobin of 12.5, hematocrit of 40.9, and platelets of 160,000. Sodium of 133, potassium of 4.5, chloride of 99, bicarbonate of 25, BUN of 62, and creatinine of 1.6. Estimated GFR of 30 mL per minute. Random blood sugar of 133. Influenza A positive serology. IMPRESSION AND PLAN: This is an 87-year-old female with acute influenza A, exacerbation of chronic obstructive pulmonary disease, and advanced pulmonary fibrosis. Clinical deconditioning, insulin-dependent diabetes mellitus, chronic renal failure stage III, chronic hypertension, stable atherosclerotic heart disease, hyperlipidemia, chronic hypertension, degenerative arthritis, osteoporosis, asthma, and anxiety neurosis. The plan as discussed with the patient, nursing, daughter and additional family at bedside will be to maintain this patient on respiratory isolation and all visiting members have been advised to wear masks and wash hands when in the presence of this patient. Staff has been notified as well. She will continue on Ensure clear one supplement drink t.i.d., respiratory isolation, heart-healthy diabetic renal diet, nasal O2 p.r.n., Zestril 2.5 mg p.o. daily, Tessalon Perles 200 mg p.o. at bedtime, Tylenol 650 p.o. q. 6 hours. p.r.n. pain or fever greater than 101 Tamiflu 30 mg p.o. daily for a total of 5 days dose reduced for renal insufficiency, Singulair 10 mg p.o. at bedtime, Robitussin DM 5 mL p.o. q. 4 hours., Protonix 40 mg p.o. daily, Os-Leon 500 mg p.o. daily, Miacalcin nasal spray alternate nostril daily, Lopressor 25 mg b.i.d., Lipitor 10 mg p.o. at dinner time, Lasix 20 mg p.o. daily, regular low-dose insulin coverage a.c. meals and at bedtime, Ecotrin 81 mg p.o. daily, Duo nebulizer inhalational therapy q. 4 hours., Brovana inhalational therapy q. 12 hours. and IV 0.45 saline infusion at 70 mL per hour. The patient because of elevated white blood cell count has been ordered to have blood and urine cultures for completeness sake. She will have her CBC repeated in the a.m. I have asked nursing staff to obtain a PA and lateral chest x-ray and IV Solu-Medrol has been discontinued in the absence of wheezing and presence of leukocytosis possibly secondary to steroid usage. All of the above was explained in detail to the patient, family, and nursing. Greater than 35 minutes was spent in the care management and review of labs, x-rays and orders for this patient today. All questions were answered. Marce Gold MD MTDWilner
--- NOTE | 2017-05-14 08:11 | PN ---
DATE: 05/13/2017 SUBJECTIVE: This 87-year-old female was examined in her room. She was out of bed to chair, and this case was reviewed in detail with her nurse, Sterling Mendez. The patient continues to complain of cough and congestion. She has been running low-grade temperatures with a T-max of 101.4 earlier. She continues on Tamiflu, dose reduced for her renal failure and has a white blood cell count of 20,000 today. I have asked the nursing staff to obtain a stat chest x-ray, blood culture and urine culture, and she will be given empiric antibiotic therapy, and a consultation with Dr. Poole from Infectious Disease has been requested as well. PHYSICAL EXAMINATION: VITAL SIGNS: Temperature at present is 99.1, respirations 24, pulse 109, blood pressure 126/76 with a pulse ox of 96%. HEENT: Head: Normocephalic, atraumatic. Eyes: No icterus. Ears: Clear. Throat: Noninjected. NECK: Supple. HEART: Regular S1, S2. LUNGS: Have rhonchi bilaterally. ABDOMEN: Soft. EXTREMITIES: No edema. SKIN: Without rash. NEUROLOGICAL: Intact. PSYCHOLOGICAL: Alert and oriented x3. VASCULAR: Legs warm to touch. LABORATORY DATA: White count 20,000, hemoglobin 12.5, hematocrit 40.9, platelets 156,000. Sodium 133, K 4.5, chloride 99, bicarb 25, BUN 62, creatinine 1.6, random blood sugar is 94. Her blood testing is positive for influenza A. IMPRESSION: This is an 87-year-old female with acute influenza A, fever, leukocytosis, rule out sepsis, chronic obstructive pulmonary disease, pulmonary fibrosis, stable atherosclerotic heart disease, chronic hypertension, leukocytosis, hyperlipidemia, chronic renal failure stage IV, degenerative arthritis, osteoporosis, peptic ulcer disease with gastroesophageal reflux disease, and asthma. PLAN: As discussed with the patient and nursing will be to maintain the patient in respiratory isolation. She is receiving Ensure Clear one container t.i.d. and also continues on a heart-healthy soft bland diet. I have ordered a stat chest x-ray, PA and lateral, but the patient refused yesterday. She will have Zestril 2.5 mg p.o. daily. She has received 1 g of vancomycin, one dose of Maxipime pending Dr. Poole's evaluation. She will continue on Tamiflu 30 mg p.o. daily for a total of 5 days. She also will continue on 0.45 saline at 70 mL/hour, Brovana inhalational therapy, dual nebulizer inhalational therapy, Ecotrin daily, regular low-dose insulin coverage a.c. meals and at bedtime. She was given one dose of Lasix 20 mg as well as K-Dur 20 mEq one dose. She will continue on Lipitor, Lopressor, Miacalcin Nasal [place], Singulair, Tylenol, Zestril and has been ordered to have a CBC and basic metabolic panel in a.m. Blood cultures drawn yesterday show no growth at 24 hours. All of the above was discussed in detail with the patient nursing. Greater than 35 minutes was spent in the care management and review of orders and labs for this patient today. All questions were answered. Marce Gold MD MTDD
[2017-05-14 08:44] LABS: BAND 3 % (0-2); MONOCYTE 1 % (1.0-6.0); NEUTROPHIL 96 % (50.0-70.0); PLATELET ESTIMATE NORMAL (NORMAL)
[2017-05-14] MEDS: Calcitonin 200 Int Units/Inh Nasal Spray (3.7 ml) NS SCH (10:32)
[2017-05-14] MEDS: MethylPREDNISolone 40 mg Vial IVP SCH ×2 (10:33→21:42)
[2017-05-14] MEDS: Oseltamivir 6 MG/ML PO SCH (11:00)
[2017-05-14] MEDS: Cefepime 1gm in NS 100ml 1 GM/100 ML BAG IVPB SCH (12:06)
[2017-05-14 17:16] VITALS: TEMP 97.5
--- NOTE | 2017-05-14 19:21 | CP.PCM.PN ---
Subjective - Date & Time of Evaluation Date of Evaluation: 05/14/17 Time of Evaluation: 18:00 - Subjective Subjective: Infectious Disease Consultation/Follow Up: May 14, 2017 87 yo female who presented with SOB and COPD exacerbation. Patient was evaluated for Influenza on 05/11/2017 which was positive. On isolation and started on Tamiflu. The patient with leukocytosis up to 21. Followed also by Pulmonology who started steroids on the patient. Discussed case with Dr. Gold. Procalcitonin is 0.67. The patient remains on Tamiflu for treatment. Patient continues to say that she feels "horrible" and that it is hard to breathe. While the patient does not appear quite as bad as she states, her breathing is not normal either. Objective - Vital Signs/Intake and Output Vital Signs (last 24 hours): Temp Pulse Resp BP Pulse Ox 97.5 F L 84 18 123/63 97 05/14/17 10:00 05/14/17 17:49 05/14/17 10:00 05/14/17 17:49 05/14/17 05:51 Intake and Output: 05/14/17 05/14/17 06:59 18:59 Intake Total 420 Balance 420 - Medications Medications: Current Medications Acetaminophen (Tylenol 325mg Tab) 650 mg PO Q6H PRN; Protocol PRN Reason: Fever >100.4 F Last Admin: 05/13/17 05:31 Dose: 650 mg Albuterol/Ipratropium (Duoneb 3 Mg/0.5 Mg (3 Ml) Ud) 3 ml IH Q4 PRN; Protocol PRN Reason: Shortness of Breath Last Admin: 05/14/17 07:37 Dose: 3 ml Arformoterol Tartrate (Brovana) 15 mcg IH [id number] JEREMY Last Admin: 05/14/17 07:37 Dose: 15 mcg Aspirin (Ecotrin) 81 mg PO DAILY JEREMY PRN Reason: Protocol Last Admin: 05/14/17 10:29 Dose: 81 mg Atorvastatin Calcium (Lipitor) 10 mg PO DIN JEREMY PRN Reason: Protocol Last Admin: 05/14/17 17:49 Dose: 10 mg Benzonatate (Tessalon Perles) 200 mg PO HS [facility] Last Admin: 05/13/17 21:19 Dose: 200 mg Budesonide (Pulmicort Respules) 0.25 mg IH [id number] JEREMY PRN Reason: Protocol Last Admin: 05/14/17 07:37 Dose: 0.25 mg Calcitonin [place] (Miacalcin) 200 intlu NS DAILY JEREMY PRN Reason: Protocol Last Admin: 05/14/17 10:32 Dose: 1 spray Calcium Carbonate (Oscal) 500 mg PO DAILY JEREMY PRN Reason: Protocol Last Admin: 05/14/17 10:32 Dose: 500 mg Furosemide (Lasix) 20 mg PO DAILY JEREMY PRN Reason: Protocol Last Admin: 05/14/17 10:31 Dose: 20 mg Guaifenesin/Dextromethorphan (Robitussin Dm) 10 ml PO Q4H JEREMY PRN Reason: Protocol Last Admin: 05/14/17 16:50 Dose: Not Given Cefepime HCl (Maxipime 1gm) 1 gm in 100 mls @ 100 mls/hr IVPB Q24H JEREMY PRN Reason: Protocol Last Admin: 05/14/17 12:06 Dose: 100 mls/hr Insulin Human Regular (Humulin R Low) 0 units SC ACHS JEREMY PRN Reason: Protocol Last Admin: 05/14/17 17:30 Dose: Not Given Lisinopril (Zestril) 2.5 mg PO DAILY JEREMY PRN Reason: Protocol Last Admin: 05/14/17 10:33 Dose: 2.5 mg Methylprednisolone (Solu-Medrol) 40 mg IVP Q12 [facility] Last Admin: 05/14/17 10:33 Dose: 40 mg Metoprolol Tartrate (Lopressor) 25 mg PO BID JEREMY PRN Reason: Protocol Last Admin: 05/14/17 17:49 Dose: 25 mg Montelukast Sodium (Singulair) 10 mg PO HS JEREMY PRN Reason: Protocol Last Admin: 05/13/17 21:19 Dose: 10 mg Ondansetron HCl (Zofran Inj) 4 mg IVP Q6H PRN; Protocol PRN Reason: Nausea/Vomiting Oseltamivir Phosphate (Tamiflu Susp) 30 mg PO DAILY [facility] Stop: 05/16/17 10:01 Last Admin: 05/14/17 11:00 Dose: 30 mg Pantoprazole Sodium (Protonix Ec Tab) 40 mg PO 0600 [facility] Last Admin: 05/14/17 05:13 Dose: 40 mg Zolpidem Tartrate (Ambien) 5 mg PO HS PRN; Protocol PRN Reason: Insomnia - Labs Labs: 05/14/17 06:45 05/14/17 06:45 - Constitutional Appears: Non-toxic, Chronically Ill - Head Exam Head Exam: ATRAUMATIC, NORMOCEPHALIC - Eye Exam Eye Exam: EOMI, PERRL Pupil Exam: NORMAL ACCOMODATION, PERRL - ENT Exam ENT Exam: Mucous Membranes Moist, Normal External Ear Exam, TM's Normal Bilaterally - Neck Exam Neck Exam: Full ROM, Normal Inspection - Respiratory Exam Respiratory Exam: Decreased Breath Sounds, Rhonchi, NORMAL BREATHING PATTERN - Cardiovascular Exam Cardiovascular Exam: REGULAR RHYTHM, RRR, +S1, +S2 - GI/Abdominal Exam GI & Abdominal Exam: Soft, Normal Bowel Sounds. absent: Distended, Tenderness - Extremities Exam Extremities Exam: Full ROM, Normal Inspection. absent: Joint Swelling, Pedal Edema - Neurological Exam Neurological Exam: Alert, Awake, CN II-XII Intact, Oriented x3 - Psychiatric Exam Psychiatric exam: Normal Affect, Normal Mood - Skin Skin Exam: Intact, Normal Color Assessment and Plan - Assessment and Plan (Free Text) Assessment: 87 yo female known to me from previous hospitalizations. The patient is awake and alert. Treated for COPD exacerbation but later found out to have influenza A as well. Tamiflu started (day 2 now). Give for 5 days total. Respiratory isolation for the patient while in hospital. The patient does not need to complete Tamiflu in hospital but requires a total of 5 days of treatment. After discussions with Dr. Gold and Dr. Morris, the patient respiratory status is clearly worse than her baseline. The patient respiratory status is fragile at best when she is "healthy". The procalcitonin is a difficult value to interpret. A value over 0.5 ng/ml with other pneumonia signs is a strong indicator for pneumonia but the value itself is unable to predict severity. As there are no previous values during this hospitalization to compare to, I cannot say if the patient had an improving process (which could be inferred if there was a higher value of the procalcitonin earlier in the hospitalization). The patient would likely benefit from at least 24 to 48 hours more of hospitalization at this time. Thank you for allowing me to participate in the care of the patient, we will follow with you.
[2017-05-15] MEDS: guaiFENesin DM 200 mg-20 mg/10 ml UD PO SCH ×7 (00:13→23:00)
--- NOTE | 2017-05-15 01:00 | PN ---
DATE: 05/14/2017 PULMONARY PROGRESS NOTE REFERRING PHYSICIAN: Dr. Helton SUBJECTIVE: She is sitting up in a chair, feels better than yesterday. Still having cough, sputum production. No nausea, no vomiting, diarrhea, leg pain, leg swelling. OBJECTIVE: VITAL SIGNS: Temperature is 98, heart rate is 84, respiratory rate is 18, blood pressure 123/63. HEENT: Moist mucous membranes. No ulcer or thrush noted. NECK: Supple. No JVD. LUNGS: Have a few scattered rhonchi and few wheezing. HEART: S1, S2. ABDOMEN: Soft, nontender. No organomegaly. EXTREMITIES: No edema. NEUROLOGIC: Awake, alert and follows simple command. MEDICATIONS: She is on Ambien 5 mg at bedtime p.r.n., Brovana inhaled twice a day, DuoNeb q. 4 hours p.r.n., Ecotrin 81 mg daily, insulin coverage, Lasix 20 mg daily and Lipitor 10 mg daily, metoprolol tartrate 25 mg twice a day, cefepime 1 g IV daily, Miacalcin 200 International Units daily, Os-Leon 500 mg daily, Protonix 40 mg daily Pulmicort inhaler twice a day, Robitussin DM 10 mL q. 4 hours p.r.n., Singulair 10 mg daily, Solu-Medrol 40 mg q. 12 hours, Tamiflu 30 mg daily, Tessalon Perles 200 mg at bedtime, Tylenol p.r.n., Zestril 2.5 mg daily, Zofran 4 mg q. 6 hours p.r.n. LABORATORY DATA: Shows hemoglobin 11.9, hematocrit 38.6, WBC 14.8, platelet count is 148. Sodium 136, potassium 5.5, chloride 102, bicarbonate 25, BUN 51, creatinine 1.6, glucose 108, calcium 8.5. ProBNP 726, procalcitonin 0.67. Microbiology, blood culture has been negative. IMPRESSION AND PLAN: Influenza A infection, chronic obstructive lung disease, bronchiectasis, pleural plaque, granuloma, diabetes, hypertension, hyperlipidemia, peptic ulcer disease, gastroesophageal reflux disease, renal insufficiency, hyperkalemia. Pulmonary point of view, little better than yesterday. We will continue Solu-Medrol, antibiotics, gastric prophylaxis, DVT prophylaxis. Continue therapy. Thank you and we will follow with you. Neftali Morris MD
[2017-05-15] MEDS: Pantoprazole 40 mg EC Tab PO SCH (05:48)
--- NOTE | 2017-05-15 06:03 | PN ---
DATE: 05/14/2017 HISTORY OR PRESENT ILLNESS: This 87-year-old female was examined at her bedside in the presence of her daughter, Ida Peralta and her nurse, Eleanor Escobar, registered nurse. The patient remains hospitalized. This case has been reviewed in detail with Dr. Chris Poole from Infectious Disease and Dr. Neftali Morris from Pulmonary. She has acute on chronic obstructive pulmonary disease with an acute exacerbation in the setting of acute influenza A. All complicated by chronic pulmonary fibrosis. The patient's white count, which was initially normal had elevated to a high of 20,600 and at present, it is 14,800. She is receiving Tamiflu, IV Maxipime, awaiting results of blood and urine cultures and chest x-ray was reviewed. It shows a questionable, newly noted left lower lung atelectasis versus infiltrate. PHYSICAL EXAMINATION: VITAL SIGNS: Of note, the patient's vital signs show no fever in the past 24 hours and on physical exam today temperature was 97.5, respirations 18, pulse 100, blood pressure 110/69, pulse ox 97%. HEAD: Normocephalic, atraumatic. EYES: No icterus. EARS: Clear. THROAT: Noninjected. NECK: Supple. HEART: Regular S1, S2. LUNGS: With rhonchi that cleared with coughing. ABDOMEN: Soft. EXTREMITIES: No edema. SKIN: Without rash. NEUROLOGICAL: Deconditioned. VASCULAR: Legs warm to touch. PSYCHOLOGICAL: Anxious. LABORATORY DATA: White count 14,800, previously 20,000; hemoglobin 11.9; hematocrit 38.6; platelets 148,000. Sodium 136, K 5.5, chloride 102, bicarb 25, BUN 51, creatinine 1.6, random blood sugar 108. Procalcitonin level 0.67, high. BNP 726. Influenza A serology positive. IMPRESSION: This is an 87-year-old female with acute exacerbation of chronic obstructive pulmonary disease, chronic pulmonary fibrosis, acute influenza A, leukocytosis and comorbidities of chronic anxiety, chronic insomnia, stable atherosclerotic heart disease, insulin-dependent diabetes mellitus, chronic renal failure stage 3, stable atherosclerotic heart disease, hyperlipidemia, chronic hypertension, degenerative arthritis, osteoporosis, peptic ulcer disease with gastroesophageal reflux disease, asthma. PLAN: As discussed with the patient, nursing, family and co-consultants, will be to maintain the patient in respiratory isolation while continuing physical therapy for reconditioning and gait training and continuing Ensure Clear one supplement t.i.d. She remains on chest physiotherapy, heart-healthy renal diabetic diet, nasal O2 p.r.n. as well as Zestril, Tylenol, Tessalon Perles, Tamiflu, IV Solu-Medrol, Singulair, Pulmicort inhalational therapy, Brovana inhalational therapy, Protonix, Os-Leon, Miacalcin nasal spray, IV Maxipime, Lopressor, Lipitor, Lasix, insulin coverage, Ecotrin, dual nebulizer inhalational therapy and inhalational Brovana therapy. We will recheck CBC a.m., await the results of her urine culture and monitor her clinical progress. Once the patient is reconditioned, tolerating diet and medication and cleared by Pulmonary and Infectious Disease, she will be discharged to home to the care of her family, who will provide 24 hours supervision of this patient. Greater than 35 minutes was spent in the care,, management with review of x-rays, labs, medication and discussion of care with co-consultants and nursing for her today. All questions were answered Marce Gold MD MTDWilner
[2017-05-15] MEDS: Insulin Reg-LOW-Coverage SC SCH ×4 (06:56→22:22)
[2017-05-15 07:14] LABS: BASO # 0.01 K/mm3 (0.0-2.0); BASO % 0.1 % (0.0-3.0); GRAN # 10.66 (1.4-6.5); GRAN % 93.8 % (50.0-68.0); HEMOGLOBIN 11.1 g/dL (12.0-16.0); LYMPH # 0.4 (1.2-3.4); LYMPH % 3.4 % (22.0-35.0); MEAN CELL VOLUME 94.9 fl (80.0-105.0); MEAN CORPUSCULAR HEMOGLOBIN 29.5 pg (25.0-35.0); MEAN CORPUSCULAR HGB CONC 31.1 g/dl (31.0-37.0); MEAN PLATELET VOLUME 10.8 fl (7.0-11.0); MONO # 0.3 (0.1-0.6); MONO % 2.7 % (1.0-6.0); RBC 3.76 10^6/uL (3.5-6.1); RED CELL DISTRIBUTION WIDTH 14.9 % (11.5-14.5); WHITE BLOOD COUNT 11.4 10^3/ul (4.5-11.0)
[2017-05-15] MEDS: Arformoterol 15 mcg/2 ml Inh Sol IH SCH ×2 (08:50→21:33)
[2017-05-15] MEDS: Budesonide 0.25 mg/2 ml Inhal Susp UD IH SCH ×2 (08:50→21:33)
[2017-05-15] MEDS: Calcitonin 200 Int Units/Inh Nasal Spray (3.7 ml) NS SCH (10:11)
[2017-05-15] MEDS: MethylPREDNISolone 40 mg Vial IVP SCH (10:12)
[2017-05-15] MEDS: Oseltamivir 6 MG/ML PO SCH (10:34)
[2017-05-15] MEDS: Cefepime 1gm in NS 100ml 1 GM/100 ML BAG IVPB SCH (12:38)
[2017-05-15 17:25] VITALS: RESP 20
--- NOTE | 2017-05-15 17:59 | CP.PCM.PN ---
Subjective - Date & Time of Evaluation Date of Evaluation: 05/15/17 Time of Evaluation: 18:00 - Subjective Subjective: Infectious Disease Consultation/Follow Up: May 15, 2017 87 yo female who presented with SOB and COPD exacerbation. Patient was evaluated for Influenza on 05/11/2017 which was positive. On isolation and started on Tamiflu. The patient with leukocytosis up to 21. Followed also by Pulmonology who started steroids on the patient. Discussed case with Dr. Gold. Procalcitonin is 0.67. The patient remains on Tamiflu for treatment. Patient says that she feels a little better and still has cough that can be productive. While the patient does not appear quite as bad as she states, her breathing is not normal either. Overall, she does appear to be improved compared to the last two days. Objective - Vital Signs/Intake and Output Vital Signs (last 24 hours): Temp Pulse Resp BP Pulse Ox 97.5 F L 79 20 124/70 97 05/15/17 16:00 05/15/17 17:38 05/15/17 16:00 05/15/17 17:38 05/15/17 16:00 - Medications Medications: Current Medications Acetaminophen (Tylenol 325mg Tab) 650 mg PO Q6H PRN; Protocol PRN Reason: Fever >100.4 F Last Admin: 05/13/17 05:31 Dose: 650 mg Albuterol/Ipratropium (Duoneb 3 Mg/0.5 Mg (3 Ml) Ud) 3 ml IH Q4 PRN; Protocol PRN Reason: Shortness of Breath Last Admin: 05/14/17 07:37 Dose: 3 ml Arformoterol Tartrate (Brovana) 15 mcg IH [id number] [facility] Last Admin: 05/15/17 08:50 Dose: 15 mcg Aspirin (Ecotrin) 81 mg PO DAILY JEREMY PRN Reason: Protocol Last Admin: 05/15/17 10:09 Dose: 81 mg Atorvastatin Calcium (Lipitor) 10 mg PO DIN JEREMY PRN Reason: Protocol Last Admin: 05/15/17 17:37 Dose: 10 mg Benzonatate (Tessalon Perles) 200 mg PO HS [facility] Last Admin: 05/14/17 21:40 Dose: 200 mg Budesonide (Pulmicort Respules) 0.25 mg IH [id number] JEREMY PRN Reason: Protocol Last Admin: 05/15/17 08:50 Dose: 0.25 mg Calcitonin [place] (Miacalcin) 200 intlu NS DAILY JEREMY PRN Reason: Protocol Last Admin: 05/15/17 10:11 Dose: 1 spray Calcium Carbonate (Oscal) 500 mg PO DAILY JEREMY PRN Reason: Protocol Last Admin: 05/15/17 10:11 Dose: 500 mg Furosemide (Lasix) 20 mg PO BID JEREMY PRN Reason: Protocol Last Admin: 05/15/17 17:38 Dose: 20 mg Guaifenesin/Dextromethorphan (Robitussin Dm) 10 ml PO Q4H JEREMY PRN Reason: Protocol Last Admin: 05/15/17 17:37 Dose: 10 ml Cefepime HCl (Maxipime 1gm) 1 gm in 100 mls @ 100 mls/hr IVPB Q24H JEREMY PRN Reason: Protocol Last Admin: 05/15/17 12:38 Dose: 100 mls/hr Insulin Human Regular (Humulin R Low) 0 units SC ACHS JEREMY PRN Reason: Protocol Last Admin: 05/15/17 17:37 Dose: 1 units Lisinopril (Zestril) 2.5 mg PO DAILY JEREMY PRN Reason: Protocol Last Admin: 05/15/17 10:12 Dose: 2.5 mg Methylprednisolone (Solu-Medrol) 40 mg IVP Q12 [facility]ER[facility]Y Last Admin: 05/15/17 10:12 Dose: 40 mg Metoprolol Tartrate (Lopressor) 25 mg PO BID JEREMY PRN Reason: Protocol Last Admin: 05/15/17 17:38 Dose: 25 mg Montelukast Sodium (Singulair) 10 mg PO HS JEREMY PRN Reason: Protocol Last Admin: 05/14/17 21:41 Dose: 10 mg Ondansetron HCl (Zofran Inj) 4 mg IVP Q6H PRN; Protocol PRN Reason: Nausea/Vomiting Oseltamivir Phosphate (Tamiflu Susp) 30 mg PO DAILY [facility] Stop: 05/16/17 10:01 Last Admin: 05/15/17 10:34 Dose: 30 mg Pantoprazole Sodium (Protonix Ec Tab) 40 mg PO 0600 [facility] Last Admin: 05/15/17 05:48 Dose: 40 mg Zolpidem Tartrate (Ambien) 5 mg PO HS PRN; Protocol PRN Reason: Insomnia - Labs Labs: 05/15/17 06:20 05/14/17 06:45 - Constitutional Appears: Non-toxic, Chronically Ill - Head Exam Head Exam: ATRAUMATIC, NORMOCEPHALIC - Eye Exam Eye Exam: EOMI, PERRL Pupil Exam: NORMAL ACCOMODATION, PERRL - ENT Exam ENT Exam: Mucous Membranes Moist, Normal External Ear Exam, TM's Normal Bilaterally - Neck Exam Neck Exam: Full ROM, Normal Inspection - Respiratory Exam Respiratory Exam: Decreased Breath Sounds, NORMAL BREATHING PATTERN. absent: Rales, Rhonchi, Wheezes - Cardiovascular Exam Cardiovascular Exam: REGULAR RHYTHM, RRR, +S1, +S2 - GI/Abdominal Exam GI & Abdominal Exam: Soft, Normal Bowel Sounds. absent: Distended, Tenderness - Extremities Exam Extremities Exam: Full ROM, Normal Inspection - Neurological Exam Neurological Exam: Alert, Awake, CN II-XII Intact, Oriented x3 - Psychiatric Exam Psychiatric exam: Normal Affect, Normal Mood - Skin Skin Exam: Intact, Normal Color Assessment and Plan - Assessment and Plan (Free Text) Assessment: 87 yo female known to me from previous hospitalizations. The patient is awake and alert. Treated for COPD exacerbation but later found out to have influenza A as well. Tamiflu started (day 2 now). Give for 5 days total. Respiratory isolation for the patient while in hospital. The patient does not need to complete Tamiflu in hospital but requires a total of 5 days of treatment. After discussions with Dr. Gold and Dr. Morris, the patient respiratory status is clearly worse than her baseline. The patient respiratory status is fragile at best when she is "healthy". The procalcitonin is a difficult value to interpret. A value over 0.5 ng/ml with other pneumonia signs is a strong indicator for pneumonia but the value itself is unable to predict severity. As there are no previous values during this hospitalization to compare to, I cannot say if the patient had an improving process (which could be inferred if there was a higher value of the procalcitonin earlier in the hospitalization). The patient would likely benefit from at least another day of hospitalization at this time. Thank you for allowing me to participate in the care of the patient, we will follow with you.
[2017-05-15] MEDS: Cefpodoxime (Vantin) 200 mg Tab PO SCH (21:31)
[2017-05-15] MEDS: Nystatin 100,000 Units/ml Oral Susp 5 ml UD PO SCH (22:05)
--- NOTE | 2017-05-15 23:30 | PN ---
DATE: 05/15/2017 PULMONARY PROGRESS NOTE REFERRING PHYSICIAN: Marce Gold MD. SUBJECTIVE: She is out of bed to chair. Feels a little better than yesterday. Still gets short of breath with minimal exhaustion. Cough is better. No nausea. No vomiting. No diarrhea. No leg pain. No leg swelling. OBJECTIVE: GENERAL: In no acute distress. VITAL SIGNS: Temp is 98, heart rate is 79, respiratory rate is 20, blood pressure 124/70, pulse ox 97% on nasal cannula while resting. HEENT: Moist mucous membrane. Crowded airway. NECK: Supple. No JVD. LUNGS: Better airflow than yesterday. Still have a wheezing. Prolonged expiratory phase. Few crackles at the bases. HEART: S1 and S2. ABDOMEN: Soft, nontender. No organomegaly. EXTREMITIES: There is no edema. NEUROLOGICAL: Awake, alert. Follows simple command. LABORATORY DATA: Shows hemoglobin 11.1, hematocrit 35.7, WBC 11.4, platelet is 155. Sodium 171. Influenza A is positive. Microbiology: Blood culture and urine culture, there is no growth. MEDICATIONS: She is on Ambien 5 mg at bedtime p.r.n., Brovana inhaled twice a day, DuoNeb q. 4 hours p.r.n., Ecotrin 81 mg daily, insulin coverage, Lasix 20 mg twice a day, Lipitor 10 mg daily, metoprolol tartrate 25 mg twice a day, Miacalcin 200 International Units daily, nystatin oral swish 5 mL q.i.d., calcium carbonate 500 mg daily, Protonix 40 mg daily, Pulmicort inhaler twice a day, Robitussin DM 10 mL q. 4 hours p.r.n., Singulair 10 mg daily, Tamiflu 30 mg daily, Tessalon Perles 200 mg q. 8 hours, Tylenol p.r.n., Zestril 2.5 mg daily. She is on IV cefepime and Solu-Medrol. ASSESSMENT AND PLAN: Chronic obstructive lung disease, history of pulmonary fibrosis, bronchiectasis, pleural plaque, granuloma, diabetes, hypertension, hyperlipidemia, peptic ulcer disease, gastroesophageal reflux disease, renal insufficiency, pulmonary issue got exacerbated with influenza A. Case discussed with Dr. Rodríguez. The patient's IV came out. Refused to get IV placed. Steroid is switched to p.o. Antibiotics also switched to p.o. We will reevaluate the patient in the morning. If still short of breath, cannot be discharged home because she lives alone and maybe have to send to emergency room and admit to acute side in the hospital. Hopefully, by tomorrow her condition will be better. If it is better, she maybe discharged her home. We will reevaluate in the morning. Thank you and we will follow up with you. Neftali Morris MD
[2017-05-16] MEDS: guaiFENesin DM 200 mg-20 mg/10 ml UD PO SCH ×3 (03:00→12:15)
[2017-05-16] MEDS: Pantoprazole 40 mg EC Tab PO SCH (05:09)
[2017-05-16] MEDS: Insulin Reg-LOW-Coverage SC SCH ×2 (07:33→12:13)
[2017-05-16 07:40] LABS: BASO # 0.01 K/mm3 (0.0-2.0); BASO % 0.1 % (0.0-3.0); EOS % 0.1 % (1.5-5.0); GRAN # 12.98 (1.4-6.5); GRAN % 90.2 % (50.0-68.0); HEMOGLOBIN 10.9 g/dL (12.0-16.0); LYMPH # 0.6 (1.2-3.4); LYMPH % 4.5 % (22.0-35.0); MEAN CELL VOLUME 93.3 fl (80.0-105.0); MEAN CORPUSCULAR HEMOGLOBIN 29.2 pg (25.0-35.0); MEAN CORPUSCULAR HGB CONC 31.3 g/dl (31.0-37.0); MEAN PLATELET VOLUME 10.4 fl (7.0-11.0); MONO # 0.7 (0.1-0.6); MONO % 5.1 % (1.0-6.0); RBC 3.73 10^6/uL (3.5-6.1); RED CELL DISTRIBUTION WIDTH 14.7 % (11.5-14.5); WHITE BLOOD COUNT 14.4 10^3/ul (4.5-11.0)
[2017-05-16 08:01] LABS: CALCIUM 8.6 mg/dL (8.4-10.5)
[2017-05-16 08:06] VITALS: PULSE 86
--- NOTE | 2017-05-16 08:35 | PN ---
DATE: 05/15/2017 SUBJECTIVE: This 87-year-old female remains hospitalized with acute exacerbation of chronic obstructive pulmonary disease complicated by chronic pulmonary fibrosis and recent influenza A. The patient is being followed on a daily basis because of continued shortness of breath and productive cough of whitish sputum in the setting of respiratory dysfunction secondary to the above. Of note, the patient was noted to have elevated white blood cell count. Chest x-ray shows left basilar atelectasis and severe pulmonary fibrosis and chronic obstructive pulmonary disease. She is being treated with parenteral IV Maxipime and IV Solu-Medrol under the direction of Infectious Disease and Pulmonary consultants. PHYSICAL EXAMINATION: VITAL SIGNS: At present, temperature is 97, respirations 18, pulse 93 and blood pressure 137/77 with a pulse ox of 97%. HEENT: Head: Normocephalic, atraumatic. Eyes: No icterus. Ears: Clear. Throat: Noninjected. NECK: Supple. HEART: Regular S1, S2. LUNGS: With rhonchi that cleared with coughing. ABDOMEN: Soft. EXTREMITIES: No edema. SKIN: Without rash. NEUROLOGICAL: Unchanged. PSYCHOLOGICAL: Anxious. VASCULAR: Legs warm to touch. LABORATORY DATA: White count 11,400, hemoglobin 11.1, hematocrit 35.7, platelets 155,000. Random blood sugar 144. Influenza A serology positive. Blood and urine culture shows no growth at 3 days. IMPRESSION: An 87-year-old female with [id number] exacerbation of chronic obstructive pulmonary disease, pulmonary fibrosis. Influenza A, chronic anxiety, insomnia, insulin-dependent diabetes mellitus, stable atherosclerotic heart disease, chronic hypertension, hyperlipidemia, degenerative arthritis, osteoporosis, chronic renal failure stage III, peptic ulcer disease with gastroesophageal reflux disease, asthma. PLAN: As discussed with Dr. Poole from Infectious Disease and Dr. Morris from Pulmonary was to maintain the patient in hospital while maintaining respiratory isolation. She continues to receive physical therapy for reconditioning and gait training. She is ordered to have chest physiotherapy, heart-healthy, renal bland diabetic diet, nasal O2 p.r.n. and will continue on Zestril , V Maxipime, Tessalon Perles, Tamiflu, Singulair, Robitussin DM, Pulmicort inhalational therapy, oral Protonix, IV Solu-Medrol, Os-Leon, Miacalcin, Lopressor, Lipitor, Lasix, insulin coverage, Ecotrin, dual nebulizer, Brovana inhalational therapy with plans for a CBC in a.m. As discussed with Pulmonary and Infectious Disease consultants, when the clear the patient, she will be readied for discharge. Overall prognosis though poor is stable at present. The patient and family were advised of all of the above. All questions were answered. Greater than 35 minutes was spent in the care, review of this patient's clinical and diagnostic issues with co-consultants. All questions were answered. Marce Gold MD MTDD
[2017-05-16] MEDS: Calcitonin 200 Int Units/Inh Nasal Spray (3.7 ml) NS SCH (10:05)
[2017-05-16] MEDS: Cefpodoxime (Vantin) 200 mg Tab PO SCH (10:06)
[2017-05-16] MEDS: Nystatin 100,000 Units/ml Oral Susp 5 ml UD PO SCH ×2 (10:06→13:42)
[2017-05-16] MEDS: Oseltamivir 6 MG/ML PO SCH (10:12)
[2017-05-16 10:14] VITALS: BP 124/77
--- NOTE | 2017-05-16 19:28 | CP.PCM.PN ---
Subjective - Date & Time of Evaluation Date of Evaluation: 05/16/17 Time of Evaluation: 12:00 - Subjective Subjective: Infectious Disease Consultation/Follow Up: May 16, 2017 87 yo female who presented with SOB and COPD exacerbation. Patient was evaluated for Influenza on 05/11/2017 which was positive. On isolation and started on Tamiflu. The patient with leukocytosis up to 21. Followed also by Pulmonology who started steroids on the patient. Discussed case with Dr. Gold. Procalcitonin is 0.67. The patient remains on Tamiflu for treatment. Patient says that she feels a little better and still has cough that can be productive. While the patient does not appear quite as bad as she states, her breathing is not normal either. Overall, she does appear to be improved compared to the last two days. Objective - Vital Signs/Intake and Output Vital Signs (last 24 hours): Temp Pulse Resp BP Pulse Ox 97.5 F L 86 20 124/77 97 05/15/17 16:00 05/16/17 08:02 05/15/17 16:00 05/16/17 10:05 05/15/17 16:00 Intake and Output: 05/16/17 05/17/17 18:59 06:59 Intake Total 420 Balance 420 - Labs Labs: 05/16/17 07:15 05/16/17 07:15 - Constitutional Appears: Non-toxic, Chronically Ill - Head Exam Head Exam: ATRAUMATIC, NORMOCEPHALIC - Eye Exam Eye Exam: EOMI, PERRL Pupil Exam: NORMAL ACCOMODATION, PERRL - ENT Exam ENT Exam: Mucous Membranes Moist, Normal External Ear Exam, TM's Normal Bilaterally - Neck Exam Neck Exam: Full ROM, Normal Inspection - Respiratory Exam Respiratory Exam: Decreased Breath Sounds, Wheezes, NORMAL BREATHING PATTERN. absent: Rales, Rhonchi - Cardiovascular Exam Cardiovascular Exam: REGULAR RHYTHM, RRR, +S1, +S2 - GI/Abdominal Exam GI & Abdominal Exam: Soft, Normal Bowel Sounds. absent: Distended, Tenderness - Extremities Exam Extremities Exam: Full ROM, Normal Inspection - Neurological Exam Neurological Exam: Alert, Awake, CN II-XII Intact, Oriented x3 - Psychiatric Exam Psychiatric exam: Normal Affect, Normal Mood - Skin Skin Exam: Intact, Normal Color Assessment and Plan - Assessment and Plan (Free Text) Assessment: 87 yo female known to me from previous hospitalizations. The patient is awake and alert. Treated for COPD exacerbation but later found out to have influenza A as well. Tamiflu started (day 2 now). Give for 5 days total. Respiratory isolation for the patient while in hospital. The patient does not need to complete Tamiflu in hospital but requires a total of 5 days of treatment. After discussions with Dr. Gold and Dr. Morris, the patient respiratory status is clearly worse than her baseline. The patient respiratory status is fragile at best when she is "healthy". The procalcitonin is a difficult value to interpret. A value over 0.5 ng/ml with other pneumonia signs is a strong indicator for pneumonia but the value itself is unable to predict severity. As there are no previous values during this hospitalization to compare to, I cannot say if the patient had an improving process (which could be inferred if there was a higher value of the procalcitonin earlier in the hospitalization). The patient appears to be doing better at this time. Thank you for allowing me to participate in the care of the patient, we will follow with you.
--- NOTE | 2017-05-17 01:43 | PN ---
PULMONARY PROGRESS NOTE DATE: 05/16/2017 REFERRING PHYSICIAN: Marce Gold MD SUBJECTIVE: She is sitting up in a chair, had a wonderful night, feels better. Decreased cough. Decreased shortness of breath. No nausea. No vomiting. No diarrhea. No leg pain or leg swelling. PHYSICAL EXAMINATION GENERAL: In no acute distress. VITAL SIGNS: Temperature is 98, heart rate is 86, respiratory rate is 20, blood pressure 124/77 and pulse ox 97% on room air. HEENT: Moist mucous membrane. No ulcer or thrush. NECK: Supple. No JVD. LUNGS: Few crackles at the bases. Scattered rhonchi. HEART: S1 and S2. ABDOMEN: Soft and nontender. No organomegaly. EXTREMITIES: There is no edema. NEUROLOGICAL: Awake and alert. Follows simple command. MEDICATIONS: Reviewed. No new changes in medications reported since yesterday. LABORATORY DATA: Reviewed, noted. Hemoglobin at 10.9, hematocrit 34.8, WBC 14.4 and platelet count is 160. Sodium 137, potassium 4.5, chloride 103, bicarbonate 28, BUN 63, creatinine 1.5, glucose 106 and calcium is 8.6. Microbiology; blood culture and urine culture, there is no growth. IMPRESSION AND PLAN: Chronic obstructive lung disease, pulmonary fibrosis, bronchiectasis, pleural plaque, granuloma, diabetes, hypertension, hyperlipidemia, peptic ulcer disease, gastroesophageal reflux disease, renal insufficiency,status post influenza A infection which exacerbates the chronic lung disease. The patient wants to go home. Pulmonary point of view stable. We will taper dose of steroids. PO antibiotics. Continue inhaled bronchodilator. Outpatient follow up with pulmonary function test. She should obtain the sleep study as an outpatient. Neftali Morris MD
--- NOTE | 2017-05-17 08:29 | DS ---
SUBJECTIVE: This patient is awaiting followup by Pulmonary and Infectious Disease to determine if she is cleared for discharge to home today. The patient was interviewed at the bedside with her daughter, Ida Peralta and I have reviewed this case in detail with nurse, Lexis Byrnes, registered nurse. The patient is out of bed to chair. She is afebrile. PHYSICAL EXAMINATION VITAL SIGNS: Today physical exam shows temperature 97.5, respirations 20, pulse 79, blood pressure 124/77 and pulse ox 97%. HEENT: Head; normocephalic and atraumatic. Eyes; no icterus. Ears clear. Throat; noninjected. NECK: Supple. HEART: Regular S1 and S2. LUNGS: With occasional rhonchi that clear with coughing. ABDOMEN: Soft. EXTREMITIES: No edema. SKIN: Without rash. NEUROLOGICAL: Intact. PSYCHOLOGICAL: Alert. VASCULAR: Legs warm to touch. LABORATORY DATA: White count 14,400, previously 11,400, hemoglobin 10.9, hematocrit 34.8 and platelets 160,000. Sodium 137, K 4.5, chloride 103, bicarb 28, BUN 63, creatinine 1.5, random blood sugar is 106. IMPRESSION: This is an 87-year-old female with acute on chronic obstructive pulmonary disease exacerbation and chronic pulmonary fibrosis, recent influenza A infection with comorbidities of stable atherosclerotic heart disease, chronic anxiety, chronic insomnia, stable insulin-dependent diabetes mellitus, chronic hypertension, hyperlipidemia, degenerative arthritis, osteoporosis, now with oral thrush and history of peptic ulcer disease with gastroesophageal reflux disease. PLAN: As discussed with the patient, family, nursing will be to await follow up with Dr. Poole, from Infectious Disease and Dr. Morris to see if the patient is cleared for discharge. Should she go home, she will continue on chronic outpatient medications including enalapril 2.5 mg p.o. daily, Singulair 10 mg p.o. at bedtime, Robitussin DM 5 ml p.o. q.6 hours p.r.n. cough, duo nebulizer inhalational therapy q.6 hours, prednisone and oral antibiotic dosing to be determined by Dr. Morris and Dr. Poole respectively, calcium carbonate 500 mg p.o. daily, Miacalcin nasal spray alternate nostril daily. nystatin swish and swallow 5 ml p.o. q.i.d. for 5 days then stop, Lopressor 25 mg p.o. b.i.d., Lipitor 10 mg p.o. at dinner, Lasix 20 mg p.o. b.i.d., Ecotrin 81 mg p.o. at dinner time. The patient will be followed up in my office with in one week should she be cleared for discharge and family has been advised for any change in signs and symptoms to present directly to the [facility]. Greater than 35 minutes was spent in the care of this patient today in discussion of medication, labs, x-rays and discharge planning. All questions were answered. Marce Gold MD MTDD
== END 2017-05-16 17:25 | disposition home or self-care (01) | DRG 191 ==
LOC: TRCU 15:34
PROVIDERS: ADMIT Internal Medicine; ATTEND Internal Medicine
PROC: F07Z9ZZ Gait Training/Functional Ambulation Treatment (ICD-10-PCS; principal; 2017-05-06)
PROC: F07M6ZZ Therapeutic Exercise Treatment of Musculoskeletal System - Whole Body (ICD-10-PCS; 2017-05-06)
DX: J44.1 Chronic obstructive pulmonary disease with (acute) exacerbation (principal); B37.0 Candidal stomatitis; E11.22 Type 2 diabetes mellitus with diabetic chronic kidney disease; E87.5 Hyperkalemia; I13.0 Hypertensive heart and chronic kidney disease with heart failure and stage 1 through stage 4 chronic kidney disease, or unspecified chronic kidney disease; I50.9 Heart failure, unspecified; J45.901 Unspecified asthma with (acute) exacerbation; J98.11 Atelectasis; E78.5 Hyperlipidemia, unspecified; F41.1 Generalized anxiety disorder; F51.04 Psychophysiologic insomnia; I25.10 Atherosclerotic heart disease of native coronary artery without angina pectoris; J10.1 Influenza due to other identified influenza virus with other respiratory manifestations; J44.0 Chronic obstructive pulmonary disease with (acute) lower respiratory infection; J84.10 Pulmonary fibrosis, unspecified; K21.9 Gastro-esophageal reflux disease without esophagitis; K27.9 Peptic ulcer, site unspecified, unspecified as acute or chronic, without hemorrhage or perforation; M19.90 Unspecified osteoarthritis, unspecified site; M81.0 Age-related osteoporosis without current pathological fracture; N18.3 Chronic kidney disease, stage 3 (moderate); Z78.9 Other specified health status; Z79.4 Long term (current) use of insulin; Z79.899 Other long term (current) drug therapy; Z86.73 Personal history of transient ischemic attack (TIA), and cerebral infarction without residual deficits; Z87.11 Personal history of peptic ulcer disease

== ENCOUNTER 2017-05-26 19:17 | Inpatient (IN) | payer MEDICARE, OTHER ==
[2017-05-26] MEDS ORDERED: Albuterol-Ipratrop 3 mg / 0.5 (3 ml) UD IH STA (20:24)
[2017-05-26 20:41] LABS: BASO # 0.02 K/mm3 (0.0-2.0); BASO % 0.2 % (0.0-3.0); EOS # 0.2 (0.0-0.7); EOS % 1.5 % (1.5-5.0); GRAN # 7.81 (1.4-6.5); GRAN % 79.9 % (50.0-68.0); HEMOGLOBIN 11.9 g/dL (12.0-16.0); LYMPH # 1.2 (1.2-3.4); LYMPH % 11.9 % (22.0-35.0); MEAN CELL VOLUME 96.7 fl (80.0-105.0); MEAN CORPUSCULAR HEMOGLOBIN 30.1 pg (25.0-35.0); MEAN CORPUSCULAR HGB CONC 31.1 g/dl (31.0-37.0); MEAN PLATELET VOLUME 10.9 fl (7.0-11.0); MONO # 0.6 (0.1-0.6); MONO % 6.5 % (1.0-6.0); RBC 3.96 10^6/uL (3.5-6.1); WHITE BLOOD COUNT 9.8 10^3/ul (4.5-11.0)
[2017-05-26 20:45] LABS: URINE BILIRUBIN NEGATIVE (NEGATIVE); URINE BLOOD NEGATIVE (NEGATIVE); URINE GLUCOSE (UA) NEGATIVE (NEGATIVE); URINE LEUKOCYTE ESTERASE SMALL Leu/uL (NEGATIVE); URINE NITRATE NEGATIVE (NEGATIVE); URINE PROTEIN NEGATIVE mg/dL (<30 mg/dL); URINE UROBILINOGEN 0.2 E.U./dL (<1 E.U./dL)
[2017-05-26 20:49] LABS: ALB/GLOB RATIO 1.3 (1.1-1.8); ALBUMIN 3.3 g/dL (3.0-4.8); ALT/SGPT 33 U/L (7-56); AST/SGOT 30 U/L (14-36); BLOOD UREA NITROGEN 62 mg/dL (7-21); CALCIUM 10.6 mg/dL (8.4-10.5); GFR AFRICAN-AMERICAN 21; GFR NON-AFRICAN AMERICAN 17
[2017-05-26 20:52] LABS: B-TYPE NATRIURETIC PEPTIDE 434 pg/mL (0-450); TROPONIN I 0.01 ng/mL
[2017-05-26 20:57] LABS: URINE APPEARANCE CLEAR (CLEAR); URINE COLOR YELLOW (YELLOW)
[2017-05-26 21:09] LABS: URINE RBC NEGATIVE /hpf (0-2)
--- NOTE | 2017-05-26 21:09 | ED PDOC ---
Arrival/HPI - General Chief Complaint: Shortness Of Breath Time Seen by Provider: 05/26/17 19:39 Historian: Patient - History of Present Illness Narrative History of Present Illness (Text): 05/26/17 19:40 Eloina Kennedy is an 87 year old female, whose past medical history includes COPD , pulmonary fibrosis, hypertension, hyperlipidemia, degenerative arthritis, osteoporosis, peptic ulcer disease, GERD, asthma, chronic renal failure, and anemia, who presents to the Emergency department complaining of shortness of breath today. Patient also complaining of difficulty urinating, states she can only pass small amounts of urine at a time. Patient denies any fever, chills, chest pain, nausea, vomiting, diarrhea, back pain, neck pain, headache, dizziness, or any other complaints. Symptom Onset: Gradual Symptom Course: Unchanged Activities at Onset: Light Context: Home Past Medical History - Provider Review Nursing Documentation Reviewed: Yes - Infectious Disease Hx of Infectious Diseases: None - Tetanus Immunization Tetanus Immunization: Unknown - Reproductive Menopause: Yes - Cardiac Hx Cardiac Disorders: Yes Hx Hypertension: Yes - Pulmonary Hx Chronic Obstructive Pulmonary Disease (COPD): Yes - Neurological HX Cerebrovascular Accident: Yes - HEENT Hx HEENT Disorder: No Other/Comment: WEARS RX GLASSES - Renal Hx Renal Failure: Yes - Endocrine/Metabolic Hx Diabetes Mellitus Type 2: Yes - Hematological/Oncological Hx Blood Disorders: No Hx Sickle Cell Disease: No Hx Unexplained Bleeding: No - Integumentary Hx Dermatological Disorder: No Other/Comment: multiple brown discolorations chest and face - Musculoskeletal/Rheumatological Hx Arthritis: Yes - Gastrointestinal Hx Gastroesophageal Reflux: Yes - Genitourinary/Gynecological Hx Reproductive Disorders: Yes (left breast lumpectomy) - Psychiatric Hx Psychophysiologic Disorder: Yes Hx Anxiety: Yes Hx Substance Use: No - Past Surgical History Past Surgical History: No Previous - Surgical History Other/Comment: HX L BREAST BX/BENIGN - Anesthesia Hx Anesthesia: Yes Hx Anesthesia Reactions: No Hx Malignant Hyperthermia: No - Suicidal Assessment Feels Threatened In Home Enviroment: No Family/Social History - Physician Review Nursing Documentation Reviewed: Yes Family/Social History: Unknown Family HX Smoking Status: Never Smoked Hx Alcohol Use: No Hx Substance Use: No Hx Substance Use Treatment: No Allergies/Home Meds Allergies/Adverse Reactions: Allergies lactose Allergy (Verified 05/26/17 19:27) VOMITING levofloxacin [From Levaquin] Allergy (Verified 05/26/17 19:27) ANGIOEDEMA Home Medications: Home Meds Medication Instructions Recorded Confirmed Fluticasone/Salmeterol [Advair 1 inh INH BID 05/26/17 05/26/17 250-50 Diskus] Furosemide [Lasix] 20 mg PO TID 05/26/17 05/26/17 Methenamine Hippurate [Hiprex] 1 gm PO DAILY 05/26/17 05/26/17 Metoprolol Tartrate [Lopressor] 25 mg PO BID 05/26/17 05/26/17 Simvastatin [Zocor] 20 mg PO HS 05/26/17 05/26/17 Review of Systems - Physician Review All systems were reviewed & negative as marked: Yes - Review of Systems Constitutional: Normal. absent: Fevers Eyes: Normal ENT: Normal Respiratory: SOB Cardiovascular: Normal Gastrointestinal: Normal. absent: Abdominal Pain, Diarrhea, Nausea, Vomiting Genitourinary Female: Urine Output Changes (+difficulty urinating). absent: Frequency, Hematuria Musculoskeletal: Normal. absent: Back Pain, Neck Pain Skin: Normal. absent: Rash Neurological: Normal. absent: Headache, Dizziness Endocrine: Normal Hemo/Lymphatic: Normal Psychiatric: Normal Physical Exam Vital Signs Reviewed: Yes Vital Signs Temp Pulse Resp BP Pulse Ox 05/26/17 23:56 98.1 F 88 18 136/74 99 05/26/17 22:13 128/66 05/26/17 19:41 24 05/26/17 19:24 98.3 F 101 H 24 124/62 98 Temperature: Afebrile Blood Pressure: Normal Pulse: Regular Respiratory Rate: Normal Appearance: Positive for: Well-Appearing, Non-Toxic, Comfortable Pain Distress: None Mental Status: Positive for: Alert and Oriented X 3 - Systems Exam Head: Present: Atraumatic, Normocephalic Pupils: Present: PERRL Extroacular Muscles: Present: EOMI Conjunctiva: Present: Normal Mouth: Present: Moist Mucous Membranes Neck: Present: Normal Range of Motion Respiratory/Chest: Present: Wheezes. No: Respiratory Distress, Accessory Muscle Use Cardiovascular: Present: Regular Rate and Rhythm, Normal S1, S2. No: Murmurs Abdomen: Present: Normal Bowel Sounds. No: Tenderness, Distention, Peritoneal Signs Back: Present: Normal Inspection Upper Extremity: Present: Normal Inspection. No: Cyanosis, Edema Lower Extremity: Present: Normal Inspection. No: Edema Neurological: Present: GCS=15, CN II-XII Intact, Speech Normal Skin: Present: Warm, Dry, Normal Color. No: Rashes Psychiatric: Present: Alert, Oriented x 3, Normal Insight, Normal Concentration Medical Decision Making ED Course and Treatment: 05/26/17 19:40 Impression: 87 year old female complaining of shortness of breath and difficulty passing urine. Plan: -- EKG -- Chest X-ray -- Labs, cardiac enzymes, BNP, blood cultures -- Urinalysis, urine cultures -- Duoneb -- Reassess and disposition Prior Visits: Notes and results from previous visits were reviewed. On 05/01/17, pt was seen in the Emergency department for shortness of breath. Pt was admitted to the hospital for further evaluation. Progress Notes: Reviewed EKG, NSR at [address] bpm[address] Non-specific ST/T wave changes. 05/26/17 20:05 Chest X-ray reviewed, shows chronic calcifications. 05/26/17 21:24 Bladder scan performed by RN, 215 cc of urine noted. 05/26/17 21:[address] Gold, who is aware and agrees with plan. Accepts pt in to her service. Pt will go to remote telemetry for asthmatic bronchitis. - Lab Interpretations Lab Results: 05/26/17 20:15 05/26/17 20:15 Lab Results 05/26/17 20:32: Urine Color Yellow, Urine Appearance Clear, Urine pH 6.0, Ur Specific [place] <= 1.005, Urine Protein Negative, Urine Glucose (UA) Negative, Urine Ketones Negative, Urine Blood Negative, Urine Nitrate Negative, Urine Bilirubin Negative, Urine Urobilinogen 0.2, Ur Leukocyte Esterase Small H, Urine RBC Negative, Urine WBC 1 - 3, Ur Epithelial Cells 1 - 3, Urine Bacteria Few 05/26/17 20:15: Sodium 136, Potassium 4.1, Chloride 93 L, Carbon Dioxide 37 H, Anion Gap 11, BUN 62 H, Creatinine 2.6 H, Est GFR ( Amer) 21, Est GFR ( Non-Af Amer) 17, Random Glucose 148 H, Calcium 10.6 H, Total Bilirubin 0.5, AST 30, ALT 33, Alkaline Phosphatase 47, Lactate Dehydrogenase 498, Total Creatine Kinase < 20 L, Troponin I 0.01, NT-Pro-B Natriuret Pep 434, Total Protein 6.0, Albumin 3.3, Globulin 2.7, Albumin/Globulin Ratio 1.3 05/26/17 20:15: WBC 9.8 D, RBC 3.96, Hgb 11.9 L, Hct 38.3, MCV 96.7 D, MCH 30.1, MCHC 31.1, RDW 15.0 H, Plt Count 217, MPV 10.9, Gran % 79.9 H, Lymph % ( Auto) 11.9 L, [place] % (Auto) 6.5 H, Eos % (Auto) 1.5, Baso % (Auto) 0.2, Gran # 7.81 H, Lymph # (Auto) 1.2, [place] # (Auto) 0.6, Eos # (Auto) 0.2, Baso # (Auto) 0.02 I have reviewed the lab results: Yes - RAD Interpretation Radiology Orders: 05/26/17 19:41 CHEST PORTABLE [RAD] Stat Cupola Hoist Operator: ED Physician - EKG Interpretation Interpreted by ED Physician: Yes Type: 12 lead EKG - Medication Orders Current Medication Orders: Acetaminophen (Tylenol 325mg Tab) 650 mg PO Q4H PRN PRN Reason: Pain, Mild (1-3) Acetaminophen (Tylenol 325mg Tab) 650 mg PO ONCE ONE Stop: 05/27/17 01:16 Albuterol/Ipratropium (Duoneb 3 Mg/0.5 Mg (3 Ml) Ud) 3 ml IH Q4H PRN PRN Reason: Shortness of Breath Insulin Human Regular (Humulin R Low) 0 units SC ACHS [facility] PRN Reason: Protocol Discontinued Medications Albuterol/Ipratropium (Duoneb 3 Mg/0.5 Mg (3 Ml) Ud) 3 ml IH STAT STA Stop: 05/26/17 20:25 Last Admin: 05/26/17 21:09 Dose: 3 ml Furosemide (Lasix) 20 mg IVP ONCE ONE Stop: 05/26/17 22:01 Last Admin: 05/26/17 22:13 Dose: 20 mg MAR Blood Pressure Document 05/26/17 22:13 NICKOLAS (Rec: 05/26/17 22:13 NICKOLAS [id number]) Blood Pressure Blood Pressure (100/60-150/90) 128/66 IVP Administration Document 05/26/17 22:13 NICKOLAS (Rec: 05/26/17 22:13 NICKOLAS [id number]) Charges for Administration # of IVP Administrations 1 - Scribe Statement The provider has reviewed the documentation as recorded by the Scribdavid Perez All medical record entries made by the Scribe were at my direction and personally dictated by me. I have reviewed the chart and agree that the record accurately reflects my personal performance of the history, physical exam, medical decision making, and the department course for this patient. I have also personally directed, reviewed, and agree with the discharge instructions and disposition. Disposition/Present on Arrival - Present on Arrival Any Indicators Present on Arrival: No History of DVT/PE: No History of Uncontrolled Diabetes: No Urinary Catheter: No History of Decub. Ulcer: No History Surgical Site Infection Following: None - Disposition Have Diagnosis and Disposition been Completed?: Yes Diagnosis: Asthmatic bronchitis Disposition: HOSPITALIZED Disposition Time: 21:45 Condition: FAIR
[2017-05-26 21:10] LABS: URINE BACTERIA FEW (NEG)
[2017-05-26] MEDS ORDERED: Albuterol-Ipratrop 3 mg / 0.5 (3 ml) UD IH PRN (23:18)
[2017-05-27 01:46] VITALS: BMI 23.3
[2017-05-27] MEDS: Insulin Reg-LOW-Coverage SC SCH ×4 (08:04→22:40)
--- NOTE | 2017-05-27 08:53 | RAD ---
HISTORY: sob COMPARISON: 05/13/2017 FINDINGS: LUNGS: There is a dense calcified nodule in the left upper lobe. Previously evaluated with CT PLEURA: Extensive pleural calcifications are seen in the right upper lobe CARDIOVASCULAR: Normal. OSSEOUS STRUCTURES: No significant abnormalities. VISUALIZED UPPER ABDOMEN: Normal. OTHER FINDINGS: None. IMPRESSION: No active disease.
[2017-05-27] MEDS ORDERED: Nitroglycerin 2% Ointment Foilpak UD TOP PRN (11:22)
--- NOTE | 2017-05-27 11:49 | CARD ---
APPROVED REPORT EKG Measurement Heart [id number] <Conclusion> Normal sinus rhythm Cannot rule out Anterior infarct, age undetermined Abnormal ECG
[2017-05-27] MEDS: MethylPREDNISolone 40 mg Vial IVP SCH ×2 (12:06→21:30)
[2017-05-27 13:29] LABS: CALCIUM 10.5 mg/dL (8.4-10.5)
[2017-05-27] MEDS: Levalbuterol 0.63 MG/3 ML Inhal Soln UD IH SCH ×3 (13:31→19:58)
--- NOTE | 2017-05-27 13:35 | US ---
PROCEDURE: Ultrasound of the Kidneys HISTORY: azotemia COMPARISON: None available. TECHNIQUE: Sonogram of the kidneys. FINDINGS: RIGHT KIDNEY: Measures: 9.44 x 3.36 x 5.14 cm. The kidneys hyperechoic. No stone, solid mass lesion or hydronephrosis visualized. There is a lower pole cyst measuring 2.13 x 1.89 x 2.96 LEFT KIDNEY: Measures: 8.84 x 4.23 x 4.29 cm. Hyperechoic No stone, solid mass lesion or hydronephrosis visualized. Lower pole cyst measuring 2.65 x 2.27 x 2.93 OTHER FINDINGS: None. IMPRESSION: Hyperechoic kidneys. No evidence of hydronephrosis
[2017-05-27] MEDS: Sodium Chloride 0.45% 1,000 ML IV SCH (14:10)
[2017-05-27] MEDS: Budesonide 0.25 mg/2 ml Inhal Susp UD IH SCH (19:57)
[2017-05-27] MEDS: Arformoterol 15 mcg/2 ml Inh Sol IH SCH (19:57)
[2017-05-27] MEDS ORDERED: Arformoterol 15 mcg/2 ml Inh Sol IH SCH (20:00)
--- NOTE | 2017-05-28 02:27 | HP ---
DATE; 05/27/2017. HISTORY OF PRESENT ILLNESS: This 87-year-old female was examined at her bedside on the Cardiac shepherd. She was admitted through the emergency room with complaints of shortness of breath and exacerbation of chronic obstructive pulmonary disease. The patient was noted on admission labs to have worsening azotemia and is being readied for renal ultrasound for completeness sake. Of note, the patient was recently hospitalized for bronchial pneumonia as well as influenza and the patient remains deconditioned from that hospitalization. At present, she is alert and oriented, wearing nasal O2 and denying any active chest pain, fever or chills. REVIEW OF SYSTEMS: CONSTITUTIONAL REVIEW: Denied fever or chills. HEAD REVIEW: Denied headache or seizure. EYE REVIEW: No change in visual acuity. EAR REVIEW: No hearing loss. THROAT REVIEW: No swallowing difficulty. NECK REVIEW: No stiffness. CARDIAC REVIEW: She has stable atherosclerotic heart disease and chronic hypertension. PULMONARY: She had as per HPI chronic obstructive pulmonary disease, pulmonary fibrosis and longstanding respiratory insufficiency. GI: GERD. : Chronic renal failure stage III. VASCULAR: No claudication. PSYCHOLOGICAL: Chronic anxiety. NEUROLOGIC: No knowledge of stroke. ENDOCRINE: She has diet-controlled diabetes mellitus and hyperlipidemia. FAMILY HISTORY: Noncontributory. SOCIAL HISTORY: She is a nondrinker, nonsmoker, non IV drug misuser. ALLERGIES: LEVOFLOXACIN AND LACTOSE. OUTPATIENT MEDICATIONS: Included Lipitor, Duo nebulizer, prednisone, Zocor, Singulair, Lopressor, Hiprex, Zestril, Lasix, Pepcid, Miacalcin, Ecotrin, Advair and Os-Leon. PHYSICAL EXAMINATION: VITAL SIGNS: The patient is in a normal sinus rhythm on the athletic monitor. Temperature 98.3, respirations 20, pulse 72, blood pressure 112/72, pulse ox 96%. HEENT: Head; normocephalic, atraumatic. Eyes, no icterus. Ears clear. Throat noninjected. NECK: Supple. HEART: Regular S1, S2. LUNGS: With rhonchi and occasional wheezing. ABDOMEN: Soft. EXTREMITIES: No edema, no cyanosis. SKIN: With poor turgor. VASCULAR: Legs warm to touch. PSYCHOLOGICAL: Chronic anxiety. NEUROLOGICAL: Intact. LABORATORY DATA: White count 9800, hemoglobin 11.9, hematocrit 38.3, platelets 217,000. Sodium 135, K 4.5, chloride 91, bicarb 34, BUN 65, creatinine 2.4, random blood sugar 99. All liver function testings were normal including bilirubin 0.5, AST 30, ALT 33, alk phos 47. CPK was less than 20. Troponin 0.01. BNP 434. Urinalysis unremarkable, few bacteria noted. IMPRESSION: An 87-year-old female with exacerbation of chronic obstructive pulmonary disease, [id number] renal insufficiency in the setting of clinical dehydration with comorbidities of stable atherosclerotic heart disease, type 2 diabetes mellitus, hyperlipidemia, chronic hypertension, peptic ulcer disease with gastroesophageal reflux disease, anxiety neurosis, osteoporosis. PLAN: As discussed with the patient, nursing and family, will be to maintain this patient on the Cardiac shepherd. She is ordered to have I's and O's. Lasix will be held and gentle IV fluids of 0.45 saline at 70 mL per hour will be started. She is ordered to have a renal ultrasound for completeness sake. She will be ordered to have a heart-healthy diabetic renal diet. She is wearing nasal O2 p.r.n. and will continue with Zestril 2.5 mg p.o. daily, Xopenex inhalational therapy q.6, Tylenol 650 mg p.o. q.6 hours p.r.n. temperature or pain, Solu-Medrol 40 mg IV q.12, Singulair 10 mg p.o. at bedtime, Pulmicort inhalational therapy q.12, Pepcid 20 mg p.o. at bedtime, nitroglycerin 1 inch to chest wall q.4 hours p.r.n. systolic blood pressure greater than 160 or diastolic blood pressure greater than 100, Lopressor 25 mg p.o. b.i.d., Lipitor 10 mg p.o. at dinnertime, regular low-dose insulin protocol a.c. meals and at bedtime, Ecotrin 81 mg p.o. daily, Brovana inhalational therapy q.12. The patient has orders for blood and urine cultures. A basic metabolic panel will be repeated in the a.m. Chest x-ray was reviewed and shows no active infiltrate nor CHF. The ultimate plan will be for discharge to home with adjustment in medications when medically stable. The patient's overall prognosis though poor remains stable at present. Greater than 75 minutes was spent in the care, review of x-rays, labs, medication, outlining of orders and review of medications and instructions with the patient and nursing. All questions were answered. Marce Gold MD [facility]
[2017-05-28] MEDS: Levalbuterol 0.63 MG/3 ML Inhal Soln UD IH SCH ×4 (02:47→20:36)
[2017-05-28] MEDS: Sodium Chloride 0.45% 1,000 ML IV SCH ×2 (03:51→21:38)
[2017-05-28] MEDS: Arformoterol 15 mcg/2 ml Inh Sol IH SCH ×2 (07:48→20:35)
[2017-05-28] MEDS: Budesonide 0.25 mg/2 ml Inhal Susp UD IH SCH ×2 (07:49→20:35)
[2017-05-28] MEDS: Insulin Reg-LOW-Coverage SC SCH ×4 (08:14→21:37)
[2017-05-28] MEDS: MethylPREDNISolone 40 mg Vial IVP SCH ×2 (09:58→21:34)
--- NOTE | 2017-05-28 15:30 | PN ---
DATE: 05/28/2017 SUBJECTIVE: This 87-year-old female was examined at her bedside in the presence of her nurse, Radha Jeong, registered nurse and daughters, Paulette and Ida Peralta. The patient is out of bed to chair, wearing nasal O2. She remains chronically anxious and short of breath. Of note, she was admitted with exacerbation of chronic obstructive pulmonary disease and has advanced COPD with pulmonary fibrosis and was noted to be clinically dehydrated at the time of admission. The patient underwent a renal ultrasound that showed no evidence of hydronephrosis, stone, or mass. At present, she is receiving gentle IV fluids. She remains in a normal sinus rhythm on the cardiac surgeon and denies any fever, chills, chest pain, or hemoptysis. PHYSICAL EXAMINATION: VITAL SIGNS: Temperature 98.9, respirations 20, pulse 98, blood pressure 122/72, and pulse ox 97%. HEENT: Head: Normocephalic, atraumatic. Eyes: No icterus. Ears: Clear. Throat: Noninjected. NECK: Supple. HEART: Regular S1, S2. LUNGS: No wheezing. ABDOMEN: Soft. EXTREMITIES: No edema. SKIN: With better turgor. VASCULAR: Legs warm to touch. PSYCHOLOGICAL: Chronic anxiety. NEUROLOGIC: Intact. LABORATORY DATA: White count 9800, hemoglobin 11.9, hematocrit 38.3, and platelets 217,000. Sodium 135, K 4.5, chloride 91, bicarb 34, BUN 65, creatinine 2.4, and random blood sugar 120. Urinalysis showed few bacteria. Urine culture shows no growth. Blood culture shows no growth at 24 hours. Chest x-ray was reviewed. It showed no acute changes but chronic COPD, extensive pleural calcifications, and chronic calcified nodule in her left upper lung. EKG was reviewed. It showed normal sinus rhythm with nonspecific ST-T wave changes. IMPRESSION: This is an 87-year-old female with advanced chronic obstructive pulmonary disease, now with acute exacerbation as well as pulmonary fibrosis, acute on chronic renal failure in the setting of clinical dehydration, chronic renal failure stage III, stable atherosclerotic heart disease, insulin-dependent diabetes mellitus, hyperlipidemia, and chronic hypertension. Plan as discussed with the patient and nursing will be to continue soft bland diabetic renal heart-healthy diet with 2 liters nasal O2 p.r.n. She continues on Zestril 2.5 mg p.o. daily, Xopenex inhalational therapy q.6h., Solu-Medrol 40 mg IV q. 12, Singulair 10 mg p.o. at bedtime, Pulmicort inhalational therapy q. 12, Protonix 40 mg p.o. daily, Lopressor 25 mg p.o. b.i.d., Lipitor 10 mg p.o. daily, regular low-dose insulin coverage a.c. meals and at bedtime, Ecotrin 81 mg p.o. daily, Diflucan 100 mg p.o. daily, Brovana inhalational therapy q. 12, and 0.45 saline at 70 mL/hour. Flomax 0.4 mg p.o. daily as well as Diflucan 100 mg p.o. daily have been added by Dr. Morris from Pulmonary and basic metabolic panel will be repeated in the a.m. Greater than 35 minutes was spent in the care management, review of x-rays, labs, medications, and orders for this patient today. All questions by family were answered at bedside. Marce Gold MD [facility]
--- NOTE | 2017-05-28 23:20 | CON ---
DATE: PULMONARY CONSULT PRIMARY CARE PHYSICIAN: Dr. Gold. Requested consult by the daughter. HISTORY OF PRESENT ILLNESS: This is an 87-year-old female known to me from previous admission, just recently discharged, has a renal insufficiency, recently had pneumonia and influenza infection, presently complaining about shortness of breath, feels something is in the throat. No hemoptysis, no hematemesis, no hematuria. No diarrhea reported. Also complaining about emptying of the bladder. ALLERGIES: TO LEVOTHYROXINE AND LACTULOSE. SOCIAL HISTORY: Positive history of secondary smoking. Denied any alcohol use. FAMILY HISTORY: No significant cardiopulmonary disease reported. MEDICATIONS: She is on Brovana inhaled twice a day, Ecotrin 81 mg daily, insulin coverage, Lipitor 10 mg daily, metoprolol tartrate 25 mg twice a day, Pepcid 20 mg daily, Pulmicort inhaler twice a day,Singulair 10 mg daily, IV fluids half-normal saline 70 mL per hour, Solu-Medrol 40 mg q. 12 hours, Tylenol p.r.n., Xopenex 0.63 q. 6 hours, Zestril 2.5 mg daily. REVIEW OF SYSTEMS: No headache, no rhinitis. Has cough and shortness of breath, feels something in the throat. No wheezing, no nausea. Had issue with emptying bladder. No leg pain or leg swelling. PHYSICAL EXAMINATION GENERAL: Sitting in sides of the bed, mild distress secondary to cough and shortness of breath. VITAL SIGNS: Temp is 98, heart rate is respiratory rate is 20, blood pressure 122/72, pulse ox 97% on 2 liters nasal cannula. HEENT: Moist mucous membranes. No ulcer or thrush noted. NECK: Supple. No JVD. LUNGS: Have a few scattered rhonchi. HEART: S1 and S2. ABDOMEN: Soft, nontender. No organomegaly. EXTREMITIES: No edema. NEUROLOGIC: Awake and alert. Follows simple commands. LABORATORY DATA: Shows hemoglobin 11.9, hematocrit 38.3, WBC 9.8, platelet is 217. Sodium 134, potassium 4.5, chloride 91, bicarbonate is 34, BUN 65, creatinine 2.4, Glucose is 99, total bilirubin 10.5. On 05/11/2017, her influenza A was positive. Urine culture is unremarkable. Blood culture, there is no growth, this is on 05/26/2017 specimen. 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 I spoke to the patient's daughter at bedside. All the questions answered. I agreed with Dr. Gold's present treatment. We are also just adding Lyrica 25 mg twice a day, Tessalon Perles q. 8 hours, may add Diflucan for few days, gastric prophylaxis, may add Flomax 0.4 mg daily to see if that will help us emptying of the bladder, she has been having residual between 200 to 250 mL. Neftali Morris MD
[2017-05-29] MEDS: Levalbuterol 0.63 MG/3 ML Inhal Soln UD IH SCH ×4 (01:12→19:50)
[2017-05-29] MEDS ORDERED: Pantoprazole 40 mg EC Tab PO SCH (06:00)
[2017-05-29 06:48] LABS: CALCIUM 9.2 mg/dL (8.4-10.5)
[2017-05-29] MEDS: Budesonide 0.25 mg/2 ml Inhal Susp UD IH SCH ×2 (07:23→19:50)
[2017-05-29] MEDS: Arformoterol 15 mcg/2 ml Inh Sol IH SCH ×2 (07:23→19:49)
[2017-05-29] MEDS: Insulin Reg-LOW-Coverage SC SCH ×4 (07:52→21:31)
[2017-05-29] MEDS: MethylPREDNISolone 40 mg Vial IVP SCH ×2 (10:04→21:31)
[2017-05-29] MEDS ORDERED: MethylPREDNISolone 40 mg Vial IVP SCH (12:34)
--- NOTE | 2017-05-29 13:51 | IP.NPCORE ---
COPD Progress Note - COPD Progress Note Spirometry Assessment Completed:: No Plan to assess at outpatient follow up: Yes Symptoms:: Increase in Dyspnea, Cough Nebulizers Q2-4 hrs:: Duonebs/Albuterol Therapy Antibiotics Not Indicated: Yes Systemic Steroids w/ methylprednisolone Name/Dose/Frequency:: solumedrol 40 mg iv q12 Oxygen Delivery Method: Nasal Cannula Oxygen Flow Rate: 4 Smoking cessation counseling all stages copd exacerbation: No
[2017-05-29] MEDS: Sodium Chloride 0.45% 1,000 ML IV SCH (17:13)
--- NOTE | 2017-05-29 21:25 | PN ---
DATE: 05/29/2017 SUBJECTIVE: This 87-year-old female was examined at her bedside in the presence of her nurse, Shelly Alexander, registered nurse and her daughter, Paulette. The patient states her cough was improved last night with the addition of IV Solu-Medrol and Tessalon Perles. She denied any GERD after taking Pepcid but remains short of breath even at rest wearing nasal O2. The patient was started on Flomax and IV fluids and today her BUN and creatinine have improved and she is urinating more even easily. Renal ultrasound was reviewed and shows no evidence of hydronephrosis, obstruction or stone. 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 VITAL SIGNS: Temperature 97.6, respirations 21, pulse 86, and blood pressure 127/74. Pulse ox 97%. Urine output was greater than 500 ml yesterday. HEENT: Head: Normocephalic, atraumatic. Eyes: No icterus. Ears: Clear. Throat: Noninjected. NECK: Supple. HEART: Regular S1, S2. LUNGS: With rhonchi that clear with coughing. ABDOMEN: Soft. EXTREMITIES: No edema. SKIN: With improved turgor. VASCULAR: Legs warm to touch. PSYCHOLOGIC: Chronic anxiety. NEUROLOGIC: Unchanged. LABORATORY DATA: White count 9800, hemoglobin 11.9, hematocrit 38.3, platelets 217,000. Sodium 138, K 4.9, chloride 101, bicarb 30, BUN 59, creatinine 1.6. Estimated GFR 30 mL per minute. Random blood sugar 178. Urinalysis showed few bacteria. Microbiology, blood cultures no growth at 48 hours and urine culture showed no growth. Chest x-ray was reviewed. It showed chronic obstructive pulmonary disease, calcified pleural plaques, a calcified nodule in her left upper lung lobe, which is chronic and no evidence of pneumothorax or pleural effusion. IMPRESSION: An 87-year-old female with exacerbation of chronic obstructive pulmonary disease, advanced pulmonary fibrosis, [id number] renal failure stage III, chronic obstipation, stable atherosclerotic heart disease, recent dehydration, status post influenza and bronchial pneumonia infection last admission with insulin-dependent diabetes mellitus, hyperlipidemia, chronic hypertension, anxiety neurosis, peptic ulcer disease with gastroesophageal reflux disease, asthma, degenerative arthritis and osteoporosis. PLAN: The plan is discussed with the patient, daughter, nursing and co-consultants, will be to maintain this patient on the cardiac unit and she is ordered to have physical therapy for strengthening and gait training. She continues on Is and Os. I have asked the nursing staff to perform a bladder scan and to check postvoid residual. She continues on heart-healthy renal diabetic diet and nasal O2 p.r.n. She will continue on Zestril 2.5 mg p.o. daily, Xopenex inhalational therapy q. 6 hours, Tylenol 650 p.o. q. 6 hours p.r.n. pain or temperature greater than 101, Tessalon Perles 100 mg p.o. t.i.d. p.r.n. cough. I will reduce her Solu-Medrol to 30 mg IV q. 12, Singulair 10 mg p.o. at bedtime, Pulmicort inhalational therapy q. 12., Pepcid 20 mg p.o. at bedtime, nitroglycerin ointment to chest wall 1 inch q. 4 hours p.r.n. accelerated hypertension if systolic blood pressure greater than 160 or diastolic blood pressure greater than 100, Lopressor 25 mg p.o. b.i.d., Lipitor 10 mg p.o. daily, regular low-dose insulin coverage a.c. meals and at bedtime, Flomax 0.4 mg p.o. daily, Ecotrin 81 mg p.o. daily, Diflucan 100 mg p.o. daily, Colace 100 mg p.o. daily, Brovana inhalational therapy q. 12 hour and IV fluids of 0.45 saline have been dose reduced to 50 mL/hour. The patient will be scheduled for basic metabolic panel in the a.m. She will continue with bathroom privileges with assistance, steroid taper, pulmonary toiletry and chronic nasal O2. Ultimate plan will be for discharge to home when medically stable. Greater than 35 minutes was spent in the care, review of x-rays, labs, medication and ordering of medication and discussion of this patient's care with family at bedside today. All questions were answered. Marce Gold MD [facility] # [id number] MTDD
--- NOTE | 2017-05-30 01:03 | PN ---
DATE: 05/29/2017 PULMONARY PROGRESS NOTE: REFERRING PHYSICIAN: Dr. Gold. SUBJECTIVE: She is sitting up in a chair. Cough is much better. Urine output improved after starting Flomax. No chest pain. No nausea. No vomiting. No diarrhea. No leg pain or leg swelling. OBJECTIVE: GENERAL: In no acute distress. VITAL SIGNS: Temperature is 98, heart rate is 80, respiratory rate is 20, blood pressure 118/67, pulse ox is 99% on 4 L nasal cannula. HEENT: Moist mucous membrane. No ulcer or thrush noted. NECK: Supple. No JVD. LUNGS: Have a few crackles. No rhonchi. HEART: S1 and S2. ABDOMEN: Soft and nontender. No organomegaly. EXTREMITIES: No edema. NEUROLOGICAL: Awake, alert. Follows simple commands. MEDICATIONS: She is on Brovana 15 mcg inhaled twice a day, Colace 100 mg daily, Diflucan 100 mg daily, Ecotrin 81 mg daily, Flomax 0.4 mg daily, insulin coverage, Lipitor 10 mg daily, metoprolol tartarate 25 mg daily, Lyrica 25 mg twice a day, Nitro-Bid q. 4 hours p.r.n., Pepcid 20 mg daily, budesonide inhaled twice a day, Singulair 10 mg daily, IV fluid half normal saline 50 mL per hour, Solu-Medrol 30 mg q. 12 hours, Tessalon Perles 100 mg three times a day p.r.n., Tylenol p.r.n., Xopenex 0.63 q. 6 hours, Zestril 2.5 mg daily. LABORATORY DATA: Shows sodium 138, potassium 4.9, chloride 101, bicarbonate 30, BUN 59, creatinine 1.6, glucose 90, calcium is 9.2. Microbiology: Blood culture and urine culture, there is no growth. IMPRESSION AND PLAN: Chronic obstructive lung disease, history of pulmonary fibrosis, bronchiectasis, pleural plaque, has some granulomas, diabetes, hypertension, hyperlipidemia, peptic ulcer disease, gastroesophageal reflux disease, history of renal insufficiency, bladder outlet obstruction, status post influenza infection. From a Pulmonary point of view, she has improved. We will decrease further Solu-Medrol 20 mg q. 12 hours, continue inhaled bronchodilator, may continue Lyrica for few days. Flomax was started yesterday. Gastric prophylaxis, GERD precautions. Consider sleep study upon discharge as outpatient. Pulmonary function test as outpatient to assess FEV1. Thank you, and we will follow with you. Neftali Morris MD
[2017-05-30] MEDS: Levalbuterol 0.63 MG/3 ML Inhal Soln UD IH SCH ×3 (01:11→13:23)
[2017-05-30] MEDS: Arformoterol 15 mcg/2 ml Inh Sol IH SCH (07:22)
[2017-05-30] MEDS: Budesonide 0.25 mg/2 ml Inhal Susp UD IH SCH (07:22)
[2017-05-30] MEDS: Insulin Reg-LOW-Coverage SC SCH ×2 (07:38→12:27)
[2017-05-30 07:49] LABS: CALCIUM 10.2 mg/dL (8.4-10.5)
[2017-05-30 08:33] VITALS: BP 140/70; RESP 21; TEMP 98.4; O2SAT 98
[2017-05-30] MEDS: MethylPREDNISolone 40 mg Vial IVP SCH (09:38)
[2017-05-30 15:18] VITALS: PULSE 119
--- NOTE | 2017-05-30 16:02 | DS ---
DATE: 05/30/2017 SUBJECTIVE: This 87-year-old female was examined at her bedside in the presence of her daughter, Paulette and her nurse, Marce Rodriguez, registered nurse. The patient remains weak and deconditioned, wearing nasal O2 and with an occasional dry cough. She denies fever, chills, chest pain, or hemoptysis. PHYSICAL EXAMINATION: VITAL SIGNS: At present, temperature is 98.4, respirations 21, pulse 92, and blood pressure 140/70 with a pulse ox of 98% on 2 L nasal O2. HEENT: Head: Normocephalic, atraumatic. Eyes: No icterus. Ears: Clear. Throat: Noninjected. NECK: Supple. HEART: Regular, S1, S2. LUNGS: Occasional rhonchi that cleared with coughing. No wheezing was appreciated. ABDOMEN: Soft. EXTREMITIES: No edema. SKIN: Without rash. Better turgor. NEUROLOGIC: Intact. PSYCHOLOGIC: Alert. VASCULAR: Legs warm to touch. LABORATORY DATA: White count 9800, hemoglobin 11.9, hematocrit 38.3, and platelets 217,000. Sodium 138, K 4.6, chloride 101, bicarb 28. BUN 51, creatinine 1.4. Estimated GFR 36 mL/min, random blood sugar 130. Microbiology study showed no growth of blood cultures, nor urine cultures. IMPRESSION: This is an 87-year-old female with exacerbation of chronic obstructive pulmonary disease with advanced pulmonary fibrosis, chronic shortness of breath, need for chronic O2 therapy and comorbidities of stable atherosclerotic heart disease, insulin-dependent diabetes mellitus, hyperlipidemia, chronic hypertension, anxiety neurosis, peptic ulcer disease with gastroesophageal reflux disease, chronic renal failure stage 3, anemia of chronic disease, asthma, degenerative arthritis, now with obstipation. PLAN: As discussed with the patient, daughter, nursing will be to order one dose of Dulcolax suppository stat while continuing Colace 100 mg p.o. daily. The patient's IV fluids will be discontinued and a basic metabolic panel will be repeated in the a.m. She will continue on Zestril, Xopenex, Tessalon Perles, IV Solu-Medrol, Singulair, Pulmicort inhalational therapy, Pepcid, metoprolol tartrate, Lipitor, insulin coverage, Flomax, baby aspirin, Diflucan, Colace, and Brovana inhalational therapy. The ultimate plan will be for observing her clinical response to the tapering and adjustment of medication and planning for discharge to home within the next 24 to 48 hours as clinically tolerated. All of the above was discussed in detail with the patient and Nursing. All questions were answered. Marce Gold MD [facility]
--- NOTE | 2017-05-31 08:32 | PN ---
DATE: 05/30/2017 PULMONARY PROGRESS NOTE REFERRING PHYSICIAN: Dr. Gold. SUBJECTIVE: She is sitting in the side of the bed, feels much better. Decreased cough, decreased shortness of breath. No nausea, no vomiting, able to empty bladder pretty well. No leg pain or leg swelling. OBJECTIVE: GENERAL: In no acute distress. VITAL SIGNS: Temperature is 98, heart rate is 88, respiratory rate is 20, blood pressure 140/70, pulse ox 98% on 2 L nasal cannula. HEENT: Moist mucous membranes. No ulcer or thrush noted. NECK: Supple. No JVD. LUNGS: Fair airflow with rhonchi. HEART: S1 and S2. ABDOMEN: Soft, nontender. No organomegaly. EXTREMITIES: No edema. NEUROLOGIC: Awake and alert. Follows simple command. MEDICATIONS: She is on Brovana inhaled twice a day, Colace 100 mg daily, Diflucan 100 mg daily, Ecotrin 81 mg daily, Flomax 0.4 mg daily, insulin coverage, Lipitor 10 mg daily, metoprolol tartrate 25 mg twice a day, Lyrica 25 mg twice a day, Nitro-Bid affected area q. 4 hour, Pepcid 20 mg daily, Pulmicort inhaled twice a day, Singulair 10 mg daily, Solu-Medrol 20 mg q. 12 hours, Tessalon Perles 100 mg three times a day p.r.n., Xopenex inhaled q. 6 hours, Zestril 2.5 mg daily. LABORATORY DATA: Reviewed shows sodium 138, potassium 4.6, chloride 101, bicarbonate is 28. BUN 51, creatinine 1.4. Glucose is 130. Calcium is 10.2. Microbiology: Blood culture and urine culture, there is no growth. IMPRESSION AND PLAN: Chronic obstructive lung disease, pulmonary fibrosis, bronchiectasis, pleural plaque, history of granuloma, diabetes, hypertension, hyperlipidemia, peptic ulcer disease, gastroesophageal reflux disease, renal insufficiency, bladder outlet obstruction, status post influenza infection. Pulmonary point of view, doing okay. I spoke to floor nurse practitioner. The patient could be tapered off steroid slowly, which changed to p.o. prednisone, Medrol Dosepak. Continue Flomax, gastric prophylaxis, DVT prophylaxis, GERD precaution, outpatient PFT and sleep study. Thank you and we will follow with you. Neftali Morris MD [facility] # [id number]
== END 2017-05-30 15:25 | disposition home or self-care (01) | DRG 191 ==
LOC: ED 19:17 → ERH 22:36 → 3RNO 05-27 00:15 → OBSVTOIN 05-27 11:12
PROVIDERS: ADMIT Internal Medicine; ATTEND Internal Medicine
DX: J44.1 Chronic obstructive pulmonary disease with (acute) exacerbation (principal); J45.901 Unspecified asthma with (acute) exacerbation; N17.9 Acute kidney failure, unspecified; E11.22 Type 2 diabetes mellitus with diabetic chronic kidney disease; J84.10 Pulmonary fibrosis, unspecified; Z99.81 Dependence on supplemental oxygen; E86.0 Dehydration; D63.8 Anemia in other chronic diseases classified elsewhere; K59.00 Constipation, unspecified; N18.3 Chronic kidney disease, stage 3 (moderate); I25.10 Atherosclerotic heart disease of native coronary artery without angina pectoris; I12.9 Hypertensive chronic kidney disease with stage 1 through stage 4 chronic kidney disease, or unspecified chronic kidney disease; M81.0 Age-related osteoporosis without current pathological fracture; M19.90 Unspecified osteoarthritis, unspecified site; E78.5 Hyperlipidemia, unspecified; F41.1 Generalized anxiety disorder; J47.9 Bronchiectasis, uncomplicated; K21.9 Gastro-esophageal reflux disease without esophagitis; K27.9 Peptic ulcer, site unspecified, unspecified as acute or chronic, without hemorrhage or perforation; Z79.4 Long term (current) use of insulin; Z86.73 Personal history of transient ischemic attack (TIA), and cerebral infarction without residual deficits; Z87.01 Personal history of pneumonia (recurrent); Z88.1 Allergy status to other antibiotic agents; Z91.018 Allergy to other foods; R40.2412 Glasgow coma scale score 13-15, at arrival to emergency department

== ENCOUNTER 2017-06-07 15:58 | Emergency (ER) | payer MEDICARE, OTHER ==
[2017-06-07 15:58] VITALS: BMI 23.3
[2017-06-07 16:23] VITALS: TEMP 98
[2017-06-07] MEDS ORDERED: Albuterol 0.083% Inhal Sol (2.5 mg/3 mL) UD INH STA (16:30)
[2017-06-07] MEDS ORDERED: Albuterol-Ipratrop 3 mg / 0.5 (3 ml) UD IH STA (16:30)
--- NOTE | 2017-06-07 16:30 | ED PDOC ---
Arrival/HPI - General Time Seen by Provider: 06/07/17 16:10 Historian: Family (Daughter, who translated for patient) - History of Present Illness Narrative History of Present Illness (Text): 06/07/17 16:23 A 87 year old female brought into the emergency department by daughter complaining of shortness of breath for the past few weeks. Patient is Welsh speaking, history obtained through daughter. Daughter reports a low grade fever and generalized weakness since yesterday. Patient was previously admitted to the hospital twice over the past month for same complaints. Daughter notes patients prednisone dosage was increased while hospitalized. Patient denies any nausea, vomiting, abdominal pain, chest pain or any other complaints. PMD: Dr. Gold [employer] Specialist: Dr. Morris [employer] Specialist: Dr. Ramon Time/Duration: Other (few weeks) Symptom Course: Unchanged Context: Home Past Medical History - Provider Review Nursing Documentation Reviewed: Yes - Infectious Disease Hx of Infectious Diseases: None - Tetanus Immunization Tetanus Immunization: Unknown - Cardiac Hx Cardiac Disorders: Yes Hx Hypertension: Yes - Pulmonary Hx Chronic Obstructive Pulmonary Disease (COPD): Yes - Neurological HX Cerebrovascular Accident: Yes - HEENT Hx HEENT Disorder: No Other/Comment: WEARS RX GLASSES - Renal Hx Renal Failure: Yes - Endocrine/Metabolic Hx Diabetes Mellitus Type 2: Yes - Hematological/Oncological Hx Blood Disorders: No Hx Sickle Cell Disease: No Hx Unexplained Bleeding: No - Integumentary Hx Dermatological Disorder: No Other/Comment: multiple brown discolorations chest and face - Musculoskeletal/Rheumatological Hx Arthritis: Yes - Gastrointestinal Hx Gastroesophageal Reflux: Yes - Genitourinary/Gynecological Hx Reproductive Disorders: Yes (left breast lumpectomy) - Psychiatric Hx Psychophysiologic Disorder: Yes Hx Anxiety: Yes Hx Substance Use: No - Past Surgical History Past Surgical History: No Previous - Surgical History Other/Comment: HX L BREAST BX/BENIGN - Anesthesia Hx Anesthesia: Yes Hx Anesthesia Reactions: No Hx Malignant Hyperthermia: No - Suicidal Assessment Feels Threatened In Home Enviroment: No Family/Social History - Physician Review Nursing Documentation Reviewed: Yes Family/Social History: No Known Family HX Smoking Status: Never Smoked Hx Alcohol Use: No Hx Substance Use: No Hx Substance Use Treatment: No Allergies/Home Meds Allergies/Adverse Reactions: Allergies levofloxacin [From Levaquin] Allergy (Severe, Verified 06/07/17 16:18) ANGIOEDEMA swelling , rash lactose Adverse Reaction (Verified 06/07/17 16:18) NAUSEA bloating diarrhea Home Medications: Home Meds Medication Instructions Recorded Confirmed Fluticasone/Salmeterol [Advair 1 inh INH BID 05/26/17 06/07/17 250-50 Diskus] Furosemide [Lasix] 20 mg PO TID 05/26/17 06/07/17 Methenamine Hippurate [Hiprex] 1 gm PO DAILY 05/26/17 06/07/17 Metoprolol Tartrate [Lopressor] 25 mg PO BID 05/26/17 06/07/17 Simvastatin [Zocor] 20 mg PO HS 05/26/17 06/07/17 Calcitonin (Issue) [Miacalcin] 200 intlu NS BID 05/27/17 06/07/17 Enalapril Maleate [Vasotec] 2.5 mg PO DAILY 06/07/17 06/07/17 Review of Systems - Physician Review All systems were reviewed & negative as marked: Yes - Review of Systems Constitutional: Fevers (low grade fever), Other (Generalized weakness) Respiratory: SOB Cardiovascular: absent: Chest Pain Gastrointestinal: absent: Abdominal Pain, Nausea, Vomiting Physical Exam Vital Signs Reviewed: Yes Vital Signs Temp Pulse Resp BP Pulse Ox 06/07/17 20:00 107 H 18 126/71 96 06/07/17 17:00 20 97 06/07/17 16:18 98 F 105 H 20 112/69 95 Temperature: Afebrile Blood Pressure: Normal Pulse: Tachycardic Respiratory Rate: Normal Appearance: Positive for: Well-Appearing, Non-Toxic, Comfortable Pain Distress: None Mental Status: Positive for: Alert and Oriented X 3 - Systems Exam Head: Present: Atraumatic, Normocephalic Pupils: Present: PERRL Extroacular Muscles: Present: EOMI Conjunctiva: Present: Normal Mouth: Present: Moist Mucous Membranes Neck: Present: Normal Range of Motion Respiratory/Chest: Present: Good Air Exchange, Wheezes (mild wheezing), Rhonchi (Coarse rhonchi), Other (oxygen saturation 92% on room air). No: Respiratory Distress, Accessory Muscle Use Cardiovascular: Present: Regular Rate and Rhythm, Normal S1, S2. No: Murmurs Abdomen: Present: Normal Bowel Sounds. No: Tenderness, Distention, Peritoneal Signs Back: Present: Normal Inspection Upper Extremity: Present: Normal Inspection. No: Cyanosis, Edema Lower Extremity: Present: Normal Inspection. No: Edema Neurological: Present: GCS=15, CN II-XII Intact, Speech Normal Skin: Present: Warm, Dry, Normal Color. No: Rashes Psychiatric: Present: Alert, Oriented x 3, Normal Insight, Normal Concentration Medical Decision Making ED Course and Treatment: 06/07/17 16:31 Impression: A 87 year old female with shortness of breath. Daughter reports low grade fever and generalized weakness. Differential Diagnosis included but are not limited to: Steroid dependence vs. Steroid withdrawal vs. Pulmonary fibrosis vs. COPD vs. Acute/Chronic PNA vs. Influenza Plan: -- Chest xray -- EKG -- Labs -- Influenza A B stat -- Blood and Urine culture -- Urinalysis -- Albuterol, Duoneb and Solumedrol -- Reassess and disposition Progress Notes: EKG shows sinus tachycardia at 105 BPM with normal axis, normal intervals. Interpreted by me. 06/07/17 21:06 Patient refusing to stay, states she would like to go home. I have discussed the results and plan with the patient, who expresses understanding. Patient was instructed to follow up with her PMD Dr. Gold. - Lab Interpretations Lab Results: 06/07/17 17:00 06/07/17 17:00 Lab Results 06/07/17 17:58: Influenza Typ A,B (EIA) Negative for flu a/b 06/07/17 17:52: Urine Color Straw, Urine Appearance Clear, Urine pH 6.5, Ur Specific [place] <= 1.005, Urine Protein Negative, Urine Glucose (UA) Negative, Urine Ketones Negative, Urine Blood Negative, Urine Nitrate Negative, Urine Bilirubin Negative, Urine Urobilinogen 0.2, Ur Leukocyte Esterase Small H, Urine RBC Negative, Urine WBC 0 - 2, Ur Epithelial Cells 0 - 2, Urine Bacteria Trace 06/07/17 17:25: pCO2 46 H, pO2 114.0 H, HCO3 33.5 H, ABG pH 7.47 H, ABG Total CO2 34.9 H, ABG O2 Saturation 99.0 H, ABG Base Excess 8.6 H, ABG Potassium 4.2, Glucose 135 H, Lactate 0.9, FiO2 21.0, Sodium 131.0 L, Chloride 102.0, Arterial Blood Potassium 4.2 06/07/17 17:00: Sodium 132, Potassium 4.6, Chloride 93 L, Carbon Dioxide 32, Anion Gap 11, BUN 45 H, Creatinine 1.5 H, Est GFR ( Amer) 40, Est GFR ( Non-Af Amer) 33, Random Glucose 139 H, Calcium 10.1, Total Bilirubin 0.4, AST 22 , ALT 35, Alkaline Phosphatase 47, Total Protein 5.6 L, Albumin 3.1, Globulin 2.5, Albumin/Globulin Ratio 1.2 06/07/17 17:00: Phosphorus 2.6, Magnesium 1.9, Lipase 286 06/07/17 17:00: WBC 13.7 H D, RBC 3.83, Hgb 11.5 L, Hct 36.0, MCV 94.0, MCH 30.0 , MCHC 31.9, RDW 15.0 H, Plt Count 194, MPV 10.4, Gran % 88.0 H, Lymph % (Auto) 5.9 L, [place] % (Auto) 5.1, Eos % (Auto) 0.4 L, Baso % (Auto) 0.6, Gran # 12.05 H , Lymph # (Auto) 0.8 L, [place] # (Auto) 0.7 H, Eos # (Auto) 0.1, Baso # (Auto) 0.08 I have reviewed the lab results: Yes - RAD Interpretation Radiology Orders: 06/07/17 16:28 CHEST TWO VIEWS (PA/LAT) [RAD] Stat - Medication Orders Current Medication Orders: Discontinued Medications Albuterol Sulfate (Albuterol 0.083% Inhal Camille (2.5 Mg/3 Ml) Ud) 5 mg INH STAT STA Stop: 06/07/17 16:31 Last Admin: 06/07/17 17:15 Dose: 5 mg Albuterol/Ipratropium (Duoneb 3 Mg/0.5 Mg (3 Ml) Ud) 3 ml IH STAT STA Stop: 06/07/17 16:31 Last Admin: 06/07/17 16:45 Dose: 3 ml Methylprednisolone (Solu-Medrol) 125 mg IVP STAT STA Stop: 06/07/17 16:31 Last Admin: 06/07/17 17:15 Dose: 125 mg IVP Administration Document 06/07/17 17:15 OK (Rec: 06/07/17 17:15 OK [id number]) Charges for Administration # of IVP Administrations 1 Ondansetron HCl (Zofran Inj) 4 mg IVP STAT STA Stop: 06/07/17 19:11 - PA / STAINED GLASS GLAZIER / Resident Statement MD/DO has reviewed & agrees with the documentation as recorded. - Scribe Statement The provider has reviewed the documentation as recorded by the Scribe Disposition/Present on Arrival - Present on Arrival Any Indicators Present on Arrival: No History of DVT/PE: No History of Uncontrolled Diabetes: No Urinary Catheter: No History Surgical Site Infection Following: None - Disposition Have Diagnosis and Disposition been Completed?: Yes Diagnosis: COPD exacerbation Disposition: HOME/ ROUTINE Disposition Time: 21:02 Patient Plan: Discharge Patient Problems: Current Active Problems Problem Status Onset COPD exacerbation Acute Condition: GOOD Discharge Instructions (ExitCare): Chronic Obstructive Pulmonary Disease (COPD) , Including Emphysema, Exacerbation of COPD, Exacerbation of COPD (DC) Additional Instructions: Mrs Kennedy - Sorry that you are not feeling well. You need to take more prednisone for a few more days...... so tomorrow, you take 20 mg, sunday you take 20mg, sunday you take 15 mg, sunday take 15 mg, sunday take 10 mg, sunday take 10 mg, take 5 mg and stay at 5 mg unless your doctor tells you otherwise. Make sure you call them tomorrow for an appointment early next week. Horace- Dr. Rodriguez Borges Referrals: Marce Gold MD [Primary Care Provider] - Follow up with primary
[2017-06-07 17:28] LABS: BASO # 0.08 K/mm3 (0.0-2.0); BASO % 0.6 % (0.0-3.0); EOS # 0.1 (0.0-0.7); EOS % 0.4 % (1.5-5.0); GRAN # 12.05 (1.4-6.5); HEMOGLOBIN 11.5 g/dL (12.0-16.0); LYMPH # 0.8 (1.2-3.4); LYMPH % 5.9 % (22.0-35.0); MEAN CORPUSCULAR HGB CONC 31.9 g/dl (31.0-37.0); MEAN PLATELET VOLUME 10.4 fl (7.0-11.0); MONO # 0.7 (0.1-0.6); MONO % 5.1 % (1.0-6.0); RBC 3.83 10^6/uL (3.5-6.1); WHITE BLOOD COUNT 13.7 10^3/ul (4.5-11.0)
[2017-06-07 17:32] LABS: ARTERIAL BLOOD GAS HCO3 33.5 mmol/L (21-28); ARTERIAL BLOOD GAS PCO2 46 mm/Hg (35-45); ARTERIAL BLOOD GAS PH 7.47 (7.35-7.45); ARTERIAL BLOOD GAS TCO2 34.9 mmol.L (22-28)
[2017-06-07 17:48] LABS: MAGNESIUM 1.9 mg/dL (1.7-2.2)
[2017-06-07 18:11] LABS: PH,URINE 6.5 (4.7-8.0); URINE BILIRUBIN NEGATIVE (NEGATIVE); URINE BLOOD NEGATIVE (NEGATIVE); URINE GLUCOSE (UA) NEGATIVE (NEGATIVE); URINE LEUKOCYTE ESTERASE SMALL Leu/uL (NEGATIVE); URINE NITRATE NEGATIVE (NEGATIVE); URINE PROTEIN NEGATIVE mg/dL (<30 mg/dL); URINE UROBILINOGEN 0.2 E.U./dL (<1 E.U./dL)
[2017-06-07 18:12] LABS: URINE APPEARANCE CLEAR (CLEAR); URINE COLOR STRAW (YELLOW)
[2017-06-07 18:17] LABS: ALB/GLOB RATIO 1.2 (1.1-1.8); ALBUMIN 3.1 g/dL (3.0-4.8); CALCIUM 10.1 mg/dL (8.4-10.5)
[2017-06-07 18:25] LABS: URINE BACTERIA TRACE (NEG); URINE EPITHELIAL CELLS 0 - 2 /hpf (0-5); URINE RBC NEGATIVE /hpf (0-2); URINE WBC 0 - 2 /hpf (0-6)
[2017-06-07 20:01] VITALS: RESP 18
[2017-06-07] MEDS ORDERED: Alum-Mag Hydrox-Simethicone Susp (30 mL) PO STA (21:38)
[2017-06-08 04:12] VITALS: BP 125/68; PULSE 99; O2SAT 94
--- NOTE | 2017-06-08 09:21 | RAD ---
HISTORY: shortness of breath COMPARISON: Portable chest 05/26/2017 TECHNIQUE: Chest PA and lateral FINDINGS: LUNGS: No acute infiltrate is appreciable. PLEURA: Extensive calcified pleural plaque is seen at the mid to superior right lungs pleura once again within triangular calcification appreciated at the mid left chest in pleura or parenchymal as well. No pneumothorax identified bilaterally. No pleural effusion evident at the left. Fibrotic changes blunt the right costophrenic sulcus. CARDIOVASCULAR: Normal. OSSEOUS STRUCTURES: No significant abnormalities. VISUALIZED UPPER ABDOMEN: Normal. OTHER FINDINGS: None. IMPRESSION: No definite interval acute cardiopulmonary disease. Calcified pleural plaques again seen greater the right than left chest with fibrotic changes blunting the right costophrenic sulcus once again.
--- NOTE | 2017-06-08 10:32 | CARD ---
APPROVED REPORT EKG Measurement Heart [id number] <Conclusion> Sinus tachycardia Mild diffuse ST elevations No change except the rate is faster
== END 2017-06-07 21:55 | disposition home or self-care (01) ==
LOC: ED 15:58
DX: J44.1 Chronic obstructive pulmonary disease with (acute) exacerbation (principal); E11.9 Type 2 diabetes mellitus without complications; I10 Essential (primary) hypertension
CPT/HCPCS: 71046; 80053; 81001; 82803; 83690; 83735; 84100; 85025; 87040; 87086; 87804; 93005; 96374; 99284; J2930

== ENCOUNTER 2017-09-25 14:03 | Emergency (ER) | payer MEDICARE, OTHER ==
[2017-09-25 14:05] VITALS: BMI 23.3
[2017-09-25 14:37] VITALS: RESP 19; O2SAT 95
[2017-09-25 15:56] LABS: BASO # 0.05 K/mm3 (0.0-2.0); BASO % 0.6 % (0.0-3.0); EOS # 0.1 (0.0-0.7); GRAN # 7.8 (1.4-6.5); GRAN % 86.3 % (50.0-68.0); HEMOGLOBIN 12.3 g/dL (12.0-16.0); LYMPH # 0.7 (1.2-3.4); LYMPH % 8.2 % (22.0-35.0); MEAN CELL VOLUME 92.9 fl (80.0-105.0); MEAN CORPUSCULAR HEMOGLOBIN 29.1 pg (25.0-35.0); MEAN CORPUSCULAR HGB CONC 31.3 g/dl (31.0-37.0); MEAN PLATELET VOLUME 10.6 fl (7.0-11.0); MONO # 0.4 (0.1-0.6); MONO % 3.9 % (1.0-6.0); RBC 4.23 10^6/uL (3.5-6.1); RED CELL DISTRIBUTION WIDTH 13.8 % (11.5-14.5)
[2017-09-25 16:05] LABS: ALB/GLOB RATIO 1.5 (1.1-1.8); ALBUMIN 3.9 g/dL (3.0-4.8); CALCIUM 9.6 mg/dL (8.4-10.5)
--- NOTE | 2017-09-25 16:33 | CT ---
PROCEDURE: CT HEAD WITHOUT CONTRAST. HISTORY: headache COMPARISON: 04/10/2014 TECHNIQUE: Axial computed tomography images were obtained through the head/brain without intravenous contrast. Radiation dose: Total exam DLP = 939 mGy-cm. This CT exam was performed using one or more of the following dose reduction techniques: Automated exposure control, adjustment of the mA and/or kV according to patient size, and/or use of iterative reconstruction technique. FINDINGS: HEMORRHAGE: No intracranial hemorrhage. BRAIN: No mass effect or edema. No atrophy or chronic microvascular ischemic changes. VENTRICLES: Unremarkable. No hydrocephalus. CALVARIUM: Unremarkable. PARANASAL SINUSES: Unremarkable as visualized. No significant inflammatory changes. MASTOID AIR CELLS: Unremarkable as visualized. No inflammatory changes. OTHER FINDINGS: None. IMPRESSION: No acute findings
--- NOTE | 2017-09-25 16:43 | ED PDOC ---
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 PCP: Dr Gold pt is right hand dominate Time/Duration: Other (1) left index finger discoloration x < 1 day; 2) diffuse headache x 2 weeks) Symptom Onset: Other Symptom Course: Unchanged Severity Level: Severe Activities at Onset: Rest Context: Home Past Medical History - Provider Review Nursing Documentation Reviewed: Yes - Travel History Have you recently traveled outside [place] w/in the past 3 mons?: No - Infectious Disease Hx of Infectious Diseases: None - Tetanus Immunization Tetanus Immunization: Unknown - Reproductive Menopause: Yes Currently : No - Cardiac Hx Cardiac Disorders: Yes Hx Hypertension: Yes - Pulmonary Hx Respiratory Disorders: Yes Hx Chronic Obstructive Pulmonary Disease (COPD): Yes - Neurological Hx Neurological Disorder: Yes HX Cerebrovascular Accident: Yes - HEENT Hx HEENT Disorder: No Other/Comment: WEARS RX GLASSES - Renal Hx Renal Failure: Yes - Endocrine/Metabolic Hx Endocrine Disorders: No - Hematological/Oncological Hx Blood Disorders: No Hx Sickle Cell Disease: No Hx Unexplained Bleeding: No - Integumentary Hx Dermatological Disorder: No - Musculoskeletal/Rheumatological Hx Musculoskeletal Disorders: Yes Hx Arthritis: Yes - Gastrointestinal Hx Gastrointestinal Disorders: Yes Hx Gastroesophageal Reflux: Yes - Genitourinary/Gynecological Hx Reproductive Disorders: Yes (left breast lumpectomy) - Psychiatric Hx Psychophysiologic Disorder: Yes Hx Anxiety: Yes Hx Substance Use: No - Past Surgical History Past Surgical History: No Previous - Surgical History Other/Comment: HX L BREAST BX/BENIGN - Anesthesia Hx Anesthesia: Yes Hx Anesthesia Reactions: No Hx Malignant Hyperthermia: No - Suicidal Assessment Feels Threatened In Home Enviroment: No Family/Social History - Physician Review Nursing Documentation Reviewed: Yes Family/Social History: No Known Family HX Smoking Status: Never Smoked Hx Alcohol Use: No Hx Substance Use: No Hx Substance Use Treatment: No Allergies/Home Meds Allergies/Adverse Reactions: Allergies levofloxacin [From Levaquin] Allergy (Severe, Verified 09/25/17 14:29) ANGIOEDEMA swelling , rash lactose Adverse Reaction (Verified 09/25/17 14:29) NAUSEA bloating diarrhea Home Medications: Home Meds Medication Instructions Recorded Confirmed Fluticasone/Salmeterol [Advair 1 inh INH BID 05/26/17 09/25/17 250-50 Diskus] Furosemide [Lasix] 20 mg PO TID 05/26/17 09/25/17 Methenamine Hippurate [Hiprex] 1 gm PO DAILY 05/26/17 09/25/17 Metoprolol Tartrate [Lopressor] 25 mg PO BID 05/26/17 09/25/17 Simvastatin [Zocor] 20 mg PO HS 05/26/17 09/25/17 Calcitonin ([place]) [Miacalcin] 200 intlu NS BID 05/27/17 09/25/17 Enalapril Maleate [Vasotec] 2.5 mg PO DAILY 06/07/17 09/25/17 Levocetirizine Dihydrochloride 5 mg PO DAILY 09/25/17 09/25/17 [Xyzal] Review of Systems - Review of Systems Constitutional: Normal Eyes: Normal ENT: Normal. absent: Rhinorrhea Respiratory: Cough. absent: SOB, Sputum, Wheezing Cardiovascular: Normal. absent: Chest Pain Gastrointestinal: Normal. absent: Abdominal Pain Genitourinary Female: Normal Musculoskeletal: Other (+ left index finger discoloration/NON-tender). absent: Arthralgias, Back Pain, Neck Pain, Joint Swelling Skin: Normal Neurological: Headache Endocrine: Normal Hemo/Lymphatic: Normal Psychiatric: Normal Physical Exam - Physical Exam Narrative Physical Exam (Text): 09/25/17 1505 General: alert/awake, GCS = 15, oriented x 3, resting in bed, uncomfortable, cooperative, interactive; NAD Head: NC/AT; mild bi-temporal wasting EYE: PERRLA, EOMI, sclera anicteric, no nystagmus, no photophobia; visual field intact b/l Facial: WNL Oral: uvula/tongue are midline, no exudate/lesions, no drooling/stridor, no dysphonia; intact dentitions; moist oral mucosa NECK: intact ROM, no midline tenderness, no nuchal rigidity, no meningeal signs ; no step off Chest: CTA b/l, no w/r/r; no tachypenia, no accessory muscle use noted Chest Wall: no focal tenderness, no gross deformities, no crepitus, no lesions/ rashes noted Cardiac: +S1, +S2, no m/r/r, no tachycardia Abdominal: +BS, soft/nd/nt, well nourished patient; no masses/rebound/guarding/ rigidity; no tran's sign, no mcburney's point tenderness Extremities: intact ROM, strength 5/5 grossly intact in all limbs, neurovasc intact b/l; + ambulatory; reflex +2/2; NOTED left index finger ecchymosis/ cyanotic appearing, NON-tender; NON-indurated, non-fluctuant BACK: no step off, no midline tenderness, NO crepitus, no gross deformities noted; Intact ROM SKIN: cap refill < 1 sec, no ulcerations, no petechiae, no rashes; as described above NEURO: CNII-XII WNL, no facial asymmetries, no slurr speech, oriented x 3 NIH stroke scale ~ 0 Psych: normal insight, normal affect; follows command with ease Vital Signs Reviewed: Yes Vital Signs Temp Pulse Resp BP Pulse Ox 09/25/17 17:29 98.4 F 64 19 128/70 95 09/25/17 14:31 98.6 F 65 19 133/71 95 09/25/17 14:05 98.6 F 65 19 133/71 95 Temperature: Afebrile Blood Pressure: Normal Pulse: Regular Respiratory Rate: Normal Appearance: Positive for: Well-Appearing, Non-Toxic, Uncomfortable Pain Distress: None Mental Status: Positive for: Alert and Oriented X 3 - Systems Exam Head: Present: Atraumatic, Normocephalic Medical Decision Making ED Course and Treatment: 09/25/17 1505 Impression: left index finger discoloration, 2 weeks of headache i have consider all the differential diagnosis regarding pt's chief medical complaints/clinical findings, including but are not limited to: left index finger discoloration, 2 weeks of headache A/P: left index finger discoloration; 2 weeks of headache - labs - iv - ct - supportive care - observe/reevaluation 1555 pt is comfortable appearing, NAD pt remained at mental status baseline NIH stroke scale ~ 0 pt is currently awaiting lab/ct head results 1600 - i spoke to Dr Gold, made aware of pt's Emergency department presentation /complaints and agrees with Emergency department mgt/txt, ? nifidpine for pt's possible Raynauds, otherwise will f/u with pt as outpt (tomorrow ~ 1 pm) if negative diagnostics/results 1635 pt is made aware of her medical results pt is made aware of my discussions with Dr Gold pt will f/u as directed pt will be discharged home Re-evaluation Time: 16:30 Reassessment Condition: Unchanged - Lab Interpretations Lab Results: 09/25/17 15:45 09/25/17 15:45 Lab Results 09/25/17 15:45: Sodium 140, Potassium 4.6, Chloride 98, Carbon Dioxide 32, Anion Gap 15, BUN 32 H, Creatinine 1.8 H, Est GFR ( Amer) 32, Est GFR ( Non-Af Amer) 27, Random Glucose 106, Calcium 9.6, Total Bilirubin 0.2, AST 27, ALT 29, Alkaline Phosphatase 45, NT-Pro-B Natriuret Pep 318, Total Protein 6.5, Albumin 3.9, Globulin 2.6, Albumin/Globulin Ratio 1.5, Lipase 273 09/25/17 15:45: WBC 9.0 D, RBC 4.23, Hgb 12.3, Hct 39.3, MCV 92.9, MCH 29.1, MCHC 31.3, RDW 13.8, Plt Count 214, MPV 10.6, Gran % 86.3 H, Lymph % (Auto) 8.2 L, [place] % (Auto) 3.9, Eos % (Auto) 1.0 L, Baso % (Auto) 0.6, Gran # 7.80 H, Lymph # (Auto) 0.7 L, [place] # (Auto) 0.4, Eos # (Auto) 0.1, Baso # (Auto) 0.05 I have reviewed the lab results: Yes Interpretation: Abnormal lab values (abnl BUN/creat (chronic)) - RAD Interpretation Narrative RAD Interpretations (Text): 09/25/17 16:59 PROCEDURE: CT HEAD WITHOUT CONTRAST. HISTORY: headache COMPARISON: 04/10/2014 TECHNIQUE: Axial computed tomography images were obtained through the head/brain without intravenous contrast. Radiation dose: Total exam DLP = 939 mGy-cm. This CT exam was performed using one or more of the following dose reduction techniques: Automated exposure control, adjustment of the mA and/or kV according to patient size, and/or use of iterative reconstruction technique. FINDINGS: HEMORRHAGE: No intracranial hemorrhage. BRAIN: No mass effect or edema. No atrophy or chronic microvascular ischemic changes. VENTRICLES: Unremarkable. No hydrocephalus. CALVARIUM: Unremarkable. PARANASAL SINUSES: Unremarkable as visualized. No significant inflammatory changes. MASTOID AIR CELLS: Unremarkable as visualized. No inflammatory changes. OTHER FINDINGS: None. IMPRESSION: No acute findings Radiology Orders: 09/25/17 15:02 HEAD W/O CONTRAST [CT] Stat Candy Decorator: Radiologist - Medication Orders Current Medication Orders: Discontinued Medications Ketorolac Tromethamine (Toradol) 30 mg IVP STAT STA Stop: 09/25/17 15:03 Last Admin: 09/25/17 15:29 Dose: 30 mg MAR Pain Assessment Document 09/25/17 15:29 SRE (Rec: 09/25/17 15:29 SRE [id number]) Pain Reassessment Is this a pain reassessment? No IVP Administration Document 09/25/17 15:29 SRE (Rec: 09/25/17 15:29 SRE [id number]) Charges for Administration # of IVP Administrations 1 Disposition/Present on Arrival - Present on Arrival Any Indicators Present on Arrival: No History of DVT/PE: No History of Uncontrolled Diabetes: No Urinary Catheter: No History of Decub. Ulcer: No History Surgical Site Infection Following: None - Disposition Have Diagnosis and Disposition been Completed?: Yes Diagnosis: Raynaud's phenomenon, Headache, General medical exam Disposition: HOME/ ROUTINE Disposition Time: 17:01 Patient Plan: Discharge Condition: STABLE Discharge Instructions (ExitCare): Raynaud Disease, Headache, Adult Print Language: [id number] Additional Instructions: Make sure to see your doctor in 1-[address] GOLD wants to see you in her office tomorrow at 1pm DRINK PLENTY OF FLUIDS take your medications as prescribed RETURN TO ED IF worse pain, finger pain/finger/hand coldness, no strength, cant breath, persistent vomiting, high fever >101-102 for hours, altered behavior, slurr speech, facial changes, focal weakness (arm/leg or both), unable to urinate, heavy/persistent bleeding, passing out, chest pain, or other medical emergencies Prescriptions: Ibuprofen [Motrin] 400 mg PO TID PRN #30 tab PRN Reason: Pain, Mild (1-3) Referrals: Marce Gold MD [Primary Care Provider] - Follow up with primary Forms: [employer] (Thai)
[2017-09-25 17:30] VITALS: BP 128/70; PULSE 64; TEMP 98.4
== END 2017-09-25 17:29 | disposition home or self-care (01) ==
LOC: ED 14:03
DX: I73.00 Raynaud's syndrome without gangrene (principal); R51 Headache; I10 Essential (primary) hypertension; Z86.73 Personal history of transient ischemic attack (TIA), and cerebral infarction without residual deficits
CPT/HCPCS: 70450; 80053; 83690; 83880; 85025; 96374; 99284; J1885

== ENCOUNTER 2017-11-09 12:23 | Observation (INO) | payer MEDICARE, OTHER ==
--- NOTE | 2017-11-09 12:52 | ED PDOC ---
Arrival/HPI - General Chief Complaint: Chest Pain Time Seen by Provider: 11/09/17 12:40 Historian: Patient - History of Present Illness Narrative History of Present Illness (Text): 11/09/17 12:53 A 87 year old female, whose past medical history includes CHF, COPD (on home O2) , ashtma, and diverticulitis, presents to the emergency department complaining of sharp chest pain for 3 days. Patient reports pain began on left-side chest, radiating to left shoulder. She states recently treated for sinusitis with Zotac , however still does not feel better and continues to experiencing head pressure. Patient denies any fever, cough, shortness of breath, diaphoresis, or any other complaints at this time. Also, patient mentions she called her ENT physician and has scheduled an appointment to see him 11/16/2017. Patient also mentions experiencing difficulty hearing due to "stinging noise". PMD: Dr. Gold Past Medical History - Provider Review Nursing Documentation Reviewed: Yes - Infectious Disease Hx of Infectious Diseases: None - Tetanus Immunization Tetanus Immunization: Unknown - Cardiac Hx Cardiac Disorders: Yes Hx Hypertension: Yes - Pulmonary Hx Respiratory Disorders: Yes Hx Chronic Obstructive Pulmonary Disease (COPD): Yes - Neurological Hx Neurological Disorder: Yes HX Cerebrovascular Accident: Yes - HEENT Hx HEENT Disorder: No Other/Comment: WEARS RX GLASSES - Renal Hx Renal Failure: Yes - Endocrine/Metabolic Hx Endocrine Disorders: No - Hematological/Oncological Hx Blood Disorders: No Hx Sickle Cell Disease: No Hx Unexplained Bleeding: No - Integumentary Hx Dermatological Disorder: No - Musculoskeletal/Rheumatological Hx Musculoskeletal Disorders: Yes Hx Arthritis: Yes - Gastrointestinal Hx Gastrointestinal Disorders: Yes Hx Gastroesophageal Reflux: Yes - Genitourinary/Gynecological Hx Reproductive Disorders: Yes (left breast lumpectomy) - Psychiatric Hx Psychophysiologic Disorder: Yes Hx Anxiety: Yes Hx Substance Use: No - Past Surgical History Past Surgical History: No Previous - Surgical History Other/Comment: HX L BREAST BX/BENIGN - Anesthesia Hx Anesthesia: Yes Hx Anesthesia Reactions: No Hx Malignant Hyperthermia: No - Suicidal Assessment Feels Threatened In Home Enviroment: No Family/Social History - Physician Review Nursing Documentation Reviewed: Yes Family/Social History: No Known Family HX Smoking Status: Never Smoked Hx Alcohol Use: No Hx Substance Use: No Hx Substance Use Treatment: No Allergies/Home Meds Allergies/Adverse Reactions: Allergies levofloxacin [From Levaquin] Allergy (Severe, Verified 11/09/17 16:22) ANGIOEDEMA swelling , rash lactose Adverse Reaction (Verified 11/09/17 16:22) NAUSEA bloating diarrhea Home Medications: Home Meds Medication Instructions Recorded Confirmed Fluticasone/Salmeterol [Advair 1 inh INH BID 05/26/17 11/09/17 250-50 Diskus] Furosemide [Lasix] 20 mg PO TID 05/26/17 11/09/17 Methenamine Hippurate [Hiprex] 1 gm PO DAILY 05/26/17 11/09/17 Metoprolol Tartrate [Lopressor] 25 mg PO BID 05/26/17 11/09/17 Simvastatin [Zocor] 20 mg PO HS 05/26/17 11/09/17 Calcitonin ([place]) [Miacalcin] 200 intlu NS BID 05/27/17 11/09/17 Levocetirizine Dihydrochloride 5 mg PO DAILY 09/25/17 11/09/17 [Xyzal] Review of Systems - Physician Review All systems were reviewed & negative as marked: Yes - Review of Systems Constitutional: absent: Fevers ENT: Hearing Changes (difficulty hearing due to "stinging noise") Respiratory: absent: SOB, Cough Cardiovascular: Chest Pain Neurological: Other (experiencing head pressure s/p sinusitis) Endocrine: absent: Diaphoresis Physical Exam Vital Signs Reviewed: Yes Vital Signs Temp Pulse Resp BP Pulse Ox 11/09/17 16:45 63 16 123/68 99 11/09/17 15:00 98.0 F 85 18 143/68 100 11/09/17 13:34 64 18 124/76 98 11/09/17 12:38 98.1 F 79 14 131/72 97 Temperature: Afebrile Blood Pressure: Normal Pulse: Regular Respiratory Rate: Normal Appearance: Positive for: Well-Appearing, Non-Toxic, Comfortable Pain Distress: None Mental Status: Positive for: Alert and Oriented X 3 - Systems Exam Head: Present: Atraumatic, Normocephalic Pupils: Present: PERRL Extroacular Muscles: Present: EOMI Conjunctiva: Present: Normal Ears: Present: Normal, NORMAL TM, Normal Canal. No: Erythema, TM Bulging, Fluid , TM Perf Mouth: Present: Moist Mucous Membranes Pharnyx: Present: Normal. No: ERYTHEMA, EXUDATE, TONSILS ENLARGED Neck: Present: Normal Range of Motion Respiratory/Chest: Present: Clear to Auscultation, Good Air Exchange. No: Respiratory Distress, Accessory Muscle Use Cardiovascular: Present: Regular Rate and Rhythm, Normal S1, S2. No: Murmurs Abdomen: No: Tenderness, Distention, Peritoneal Signs Back: Present: Normal Inspection Upper Extremity: Present: Normal Inspection. No: Cyanosis, Edema Lower Extremity: Present: Normal Inspection. No: Edema Neurological: Present: GCS=15, CN II-XII Intact, Speech Normal Skin: Present: Warm, Dry, Normal Color. No: Rashes Psychiatric: Present: Alert, Oriented x 3, Normal Insight, Normal Concentration Medical Decision Making ED Course and Treatment: 11/09/17 12:56 Impression: 87 year old female with chest pain. Physical examination is unremarkable. Differential Diagnoses: Chest pain rule out [place]. Plan: -- EKG -- Chest X-ray -- Labs -- Urinalysis -- Nasal Cannula O2 -- Reassess and disposition Prior Visits: Notes and results from previous visits were reviewed. Patient was last seen in the emergency department on 09/25/2017 for left index finger discoloration, cool to touch slightly and ecchymotic appearance, however no associated pain. Patient was discharged home with diagnosis of : Raynaud's phenomenon, headache. Progress Notes: EKG: Ordered, reviewed, and independently interpreted the EKG. Rate : 59 BPM Rhythm : Sinus bradycardia. Interpretation : No ST-segment elevations or depressions, no T-wave inversions, normal intervals. Comparison : No previous EKG for comparison. 11/09/2017 13:48 Chest X-ray IMPRESSION: No active disease. Dictator: Rodrick Kerr MD 11/09/17 15:[address] Gold, who agrees to accept patient under her service and requests to have patient admitted for telemetry observation. 11/09/17 15:28 Upon reevaluation, after explaining to patient about urinalysis results showing infection, patient mention she has also been experiencing dysuria as well. - Lab Interpretations Lab Results: 11/09/17 13:27 11/09/17 13:27 Lab Results 11/09/17 13:27: Sodium 140, Potassium 4.5, Chloride 99, Carbon Dioxide 29, Anion Gap 16, BUN 46 H, Creatinine 1.8 H, Est GFR ( Amer) 32, Est GFR ( Non-Af Amer) 27, Random Glucose 93, Calcium 10.0, Magnesium 2.1, Total Bilirubin 0.4, AST 42 H D, ALT 28, Alkaline Phosphatase 46, Lactate Dehydrogenase 502, Total Creatine Kinase 46, Troponin I < 0.01, Total Protein 7.0, Albumin 4.3, Globulin 2.8, Albumin/Globulin Ratio 1.5 11/09/17 13:27: WBC 10.2, RBC 4.27, Hgb 12.3, Hct 38.7, MCV 90.6, MCH 28.8, MCHC 31.8, RDW 14.7 H, Plt Count 206, MPV 10.7, Gran % 86.2 H, Lymph % (Auto) 6.0 L, Gage % (Auto) 6.1 H, Eos % (Auto) 1.2 L, Baso % (Auto) 0.5, Gran # 8.79 H , Lymph # (Auto) 0.6 L, Gage # (Auto) 0.6, Eos # (Auto) 0.1, Baso # (Auto) 0.05 11/09/17 13:12: Urine Color Yellow, Urine Appearance Sl cloudy, Urine pH 6.0, Ur Specific [place] <= 1.005, Urine Protein Negative, Urine Glucose (UA) Negative, Urine Ketones Negative, Urine Blood Negative, Urine Nitrate Negative, Urine Bilirubin Negative, Urine Urobilinogen 0.2, Ur Leukocyte Esterase Large H , Urine RBC 0 - 2, Urine WBC 5 - 10, Ur Epithelial Cells 3 - 4 I have reviewed the lab results: Yes - RAD Interpretation Radiology Orders: 11/09/17 12:52 CHEST PORTABLE [RAD] Stat - Medication Orders Current Medication Orders: Acetaminophen (Tylenol 325mg Tab) 650 mg PO Q6H PRN PRN Reason: pain or temp Arformoterol Tartrate (Brovana) 15 mcg [facility] [id number] [facility] Last Admin: 11/09/17 19:40 Dose: 15 mcg Aspirin (Ecotrin) 81 mg PO DAILY JEREMY Atorvastatin Calcium (Lipitor) 20 mg PO DIN [facility] Budesonide (Pulmicort Respules) 0.25 mg IH [id number] [facility] Last Admin: 11/09/17 19:40 Dose: 0.25 mg Famotidine (Pepcid) 20 mg PO HS JEREMY Lactulose (Enulose) 20 gm PO BID JEREMY Levalbuterol HCl (Xopenex) 0.63 mg IH [id number] PRN PRN Reason: Shortness of Breath Metoprolol Tartrate (Lopressor) 25 mg PO BID JEREMY Montelukast Sodium (Singulair) 10 mg PO HS JEREMY Ondansetron HCl (Zofran Inj) 4 mg IVP Q6H PRN PRN Reason: Nausea/Vomiting Prednisone (Prednisone Tab) 5 mg PO DAILY JEREMY Discontinued Medications Ceftriaxone Sodium (Rocephin 1 Gram Ivpb) 1 gm in 100 mls @ 200 mls/hr IVPB STAT STA PRN Reason: Protocol Stop: 11/09/17 15:40 Last Admin: 11/09/17 16:22 Dose: 200 mls/hr eMAR Start Stop Document 11/09/17 16:22 MS (Rec: 11/09/17 16:23 MS [id number]) Intravenous Solution Start Date 11/09/17 Start Time 16:23 End Date 11/09/17 End time 16:53 Total Infusion Time 30 Pneumococcal Polyvalent Vaccine (Pneumovax 23 Vaccine) 0.5 ml IM .ONCE ONE Stop: 11/09/17 19:34 - Scribe Statement The provider has reviewed the documentation as recorded by the Marcelle Olguin Provider Scribe Attestation: All medical record entries made by the Scribe were at my direction and personally dictated by me. I have reviewed the chart and agree that the record accurately reflects my personal performance of the history, physical exam, medical decision making, and the department course for this patient. I have also personally directed, reviewed, and agree with the discharge instructions and disposition. Disposition/Present on Arrival - Present on Arrival Any Indicators Present on Arrival: No History of DVT/PE: No History of Uncontrolled Diabetes: No Urinary Catheter: No History of Decub. Ulcer: No History Surgical Site Infection Following: None - Disposition Have Diagnosis and Disposition been Completed?: Yes Diagnosis: Chest pain, UTI (urinary tract infection) Disposition: HOSPITALIZED Disposition Time: 15:12 Patient Plan: Admission Condition: GOOD
[2017-11-09 13:32] LABS: URINE BILIRUBIN NEGATIVE (NEGATIVE); URINE BLOOD NEGATIVE (NEGATIVE); URINE GLUCOSE (UA) NEGATIVE (NEGATIVE); URINE LEUKOCYTE ESTERASE LARGE Leu/uL (NEGATIVE); URINE PROTEIN NEGATIVE mg/dL (<30 mg/dL); URINE UROBILINOGEN 0.2 E.U./dL (<1 E.U./dL)
[2017-11-09 13:36] LABS: URINE APPEARANCE SL CLOUDY (CLEAR); URINE COLOR YELLOW (YELLOW)
[2017-11-09 13:38] LABS: BASO # 0.05 K/mm3 (0.0-2.0); BASO % 0.5 % (0.0-3.0); EOS # 0.1 (0.0-0.7); EOS % 1.2 % (1.5-5.0); GRAN # 8.79 (1.4-6.5); GRAN % 86.2 % (50.0-68.0); HEMOGLOBIN 12.3 g/dL (12.0-16.0); LYMPH # 0.6 (1.2-3.4); MEAN CELL VOLUME 90.6 fl (80.0-105.0); MEAN CORPUSCULAR HEMOGLOBIN 28.8 pg (25.0-35.0); MEAN CORPUSCULAR HGB CONC 31.8 g/dl (31.0-37.0); MEAN PLATELET VOLUME 10.7 fl (7.0-11.0); MONO # 0.6 (0.1-0.6); MONO % 6.1 % (1.0-6.0); RBC 4.27 10^6/uL (3.5-6.1); RED CELL DISTRIBUTION WIDTH 14.7 % (11.5-14.5); WHITE BLOOD COUNT 10.2 10^3/ul (4.5-11.0)
[2017-11-09 13:39] LABS: ALB/GLOB RATIO 1.5 (1.1-1.8); ALBUMIN 4.3 g/dL (3.0-4.8); ALT/SGPT 28 U/L (7-56); AST/SGOT 42 U/L (14-36); BLOOD UREA NITROGEN 46 mg/dL (7-21); GFR AFRICAN-AMERICAN 32; GFR NON-AFRICAN AMERICAN 27
[2017-11-09 13:45] LABS: URINE RBC 0 - 2 /hpf (0-2)
--- NOTE | 2017-11-09 13:50 | RAD ---
Date of service: 11/09/2017 HISTORY: chest pain COMPARISON: 06/07/2017 FINDINGS: LUNGS: No active pulmonary disease. PLEURA: There is extensive pleural calcification on the right side. This is unchanged. There is no focal consolidation CARDIOVASCULAR: Normal. OSSEOUS STRUCTURES: No significant abnormalities. VISUALIZED UPPER ABDOMEN: Normal. OTHER FINDINGS: None. IMPRESSION: No active disease.
[2017-11-09 13:51] LABS: TROPONIN I < 0.01 ng/mL
[2017-11-09] MEDS ORDERED: cefTRIAXone 1 gm 1 GM/100 ML BAG IVPB STA (15:11)
--- NOTE | 2017-11-09 16:13 | CARD ---
APPROVED REPORT Date of service: 11/09/2017 EKG Measurement Heart [id number] <Conclusion> Sinus bradycardia Otherwise normal ECG
[2017-11-09] MEDS ORDERED: Levalbuterol 0.63 MG/3 ML Inhal Soln UD IH PRN (18:44)
[2017-11-09] MEDS ORDERED: Pneumococcal 23-Valent Vaccine IM ONE (19:33)
[2017-11-09 19:35] VITALS: BMI 24.5
[2017-11-09] MEDS: Budesonide 0.25 mg/2 ml Inhal Susp UD IH SCH (19:40)
[2017-11-09] MEDS: Arformoterol 15 mcg/2 ml Inh Sol IH SCH (19:40)
[2017-11-09 20:29] LABS: TROPONIN I < 0.01 ng/mL
[2017-11-10 03:18] LABS: TROPONIN I < 0.01 ng/mL
[2017-11-10 05:57] VITALS: RESP 18
[2017-11-10] MEDS: Budesonide 0.25 mg/2 ml Inhal Susp UD IH SCH ×2 (07:59→19:40)
[2017-11-10] MEDS: Arformoterol 15 mcg/2 ml Inh Sol IH SCH ×2 (08:03→19:40)
[2017-11-11] MEDS: Budesonide 0.25 mg/2 ml Inhal Susp UD IH SCH (07:57)
[2017-11-11] MEDS: Arformoterol 15 mcg/2 ml Inh Sol IH SCH (07:57)
[2017-11-11 12:34] VITALS: PULSE 64
[2017-11-11 17:59] VITALS: BP 136/78; TEMP 97.7; O2SAT 97
--- NOTE | 2017-11-11 19:56 | DS ---
DATE OF EXAM; 11/11/2017 FINAL DIAGNOSES: Atypical chest pain, chronic obstructive pulmonary disease, hyperlipidemia, hypertension, peptic ulcer disease with gastroesophageal reflux disease, chronic obstructive pulmonary disease, pulmonary fibrosis, asthmatic bronchitis, degenerative arthritis, history of osteoporosis, chronic renal failure stage III. DISPOSITION: Home. The patient will follow up with her substitute bus driver, Dr. Zackary Ramon on schedule. The patient will also follow up with Dr. Sawant, Ear, Nose, and Throat. DISCHARGE DIET: 2 g sodium, heart healthy bland. DISCHARGE MEDICATIONS: Duo nebulizer inhalational therapy every 6 hours at home, Ecotrin 81 mg p.o. daily, Pepcid 20 mg p.o. at bedtime, Advair 250/ 50 Diskus one puff b.i.d., Lasix 20 mg p.o. daily, Hiprex 1 g p.o. daily, Lopressor 25 mg p.o. b.i.d., Singulair 10 mg p.o. at bedtime, Zocor 20 mg p.o. at bedtime, and prednisone 5 mg p.o. daily. SUMMARY: This 87-year-old female presented to the [facility] complaining of chest discomfort radiating to her left shoulder and neck, and was admitted to the cardiac shepherd where she was ruled out for myocardial infarction with three negative CPK and troponin isoenzymes. The patient has chronic renal insufficiency stage III and also has a history of chronic obstructive pulmonary disease and pulmonary fibrosis. She did have a urine culture that was unremarkable and a consultation was placed with Dr. Sawant for complaints of sinusitis and ear fullness. Unfortunately, this could not be accomplished during her hospital stay and the patient was willing to be discharged and to follow up with Dr. Sawant in his office. At the time of discharge, her temperature was 97.7, respirations 18, pulse 64, and blood pressure 136/78 with a pulse ox of 97%. Discharge labs showed white count 10,200, hemoglobin 12.3, hematocrit 38.7, and platelets 206,000. Sodium of 140, K 4.5, chloride 99, bicarb 29. BUN 46, creatinine 1.8. Estimated GFR of 27 mL/minute. Bilirubin 0.4, AST 42, ALT 28, and alk phos 46. The patient discharged to home, will be monitored in my office as an outpatient, has been advised for any change in signs and symptoms to present directly to [facility] ER for further evaluation. Marce Gold MD MTDWilner
--- NOTE | 2017-11-12 00:33 | HP ---
DATE OF EXAM: 11/09/2017 SUBJECTIVE: This 87-year-old female was examined at her bedside on the cardiac shepherd at the [facility]. She had presented to the [facility] earlier today with a chief complaint of sharp chest discomfort on and off for the past 3 days. She told the emergency room physician it was left-sided chest discomfort that radiated to her left shoulder. She was also complaining of ear and sinus pressure and has a significant past medical history of stable atherosclerotic heart disease, chronic obstructive pulmonary disease, history of pulmonary fibrosis, hyperlipidemia, chronic hypertension, chronic renal failure, peptic ulcer disease with GERD, asthma, and degenerative arthritis. MEDICATIONS: Her outpatient medications include prednisone, Zocor, Singulair, Lopressor, Hiprex, Lasix, Advair Diskus, Pepcid, calcitonin nasal spray, Ecotrin and Duo nebulizer, albuterol. REVIEW OF SYSTEMS: CONSTITUTIONAL: The patient denied fever or chills. HEAD: Denied any history of seizure or stroke. EYES: No change in visual acuity. EARS: No hearing loss. THROAT: No swallowing difficulty. NECK: No stiffness. CARDIAC: As per HPI. PULMONARY: No hemoptysis. GI: No hematemesis. No melena. : Chronic urinary tract infections. VASCULAR: No claudication. PSYCHOLOGICAL: Chronic anxiety. NEUROLOGICAL: No seizure. No stroke. SKIN: No rash. No ulceration. FAMILY HISTORY: Noncontributory. 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 ALLERGIES: SHE HAS ALLERGIES TO LEVOFLOXACIN AND LACTULOSE. PHYSICAL EXAMINATION VITAL SIGNS: She was in a normal sinus rhythm on the turkey farmer at the time of her examination with a temperature of 98, respirations 18, pulse 85 and blood pressure 143/68 with a pulse ox of 100% on 2 liters nasal O2. HEENT: Head: Normocephalic, atraumatic. Eyes: No icterus. Ears: Clear. Throat: Noninjected. NECK: Supple. HEART: Regular S1 and S2. No pathological rubs, murmurs or gallops. LUNGS: Had occasional rhonchi that cleared with coughing. ABDOMEN: Soft. EXTREMITIES: No edema. SKIN: Without rash. NEUROLOGICAL: Intact. PSYCHOLOGICAL: Chronic anxiety. VASCULAR: Legs warm to touch. SKIN: No rash. LABORATORY DATA: White count 10,200, hemoglobin 12.3, hematocrit 38.7, platelets 206,000. Sodium 140, K 4.5, chloride 99, bicarb 29, BUN 46, creatinine 1.8, random blood sugar was 93, estimated GFR 27 mL per minute. Calcium 10, magnesium 2.1, bilirubin 0.4, AST 42, ALT 28, alkaline phosphatase 46. CPK normal at 46. Troponin #1 less than 0.01. Urinalysis showed large leukocyte esterase. Urine culture is pending. Chest x-ray was reviewed, it showed no active infiltrate, no effusion, no pneumothorax, chronic changes that were stable and consistent with chronic obstructive pulmonary disease as well as extensive pleural calcification unchanged at her right base. EKG was reviewed, it showed a normal sinus rhythm with a pulse rate of 59. IMPRESSION: An 87-year-old female with probable atypical chest pain rule out unstable angina, also with chronic obstructive pulmonary disease, pulmonary fibrosis, hyperlipidemia, chronic hypertension, chronic renal failure stage III, steroid-induced hyperglycemia, history of degenerative arthritis, osteoporosis, now with sinusitis. PLAN: Plan is to maintain this patient on the Cardiac Unit. Continuing Brovana inhalational therapy, Ecotrin, Enulose, Lipitor, Lopressor, Pepcid, prednisone 5 mg p.o. daily, Pulmicort inhalational therapy, Singulair, Xopenex and Zofran. I have placed a consultation with Dr. Sawant from Ear, Nose and Throat given her complaints of ear and sinus discomfort. Her Miacalcin nasal spray will be withheld at the present time and she will continue with cardiac isoenzymes for completeness sake. Greater than 60 minutes was spent in the care management, review of labs, orders, x-rays and discussion of her case with herself, nursing and emergency room physician. All questions were answered. Marce Gold MD MTDD
--- NOTE | 2017-11-12 08:15 | PN ---
DATE: 11/10/2017 SUBJECTIVE: This 87-year-old female was examined on the cardiac unit and this case was discussed with her nurse, Lauren Lemus, registered nurse. The patient remains hospitalized and is chest pain free. She denies any fever, chills, or shortness of breath. She is awaiting ear, nose, and throat evaluation by Dr. Sawant from Otolaryngology. PHYSICAL EXAMINATION: VITAL SIGNS: She is in a normal sinus rhythm. She has a temperature of 98.1, respirations 18, pulse 56, and blood pressure 131/61 with a pulse ox of 95%. HEENT: Head is normocephalic, atraumatic. Eyes: No icterus. Ears: Clear. Throat: Noninjected. NECK: Supple. HEART: Irregular S1 and S2. No pathological rubs, murmurs, or gallops. LUNGS: Occasional rhonchi that clear with coughing. ABDOMEN: Soft. EXTREMITIES: No edema. SKIN: Without rash. NEUROLOGICAL: Intact. PSYCHOLOGICAL: Highly anxious. VASCULAR: Legs warm to touch. LABORATORY DATA: White count 10,200, hemoglobin 12.3, hematocrit 38.7, and platelets 206,000. Sodium 140, K 4.5, chloride 99, bicarb 29. BUN 46, creatinine 1.8. Random blood sugar 93. CPK #1 of 46, CPK #2 of 40, and CPK #3 of 48 with all troponin x3 less than 0.01. IMPRESSION: This is an 87-year-old female admitted with atypical chest pain, complaining of sinusitis, also with history of chronic obstructive pulmonary disease, pulmonary fibrosis, stable atherosclerotic heart disease, chronic renal failure stage III, hyperlipidemia, chronic hypertension, peptic ulcer disease with gastroesophageal reflux disease, asthma, and degenerative arthritis and osteoporosis. While awaiting ear, nose, and throat evaluation, she will continue on Brovana, Ecotrin, Enulose, Lipitor, Lopressor, Pepcid, prednisone, Pulmicort inhalational therapy, Singulair, Tylenol, Xopenex, and Zofran. Once she is cleared by ear, nose, and throat, she will be readied for discharge to home and all of the above was discussed in detail with herself, Nursing, and her daughter, Ida Alves. All questions were answered. Marce Gold MD [facility] # [id number] [place]
== END 2017-11-11 17:45 | disposition home or self-care (01) ==
LOC: ED 12:23 → ERH 15:12 → 2RSO 17:00
PROVIDERS: ADMIT Internal Medicine; ATTEND Internal Medicine
DX: R07.89 Other chest pain (principal); I13.0 Hypertensive heart and chronic kidney disease with heart failure and stage 1 through stage 4 chronic kidney disease, or unspecified chronic kidney disease; I50.9 Heart failure, unspecified; N18.3 Chronic kidney disease, stage 3 (moderate); I25.10 Atherosclerotic heart disease of native coronary artery without angina pectoris; K27.9 Peptic ulcer, site unspecified, unspecified as acute or chronic, without hemorrhage or perforation; N39.0 Urinary tract infection, site not specified; J84.10 Pulmonary fibrosis, unspecified; J44.9 Chronic obstructive pulmonary disease, unspecified; K21.9 Gastro-esophageal reflux disease without esophagitis; M19.90 Unspecified osteoarthritis, unspecified site; M81.0 Age-related osteoporosis without current pathological fracture; E78.5 Hyperlipidemia, unspecified; Z99.81 Dependence on supplemental oxygen; Z86.73 Personal history of transient ischemic attack (TIA), and cerebral infarction without residual deficits
CPT/HCPCS: 36415; 71045; 80053; 81001; 82550; 82948; 83615; 83735; 84484; 85025; 87086; 93005; 94640; 94760; 96365; 99285; G0378; J0696

== ENCOUNTER 2018-01-24 12:51 | Observation (INO) | payer MEDICARE, OTHER ==
[2018-01-24 13:00] VITALS: BMI 24.3
[2018-01-24] MEDS ORDERED: Albuterol-Ipratrop 3 mg / 0.5 (3 ml) UD IH STA (13:11)
--- NOTE | 2018-01-24 13:53 | ED PDOC ---
Arrival/HPI - General Chief Complaint: Shortness Of Breath Time Seen by Provider: 01/24/18 13:08 Historian: Patient, Family (patient's daughter provided some information) - History of Present Illness Narrative History of Present Illness (Text): 01/24/18 13:08 87 y/o F w/ PMH pulmonary fibrosis, asthmatic bronchitis, COPD (on home O2), diverticulitis, CHF presenting to the emergency department complaining of trouble breathing more than usual since past few days. Patient states she has an unproductive cough. She reports using supplemental home oxygen at 3 L(increased to 4L outside the house); not increasing her requirements. She notes recent change in her pulmonary medication; Daliresp 500 MCG tabs, which she attributes to worsening her dyspnea. Patient reports some dizziness, constipation, decreased appetite, abdominal discomfort. She reports urinary urgency with decreased urinary stream and. Patient denies fever, chills, nausea, vomiting, or any other complaints. Daughter notes that patient's son recently . PCP: Dr. Gold Specialist: Dr. Morris(pulmonology) Time/Duration: Other (trouble breathing, more than usual, since past few days.) Symptom Onset: Sudden Symptom Course: Unchanged Activities at Onset: Light Past Medical History - Provider Review Nursing Documentation Reviewed: Yes - Infectious Disease Hx of Infectious Diseases: None - Tetanus Immunization Tetanus Immunization: Unknown - Cardiac Hx Cardiac Disorders: Yes Hx Hypertension: Yes - Pulmonary Hx Respiratory Disorders: Yes Hx Chronic Obstructive Pulmonary Disease (COPD): Yes - Neurological Hx Neurological Disorder: Yes HX Cerebrovascular Accident: Yes - HEENT Hx HEENT Disorder: No Other/Comment: WEARS RX GLASSES - Renal Hx Renal Disorder: Yes Hx Renal Failure: Yes - Endocrine/Metabolic Hx Endocrine Disorders: No - Hematological/Oncological Hx Blood Disorders: No - Integumentary Hx Dermatological Disorder: No - Musculoskeletal/Rheumatological Hx Musculoskeletal Disorders: Yes Hx Arthritis: Yes - Gastrointestinal Hx Gastrointestinal Disorders: Yes Hx Gastroesophageal Reflux: Yes - Genitourinary/Gynecological Hx Genitourinary Disorders: Yes Hx Reproductive Disorders: Yes (left breast lumpectomy) - Psychiatric Hx Psychophysiologic Disorder: Yes Hx Anxiety: Yes Hx Substance Use: No - Past Surgical History Past Surgical History: No Previous - Surgical History Other/Comment: HX L BREAST BX/BENIGN - Anesthesia Hx Anesthesia: Yes Hx Anesthesia Reactions: No Hx Malignant Hyperthermia: No - Suicidal Assessment Feels Threatened In Home Enviroment: No Family/Social History - Physician Review Nursing Documentation Reviewed: Yes Family/Social History: No Known Family HX Smoking Status: Never Smoked Hx Alcohol Use: No Hx Substance Use: No Hx Substance Use Treatment: No Allergies/Home Meds Allergies/Adverse Reactions: Allergies levofloxacin [From Levaquin] Allergy (Severe, Verified 01/24/18 18:14) ANGIOEDEMA swelling , rash lactose Adverse Reaction (Verified 01/24/18 18:14) NAUSEA bloating diarrhea Home Medications: Home Meds Medication Instructions Recorded Confirmed Furosemide [Lasix] 20 mg PO TID 05/26/17 01/24/18 Metoprolol Tartrate [Lopressor] 25 mg PO BID 05/26/17 01/24/18 Simvastatin [Zocor] 20 mg PO HS 05/26/17 01/24/18 Enalapril Maleate [Vasotec] 2.5 mg PO DAILY 01/24/18 01/24/18 Famotidine [Pepcid] 40 mg PO HS 01/24/18 01/24/18 Fluticasone/Umeclidin/Vilanter 1 puff NEB DAILY 01/24/18 01/24/18 [Trelegy Ellipta 100-62.5-25] Review of Systems - Physician Review All systems were reviewed & negative as marked: Yes - Review of Systems Constitutional: absent: Fevers, Night Sweats Respiratory: Cough (patient notes unproductive cough). absent: Normal Gastrointestinal: Constipation (pt notes constipation at times), Appetite Changes (pt notes loss of appetite), Other (pt notes slight abdominal discomfort). absent: Normal, Nausea, Vomiting Genitourinary Female: Frequency (pt notes feeling like bladder is full, but very little urination). absent: Normal Neurological: Dizziness (pt notes some dizziness). absent: Normal Physical Exam Vital Signs Reviewed: Yes Vital Signs Temp Pulse Resp BP Pulse Ox 01/24/18 13:00 97.9 F 62 19 101/59 L 100 Temperature: Afebrile Blood Pressure: Hypotensive (at 101/59) Pulse: Regular Respiratory Rate: Normal Appearance: Positive for: Well-Appearing, Non-Toxic Pain Distress: None Mental Status: Positive for: Alert and Oriented X 3 - Systems Exam Head: Present: Atraumatic, Normocephalic Pupils: Present: PERRL Extroacular Muscles: Present: EOMI Conjunctiva: Present: Normal Mouth: Present: Moist Mucous Membranes Neck: Present: Normal Range of Motion Respiratory/Chest: Present: Clear to Auscultation, Decreased Breath Sounds (diminish breath sounds bilaterally ), Other (crackles noted right lung apex). No: Respiratory Distress, Accessory Muscle Use Cardiovascular: Present: Regular Rate and Rhythm, Normal S1, S2. No: Murmurs Abdomen: No: Tenderness, Distention, Peritoneal Signs Back: Present: Normal Inspection Upper Extremity: Present: Normal Inspection, NORMAL PULSES (distal pulses intact). No: Cyanosis, Edema Lower Extremity: Present: Normal Inspection, NORMAL PULSES (distal pulses intact). No: Edema Neurological: Present: GCS=15, CN II-XII Intact, Speech Normal Skin: Present: Warm, Dry, Normal Color. No: Rashes Psychiatric: Present: Alert, Oriented x 3, Normal Insight, Normal Concentration Medical Decision Making ED Course and Treatment: 01/24/18 13:08 Impression: 87 year old female presents to the Emergency department for trouble breathing more than usual since past few days. Differential Diagnosis included but are not limited to: - COPD exacerbation - ACS -Bronchitis Plan: -- CT of chest w/o contrast -- Venous blood gas shock panel -- EKG -- Labs -- CBC (with differential) -- X-ray of chest -- Duoneb -- SOLU-Medrol -- Urinalysis -- Reassess and disposition Prior Visits: Notes and results from previous visits were reviewed. Patient was last seen in the emergency department on 11/09/17 for complaining of sharp chest pain for 3 days. Patient was hospitalized with diagnosis of chest pain and UTI. Progress Notes: 01/24/18 14:02 Dr. Helton(PCP) at the bedside evaluating patient. She would like to be informed if patient requires hospital admission. 01/24/18 15:27 Labs reviewed with no leukocytosis noted or electrolyte abnormalities. Patient reassessed and is still dyspneic. CT chest shows a chronic granuloma seen in R upper lobe of lung. Shared decision making with patient and family who desire to stay for admission. Call placed to Dr. Gold. - RAD Interpretation Narrative RAD Interpretations (Text): CT of chest reviewed by radiologist, shows: Dictator : Rodrick Nunez MD Report Date : 01/24/2018 14:40:28 FINDINGS: LUNGS: Extensive pleural calcification and parenchymal scarring is seen in the right lung. There is also volume loss. There is a large calcified granuloma in the left upper lobe and linear scarring in the left lung apex. These findings are unchanged. There are no acute findings MEDIASTINUM: Unremarkable thoracic aorta. No aneurysm. Normal sized heart. Main pulmonary artery unremarkable. No vascular congestion. No lymphadenopathy. PLEURA: No pleural fluid. No pneumothorax. BONES: No fracture. No destructive lesion. UPPER ABDOMEN: Grossly unremarkable. OTHER FINDINGS: None. IMPRESSION: Extensive pleural calcification and parenchymal scarring is seen in the right lung. There is also volume loss. There is a large calcified granuloma in the left upper lobe and linear scarring in the left lung apex. These findings are unchanged. There are no acute findings X-ray of chest reviewed by radiologist, shows: Dictator : Elva Avendaño MD Report Date : 01/24/2018 14:51:51 FINDINGS: LUNGS: The lungs are hyperinflated and there is peribronchial thickening with chronic changes in both lungs. No focal consolidation. There is low lung volume on the right. PLEURA: Extensive right pleural calcification. No significant pleural effusion identified, no pneumothorax apparent. CARDIOVASCULAR: Normal. OSSEOUS STRUCTURES: No significant abnormalities. VISUALIZED UPPER ABDOMEN: Normal. OTHER FINDINGS: None. IMPRESSION: No active pulmonary disease. COPD. Extensive right pleural calcification and low lung volume on the right. Radiology Orders: 01/24/18 13:10 CHEST PORTABLE [RAD] Stat 01/24/18 13:36 CHEST W/O CONTRAST [CT] Stat Skirt Trimmer: Radiologist - EKG Interpretation Interpreted by ED Physician: Yes Type: 12 lead EKG - Scribe Statement The provider has reviewed the documentation as recorded by the Marcelle Muñoz All medical record entries made by the Marcelle were at my direction and personally dictated by me. I have reviewed the chart and agree that the record accurately reflects my personal performance of the history, physical exam, medical decision making, and the department course for this patient. I have also personally directed, reviewed, and agree with the discharge instructions and disposition. Disposition/Present on Arrival - Present on Arrival Any Indicators Present on Arrival: No History of DVT/PE: No History of Uncontrolled Diabetes: No Urinary Catheter: No History of Decub. Ulcer: No History Surgical Site Infection Following: None - Disposition Have Diagnosis and Disposition been Completed?: Yes Diagnosis: Dyspnea Disposition: HOSPITALIZED Disposition Time: 15:25 Patient Plan: Observation Condition: GOOD
[2018-01-24 13:54] LABS: VENOUS BLOOD GAS BASE EXCESS 3.6 mmol/L (0.0-2.0); VENOUS BLOOD GAS PO2 38 mm/Hg (30-55); VENOUS BLOOD PH 7.31 (7.32-7.43)
[2018-01-24 14:00] LABS: BASO # 0.04 K/mm3 (0.0-2.0); BASO % 0.4 % (0.0-3.0); EOS # 0.1 (0.0-0.7); GRAN # 8.23 (1.4-6.5); GRAN % 87.2 % (50.0-68.0); LYMPH # 0.8 (1.2-3.4); LYMPH % 8.1 % (22.0-35.0); MEAN CELL VOLUME 94.5 fl (80.0-105.0); MEAN CORPUSCULAR HEMOGLOBIN 29.8 pg (25.0-35.0); MEAN CORPUSCULAR HGB CONC 31.5 g/dl (31.0-37.0); MEAN PLATELET VOLUME 10.4 fl (7.0-11.0); MONO # 0.3 (0.1-0.6); MONO % 3.3 % (1.0-6.0); RBC 4.03 10^6/uL (3.5-6.1); RED CELL DISTRIBUTION WIDTH 14.1 % (11.5-14.5); WHITE BLOOD COUNT 9.4 10^3/ul (4.5-11.0)
[2018-01-24 14:04] LABS: ALB/GLOB RATIO 1.4 (1.1-1.8); ALBUMIN 3.8 g/dL (3.0-4.8); ALT/SGPT 24 U/L (7-56); AST/SGOT 27 U/L (14-36); BLOOD UREA NITROGEN 47 mg/dL (7-21); GFR NON-AFRICAN AMERICAN 24
[2018-01-24 14:15] LABS: B-TYPE NATRIURETIC PEPTIDE 370 pg/mL (0-450); TROPONIN I < 0.01 ng/mL
[2018-01-24] MEDS ORDERED: Albuterol-Ipratrop 3 mg / 0.5 (3 ml) UD ONE (14:17)
--- NOTE | 2018-01-24 14:41 | CT ---
Date of service: 01/24/2018 PROCEDURE: CT Chest without contrast HISTORY: h/o pulm fibrosis and COPD w/ sob COMPARISON: 07/24/2017 TECHNIQUE: Contiguous axial images were obtained through the chest without intravenous contrast enhancement. Sagittal and coronal reconstructions were performed. Radiation dose (DLP): 270 mGy-cm. This CT exam was performed using one or more of the following dose reduction techniques: Automated exposure control, adjustment of the mA and/or kV according to patient size, and/or use of iterative reconstruction technique. FINDINGS: LUNGS: Extensive pleural calcification and parenchymal scarring is seen in the right lung. There is also volume loss. There is a large calcified granuloma in the left upper lobe and linear scarring in the left lung apex. These findings are unchanged. There are no acute findings MEDIASTINUM: Unremarkable thoracic aorta. No aneurysm. Normal sized heart. Main pulmonary artery unremarkable. No vascular congestion. No lymphadenopathy. PLEURA: No pleural fluid. No pneumothorax. BONES: No fracture. No destructive lesion. UPPER ABDOMEN: Grossly unremarkable. OTHER FINDINGS: None. IMPRESSION: Extensive pleural calcification and parenchymal scarring is seen in the right lung. There is also volume loss. There is a large calcified granuloma in the left upper lobe and linear scarring in the left lung apex. These findings are unchanged. There are no acute findings
--- NOTE | 2018-01-24 14:53 | RAD ---
Date of service: 01/24/2018 HISTORY: h/o COPD with sob COMPARISON: 11/09/2017. FINDINGS: LUNGS: The lungs are hyperinflated and there is peribronchial thickening with chronic changes in both lungs. No focal consolidation. There is low lung volume on the right. PLEURA: Extensive right pleural calcification. No significant pleural effusion identified, no pneumothorax apparent. CARDIOVASCULAR: Normal. OSSEOUS STRUCTURES: No significant abnormalities. VISUALIZED UPPER ABDOMEN: Normal. OTHER FINDINGS: None. IMPRESSION: No active pulmonary disease. COPD. Extensive right pleural calcification and low lung volume on the right.
--- NOTE | 2018-01-24 15:25 | CARD ---
APPROVED REPORT Date of service: 01/24/2018 EKG Measurement Heart [id number] <Conclusion> Normal sinus rhythm Low voltage QRS Borderline ECG
[2018-01-24] MEDS ORDERED: Albuterol 0.083% Inhal Sol (2.5 mg/3 mL) UD INH STA (15:32)
[2018-01-24] MEDS ORDERED: Influenza Vaccine 60 mcg/0.5 mL SYR (4YR UP) IM ONE (22:02)
[2018-01-24] MEDS ORDERED: Pneumococcal 23-Valent Vaccine IM ONE (22:02)
[2018-01-25 06:18] VITALS: BP 134/65; PULSE 80; RESP 19; TEMP 98; O2SAT 94
[2018-01-25] MEDS ORDERED: Levalbuterol 0.63 MG/3 ML Inhal Soln UD IH PRN (08:47)
[2018-01-25] MEDS ORDERED: Azithromycin 250 MG in Sodium Chloride 0.9% 250 ML IVPB SCH (10:00)
[2018-01-25] MEDS ORDERED: cefTRIAXone 1 gm 1 GM/100 ML BAG IVPB SCH (10:00)
[2018-01-25] MEDS ORDERED: MethylPREDNISolone 40 mg Vial IVP SCH (14:00)
--- NOTE | 2018-01-25 20:32 | HP ---
DATE OF EXAM: 01/24/2018 HISTORY OF PRESENT ILLNESS: This 87-year-old female was examined in the emergency room, bed 1 on the afternoon of , 01/24/2018. Her daughter, Paulette Arroyo was present for the interview and this case was reviewed in detail with emergency room physician, Abraham Irwin, medical doctor. This 87-year-old female presented to ER complaining of shortness of breath, cough, and congestion. Past medical history is significant for longstanding chronic obstructive pulmonary disease complicated by pulmonary fibrosis. The patient was attending the of her son yesterday afternoon when she became emotionally upset, more short of breath with cough and mucus congestion. Family encouraged her to present to ER yesterday; however, they could not get her to agree to present. The patient has home O2; however, this along with her nebulizer was not releaving her symptomatology and she came to the [facility] Emergency Room for further treatment of the above. In the emergency room, she was sitting on the cot wearing nasal O2 with shortness of breath at rest. The patient mentioned that within the past 10 days, her foil wrapper, Dr. Morris had adjusted her medication and started Daliresp 500 mg p.o. daily as well as a new inhaler which she states made her symptomatology feel worse. The new inhaler was named TRELEGY ELLIPTA 100/62.5/25. REVIEW OF SYSTEMS: CONSTITUTIONAL: The patient denied fever or chills. HEENT: Head review: No headache or seizure. Eyes review: No change in visual acuity. Ears review: No hearing loss. Throat review: No swallowing difficulty. NECK: No stiffness. CARDIAC: She has chronic hypertension and stable atherosclerotic heart disease. PULMONARY: Chronic pulmonary fibrosis and chronic obstructive pulmonary disease. GI: GERD. : Chronic renal failure stage III. VASCULAR: No claudication. PSYCHOLOGIC: Chronic anxiety. NEUROLOGIC: No knowledge of stroke. ENDOCRINOLOGIC: Steroid-induced type 2 diabetes mellitus. FAMILY HISTORY: Noncontributory. SOCIAL HISTORY: She is a nonsmoker, nondrinker, non IV drug misuser. 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 ALLERGIES: LEVOFLOXACIN AND LACTOSE. PHYSICAL EXAMINATION: At the time of my interview; GENERAL: The patient was alert, short of breath at rest. VITAL SIGNS: Temperature of 97.9, respirations 19, pulse 62, blood pressure 101/59, and pulse ox 100% on 3 L nasal O2. HEENT: Head: Normocephalic, atraumatic. Eyes: No icterus. Ears: Clear. Throat: Noninjected. NECK: Supple. HEART: Regular, S1 and S2. No pathological rubs, murmurs, or gallops. LUNGS: Rhonchi and wheezing throughout all her lung peralta. ABDOMEN: Soft. EXTREMITIES: No edema. SKIN: Without rash. NEUROLOGIC: Grossly intact. PSYCHOLOGIC: Alert and visibly anxious. VASCULAR: Legs warm to touch. LABORATORY DATA: White count 9400, hemoglobin 12, hematocrit 38.1, MCV 94.5, platelets 197,000. Blood gas; a pH of 7.31, pO2 of 38, pCO2 of 63 with a bicarb of 31 on 21% FiO2. Sodium 137, K 4.3, chloride 101, bicarb 31. BUN 47, creatinine 2. Estimated GFR 24 mL per minute. Sugar 104. Calcium 9, magnesium 2.2. Bilirubin 0.4, AST 27, ALT 24, alk phos 52. Troponin less than 0.01. Her EKG was reviewed. It showed normal sinus rhythm with nonspecific ST-T wave changes. Her chest x-ray was reviewed. It showed hyperinflated lungs bilaterally with peribronchial thickening and chronic COPD changes in both lungs. There was no obvious infiltrate. She has chronic extensive right pleural calcification. There was no pleural effusion noted. No pneumothorax. Her cardiac silhouette was normal in size and shape, and findings were consistent with COPD. Her chest CT was reviewed, this was done without IV contrast. It showed extensive pleural calcifications and parenchymal scarring in the right lung with volume loss of her right lung and a large calcified granuloma in her left upper lobe with linear scarring in the left apex. Findings are unchanged from previous and there were no acute findings noted. IMPRESSION: An 87-year-old female with acute on chronic obstructive pulmonary disease, now with shortness of breath and exacerbation, rule out bronchial pneumonia with comorbidities of acute on chronic renal insufficiency now stage IV, hyperlipidemia, hypertension, stable atherosclerotic heart disease, peptic ulcer disease with gastroesophageal reflux disease, degenerative arthritis, history of anxiety neurosis, and severe flu and pneumonia complications last year. PLAN: Admit this patient to the cardiac unit. A consultation with Dr. Neftali Morris from Pulmonary has been called. Given her adverse response to her recently started TRELEGY inhaler as well as Daliresp, they will be withheld and she will be prescribed Zithromax 250 mg IV daily, Pepcid 20 mg p.o. at bedtime, Rocephin 1 g IV every 24 hours, Solu-Medrol 40 mg IV every 8 hours, Xopenex inhalational therapy every 6 hours along with Lipitor 10 mg p.o. at bedtime, Singulair 10 mg p.o. at bedtime, Lopressor 25 mg p.o. b.i.d., and her Lasix from home will be withheld. Ecotrin will be administered 81 mg p.o. daily and based on her clinical response, additional diagnostic testing and workup will be entertained. I will prescribe Pulmicort and Brovana inhalational therapy while in hospital and discuss adjustment of her respiratory medications with Dr. Morris as requested by the patient and family. Greater than 75 minutes was spent in the care management, review of labs, orders, x-rays, and outlining of treatment plan and discussion of her care with emergency room physician, Dr. Abraham Irwin, medical physician as well as her daughter, Paulette Arroyo and the patient. All questions were answered. Marce Gold MD MTDWilner
--- NOTE | 2018-01-26 19:17 | DS ---
The patient left [facility] against medical advice on 01/25/2018. SUMMARY: This 87-year-old female who was presented to the [facility] ER on the afternoon of , 01/24/2018, was admitted to [facility] for exacerbation of chronic obstructive pulmonary disease. She left AMA with the assistance of her daughter, Ida Alves. At the time of discharge, a chest CT completed yesterday showed extensive pleural calcification and parenchymal scarring in the right lung with volume loss. A large calcified granuloma in the left upper lobe with linear scarring at the left lung apex was noted. The findings were unchanged and there were no acute findings noted. Her chest x-ray was reviewed. It was consistent with chronic obstructive pulmonary disease with peribronchial thickening and chronic changes in both lungs with no obvious new infiltrate or pneumonia and chronic lung volume loss on the right. Her pleura showed extensive pleural calcification with no pleural effusions, no pneumothorax, and no evidence of congestive heart failure. Her EKG was reviewed. It showed normal sinus rhythm with nonspecific ST-T wave changes. At the time the patient left [facility] against medical advice, her temperature was 98, respirations 19, pulse 80, and blood pressure 134/65 with a pulse ox of 94% on 2 L nasal O2. White count 9400, hemoglobin 12, hematocrit 38.1, and platelets 197,000. Sodium 137, K 4.3, chloride 101, bicarb 31. BUN 47, creatinine 2. Random blood sugar 104. All liver function testing was normal including bilirubin 0.4, AST 27, ALT 24, and alk phos 52. MEDICATIONS: At the time of discharge included Zocor 20 mg at bedtime, Singulair 10 mg p.o. at bedtime, Lopressor 25 mg b.i.d., Pepcid 40 mg p.o. at bedtime, prednisone 5 mg p.o. daily, Vasotec 2.5 mg p.o. daily, Ecotrin 81 mg p.o. daily and Duo nebulizer at home every 6 hours with 2 to 3 L nasal O2 at home p.r.n. The patient will need to discuss whether she should continue Daliresp and TRELEGY ELLIPTA inhaler as per Dr. Morris, her gluing machine adjuster and hopefully will follow up in my office as an outpatient as well. Once again, the patient left [facility] against medical advice on 01/25/2018, in the presence of her daughter, Ida Alves. Marce Gold MD
== END 2018-01-25 11:23 | disposition left against medical advice (07) ==
LOC: ED 12:51 → ERH 15:31 → 2RNO 18:13
PROVIDERS: ADMIT Internal Medicine; ATTEND Internal Medicine
DX: J44.1 Chronic obstructive pulmonary disease with (acute) exacerbation (principal); I10 Essential (primary) hypertension; I25.10 Atherosclerotic heart disease of native coronary artery without angina pectoris; K21.9 Gastro-esophageal reflux disease without esophagitis; E78.5 Hyperlipidemia, unspecified; J84.10 Pulmonary fibrosis, unspecified; Z99.81 Dependence on supplemental oxygen; Z86.73 Personal history of transient ischemic attack (TIA), and cerebral infarction without residual deficits
CPT/HCPCS: 71045; 71250; 80053; 82803; 83735; 83880; 84484; 85025; 93005; 94640; 96374; 99285; G0378; J2930

== ENCOUNTER 2018-01-31 16:35 | Inpatient (IN) | payer MEDICARE, OTHER ==
[2018-01-31 16:35] VITALS: BMI 24.3
[2018-01-31 18:02] LABS: VENOUS BLOOD GAS BASE EXCESS 6.5 mmol/L (0.0-2.0); VENOUS BLOOD GAS PO2 76 mm/Hg (30-55); VENOUS BLOOD PH 7.36 (7.32-7.43)
[2018-01-31 18:06] LABS: BASO # 0.04 K/mm3 (0.0-2.0); BASO % 0.4 % (0.0-3.0); EOS % 0.1 % (1.5-5.0); GRAN # 8.28 (1.4-6.5); GRAN % 90.9 % (50.0-68.0); LYMPH # 0.5 (1.2-3.4); MEAN CELL VOLUME 94.4 fl (80.0-105.0); MEAN CORPUSCULAR HEMOGLOBIN 30.4 pg (25.0-35.0); MEAN CORPUSCULAR HGB CONC 32.2 g/dl (31.0-37.0); MEAN PLATELET VOLUME 10.2 fl (7.0-11.0); MONO # 0.3 (0.1-0.6); MONO % 3.6 % (1.0-6.0); PLATELET COUNT 212 10^3/uL (120.0-450.0); RBC 3.95 10^6/uL (3.5-6.1); RED CELL DISTRIBUTION WIDTH 13.7 % (11.5-14.5); WHITE BLOOD COUNT 9.1 10^3/ul (4.5-11.0)
[2018-01-31 18:11] LABS: ALB/GLOB RATIO 1.4 (1.1-1.8); ALBUMIN 3.6 g/dL (3.0-4.8); ALT/SGPT 25 U/L (7-56); AST/SGOT 24 U/L (14-36); BLOOD UREA NITROGEN 39 mg/dL (7-21); CALCIUM 9.8 mg/dL (8.4-10.5); GFR NON-AFRICAN AMERICAN 19
[2018-01-31 18:22] LABS: B-TYPE NATRIURETIC PEPTIDE 423 pg/mL (0-450); TROPONIN I < 0.01 ng/mL
[2018-01-31 18:31] LABS: BAND 2 % (0-2); LYMPHOCYTE 4 % (22.0-35.0); METAMYELOCYTE 3 %; MONOCYTE 1 % (1.0-6.0); NEUTROPHIL 90 % (50.0-70.0)
[2018-01-31 18:32] LABS: PLATELET ESTIMATE NORMAL (NORMAL)
[2018-01-31 18:37] LABS: INR 0.95; PARTIAL THROMBOPLASTIN TIME 20.3 Seconds (25.1-36.5); PROTHROMBIN TIME 10.8 SECONDS (9.4-12.5)
--- NOTE | 2018-01-31 19:03 | ED PDOC ---
Arrival/HPI - History of Present Illness Narrative History of Present Illness (Text): 01/31/18 18:58 Pt is a 87 yo F with pmhx of CHF and pulmonary fibrosis who presents to the ED for chest tightness and SOB occuring for over 1 week. Pt states that this began over 1 week ago and she was recently admitted to [facility] where she was being treated. She then left AMA on Sunday (01/28) due to feeling disturbed while being in her room and negative results from CT and CXR. She returning and states that her symptoms are worsening since she left AMA. She states that she is having SOB with exertion which is normal for her, but she can now do less before she becomes SOB. She admits to being on 3L O2 at home. She denies fevers, body aches chest pain, palpitations, abd pain, vomiting, constipation, diarrhea, dysuria, hematuria but admits to chills, SOB, cough and nausea. Time/Duration: > week Symptom Onset: Gradual Symptom Course: Worsening <Myesha Kern - Last Filed: 01/31/18 20:07> <Abdoulaye Esteves - Last Filed: 02/07/18 06:39> - General Time Seen by Provider: 01/31/18 16:40 Past Medical History - Provider Review Nursing Documentation Reviewed: Yes - Infectious Disease Hx of Infectious Diseases: None - Tetanus Immunization Tetanus Immunization: Unknown - Reproductive Menopause: Yes - Cardiac Hx Cardiac Disorders: Yes Hx Hypertension: Yes - Pulmonary Hx Respiratory Disorders: Yes Hx Chronic Obstructive Pulmonary Disease (COPD): Yes - Neurological Hx Neurological Disorder: Yes HX Cerebrovascular Accident: Yes - HEENT Hx HEENT Disorder: No Other/Comment: WEARS RX GLASSES - Renal Hx Renal Disorder: Yes Hx Renal Failure: Yes - Endocrine/Metabolic Hx Endocrine Disorders: No - Hematological/Oncological Hx Blood Disorders: No - Integumentary Hx Dermatological Disorder: No - Musculoskeletal/Rheumatological Hx Musculoskeletal Disorders: Yes Hx Arthritis: Yes - Gastrointestinal Hx Gastrointestinal Disorders: Yes Hx Gastroesophageal Reflux: Yes - Genitourinary/Gynecological Hx Genitourinary Disorders: Yes Hx Reproductive Disorders: Yes (left breast lumpectomy) - Psychiatric Hx Psychophysiologic Disorder: Yes Hx Anxiety: Yes Hx Substance Use: No - Past Surgical History Past Surgical History: No Previous - Surgical History Other/Comment: HX L BREAST BX/BENIGN - Anesthesia Hx Anesthesia: Yes Hx Anesthesia Reactions: No Hx Malignant Hyperthermia: No - Suicidal Assessment Feels Threatened In Home Enviroment: No <Myesha Kern - Last Filed: 01/31/18 20:07> Family/Social History - Physician Review Nursing Documentation Reviewed: Yes Family/Social History: No Known Family HX Smoking Status: Never Smoked Hx Alcohol Use: No Hx Substance Use: No Hx Substance Use Treatment: No <Taniya Kernd - Last Filed: 01/31/18 20:07> Allergies/Home Meds <Taniya Kernd - Last Filed: 01/31/18 20:07> <Abdoulaye Esteves - Last Filed: 02/07/18 06:39> Allergies/Adverse Reactions: Allergies levofloxacin [From Levaquin] Allergy (Severe, Verified 02/04/18 17:44) ANGIOEDEMA swelling , rash lactose Adverse Reaction (Verified 02/04/18 17:44) NAUSEA bloating diarrhea Home Medications: Home Meds Medication Instructions Recorded Confirmed RX: Furosemide [Lasix] 20 mg PO TID 05/26/17 02/04/18 RX: Metoprolol Tartrate [Lopressor] 25 mg PO BID 05/26/17 02/04/18 RX: Simvastatin [Zocor] 20 mg PO HS 05/26/17 02/04/18 Fluticasone/Umeclidin/Vilanter 1 puff NEB DAILY 01/24/18 02/04/18 [Trelegy Ellipta 100-62.5-25] RX: Enalapril Maleate [Vasotec] 2.5 mg PO DAILY 01/24/18 02/04/18 RX: Famotidine [Pepcid] 40 mg PO HS 01/24/18 02/04/18 Review of Systems - Physician Review All systems were reviewed & negative as marked: Yes - Review of Systems Constitutional: absent: Fevers (but does admit to chills and denies body aches) Eyes: absent: Vision Changes, Photophobia Respiratory: SOB, Cough (dry). absent: Sputum, Wheezing Cardiovascular: absent: Chest Pain, Palpitations Gastrointestinal: Nausea. absent: Abdominal Pain, Constipation, Diarrhea, Vomiting Genitourinary Female: absent: Dysuria, Hematuria <Erlin,Brunner - Last Filed: 01/31/18 20:07> Physical Exam Vital Signs Reviewed: Yes Vital Signs Temp Pulse Resp BP Pulse Ox 01/31/18 17:10 99.1 F 82 20 117/74 88 L Temperature: Afebrile Blood Pressure: Normal Pulse: Regular Respiratory Rate: Normal Appearance: Positive for: Well-Appearing, Non-Toxic Pain Distress: Mild Mental Status: Positive for: Alert and Oriented X 3 - Systems Exam Head: Present: Atraumatic, Normocephalic Pupils: Present: PERRL Extroacular Muscles: Present: EOMI Respiratory/Chest: Present: Good Air Exchange. No: Clear to Auscultation (There is crackles present in the Right lower lung peralta), Respiratory Distress, Accessory Muscle Use, Wheezes, Rales, Rhonchi Cardiovascular: Present: Regular Rate and Rhythm, Normal S1, S2. No: Murmurs, Rub, Gallop Abdomen: Present: Normal Bowel Sounds. No: Tenderness, Distention, Peritoneal Signs, Rebound, Guarding Lower Extremity: Present: Normal Inspection, Neurovascularly Intact, Capillary Refill < 2 s. No: Edema, CALF TENDERNESS, Tenderness, Swelling Neurological: Present: GCS=15, Speech Normal, Motor Func Grossly Intact, Normal Sensory Function Skin: Present: Warm, Dry, Normal Color. No: Rashes Psychiatric: Present: Alert, Oriented x 3, Normal Insight, Normal Concentration, Normal Affect, Normal Mood <Myesha Kern - Last Filed: 01/31/18 20:07> Vital Signs Temp Pulse Resp BP Pulse Ox 01/31/18 19:06 98.3 F 70 20 126/68 88 L 01/31/18 17:10 99.1 F 82 20 117/74 88 L <Abdoulaye Esteves - Last Filed: 02/07/18 06:39> Medical Decision Making ED Course and Treatment: 01/31/18 19:17 Pt is an 87 yo F with past medical history detailed above who presents for chest tightness and shortness of breath. - Will do V/Q scan due to hx of CKD - Chest X-ray - EKG - CBC - CMP - BNP - Trops - VBG 01/31/18 19:21 - Lab Interpretations Lab Results: 01/31/18 17:55 01/31/18 17:55 Lab Results 01/31/18 17:55: Sodium 135, Chloride 98, Potassium 5.0, Carbon Dioxide 32, Anion Gap 10, BUN 39 H, Creatinine 2.4 H, Est GFR ( Amer) 23, Est GFR (Non-Af Amer) 19, Random Glucose 123 H, Calcium 9.8, Total Bilirubin 0.4, AST 24, ALT 25, Alkaline Phosphatase 47, Troponin I < 0.01, NT-Pro-B Natriuret Pep 423, Total Protein 6.2, Albumin 3.6, Globulin 2.6, Albumin/Globulin Ratio 1.4 01/31/18 17:55: pO2 76 H, VBG pH 7.36, VBG pCO2 60.0, VBG HCO3 33.9 H, VBG Total CO2 35.7 H, VBG O2 Sat (Calc) 98.2 H, VBG Base Excess 6.5 H, VBG Potassium 4.8, Sodium 135.0, Chloride 101.0, Glucose 126 H, Lactate 1.0, FiO2 21.0, Venous Blood Potassium 4.8 01/31/18 17:55: PT 10.8, INR 0.95, APTT 20.3 L 01/31/18 17:55: WBC 9.1, RBC 3.95, Hgb 12.0, Hct 37.3, MCV 94.4, MCH 30.4, MCHC 32.2, RDW 13.7, Plt Count 212, MPV 10.2, Gran % 90.9 H, Lymph % (Auto) 5.0 L, Tyler % (Auto) 3.6, Eos % (Auto) 0.1 L, Baso % (Auto) 0.4, Gran # 8.28 H, Lymph # (Auto) 0.5 L, Tyler # (Auto) 0.3, Eos # (Auto) 0.0, Baso # (Auto) 0.04, Neutrophils % (Manual) 90 H, Band Neutrophils % 2, Lymphocytes % (Manual) 4 L, Monocytes % (Manual) 1, Metamyelocytes % 3, Platelet Evaluation Normal - RAD Interpretation Radiology Orders: 01/31/18 17:20 CXR [CHEST TWO VIEWS (PA/LAT)] [RAD] Stat LUNG PERF & VENT SCAN [NM] Stat <Myesha Kern - Last Filed: 01/31/18 20:07> ED Course and Treatment: 01/31/18 19:10 87 year old female presents to the Emergency Department complaining of chest tightness and shortness of breath. In agreement with resident note. Patient was seen and evaluated with resident, came up with plan and treatment together. 01/31/18 19:[address] Chavez for continuation of care. 02/07/18 06:39 my signature on this chart is only to remove from my tracking status - Lab Interpretations Lab Results: 01/31/18 17:55 01/31/18 17:55 Lab Results 01/31/18 17:55: Sodium 135, Chloride 98, Potassium 5.0, Carbon Dioxide 32, Anion Gap 10, BUN 39 H, Creatinine 2.4 H, Est GFR ( Amer) 23, Est GFR (Non-Af Amer) 19, Random Glucose 123 H, Calcium 9.8, Total Bilirubin 0.4, AST 24, ALT 25, Alkaline Phosphatase 47, Troponin I < 0.01, NT-Pro-B Natriuret Pep 423, Total Protein 6.2, Albumin 3.6, Globulin 2.6, Albumin/Globulin Ratio 1.4 01/31/18 17:55: pO2 76 H, VBG pH 7.36, VBG pCO2 60.0, VBG HCO3 33.9 H, VBG Total CO2 35.7 H, VBG O2 Sat (Calc) 98.2 H, VBG Base Excess 6.5 H, VBG Potassium 4.8, Sodium 135.0, Chloride 101.0, Glucose 126 H, Lactate 1.0, FiO2 21.0, Venous Blood Potassium 4.8 01/31/18 17:55: PT 10.8, INR 0.95, APTT 20.3 L 01/31/18 17:55: WBC 9.1, RBC 3.95, Hgb 12.0, Hct 37.3, MCV 94.4, MCH 30.4, MCHC 32.2, RDW 13.7, Plt Count 212, MPV 10.2, Gran % 90.9 H, Lymph % (Auto) 5.0 L, Tyler % (Auto) 3.6, Eos % (Auto) 0.1 L, Baso % (Auto) 0.4, Gran # 8.28 H, Lymph # (Auto) 0.5 L, Tyler # (Auto) 0.3, Eos # (Auto) 0.0, Baso # (Auto) 0.04, Neutrophils % (Manual) 90 H, Band Neutrophils % 2, Lymphocytes % (Manual) 4 L, Monocytes % (Manual) 1, Metamyelocytes % 3, Platelet Evaluation Normal - RAD Interpretation Radiology Orders: 01/31/18 17:20 CXR [CHEST TWO VIEWS (PA/LAT)] [RAD] Stat LUNG PERF & VENT SCAN [NM] Stat <Abdoulaye Esteves - Last Filed: 02/07/18 06:39> - PA / PROFESSOR OF RHETORIC / Resident Statement MD/DO has reviewed & agrees with the documentation as recorded. MD/DO has examined the patient and agrees with the treatment plan. - Scribe Statement The provider has reviewed the documentation as recorded by the Scribe Demetria Escobar. All medical record entries made by the Deliciaibe were at my direction and personally dictated by me. I have reviewed the chart and agree that the record accurately reflects my personal performance of the history, physical exam, medical decision making, and the department course for this patient. I have also personally directed, reviewed, and agree with the discharge instructions and disposition. <Abdoulaye Esteves - Last Filed: 02/07/18 06:39> Disposition/Present on Arrival - Present on Arrival Any Indicators Present on Arrival: No History of DVT/PE: No History of Uncontrolled Diabetes: No Urinary Catheter: No History of Decub. Ulcer: No History Surgical Site Infection Following: None - Disposition Have Diagnosis and Disposition been Completed?: No Disposition Time: 21:15 <Myesha Kern - Last Filed: 01/31/18 20:07> <Abdoulaye Esteves - Last Filed: 02/07/18 06:39> - Disposition Diagnosis: SOB (shortness of breath) Disposition: HOSPITALIZED Condition: STABLE
[2018-01-31] MEDS ORDERED: Albuterol-Ipratrop 3 mg / 0.5 (3 ml) UD IH STA (21:30)
[2018-01-31] MEDS ORDERED: Enoxaparin 60 mg Syringe SC STA (21:30)
[2018-02-01] MEDS: Sodium Chloride 0.45% 1,000 ML IV SCH (08:22)
[2018-02-01] MEDS: Arformoterol 15 mcg/2 ml Inh Sol IH SCH ×2 (09:05→19:23)
[2018-02-01] MEDS: Budesonide 0.5 mg/2 ml Inhal Susp UD IH SCH ×2 (09:05→19:23)
[2018-02-01] MEDS: Levalbuterol 0.63 MG/3 ML Inhal Soln UD IH SCH ×3 (09:15→19:23)
--- NOTE | 2018-02-01 09:48 | RAD ---
Date of service: 01/31/2018 HISTORY: chf COMPARISON: Portable chest 01/24/2018. TECHNIQUE: Chest PA and lateral FINDINGS: LUNGS: Marked volume loss of the right lung is reiterated based on fibrotic changes at the right apex and gross right pleural fibrosis and pleural calcifications. Likely fibrotic blunting the right costophrenic sulcus is reiterated and is stable with differential diagnosis of chronic trace right pleural effusion, not favored. No left pleural effusion. Limited fibrotic changes are seen at the left apex. No definitive interval alveolitis or pleural effusion bilaterally. PLEURA: As above. CARDIOVASCULAR: Normal. OSSEOUS STRUCTURES: No significant abnormalities. VISUALIZED UPPER ABDOMEN: Normal. OTHER FINDINGS: None. IMPRESSION: Stable right sided and left apical fibrotic changes including gross partially calcified pleural plaque. No interval acute cardiopulmonary changes.
--- NOTE | 2018-02-01 10:05 | CARD ---
APPROVED REPORT Date of service: 01/31/2018 EKG Measurement Heart [id number] <Conclusion> Normal sinus rhythm Poor R Progression V1-V5.
[2018-02-01] MEDS: MethylPREDNISolone 40 mg Vial IV SCH ×3 (11:27→23:23)
[2018-02-01] MEDS: cefTRIAXone 1 gm 1 GM/100 ML BAG IVPB SCH (11:27)
--- NOTE | 2018-02-01 12:27 | NM ---
Date of service: 01/31/2018 COMPARISON: 01/24/2018 CT chest TECHNIQUE: 33.0 mCi technetium 99-m DTPA aerosol. 3.3 mCI technetium 99-m MAA administered intravenously. FINDINGS: VENTILATION COMPONENT: There is a ventilation and perfusion defect of the entire right lung. This is matched. The left lung shows normal ventilation and perfusion PERFUSION COMPONENT: As above IMPRESSION: Lowprobability ventilation perfusion scan for pulmonary embolism. There is a large matched ventilation and perfusion defect of the right lung
[2018-02-01] MEDS ORDERED: guaiFENesin 200 mg/10 ml Syrup UD PO STA (23:33)
[2018-02-02] MEDS: MethylPREDNISolone 40 mg Vial IV SCH ×3 (05:52→17:43)
[2018-02-02] MEDS: Sodium Chloride 0.45% 1,000 ML IV SCH ×2 (05:52→17:49)
--- NOTE | 2018-02-02 07:39 | CON ---
DATE: 02/01/2018 REFERRING PHYSICIAN: Dr. Gold. REASON FOR CONSULTATION: Pulmonary fibrosis, chronic lung disease. HISTORY OF PRESENT ILLNESS: This is an 87-year-old female with pulmonary fibrosis, chronic lung disease, carries diagnosis of heart failure, recently left the hospital against medical advice, was not feeling well, came back to emergency room with shortness of breath, cough. No nausea, no vomiting or diarrhea, no leg pain, or leg swelling. PAST MEDICAL HISTORY: Pulmonary fibrosis, hypertension, history of CVA, renal insufficiency, history of arthritis, GERD, history of left breast lumpectomy. FAMILY HISTORY: No significant cardiopulmonary disease reported. SOCIAL HISTORY: Does have a history of passive smoking, but never smoked herself. ALLERGIES: LEVAQUIN AND LACTULOSE. MEDICATIONS: She is on Brovana inhaled twice a day, Ecotrin 81 mg daily, Lipitor 10 mg daily, Metoprolol Tartrate 25 mg twice a day, Pepcid 20 mg daily, Pulmicort inhaled twice a day, Rocephin 1 g daily, IV fluid half-normal saline 60 mL/hour, Solu-Medrol 40 mg q.6 hours., Tylenol p.r.n., Xopenex inhaled q.8 hours, Zestril 2.5 mg daily, Zithromax 250 mg daily, Zofran on p.r.n. basis. REVIEW OF SYSTEMS: No headache, no rhinitis. Has cough, shortness of breath. No chest pain. No nausea, no vomiting, diarrhea, leg pain, or leg swelling. PHYSICAL EXAMINATION: GENERAL: Lying in the bed, no acute distress. VITAL SIGNS: Temp Is 98, heart rate 105, respiratory rate is 20, blood pressure 133/77, pulse ox is 97% on nasal cannula. HEENT: Moist mucous membranes. Crowded airway. NECK: Supple. No JVD. LUNGS: She has bilateral crackles, prolonged expiratory phase, few rhonchi. HEART: S1 and S2. ABDOMEN: Soft, nontender, no organomegaly. EXTREMITIES: No edema. NEUROLOGIC: Awake, alert, follows simple commands. LABORATORY DATA: Hemoglobin 12.0, hematocrit 37.3, WBC 9.1, platelet is 212. INR 0.95. PTT is 20. VBG showed pH 7.36, pCO2 of 60, O2 of 76. Sodium 135, potassium 4.0, chloride 98, bicarbonate 32, BUN 39, creatinine 2.4, glucose 123, calcium 9.8, AST 24, ALT 25, alk phos is 47. Troponin less than 0.01. Albumin is 3.6. Has a V/Q scan done in ER, which shows low probability ventilation-perfusion scan of pulmonary embolism, there is a large mechanical ventilation perfusion defect in the right lung. That is where she has old fibrosis. IMPRESSION AND PLAN: Chronic obstructive lung disease with pulmonary fibrosis, bronchiectasis, pleural plaque, has a granuloma, diabetes, hypertension, hyperlipidemia, peptic ulcer disease, gastroesophageal reflux disease, renal insufficiency. I agree with Dr. Gold with the present management. Reviewing her old x-ray, she had this issue with the right lung more than four to five years now, to some extent, this is a progressive disease. We will continue IV and inhaled bronchodilator, antibiotics, gastric prophylaxis, DVT prophylaxis, gastroesophageal reflux disease precaution. The patient recently placed on Trilogy which is a combination of steroids, long-acting beta agonist, and cholinergic agent, will restart when she leaves from the hospital. Thank you and we will follow with you. Neftali Morris MD
[2018-02-02] MEDS: Arformoterol 15 mcg/2 ml Inh Sol IH SCH ×2 (08:21→20:36)
[2018-02-02] MEDS: Budesonide 0.5 mg/2 ml Inhal Susp UD IH SCH ×2 (08:21→20:36)
[2018-02-02] MEDS: Levalbuterol 0.63 MG/3 ML Inhal Soln UD IH SCH ×3 (08:21→20:36)
[2018-02-02] MEDS: cefTRIAXone 1 gm 1 GM/100 ML BAG IVPB SCH (10:48)
[2018-02-02] MEDS: TraMADol/Apap 37.5/325 mg Tab PO PRN (15:39)
--- NOTE | 2018-02-02 22:51 | PN ---
DATE: 02/02/2018 PULMONARY PROGRESS NOTE REFERRING PHYSICIAN: Marce Gold MD REASON FOR CONSULTATION: Cough, shortness of breath. Subjectively, she is lying in the bed. Daughter at bedside. Feels little better, still has an on and off headache, facial discomfort, cough, shortness of breath. No nausea, no vomiting, no diarrhea. No leg pain or leg swelling. OBJECTIVE: GENERAL: In no acute distress. VITAL SIGNS: Temperature is 98, heart rate is 90, respiratory rate is 18, blood pressure 137/79, pulse ox 99% on nasal cannula. HEENT: Moist mucous membrane. Crowded airway. Has a maxillary area tenderness. LUNGS: Has a crackle, especially on the right lung with some rhonchi. HEART: S1 and S2. ABDOMEN: Soft, nontender. No organomegaly. EXTREMITIES: No edema. NEUROLOGIC: Awake, alert, follows simple command. MEDICATIONS: She is on Brovana inhaled twice a day, Ecotrin 81 mg daily, Lipitor 10 mg daily, metoprolol tartrate 25 mg twice a day, Pepcid 20 mg at bedtime, Pulmicort inhaled twice a day, Rocephin 1 g IV daily, IV fluid half-normal saline 60 mL/hour, Solu-Medrol 40 mg every 6 hours, Tylenol p.r.n. basis, Ultracet 37.5/325 one tablet every 6 hours p.r.n., Xopenex inhaled every 8 hours, Zestril 2.5 mg daily, Zithromax 250 mg daily, Zofran p.r.n. basis. LABORATORY DATA: Blood sugar this morning is 148. IMPRESSION AND PLAN: Chronic obstructive lung disease, pulmonary fibrosis, bronchiectasis, pleural plaques, history of lung granuloma, diabetes, hypertension, hyperlipidemia, peptic ulcer disease, gastroesophageal reflux disease, renal insufficiency, sinusitis. Spoke to the patient's daughter at bedside. All the questions answered. Continue IV and inhaled bronchodilator. We will add Singulair 10 mg at bedtime, Flonase 1 spray to each nostril twice a day, nasal saline 2 sprays each nostril every 3 hours. Continue supplemental oxygen, gastric prophylaxis, deep venous thrombosis prophylaxis. Follow up labs in the morning. Thank you and we will follow with you. Neftali Morris MD [facility] # [id number]
--- NOTE | 2018-02-02 23:14 | HP ---
DATE OF EXAM: 02/01/2018 HISTORY OF PRESENT ILLNESS: This 87-year-old female was examined at her bedside in the presence of her son, [place] on the afternoon of 02/01/2018. This case was reviewed in detail with nurse Fariha Arreguin, registered nurse. The patient was admitted to the [facility] on the evening of , 01/31/2018 with acute shortness of breath. It should be noted that this patient was hospitalized late last week and signed against medical advice and left the hospital with similar complaint of shortness of breath. The patient has a strong medical history of pulmonary fibrosis advanced chronic obstructive pulmonary disease, recurrent shortness of breath and the patient wears nasal O2 both when ambulating and at home. She has a nebulizer machine for which she takes dual nebulizer treatments at home and is under the Pulmonary followup of Dr. Neftali Morris, medical physician. The patient became acutely short of breath on the evening of , 02/01/2018 and was brought to the [facility] ER by her daughter. There she was evaluated by emergency room physician, Kishan Yost, and admitted for exacerbation of chronic obstructive pulmonary disease. For unclear reasons, he ordered a VQ scan which showed a ventilation and perfusion defects of the entire right lung which was mismatched with the left lungs showing normal ventilation and perfusion, although the impression was low probability of pulmonary embolus. It was reported that the patient did have a large mismatched ventilation perfusion defect of her right lung and for this doctor Priyank gave the patient a dose of Lovenox 60 mg subcu x1 dose. At present, the patient is awaiting Pulmonary consultation by Dr. Neftali Morris regarding this finding and further management of it. On further questioning of the patient, she denied any chest pain, fever, chills and states she has a nonproductive cough. It should be noted that this patient did have both influenza and pneumonia last year and has comorbidities of hyperlipidemia, chronic hypertension, stable atherosclerotic heart disease, stable congestive heart failure, chronic renal failure stage III, anemia of chronic disease, peptic ulcer disease with gastroesophageal reflux disease and degenerative arthritis as well as chronic anxiety neurosis. ALLERGIES: SHE HAS ALLERGIES TO LEVOFLOXACIN AND LACTOSE. SOCIAL HISTORY: She is a current nondrinker, nonsmoker, non IV drug misuser. FAMILY HISTORY: Noncontributory. REVIEW OF SYSTEMS: CONSTITUTIONAL: She denied fever or chills. HEENT: Head review, no headache or seizure. Eye review, no change in visual acuity. Ear review, no hearing loss. Throat review, no swallowing difficulty. NECK: No stiffness. CARDIAC: Denied chest pain or palpitation. PULMONARY: She admits to shortness of breath despite wearing nasal O2 at present. She admits to a nonproductive clear cough of sputum. GI: Chronic peptic ulcer disease with gastroesophageal reflux disease. : No dysuria. Chronic renal failure stage 3. SKIN: No rash. VASCULAR: No claudication. PSYCHOLOGICAL: Chronic anxiety. NEUROLOGIC: No knowledge of stroke. PHYSICAL EXAMINATION: VITAL SIGNS: Temperature was 97.8. patient monitor showed normal sinus rhythm with nonspecific ST-T wave changes. Her pulse was 116. Her respirations were 18. Her blood pressure was 131/77. HEENT: Head: Normocephalic, atraumatic. Eyes: No icterus. Ears: Clear. Throat: Noninjected. NECK: Supple. HEART: Regular S1, S2. No pathological rubs, murmurs or gallops. LUNGS: With rhonchi and wheezing that cleared with coughing. ABDOMEN: Soft. EXTREMITIES: No edema. SKIN: Without rash. NEUROLOGIC: Intact. PSYCHOLOGIC: Chronic anxiety. VASCULAR: Legs warm to touch. SKIN: No rash. LABORATORY DATA: White count 9100, hemoglobin 12, hematocrit 37.3, platelets 212,000. PT/INR 0.95, PTT 20.3. Her blood gas showed a pH of 7.36, a pO2 of 76, CO2 of 60 and a bicarb of 33.9 on room air. Sodium 135, K 5, chloride 98, bicarb 32, BUN 39, creatinine 2.4, random blood sugar 123, calcium 9.8. Bilirubin 0.4, AST 24, ALT 25, alk phos 47. Troponin less than 0.01. BNP 423. Chest x-ray was reviewed, it showed marked volume loss of her right lung consistent with fibrotic changes at the right apex and right pleural fibrosis and pleural calcification also with blunting of her right costophrenic sulcus which was stable and possibly consistent with a trace right pleural effusion. There was no left pleural effusion and the patient is noted to have stable right sided and left apical fibrotic changes with partially calcified pleural plaquing with no acute interval changes from her previous chest x-ray. EKG was reviewed, it shows normal sinus rhythm with nonspecific ST-T wave changes and VQ scan was reviewed, it shows low probability for pulmonary embolism. PLAN: At present is to continue Brovana inhalational therapy every 12, Ecotrin 81 mg p.o. daily, Lipitor 10 mg p.o. at dinner time, Lopressor 25 mg b.i.d., Pepcid 20 mg p.o. at bedtime, Pulmicort inhalational therapy every 12, Rocephin 1 g IV every 24, 0.45 saline at 60 mL/hour, Solu-Medrol 40 mg IV every 6, Tylenol 650 p.o. every 6, Xopenex inhalational therapy 0.63 mg inhalational three times a day, Zestril 2.5 mg p.o. daily, Zithromax 250 mg p.o. daily and Zofran 4 mg IV every 6 hours p.r.n. nausea and vomiting. She is awaiting a Pulmonary evaluation by Dr. Morris. No further Lovenox will be administered unless he recommends for it to be administered. She continues on a heart-healthy renal bland diet. She is ordered to have physical therapy for reconditioning and gait training. Based on her clinical progress, additional diagnostic testing and workup will be entertained. I will place a consultation for transitional care rehab for further management of her pulmonary toiletry and greater than 75 minutes was spent in the care management, review of labs, x-rays, orders and discussion of this case with nurse Arreguin, and the placement of orders for this patient today. All questions were answered at the bedside with her son present. Marce Gold MD MTDD
[2018-02-03] MEDS: MethylPREDNISolone 40 mg Vial IV SCH ×5 (00:23→23:42)
[2018-02-03 07:51] LABS: MEAN CELL VOLUME 93.2 fl (80.0-105.0); MEAN CORPUSCULAR HGB CONC 32.2 g/dl (31.0-37.0); MEAN PLATELET VOLUME 10.6 fl (7.0-11.0); RBC 3.67 10^6/uL (3.5-6.1); RED CELL DISTRIBUTION WIDTH 13.8 % (11.5-14.5); WHITE BLOOD COUNT 12.3 10^3/ul (4.5-11.0)
[2018-02-03 07:59] LABS: CALCIUM 8.7 mg/dL (8.4-10.5)
[2018-02-03] MEDS: Levalbuterol 0.63 MG/3 ML Inhal Soln UD IH SCH ×3 (08:20→20:11)
[2018-02-03] MEDS: Arformoterol 15 mcg/2 ml Inh Sol IH SCH ×2 (08:20→20:11)
[2018-02-03] MEDS: Budesonide 0.5 mg/2 ml Inhal Susp UD IH SCH ×2 (08:20→20:11)
[2018-02-03] MEDS: cefTRIAXone 1 gm 1 GM/100 ML BAG IVPB SCH (11:07)
[2018-02-03] MEDS: TraMADol/Apap 37.5/325 mg Tab PO PRN (12:33)
--- NOTE | 2018-02-03 13:18 | PN ---
DATE: 02/02/2018 SUBJECTIVE: This 88-year-old female was examined at her bedside on the cardiac shepherd on the afternoon of 02/02/2018. This was in the presence of her daughter, Valery. The patient is wearing nasal O2. She is less short of breath at rest. She denied any fever, chills, chest pain and feels less short of breath at rest. She was seen earlier by Dr. Neftali Morris, who concurred with current therapy including IV Solu-Medrol, IV Zithromax and IV Rocephin. She is in a normal sinus rhythm on the color television console monitor. PHYSICAL EXAMINATION VITAL SIGNS: Temperature 98, respirations 18, pulse 90 and blood pressure 137/79. HEENT: Head: Normocephalic, atraumatic. Eyes: No icterus. Ears: Clear. Throat: Noninjected. NECK: Supple. HEART: Regular S1, S2. LUNGS: With rhonchi and expiratory wheezing. ABDOMEN: Soft. EXTREMITIES: No edema. SKIN: Without rash. NEUROLOGIC: Intact. PSYCHOLOGIC: Alert. VASCULAR: Legs warm to touch. LABORATORY DATA: White count 9100, hemoglobin 12, hematocrit 37.3, platelets 212,000. PT/INR 0.95, PTT 20.3. Random blood sugar 121. Sodium 135, K 5, chloride 98, bicarb 32, BUN 39, creatinine 2.4. Estimated GFR 19 mL per minute. Calcium 9.8. Bilirubin 0.4, AST 24, ALT 25, alk phos 47. Troponin less than 0.01. Chest x-ray was reviewed, it shows a stable right sided and left apical fibrotic change of her lungs with partially calcified pleural plaquing, but no acute interval changes and no cardiopulmonary changes. No evidence of pneumonia or CHF. IMPRESSION: This is an 88-year-old female with advanced pulmonary fibrosis, exacerbation of chronic obstructive pulmonary disease and comorbidities of stable atherosclerotic heart disease, hyperlipidemia, chronic hypertension, peptic ulcer disease with gastroesophageal reflux disease, steroid-induced hyperglycemia, chronic renal failure stage III, degenerative arthritis and anxiety neurosis. As discussed with the patient and her daughter at bedside, she will continue on Brovana inhalational therapy, Pulmicort inhalational therapy, Ecotrin, subcu heparin, Lipitor, Lopressor, [place] nasal spray to both nostrils every 3 hour, Pepcid, Pulmicort inhalational, Rocephin, Singulair, 0.45 saline, IV Solu-Medrol, Tylenol and Ultracet p.r.n. pain or severe headache, Xopenex, Zestril, Zithromax and Zofran. The patient will be scheduled for repeat basic metabolic panel in the a.m. She will have physical therapy, request for transitional care rehab has been placed for reconditioning and further pulmonary toiletry and greater than 35 minutes was spent in the care management, outlining of orders and discussion of this patient with her nurse and family at bedside. All questions were answered. Marce Gold MD
--- NOTE | 2018-02-03 22:12 | PN ---
DATE: 02/03/2018 PULMONARY PROGRESS NOTE REFERRING PHYSICIAN: Marce Gold MD SUBJECTIVE: She is sitting at side of the bed. Family is at bedside. Feels better, decreased rhinitis and headache, also decreased shortness of breath. Still have a cough. No nausea, vomiting or diarrhea. No leg pain or leg swelling. OBJECTIVE: GENERAL: In no acute distress. VITAL SIGNS: Temperature is 98, heart rate 80, respiratory rate is 20, blood pressure 162/80 and pulse ox 97% on nasal cannula. HEENT: Moist mucous membrane. Crowded airway. NECK: Supple. No JVD. LUNGS: Have mostly crackles on the right lung with few rhonchi of the left lung. HEART: S1 and S2. ABDOMEN: Soft, nontender. No organomegaly. EXTREMITIES: No edema. NEUROLOGIC: Awake, alert and follows simple command. MEDICATIONS: She is on Brovana inhaled twice a day, Ecotrin 81 mg daily, heparin 5000 units subcu every 12 hours, Lasix 20 mg twice a day, Lipitor 10 mg daily, metoprolol tartrate 25 mg twice a day, getting nasal saline every 3 hours, Pepcid 20 mg daily, Pulmicort inhaled twice a day, Rocephin 1 g daily, Singulair 10 mg daily, Solu-Medrol 40 mg every 6 hours, Tylenol p.r.n., Ultracet 37/325 one tablet every 6 hours p.r.n., Xopenex inhaled every 8 hours, Zestril 250 mg daily, Zofran p.r.n. basis. LABORATORY DATA: Shows hemoglobin 11, hematocrit 34.2, WBC 12.3, platelet count is 215. Sodium 134, potassium 5, chloride 102, bicarbonate 27, BUN 40, creatinine 1.4, glucose 88, calcium is 8.7. IMPRESSION AND PLAN: Chronic obstructive lung disease, pulmonary fibrosis, bronchiectasis, pleural plaques, history of granuloma, diabetes, hypertension, hyperlipidemia, peptic ulcer disease, gastroesophageal reflux disease, renal insufficiency, has sinusitis. Spoke to family at bedside. All the questions answered. Continue IV and inhaled bronchodilator, nasal saline, nasal steroids, antihistamines, Leukotriene inhibitors. Continue supplemental oxygen. Gastric and deep venous thrombus prophylaxis. Thank you and we will follow with you. Neftali Morris MD [facility] # [id number]
[2018-02-03 22:49] VITALS: O2SAT 96
[2018-02-04] MEDS: MethylPREDNISolone 40 mg Vial IV SCH ×2 (05:23→11:05)
[2018-02-04] MEDS: Budesonide 0.5 mg/2 ml Inhal Susp UD IH SCH (07:55)
[2018-02-04] MEDS: Levalbuterol 0.63 MG/3 ML Inhal Soln UD IH SCH ×2 (07:55→14:26)
[2018-02-04] MEDS: Arformoterol 15 mcg/2 ml Inh Sol IH SCH (07:55)
[2018-02-04] MEDS: cefTRIAXone 1 gm 1 GM/100 ML BAG IVPB SCH (09:49)
[2018-02-04] MEDS: TraMADol/Apap 37.5/325 mg Tab PO PRN (09:50)
--- NOTE | 2018-02-04 11:23 | PN ---
DATE: 02/03/2018 SUBJECTIVE: This 88-year-old female was examined on the cardiac shepherd on the morning of 02/03/2018. Her son, Wiliam was present for the interview and this case was reviewed in detail with her nurse, Earnestine Estrada, registered nurse. The patient is wearing nasal O2, but is less short of breath at rest. She denied any fever, chills, chest pain or hemoptysis. PHYSICAL EXAMINATION: VITAL SIGNS: On physical exam, was in sinus rhythm with a temperature of 97.7, respirations 20, pulse 80 and blood pressure 168/88. Pulse ox 97% on 3 liters nasal O2. HEAD: Normocephalic, atraumatic. EYES: No icterus. EARS: Clear. THROAT: Noninjected. NECK: Supple. HEART: Regular S1, S2. No pathological rubs, murmurs or gallops. LUNGS: With rhonchi and expiratory wheezing that cleared with coughing. ABDOMEN: Soft. EXTREMITIES: No edema. SKIN: Without rash. NEUROLOGICAL: Intact. PSYCHOLOGICAL: Alert, chronic anxiety. VASCULAR: Legs warm to touch. LABORATORY DATA: White count 12,300, hemoglobin 11, hematocrit 34.2, platelets 215,000. PT/INR 0.95, PTT 20.3. Sodium 134, K 5, chloride 102, bicarb 27, BUN 40, creatinine 1.4. Estimated GFR 35 mL per minute. Random blood sugar 116, calcium 8.7. IMPRESSION: An 88-year-old female with exacerbation of chronic obstructive pulmonary disease in the setting of advanced pulmonary fibrosis, lung scarring, granuloma, calcified pleural plaques and advanced emphysema with comorbidities of [id number] renal insufficiency stage III, stable atherosclerotic heart disease, hyperlipidemia, chronic hypertension, sinusitis, peptic ulcer disease with gastroesophageal reflux disease, steroid-induced hyperglycemia, degenerative arthritis, anxiety neurosis, chronic hypertension. PLAN: Is to continue Brovana inhalational therapy every 12, Ecotrin, subcu heparin, Lasix IV, Lipitor, Lopressor, nasal spray with sodium chloride, Pepcid, Pulmicort inhalational therapy, IV Rocephin, oral Singulair, IV Solu-Medrol, Ultracet for severe headache, Tylenol p.r.n. pain or fever, inhalational Xopenex, Zestril, oral Zithromax and IV Zofran p.r.n. nausea and vomiting. She continues on a heart-healthy soft bland diet, is ordered to have physical therapy for reconditioning and gait training. Has requested for transitional care rehab for reconditioning, physical therapy, IV antibiotics and pulmonary toiletry as well as IV steroids. All of the above was discussed in detail with the patient and family at bedside. This case was referred with nurse, Sean and all questions were answered. Marce Gold MD [facility]TD[facility]
[2018-02-04 13:06] VITALS: BP 147/81; PULSE 68; RESP 97; TEMP 98.5
--- NOTE | 2018-02-04 23:36 | PN ---
DATE: 02/04/2018 PULMONARY PROGRESS NOTE REFERRING PHYSICIAN: Marce Gold MD SUBJECTIVE: Sitting up in the chair. Night was unremarkable, feels better. Decreased rhinitis, decreased cough, decreased shortness of breath. No nausea, no vomiting, or diarrhea. No leg pain or leg swelling. OBJECTIVE: GENERAL: In no acute distress. VITAL SIGNS: Temperature 98, heart rate 68, respiratory rate is 18, blood pressure 147/81, pulse ox 97% on nasal cannula. HEENT: Moist mucous membrane. Crowded airway. NECK: Supple. No JVD. LUNGS: Have a few crackles, scattered rhonchi, more crackles on the right side. HEART: S1 and S2. ABDOMEN: Soft, nontender. No organomegaly. EXTREMITIES: No edema. NEUROLOGIC: Awake, alert and follows simple command. MEDICATIONS: Reviewed and no new changes reported since yesterday. LABORATORY DATA: Reviewed. Blood sugar this morning 111. IMPRESSION AND PLAN: Sinusitis, chronic lung disease, pulmonary fibrosis, pleural plaque, history of granuloma, diabetes, hypertension, hyperlipidemia, peptic ulcer disease, gastroesophageal reflux disease, renal insufficiency. Pulmonary point of view, doing okay. Continue intravenous and inhaled bronchodilator. Gastric prophylaxis, deep vein thrombosis prophylaxis, antihistamines, Leukotriene inhibitors. Thank you and we will follow with you. Neftali Morris MD
--- NOTE | 2018-02-06 04:40 | DS ---
DATE OF EXAM; FEBRUARY 04, 2018. This 88-year-old female was examined at bedside and recommended for discharge to Transitional Care Unit on Sunday, February 04, 2018. FINAL DIAGNOSES: Include [id number] exacerbation of chronic obstructive pulmonary disease, advanced pulmonary fibrosis, chronic hypertension, stable atherosclerotic heart disease, hyperlipidemia, stable hypertension, peptic ulcer disease with gastroesophageal reflux disease, sinusitis, degenerative arthritis, chronic hypertension and anxiety neurosis. MEDICATIONS: At the time of discharge, her medications include Brovana and Pulmicort inhalational therapy, Ecotrin, subcu heparin, IV Lasix, Lipitor, Lopressor, [place] spray nasal spray to both nostrils, Pepcid, Pulmicort, IV Rocephin, Singulair, IV Solu-Medrol, Tylenol p.r.n., Ultracet, Xopenex, Zestril, Zithromax, and Zofran p.r.n. SUMMARY: This is an 88-year-old female who was admitted to the [facility] with acute shortness of breath despite wearing nasal O2 at rest at home, was found to have [id number] exacerbation of COPD in the setting of advanced pulmonary fibrosis. She was seen in consultation by Dr. Neftali Morris, and at the time of her discharge to Transitional Care had a temperature of 98.5, respirations 18, pulse 58, and blood pressure 161/76. Her discharge labs showed a white count of 12,300, hemoglobin 11, hematocrit 34.2, and platelets 215,000. PT/INR 0.95, PTT 20.3. Random blood sugar was 111. Sodium 134, K 5.0, chloride 102, bicarb 27, BUN 40, creatinine 1.4. Estimated GFR 35 mL per minute with a calcium level of 8.7. The plan is to place this patient in Transitional Care Rehab for reconditioning, gait training, parenteral antibiotics, IV Solu-Medrol and pulmonary toiletry. Based on her clinical progress, additional diagnostic workup will be entertained and all of the above was reviewed with the patient, family and nurse, Earnestine Estrada. All questions were answered. Marce Gold MD [facility] # [id number] MTDD
== END 2018-02-04 17:32 | DRG 191 ==
LOC: ED 16:35 → ERH 21:37 → 2RSO 02-01 03:00
PROVIDERS: ADMIT Internal Medicine; ATTEND Internal Medicine
PROC: 3E0F7GC Introduction of Other Therapeutic Substance into Respiratory Tract, Via Natural or Artificial Opening (ICD-10-PCS; principal; 2018-02-01)
DX: J44.1 Chronic obstructive pulmonary disease with (acute) exacerbation (principal); I13.0 Hypertensive heart and chronic kidney disease with heart failure and stage 1 through stage 4 chronic kidney disease, or unspecified chronic kidney disease; J84.10 Pulmonary fibrosis, unspecified; N18.3 Chronic kidney disease, stage 3 (moderate); I25.10 Atherosclerotic heart disease of native coronary artery without angina pectoris; I50.9 Heart failure, unspecified; K21.9 Gastro-esophageal reflux disease without esophagitis; Z99.81 Dependence on supplemental oxygen; F41.1 Generalized anxiety disorder; E78.5 Hyperlipidemia, unspecified; R73.9 Hyperglycemia, unspecified; T38.0X5A Adverse effect of glucocorticoids and synthetic analogues, initial encounter; D63.8 Anemia in other chronic diseases classified elsewhere; Z86.73 Personal history of transient ischemic attack (TIA), and cerebral infarction without residual deficits

== ENCOUNTER 2018-02-04 17:32 | Inpatient (IN) | payer OTHER ==
[2018-02-04] MEDS: MethylPREDNISolone 40 mg Vial IVP SCH (19:44)
[2018-02-04 20:13] VITALS: BMI 25.7
[2018-02-04] MEDS ORDERED: Influenza Vaccine 60 mcg/0.5 mL SYR (4YR UP) IM ONE (20:14)
[2018-02-04] MEDS ORDERED: Pneumococcal 23-Valent Vaccine IM ONE (20:14)
[2018-02-04] MEDS: Arformoterol 15 mcg/2 ml Inh Sol IH SCH (20:55)
[2018-02-04] MEDS: Budesonide 0.5 mg/2 ml Inhal Susp UD IH SCH (20:55)
[2018-02-05] MEDS: cefTRIAXone 1 gm 1 GM/100 ML BAG IVPB SCH (05:03)
[2018-02-05] MEDS: MethylPREDNISolone 40 mg Vial IVP SCH ×4 (05:03→17:45)
[2018-02-05] MEDS: Budesonide 0.5 mg/2 ml Inhal Susp UD IH SCH (07:15)
[2018-02-05] MEDS: Levalbuterol 0.63 MG/3 ML Inhal Soln UD IH SCH ×3 (07:15→19:40)
[2018-02-05] MEDS: Arformoterol 15 mcg/2 ml Inh Sol IH SCH ×2 (07:15→19:40)
[2018-02-06] MEDS: MethylPREDNISolone 40 mg Vial IVP SCH ×4 (00:23→21:49)
[2018-02-06] MEDS: cefTRIAXone 1 gm 1 GM/100 ML BAG IVPB SCH (05:09)
[2018-02-06] MEDS: Levalbuterol 0.63 MG/3 ML Inhal Soln UD IH SCH ×3 (07:20→21:10)
[2018-02-06] MEDS: Arformoterol 15 mcg/2 ml Inh Sol IH SCH ×2 (07:20→21:09)
[2018-02-06] MEDS: Budesonide 0.5 mg/2 ml Inhal Susp UD IH SCH ×2 (07:20→21:11)
--- NOTE | 2018-02-06 11:13 | CON ---
DATE: 02/05/2018 REFERRING PHYSICIAN: Dr. Gold. REASON FOR CONSULTATION: Chronic lung disease, sinusitis, chronic obstructive lung disease. HISTORY OF PRESENT ILLNESS: This is an 88-year-old female, known to me from office and previous admissions, has a pulmonary fibrosis diagnosed many years ago. Also has a chronic lung disease, heart failure, renal insufficiency. Admitted to acute side of the hospital with cough, shortness of breath, found to have sinusitis, postnasal drip, and exacerbation of chronic lung disease, treated with antibiotics, steroids, slowly improving, presently transferred to TICU for continued care, presently sitting on side of the bed, seems better, done well in therapy today. Decreased cough, shortness of breath. No nausea, no vomiting, no diarrhea. PAST MEDICAL HISTORY: As per history of present illness. Also has a history of stroke in the past, GERD, arthritis, history of breast lumpectomy. SOCIAL HISTORY: History of passive smoking. Denied any alcohol use. FAMILY HISTORY: No significant cardiopulmonary disease reported. ALLERGIES: LACTULOSE AND LEVAQUIN. MEDICATIONS: She is on Brovana inhaled twice a day, Ecotrin 81 mg daily, heparin 5000 units subcu q.12 hourly, Lasix 20 mg twice a day, Lipitor 10 mg daily, metoprolol tartrate 25 mg twice a day, Pepcid 20 mg at bedtime, Pulmicort inhaled twice a day, Rocephin 1 g IV daily, Singulair 10 mg daily, Solu-Medrol 40 mg every 6 hours, Tylenol p.r.n., Ultracet 37.5/325 one tablet every 6 hours p.r.n., Xopenex inhaled every 8 hours, Zestril 2.5 mg daily, Zithromax 250 mg daily, Zofran p.r.n. basis. LABORATORY DATA: No new lab is available since yesterday. IMPRESSION AND PLAN: Sinusitis, chronic obstructive lung disease, history of pulmonary fibrosis, pleural plaques, history of granuloma, diabetes, hypertension, hyperlipidemia, peptic ulcer disease, gastroesophageal reflux disease, renal insufficiency, clinically doing better. We will decrease Solu-Medrol to 40 every 8 hours. Continue antibiotics, inhaled bronchodilators, gastric prophylaxis, deep venous thrombosis prophylaxis. Continue therapy. Thank you, and we will follow with you. Neftali Morris MD [facility] # [id number]
--- NOTE | 2018-02-06 17:27 | PN ---
DATE: 02/06/2018 PULMONARY PROGRESS NOTE REFERRING PHYSICIAN: Marce Gold MD. SUBJECTIVE: She is sitting on side of the head, has nasal cannula oxygen. Done well in therapy. Feels better. Still has some rhinitis, postnasal drip and shortness of breath, but much improved. No nausea, vomiting, diarrhea, leg pain, leg swelling. OBJECTIVE: GENERAL: In no acute distress. VITAL SIGNS: Temperature is 98, heart rate is 80, respiratory rate is 18, blood pressure 164/90, pulse ox 94% on nasal cannula. HEENT: Moist mucous membrane. Still has the maxillary area mild tenderness. NECK: Supple. No JVD. LUNGS: Have crackles on the right lung base. HEART: S1 and S2. ABDOMEN: Soft, nontender. No organomegaly. EXTREMITIES: No edema. NEUROLOGICAL: Awake and alert. Follows simple command. MEDICATIONS: She is on Brovana inhaled twice a day, Ecotrin 81 mg daily, heparin 5000 units subcu every 12 hours, Lasix 20 mg twice a day, Lipitor 10 mg daily, metoprolol tartrate 25 mg daily, nasal saline every 3 hours, Pepcid is at 20 mg daily, Pulmicort inhaled twice a day, Rocephin 1 g IV daily, Singulair 10 mg daily, Solu-Medrol 40 mg every 8 hours, Tylenol p.r.n. basis, Ultracet 37.5/325 one tab every 6 hours p.r.n., Xopenex inhaled every 8 hours, Zestril 2.5 mg daily, Zithromax 250 mg daily. LABORATORY DATA: Reviewed. No new lab is available. IMPRESSION AND PLAN: Sinusitis with chronic obstructive lung disease, history of pulmonary fibrosis, pleural plaque, history of granuloma, diabetes, hypertension, hyperlipidemia, peptic ulcer disease, gastroesophageal reflux disease, renal insufficiency. Pulmonary point of view, she is slowly improving. Continue p.o. and inhaled bronchodilator. Gastric prophylaxis, deep venous thrombosis prophylaxis. Fall precaution. We will recommend pulmonary function test and sleep study upon discharge as outpatient. Thank you and we will follow with you. Neftali Morris MD [facility] # [id number]
[2018-02-07] MEDS: cefTRIAXone 1 gm 1 GM/100 ML BAG IVPB SCH (05:22)
[2018-02-07] MEDS: MethylPREDNISolone 40 mg Vial IVP SCH ×3 (05:22→21:59)
[2018-02-07 06:07] LABS: HEMOGLOBIN 11.9 g/dL (12.0-16.0); MEAN CELL VOLUME 93.5 fl (80.0-105.0); MEAN CORPUSCULAR HEMOGLOBIN 29.7 pg (25.0-35.0); MEAN CORPUSCULAR HGB CONC 31.7 g/dl (31.0-37.0); RBC 4.01 10^6/uL (3.5-6.1); RED CELL DISTRIBUTION WIDTH 13.8 % (11.5-14.5); WHITE BLOOD COUNT 10.5 10^3/ul (4.5-11.0)
--- NOTE | 2018-02-07 06:12 | PN ---
DATE: 02/06/2018 SUBJECTIVE: This 88-year-old female was examined at bedside in the presence of her daughter, Paulette Arroyo and physical therapist, Chris Eller. The patient remains short of breath at rest but is wearing nasal O2. She denied any fever, chills, chest pain but does complain of persistent shortness of breath. She remains highly anxious but is cooperative with nursing and physical therapy and repeatedly asks when can she go home. PHYSICAL EXAMINATION: VITAL SIGNS: Her temperature is 97.1, respirations 18, pulse 80 and blood pressure 164/90 with a pulse ox of 94% on 2 liters nasal O2. HEAD: Normocephalic, atraumatic. EYES: No icterus. EARS: Clear. THROAT: Noninjected. NECK: Supple. HEART: Was regular S1, S2. LUNGS: Had occasional rhonchi and wheezing that cleared with coughing. ABDOMEN: Soft. EXTREMITIES: No edema. SKIN: Without rash. NEUROLOGICAL: Deconditioned. VASCULAR: Legs warm to touch. PSYCHOLOGICAL: Chronic anxiety. LABORATORY DATA: Her random blood sugar remains normal at 92. IMPRESSION: An 88-year-old female with deconditioning and comorbidities of acute exacerbation of chronic obstructive pulmonary disease as well as advanced pulmonary fibrosis, stable atherosclerotic heart disease, chronic hypertension, hyperlipidemia, sinusitis chronic, peptic ulcer disease with gastroesophageal reflux disease, degenerative arthritis, anxiety neurosis. PLAN: My plans at present are to continue Brovana inhalational therapy, Ecotrin, subcu heparin, IV Lasix, oral Lipitor, p.o. Lopressor, [place] nasal spray, oral Pepcid, inhalational Pulmicort, IV Rocephin, oral Singulair, IV Solu-Medrol taper, Ultracet for severe degenerative arthritic pain, inhalational Xopenex, Zestril oral, Zithromax and IV Zofran p.r.n. nausea and vomiting. The patient continues on a heart-healthy renal diet, physical and occupational therapy daily, pulmonary toiletry and ultimate plan will be for discharge to home when medically stable. Greater than 35 minutes was spent in the care management, adjustment of medication and discussion of her case with daughter, Paulette Arroyo, Physical Therapy and Nursing as well as this patient. All questions were answered. Marce Gold MD
[2018-02-07 06:55] LABS: CALCIUM 9.4 mg/dL (8.4-10.5)
[2018-02-07] MEDS: Levalbuterol 0.63 MG/3 ML Inhal Soln UD IH SCH ×3 (07:22→19:18)
[2018-02-07] MEDS: Arformoterol 15 mcg/2 ml Inh Sol IH SCH ×2 (07:22→19:18)
--- NOTE | 2018-02-07 08:15 | PN ---
DATE: 02/06/2018 SUBJECTIVE: This 88-year-old female was examined in the physical therapy unit in the presence of her daughter, Paulette Arroyo on the morning of 02/06/2018. Present for this interview with her physical therapist, Chris Eller. The patient remains weak and deconditioned. She remains chronically anxious. She was wearing nasal O2 at the time of this interview, but complained of shortness of breath with exertion. There were no reports of fever, chills, chest pain or shortness of breath. PHYSICAL EXAMINATION: VITAL SIGNS: Her temperature was 97.1, respirations 18, pulse 80 and blood pressure 164/90 with a pulse ox of 94% on 2 liters nasal O2. HEENT: Head: Normocephalic, atraumatic. Eyes: No icterus. Ears: Clear. Throat: Noninjected. NECK: Supple. HEART: Regular S1, S2. LUNGS: Have rhonchi bilaterally that improve with coughing. ABDOMEN: Soft. EXTREMITIES: No edema. SKIN: No rash. VASCULAR: Legs warm to touch. PSYCHOLOGIC: Chronically anxious. NEUROLOGIC: Deconditioned. IMPRESSION: This is an 88-year-old female with exacerbation of chronic obstructive pulmonary disease in the setting of advanced pulmonary fibrosis, pleural plaquing, chronic granuloma, stable disease with comorbidities of hypertension, stable atherosclerotic heart disease, hyperlipidemia, chronic sinusitis, peptic ulcer disease with gastroesophageal reflux disease, degenerative arthritis, anxiety, neurosis. PLAN: As discussed with the patient, physical therapist, Chris Eller and daughter, Paulette Arroyo present for interview will be to continue Brovana inhalational therapy, Pulmicort inhalational therapy, Xopenex inhalational therapy and chronic nasal O2. The patient has home O2. She sleeps with O2 and will continue on Ecotrin, subcu heparin, IV Lasix, Lipitor, Lopressor, [place] spray nasal spray, Pepcid, IV Rocephin, Singulair, IV Solu-Medrol will be decreased to 30 mg IV every 8 hours. She will continue on p.r.n. Tylenol and p.r.n. Ultracet, Zithromax, Zestril and parenteral Zofran p.r.n. nausea and vomiting. She continues on a heart-healthy soft bland diet, nasal O2 chronically, PT and OT for reconditioning and gait training. She is being followed by Dr. Neftali Morris from Pulmonary and ultimate plan will be for discharge to home when medically stable. Marce Gold MD
--- NOTE | 2018-02-07 08:35 | HP ---
DATE OF EXAM: 02/05/2018 HISTORY OF PRESENT ILLNESS: This 88-year-old female was examined at her bedside and her case was reviewed in detail with Nursing and Physical Therapy. The patient is admitted to Transitional Care Rehab for reconditioning, gait training, IV antibiotics for exacerbation of chronic obstructive pulmonary disease in the setting of advanced respiratory insufficiency secondary to chronic pulmonary fibrosis. The patient has comorbidities of stable atherosclerotic heart disease, chronic hypertension, hyperlipidemia, chronic sinusitis, peptic ulcer disease with gastroesophageal reflux disease, anxiety neurosis, degenerative arthritis and deconditioning. The patient was admitted with shortness of breath at rest despite home O2 and nasal O2 and at present is denying any fever, chills, chest pain or shortness of breath. OUTPATIENT MEDICATIONS: Include Ecotrin, Lasix, Lipitor, Lopressor, [place] nasal spray, Pepcid, Singulair, prednisone, Zestril and Treleg[place] Ellipta 100/62.5/25. ALLERGIES: THE PATIENT HAS ALLERGIES TO LEVOFLOXACIN AND LACTULOSE. SOCIAL HISTORY: She is a current nondrinker, nonsmoker, non IV drug misuser. 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 FAMILY HISTORY: Noncontributory. REVIEW OF SYSTEMS: Constitutional review: She denied fever or chills. Head: No headache or seizure. Eye review: No change in visual acuity. Ear review: No hearing loss. Throat review: No swallowing difficulty. Neck review: No stiffness. Cardiac review: Stable atherosclerotic heart disease and stable chronic hypertension. Pulmonary: Advanced pulmonary fibrosis, COPD, pleural calcifications and history of TB in distant past. GI: Peptic ulcer disease with gastroesophageal reflux disease. : Chronic renal failure stage III. Vascular: No claudication. Psychological: Chronic anxiety. Neurological: No knowledge of stroke. Endocrinological: Hyperlipidemia and type 2 diet controlled diabetes mellitus, steroid impacted. PHYSICAL EXAMINATION: VITAL SIGNS: Temperature 98.1, respirations 20, pulse 62 and blood pressure 147/84 with a pulse ox of 99% on 2 liters nasal O2. HEAD: Normocephalic, atraumatic. EYES: No icterus. EARS: Clear. THROAT: Noninjected. NECK: Supple. HEART: Regular S1, S2. No pathological rubs, murmurs or gallops. LUNGS: With rhonchi and wheezing that cleared with coughing. ABDOMEN: Soft. EXTREMITIES: No edema. SKIN: Without rash. NEUROLOGICAL: Deconditioned. VASCULAR: Legs warm to touch. PSYCHOLOGICAL: Chronic anxiety. LABORATORY DATA: Random blood sugar was 92. IMPRESSION: An 88-year-old female with chronic obstructive pulmonary disease, advanced pulmonary fibrosis with pulmonary granulomas, calcifications and pleural plaquing and comorbidities of atherosclerotic heart disease, chronic hypertension, hyperlipidemia, sinusitis, peptic ulcer disease with gastroesophageal reflux disease, degenerative arthritis and anxiety neurosis. PLAN: My plans at present are to continue Brovana inhalational therapy, Ecotrin, subcu heparin until fully advanced in her ambulatory protocol on Transitional Care Rehab. She will continue on parenteral Lasix, oral Lipitor, Lopressor, [place] nasal spray, Pepcid, Pulmicort inhalational therapy, IV Rocephin, Singulair, IV Solu-Medrol taper, Tylenol, Ultracet p.r.n. severe pain, inhalational Xopenex, Zestril, Zithromax orally and Zofran p.r.n. nausea and vomiting. The patient is being followed by Dr. Neftali Morris from Pulmonary. She is ordered to have a heart-healthy soft bland diet. She is receiving daily physical and occupational therapy for reconditioning and gait training. She requires constant O2 with ambulation, rest and at her home and all of the above was discussed in detail with the patient, nursing, family, shed workers supervisor Dr. Morris and Social Service. Greater than 75 minutes was spent in the care management, review and ordering of medication for this patient today. All questions were answered. Marce Gold MD
[2018-02-07] MEDS: Budesonide 0.5 mg/2 ml Inhal Susp UD IH SCH ×2 (11:25→19:18)
--- NOTE | 2018-02-07 17:53 | PN ---
DATE: 02/07/2018 SUBJECTIVE: This 88-year-old female was examined at her bedside on , 02/07/2018. She denied fever, chills, chest pain, or shortness of breath at rest, but is wearing nasal O2 and requires that when ambulating or out of bed to chair. PHYSICAL EXAMINATION: VITAL SIGNS: Temperature is 97.9, respirations 20, pulse earlier 120, blood pressure 162/90 with pulse ox 95% on 2 L nasal O2. HEENT: Head: Normocephalic, atraumatic. Eyes: No icterus. Ears: Clear. Throat: Noninjected. NECK: Supple. HEART: S1, S2. LUNGS: With rhonchi. ABDOMEN: Soft. EXTREMITIES: No edema. SKIN: Without rash. NEUROLOGIC: Intact. PSYCHOLOGIC: Chronic anxiety. VASCULAR: Legs warm to touch. LABORATORY DATA: White count 10,500, hemoglobin 11.9, hematocrit 37.5, and platelets 236,000. Sodium 138, K 4.4, chloride 99, bicarb 33. BUN 56, creatinine 1.5. Estimated GFR 33 mL/min. Blood sugar 113. Calcium 9.4. IMPRESSION: An 88-year-old female with chronic obstructive pulmonary disease, advanced; advanced pulmonary fibrosis; chronic atherosclerotic heart disease; congestive heart failure; chronic renal failure stage III; hyperlipidemia; chronic hypertension; chronic sinusitis; peptic ulcer disease with gastroesophageal reflux disease; degenerative arthritis; anxiety; deconditioning. PLAN: Continue Brovana inhalational, Ecotrin, subcu heparin, IV Lasix, Lipitor, Lopressor, [place] nasal spray, Pepcid, Pulmicort inhalational, Singulair, IV Solu-Medrol which has been dose reduced to 30 mg IV every 8 hours, Tylenol, Ultracet p.r.n., oral Vantin, Xopenex inhalational, Zestril, oral Zithromax, and Zofran p.r.n. nausea and vomiting. The patient is scheduled for physical and occupational therapy for reconditioning and gait training. She is being followed by Dr. Neftali Morris from Pulmonary. She wears constant nasal O2 at rest, during sleep, with ambulation, and continues on heart-healthy renal diabetic diet. When clinically stable and cleared by Pulmonary, she will be discharged to home to the care of her family. Overall prognosis remains poor. All of this was discussed in detail with the patient, family, Nursing, and physical therapy. Case was reviewed in detail with nurse, Smiley Medley, registered nurse. Marce Gold MD [facility]
--- NOTE | 2018-02-08 02:33 | PN ---
DATE: 02/07/2018 PULMONARY PROGRESS NOTE REFERRING PHYSICIAN: Dr. Rodríguez SUBJECTIVE: She is out of bed to chair, feels much better. She is off her oxygen. Still has a maxillary sinus tenderness, some cough. No nausea. No vomiting, diarrhea, leg pain, leg swelling. OBJECTIVE: GENERAL: No acute distress. VITAL SIGNS: Temperature is 98, heart rate is 77, respiratory rate is 20, blood pressure 131/78, pulse ox 96% on room air. HEENT: Moist mucous membrane, has a left maxillary area tenderness. NECK: Supple. No JVD. LUNGS: Has a crackles more on the right side than the left. HEART: S1 and S2. ABDOMEN: Soft, nontender. No organomegaly. EXTREMITIES: No edema. NEUROLOGICAL: Awake and alert. Follows simple command. MEDICATIONS: She is on Brovana inhaled twice a day, Ecotrin 81 mg daily, heparin 5000 units subcu every 12 hours, Lasix 20 mg twice a day, Lipitor 10 mg daily, metoprolol tartrate 25 mg twice a day, nasal saline every 3 hours p.r.n., Pepcid 20 mg daily, Pulmicort inhaled twice a day, Singulair 10 mg daily, Solu-Medrol 30 mg every 8 hours, Tylenol p.r.n. basis, Ultracet 37.5/325 one tab every 6 hours p.r.n., Vantin 200 mg daily, Xopenex inhaled every 8 hours, Zestril 2.5 mg daily, Zithromax 250 mg daily, Zofran p.r.n. basis. LABORATORY DATA: Shows hemoglobin 11.9, hematocrit 37.5, WBC 10.5, platelet count is 236. Sodium 138, potassium 4.4, chloride 99, bicarbonate 33, BUN 53, creatinine 1.5, glucose 123, calcium 9.4. ASSESSMENT AND PLAN: Sinusitis with chronic obstructive lung disease, pulmonary fibrosis, pleural plaque, history of granuloma, diabetes, hypertension, hyperlipidemia, peptic ulcer disease, gastroesophageal reflux disease, renal insufficiency. Pulmonary point of view, doing well. Continue IV and inhaled bronchodilator. Continue antibiotics, gastric prophylaxis, deep venous thrombosis prophylaxis, fall precaution. Continuous therapy. Thank you and we will follow with you Neftali Morris MD [facility] # [id number]
[2018-02-08] MEDS: MethylPREDNISolone 40 mg Vial IVP SCH ×3 (05:50→21:17)
[2018-02-08] MEDS: Cefpodoxime (Vantin) 200 mg Tab PO SCH (05:50)
[2018-02-08] MEDS: Levalbuterol 0.63 MG/3 ML Inhal Soln UD IH SCH ×3 (07:12→19:41)
[2018-02-08] MEDS: Arformoterol 15 mcg/2 ml Inh Sol IH SCH ×2 (07:12→19:41)
[2018-02-08] MEDS: Budesonide 0.5 mg/2 ml Inhal Susp UD IH SCH (07:12)
--- NOTE | 2018-02-08 11:02 | CP.PCM.PN ---
Subjective - Date & Time of Evaluation Date of Evaluation: 02/08/18 Time of Evaluation: 11:01 - Subjective Subjective: Lissette Olivas DO, PGY-2: Progress Note for Dr. Tovar (covering for Dr. Gold) Patient was seen and examined at bedside. Patient reports dyspnea with exertion that resolved with rest. She also reports having epigastric discomfort after meals. She is on 3 L NC. Nurse reports no adverse eventy overnight. Objective - Vital Signs/Intake and Output Vital Signs (last 24 hours): Temp Pulse Resp BP Pulse Ox 98.3 F 79 20 143/79 98 02/08/18 06:00 02/08/18 06:00 02/08/18 06:00 02/08/18 09:48 02/08/18 06:00 Intake and Output: 02/08/18 02/08/18 06:59 18:59 Intake Total 460 Balance 460 - Medications Medications: Current Medications Acetaminophen (Tylenol 325mg Tab) 650 mg PO Q6H PRN; Protocol PRN Reason: Fever >100.4 F Arformoterol Tartrate (Brovana) 15 mcg IH [id number] JEREMY; Protocol Last Admin: 02/08/18 07:12 Dose: 15 mcg Aspirin (Ecotrin) 81 mg PO 0800 JEREMY; Protocol Last Admin: 02/08/18 09:47 Dose: 81 mg Atorvastatin Calcium (Lipitor) 10 mg PO DIN JEREMY; Protocol Last Admin: 02/07/18 17:26 Dose: 10 mg Azithromycin (Zithromax) 250 mg PO DAILY JEREMY; Protocol Last Admin: 02/08/18 09:48 Dose: 250 mg Budesonide (Pulmicort Respules) 0.5 mg IH [id number] JEREMY; Protocol Last Admin: 02/08/18 07:12 Dose: 0.5 mg Cefpodoxime Proxetil (Vantin) 200 mg PO 0600 JEREMY Stop: 02/10/18 10:01 Last Admin: 02/08/18 05:50 Dose: 200 mg Famotidine (Pepcid) 20 mg PO HS JEREMY; Protocol Last Admin: 02/07/18 21:55 Dose: 20 mg Furosemide (Lasix) 20 mg IVP 0600,1800 JEREMY; Protocol Last Admin: 02/08/18 05:49 Dose: 20 mg Heparin Sodium (Porcine) (Heparin) 5,000 units SC Q12 JEREMY; Protocol Last Admin: 02/08/18 09:51 Dose: 5,000 units Levalbuterol HCl (Xopenex) 0.63 mg IH TIDRESP JEREMY; Protocol Last Admin: 02/08/18 07:12 Dose: 0.63 mg Lisinopril (Zestril) 2.5 mg PO DAILY JEREMY; Protocol Last Admin: 02/08/18 09:48 Dose: 2.5 mg Methylprednisolone (Solu-Medrol) 30 mg IVP Q8 JEREMY; Protocol Last Admin: 02/08/18 05:50 Dose: 30 mg Metoprolol Tartrate (Lopressor) 25 mg PO BRKDIN JEREMY; Protocol Last Admin: 02/08/18 09:47 Dose: 25 mg Montelukast Sodium (Singulair) 10 mg PO HS JEREMY; Protocol Last Admin: 02/07/18 21:55 Dose: 10 mg Ondansetron HCl (Zofran Inj) 4 mg IVP Q6H PRN; Protocol PRN Reason: Nausea/Vomiting Sodium Chloride ([place] Nasal [place]) 0 ml NS Q3 JEREMY; Protocol Last Admin: 02/08/18 09:47 Dose: 1 spr Tramadol/Acetaminophen (Ultracet 37.5/325 Mg) 1 tab PO Q6H PRN; Protocol PRN Reason: Pain, moderate (4-7) - Labs Labs: 02/07/18 05:45 02/07/18 05:45 - Constitutional Appears: Well, Non-toxic - Head Exam Head Exam: ATRAUMATIC, NORMOCEPHALIC - Eye Exam Eye Exam: EOMI, Normal appearance - ENT Exam ENT Exam: Mucous Membranes Moist - Neck Exam Neck Exam: Normal Inspection - Respiratory Exam Respiratory Exam: Rales (right lung base), NORMAL BREATHING PATTERN - Cardiovascular Exam Cardiovascular Exam: RRR, +S1, +S2 - GI/Abdominal Exam GI & Abdominal Exam: Soft. absent: Guarding, Tenderness, Rebound - Extremities Exam Extremities Exam: Normal Inspection. absent: Calf Tenderness - Neurological Exam Neurological Exam: Alert, Awake, Oriented x3 - Psychiatric Exam Psychiatric exam: Normal Affect, Normal Mood - Skin Skin Exam: Dry, Intact, Normal Color, Warm Assessment and Plan (1) COPD exacerbation Assessment & Plan: Continue with inhaled treatments, PO antibiotics, and IV steroids Status: Acute (2) CKD (chronic kidney disease) Assessment & Plan: Avoid NSAIDs and nephrotoxins Continue renal non-dialysis diet Status: Acute (3) Hypertension Assessment & Plan: Continue with Lisinopril Status: Acute (4) Physical deconditioning Assessment & Plan: Continue with Physical Therapy Status: Acute (5) CHF (congestive heart failure) Assessment & Plan: Continue Metoprolol and Lasix Status: Acute - Assessment and Plan (Free Text) Plan: Case was reviewed and discussed with attending physician, Dr. Tovar
[2018-02-08] MEDS: TraMADol/Apap 37.5/325 mg Tab PO PRN (16:07)
--- NOTE | 2018-02-08 22:10 | CARD ---
APPROVED REPORT Date of service: 02/08/2018 EKG Measurement Heart [id number] <Conclusion> Sinus bradycardia Low voltage QRS Borderline ECG
--- NOTE | 2018-02-09 02:38 | PN ---
DATE: 02/08/2018 PULMONARY PROGRESS NOTE REFERRING PHYSICIAN: Marce Gold MD. SUBJECTIVE: She is sitting side of the bed, on and off headache. Cough is much better. No rhinitis. Still has a mild maxillary tenderness. No nausea, no vomiting, no diarrhea. No leg pain or leg swelling. Has some abdominal discomfort. PHYSICAL EXAMINATION: GENERAL: In no acute distress. VITAL SIGNS: Temperature is 98, heart rate is 71, respiratory rate is 20, blood pressure 168/84, pulse ox 96% on 2 liters nasal cannula. HEENT: Moist mucous membrane. Crowded airway. Mallampati score is 4. NECK: Supple. No JVD. Mild left maxillary area tenderness. LUNGS: Have a fair airflow with rhonchi. HEART: S1 and S2. ABDOMEN: Seems soft, some muscular type tenderness. EXTREMITIES: There is no edema. NEUROLOGICAL: Awake and alert. Follows simple command. MEDICATIONS: She is on Brovana inhaled twice a day, Ecotrin 81 mg daily, heparin 5000 units subcu every 12 hours, Lasix 20 mg twice a day, Lipitor 10 mg daily, metoprolol tartrate 25 mg twice a day, nasal saline every 3 hours, Pepcid 20 mg daily at bedtime, Singulair 10 mg at bedtime, Solu-Medrol 30 mg every 8 hours, Tylenol p.r.n. basis, Ultracet 37.5/325 one tab every 6 hours, Vantin 200 mg daily, Xopenex inhaled three times a day, Zestril 2.5 mg daily, Zithromax 250 mg daily, and Zofran p.r.n. basis. LABORATORY DATA: Reviewed. Troponin today was 0.02. Blood sugar is 96. IMPRESSION AND PLAN: Sinusitis, chronic obstructive lung disease, history of pulmonary fibrosis, pleural plaque, history of granuloma, diabetes, hypertension, hyperlipidemia, peptic ulcer disease, gastroesophageal reflux disease, renal insufficiency. Pulmonary point of view, doing okay. Continue IV and inhaled bronchodilator, antibiotics. Continue Lasix, statins. Started on Pepcid today. Continue on Singulair. Thank you and we will follow with you. Neftali Morris MD
[2018-02-09] MEDS: MethylPREDNISolone 40 mg Vial IVP SCH ×3 (05:24→21:33)
[2018-02-09] MEDS: Cefpodoxime (Vantin) 200 mg Tab PO SCH (05:24)
[2018-02-09] MEDS: Arformoterol 15 mcg/2 ml Inh Sol IH SCH ×2 (07:17→20:05)
[2018-02-09] MEDS: Levalbuterol 0.63 MG/3 ML Inhal Soln UD IH SCH ×3 (07:17→20:07)
[2018-02-09] MEDS: Budesonide 0.5 mg/2 ml Inhal Susp UD IH SCH ×3 (07:20→21:06)
[2018-02-09] MEDS: TraMADol/Apap 37.5/325 mg Tab PO PRN (22:01)
--- NOTE | 2018-02-09 22:45 | CP.PCM.PN ---
Subjective - Date & Time of Evaluation Date of Evaluation: 02/09/18 Time of Evaluation: 12:00 - Subjective Subjective: Providing coverage for Dr. Gold: 88 yo F w/ pmh of htn, dm, CAD, PUD, and COPD/pulmonary fibrosis on home O2, admitted initially to [facility] with COPD exacerbation, now in TCU due to deconditioning; Reports feeling well; abdominal pain and nausea/vomiting from yesterday are resolved; tolerating diet although decreased appetite; tolerating PT well without significant dyspnea on exertion; Objective - Vital Signs/Intake and Output Vital Signs (last 24 hours): Temp Pulse Resp BP Pulse Ox 98.7 F 64 16 134/71 98 02/09/18 16:00 02/09/18 16:00 02/09/18 16:00 02/09/18 17:23 02/09/18 16:00 - Medications Medications: Current Medications Acetaminophen (Tylenol 325mg Tab) 650 mg PO Q6H PRN; Protocol PRN Reason: Fever >100.4 F Arformoterol Tartrate (Brovana) 15 mcg IH [id number] JEREMY; Protocol Last Admin: 02/09/18 20:05 Dose: 15 mcg Aspirin (Ecotrin) 81 mg PO 0800 JEREMY; Protocol Last Admin: 02/09/18 08:25 Dose: 81 mg Atorvastatin Calcium (Lipitor) 10 mg PO DIN JEREMY; Protocol Last Admin: 02/09/18 17:23 Dose: 10 mg Azithromycin (Zithromax) 250 mg PO DAILY JEREMY; Protocol Last Admin: 02/09/18 09:19 Dose: 250 mg Budesonide (Pulmicort Respules) 0.5 mg IH [id number] JEREMY; Protocol Last Admin: 02/09/18 21:06 Dose: 0.5 mg Cefpodoxime Proxetil (Vantin) 200 mg PO 0600 JEREMY Stop: 02/10/18 10:01 Last Admin: 02/09/18 05:24 Dose: 200 mg Famotidine (Pepcid) 20 mg PO HS JEREMY; Protocol Last Admin: 02/09/18 21:32 Dose: 20 mg Furosemide (Lasix) 20 mg IVP 0600,1800 JEREMY; Protocol Last Admin: 02/09/18 17:22 Dose: 20 mg Heparin Sodium (Porcine) (Heparin) 5,000 units SC Q12 JEREMY; Protocol Last Admin: 02/09/18 21:30 Dose: 5,000 units Levalbuterol HCl (Xopenex) 0.63 mg IH TIDRESP JEREMY; Protocol Last Admin: 02/09/18 20:07 Dose: 0.63 mg Lisinopril (Zestril) 2.5 mg PO DAILY JEREMY; Protocol Last Admin: 02/09/18 09:20 Dose: 2.5 mg Methylprednisolone (Solu-Medrol) 30 mg IVP Q8 JEREMY; Protocol Last Admin: 02/09/18 21:33 Dose: 30 mg Metoprolol Tartrate (Lopressor) 25 mg PO BRKDIN JEREMY; Protocol Last Admin: 02/09/18 17:23 Dose: 25 mg Montelukast Sodium (Singulair) 10 mg PO HS JEREMY; Protocol Last Admin: 02/09/18 21:32 Dose: 10 mg Ondansetron HCl (Zofran Inj) 4 mg IVP Q6H PRN; Protocol PRN Reason: Nausea/Vomiting Last Admin: 02/08/18 12:52 Dose: 4 mg Sodium Chloride ([place] Nasal [place]) 0 ml NS Q3 JEREMY; Protocol Last Admin: 02/09/18 21:49 Dose: 1 spr Tramadol/Acetaminophen (Ultracet 37.5/325 Mg) 1 tab PO Q6H PRN; Protocol PRN Reason: Pain, moderate (4-7) Last Admin: 02/09/18 22:01 Dose: 1 tab - Labs Labs: 02/07/18 05:45 02/07/18 05:45 - Constitutional Appears: Non-toxic, No Acute Distress - Eye Exam Eye Exam: Normal appearance - ENT Exam ENT Exam: Mucous Membranes Moist - Respiratory Exam Respiratory Exam: Rales. absent: Rhonchi, Respiratory Distress - Cardiovascular Exam Cardiovascular Exam: RRR, +S1, +S2. absent: Gallop, JVD - GI/Abdominal Exam GI & Abdominal Exam: Soft. absent: Distended, Tenderness - Extremities Exam Additional comments: minimal lower ext edema; - Neurological Exam Neurological Exam: Alert, Awake - Psychiatric Exam Psychiatric exam: Normal Mood. absent: Agitated - Skin Skin Exam: Warm. absent: Cyanosis Assessment and Plan (1) COPD exacerbation Assessment & Plan: Symptomatically improved; continue brovana, pulmicort and IV steroids per pulmonary recs; Status: Acute (2) CKD (chronic kidney disease) Assessment & Plan: Renal function at baseline, should avoid nephrotoxic agents; Status: Chronic (3) Hypertension Assessment & Plan: BP controlled on metoprolol and low dose lisinopril, continue same; Status: Acute (4) Abdominal pain Assessment & Plan: Resolved; history of PUD; continue pepcid; Status: Acute (5) CHF (congestive heart failure) Assessment & Plan: With diastolic dysfunction; continue IV lasix 20 mg bid; will check labs to see if we are over-diuresing patient; Status: Acute
[2018-02-10] MEDS: Cefpodoxime (Vantin) 200 mg Tab PO SCH (06:05)
[2018-02-10] MEDS: MethylPREDNISolone 40 mg Vial IVP SCH ×3 (06:14→22:41)
[2018-02-10] MEDS: Levalbuterol 0.63 MG/3 ML Inhal Soln UD IH SCH ×3 (07:22→20:03)
[2018-02-10] MEDS: Budesonide 0.5 mg/2 ml Inhal Susp UD IH SCH ×2 (07:22→20:04)
[2018-02-10] MEDS: Arformoterol 15 mcg/2 ml Inh Sol IH SCH ×2 (07:22→20:04)
[2018-02-10 16:34] VITALS: TEMP 97
--- NOTE | 2018-02-10 19:47 | PN ---
DATE: 02/10/2018 PULMONARY PROGRESS NOTE REFERRING PHYSICIAN: Marce Gold MD. SUBJECTIVE: She is lying in the bed, head at 45 degrees. Night was unremarkable. Doing well in therapy. Feels better. Decreased cough. No nausea. No vomiting, diarrhea, leg pain, leg swelling. OBJECTIVE: GENERAL: In no acute distress. VITAL SIGNS: Temperature is 98, heart rate is 77, respiratory rate is 16, blood pressure 133/92, pulse ox 100% on room air. HEENT: Moist mucous membrane. Crowded airway. NECK: Supple. No JVD. LUNGS: Have crackle in the right lung. HEART: S1 and S2. ABDOMEN: Soft, nontender. No organomegaly. EXTREMITIES: There is no edema. NEUROLOGICAL: Awake and alert. Follows simple command. MEDICATIONS: She is on Brovana inhaled twice a day, Ecotrin 81 mg daily, heparin 5000 units subcu every 12 hours, Lasix 20 mg twice a day, Lipitor 10 mg daily, metoprolol tartrate 25 mg twice a day, Pepcid is at 20 mg daily, Pulmicort inhaled twice a day, Singulair 10 mg daily, Solu-Medrol 30 mg every 8 hours, Tylenol one tab every 6 hours p.r.n., Xopenex inhaled every 8 hours, Zestril 2.5 mg daily, Zofran p.r.n. basis. LABORATORY DATA: Reviewed and noted. No new lab is available since yesterday. 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 Pulmonary point of view, she is doing well. Continue bronchodilator. Keep head at 45 degrees. Cough suppressor. Gastric prophylaxis. Deep venous thrombosis prophylaxis. Continue therapy. Thank you and we will follow with you. Neftali Morris MD
[2018-02-11] MEDS: Arformoterol 15 mcg/2 ml Inh Sol IH SCH (07:12)
[2018-02-11] MEDS: Budesonide 0.5 mg/2 ml Inhal Susp UD IH SCH (07:13)
[2018-02-11] MEDS: Levalbuterol 0.63 MG/3 ML Inhal Soln UD IH SCH ×2 (07:13→13:09)
--- NOTE | 2018-02-11 08:53 | PN ---
DATE: 02/09/2018 PULMONARY PROGRESS NOTE REFERRING PHYSICIAN: Arsenio Rodríguez MD SUBJECTIVE: The patient feels okay, still has some cough. No nausea, no vomiting. No leg pain. No leg swelling. No overnight events recorded. OBJECTIVE: VITAL SIGNS: Temperature 98.7, pulse 64, respirations 16, blood pressure 134/74, pulse ox 98%.. GENERAL: No acute distress. HEENT: Moist mucous membrane. NECK: Supple. No JVD. LUNGS: Few scattered rhonchi. CARDIAC: S1 and S2. ABDOMEN: Soft, nontender. No organomegaly. EXTREMITIES: No edema. NEUROLOGICAL: Awake, alert. Follows simple commands. LABORATORY DATA: Laboratory results reviewed. Bedside glucose 107. EKG sinus lora. MEDICATIONS: Reviewed. No new medications added since yesterday. IMPRESSION AND PLAN: Sinusitis with chronic obstructive lung disease, active smoker, pulmonary fibrosis, pleural plaques, history of granuloma, diabetes, hypertension, hyperlipidemia, peptic ulcer disease, gastroesophageal reflux disease, renal insufficiency. Pulmonary point of view, doing much better. Feels okay. Continue inhaled bronchodilators, antibiotics. Gastric prophylaxis. Deep venous thrombosis prophylaxis. Fall precaution. Pulmonary function tests as outpatient following discharge. This patient was examined by Dr. Morris and discussed assessment and plan as described above. Thank you for this consult and we will follow with you. Deb Dickson APN Neftali Morris MD
[2018-02-11] MEDS: MethylPREDNISolone 40 mg Vial IVP SCH (10:10)
[2018-02-11 10:33] VITALS: BP 140/85; PULSE 99
[2018-02-11 12:10] VITALS: O2SAT 97
[2018-02-11 14:26] VITALS: RESP 18
--- NOTE | 2018-02-12 09:51 | PN ---
DATE: 02/10/2018 SUBJECTIVE: This 88-year-old female was examined on the afternoon of 02/10/2018, presents for this interview with her daughter, Paulette Arroyo. I did discuss this case also with nurse, Smiley Medley, registered nurse. The patient is wearing nasal O2, but states she is less short of breath at rest and was able to ambulate earlier today with no nasal O2 present. She denied any chest pain or shortness of breath at rest at present. PHYSICAL EXAMINATION: VITAL SIGNS: Her temperature was 97, respirations 16, pulse 77 and blood pressure 133/92 with a pulse ox of 100% on 2 liters nasal O2. HEENT: Head: Normocephalic, atraumatic. Eyes: No icterus. Ears: Clear. Throat: Noninjected. NECK: Supple. HEART: Regular S1 and S2. LUNGS: Clear. ABDOMEN: Soft. EXTREMITIES: No edema. SKIN: Without rash. NEUROLOGICAL: Intact. PSYCHOLOGICAL: Alert. VASCULAR: Legs warm to touch. LABORATORY DATA: White count 10,500, hemoglobin of 11.9, hematocrit 37.5, platelets 236,000. Random blood sugar was 78. IMPRESSION: An 88-year-old female with exacerbation of chronic obstructive pulmonary disease, advanced pulmonary fibrosis, comorbidities of anxiety neurosis, hyperlipidemia, stable atherosclerotic heart disease, chronic hypertension, history of chronic renal failure stage III, peptic ulcer disease with gastroesophageal reflux disease, degenerative arthritis. PLAN: Plan is to continue IV Solu-Medrol taper, Zocor, Singulair, Lopressor, Lasix, inhalational therapies with Xopenex, Brovana and Pulmicort, Pepcid, Zestril, Ecotrin and Tylenol p.r.n. Based on clinical progress, the patient will be readied for discharge in the a.m. Greater than 30 minutes was spent in the care, review of labs, orders and discussion of this patient with her daughter at bedside. All questions were answered. Marce Gold MD
--- NOTE | 2018-02-13 03:10 | DS ---
SUMMARY: This 88-year-old female was discharged from [facility] on Sunday, February 11, 2018. FINAL DIAGNOSES: 1. Exacerbation of chronic obstructive pulmonary disease, improved. 2. Advanced pulmonary fibrosis. 3. Stable atherosclerotic heart disease. 4. Hyperlipidemia. 5. Chronic hypertension. 6. Chronic renal failure stage 3. 7. Peptic ulcer disease with gastroesophageal reflux disease. 8. Degenerative arthritis. 9. Anxiety neurosis. DISPOSITION: Home with the patient providing 24 hours supervision of this patient. She will continue to follow up with power plant electrician, Dr. Neftali Morris. She continues on outpatient medications including Solu-Medrol Dosepak x1 after which she will resume prednisone 5 mg p.o. daily, Zocor 20 mg p.o. at bedtime, Singulair 10 mg p.o. at bedtime, Lopressor 25 mg b.i.d., Lasix 20 mg p.o. daily, ProAir inhalational pump one puff every 4 hours p.r.n., Duo nebulizer through her nebulizer at home every 6 hours, Advair 250/50 one puff b.i.d., Pepcid 40 mg p.o. at bedtime, Vasotec 2.5 mg p.o. daily and Ecotrin 81 mg p.o. daily. I have asked the patient to follow up in my office on Sunday02/27/2018. This 88-year-old female who was admitted to [facility] with exacerbation of chronic obstructive pulmonary disease in the setting of advanced pulmonary fibrosis was treated with parenteral steroids, pulmonary toiletry, IV antibiotics and monitored by Dr. Neftali Morris from Pulmonary. At the time of discharge, her temperature was 97, respirations 16, pulse 77, and blood pressure 135/72 with a pulse ox of 100% on 3 liters nasal O2. The patient is discharged to home. She has continuous home O2 as well as portable home O2. Discharge labs showed sodium 138, potassium 4.4, chloride 99, bicarb 33, BUN 56, creatinine 1.5, and random blood sugar 119. White count 10,500, hemoglobin 11.9, hematocrit 37.5, and platelets 236,000. EKG was consistent with sinus rhythm. Chest x-ray was consistent with COPD and pulmonary fibrosis as well as calcified granulomas. The patient's overall prognosis remains tenuous given her advanced COPD and pulmonary fibrosis, and she will be monitored by myself and Dr. Morris from Pulmonary. All of the above was discussed with the patient and family and nursing including nurse Ginny Chiang. All questions were answered Marce Gold MD
== END 2018-02-11 13:21 | disposition home or self-care (01) | DRG 191 ==
LOC: TRCU 17:32
PROVIDERS: ADMIT Internal Medicine; ATTEND Internal Medicine
PROC: 3E0F7GC Introduction of Other Therapeutic Substance into Respiratory Tract, Via Natural or Artificial Opening (ICD-10-PCS; 2018-02-04)
PROC: F07Z9ZZ Gait Training/Functional Ambulation Treatment (ICD-10-PCS; principal; 2018-02-05)
PROC: F08Z4FZ Home Management Treatment using Assistive, Adaptive, Supportive or Protective Equipment (ICD-10-PCS; 2018-02-05)
DX: J44.1 Chronic obstructive pulmonary disease with (acute) exacerbation (principal); J84.10 Pulmonary fibrosis, unspecified; Z79.2 Long term (current) use of antibiotics; I13.0 Hypertensive heart and chronic kidney disease with heart failure and stage 1 through stage 4 chronic kidney disease, or unspecified chronic kidney disease; I25.10 Atherosclerotic heart disease of native coronary artery without angina pectoris; K21.9 Gastro-esophageal reflux disease without esophagitis; F41.1 Generalized anxiety disorder; I50.9 Heart failure, unspecified; N18.3 Chronic kidney disease, stage 3 (moderate); E78.5 Hyperlipidemia, unspecified; E11.22 Type 2 diabetes mellitus with diabetic chronic kidney disease; K27.9 Peptic ulcer, site unspecified, unspecified as acute or chronic, without hemorrhage or perforation; J32.9 Chronic sinusitis, unspecified; F17.200 Nicotine dependence, unspecified, uncomplicated; Z99.81 Dependence on supplemental oxygen; Z86.73 Personal history of transient ischemic attack (TIA), and cerebral infarction without residual deficits

== ENCOUNTER 2018-04-17 12:25 | Emergency (ER) | payer MEDICARE, OTHER ==
[2018-04-17 12:43] VITALS: BMI 24.3
[2018-04-17 12:53] VITALS: BP 146/80; PULSE 64; RESP 20; TEMP 98.6; O2SAT 95
--- NOTE | 2018-04-17 13:05 | ED PDOC ---
Arrival/HPI - General Chief Complaint: Abnormal Skin Integrity Historian: Patient, Family (Daughter) - History of Present Illness Narrative History of Present Illness (Text): 04/17/18 13:03 An 88 year old female, whose past medical history includes pulmonary fibrosis, CHF, diverticulitis, asthmatic bronchitis, COPD (on home O2), presents to the emergency department with daughter for a complaint of possible shingles. Patient was seen by her PMD last week for a burning sensation and pain to the right lower back radiating to the right abdomen. Her PMD prescribed her Naproxen for sciatica. The daughter reports that the patient developed a rash in the area. The patient's daughter also notes that the patient recently lost her youngest son. The patient has also been concerned because she sees blood when she wipes after a bowel movement. The daughter states that that the patient has been seen by GI and is unable to have an endoscopy/colonoscopy due to risks concerning her age. The patient denies fevers, chills, headache, dizziness, chest pain, sh ortness of breath, dyspnea on exertion, cough, abdominal pain, nausea, vomiting, diarrhea, neck pain, urinary/bowel changes, or any other complaint. PMD: Dr. Gold Silk Weaver: Dr. Ramon Pulmologist: Dr. Morris GI: Dr. Deluca Time/Duration: > week Symptom Onset: Sudden Symptom Course: Worsening Activities at Onset: Rest, Light Context: Home Past Medical History - Provider Review Nursing Documentation Reviewed: Yes - Infectious Disease Hx of Infectious Diseases: None - Tetanus Immunization Tetanus Immunization: Unknown - Cardiac Hx Cardiac Disorders: Yes Hx Hypertension: Yes - Pulmonary Hx Respiratory Disorders: Yes Hx Chronic Obstructive Pulmonary Disease (COPD): Yes - Neurological Hx Neurological Disorder: Yes HX Cerebrovascular Accident: Yes - HEENT Hx HEENT Disorder: Yes Other/Comment: WEARS RX GLASSES - Renal Hx Renal Disorder: Yes Hx Renal Failure: Yes - Endocrine/Metabolic Hx Endocrine Disorders: Yes Hx Diabetes Mellitus Type 2: Yes Hx Hypothyroidism: Yes - Hematological/Oncological Hx Blood Disorders: No - Integumentary Hx Dermatological Disorder: No - Musculoskeletal/Rheumatological Hx Musculoskeletal Disorders: Yes Hx Arthritis: Yes - Gastrointestinal Hx Gastrointestinal Disorders: Yes (GERD,RECTAL PROLAPSE) - Genitourinary/Gynecological Hx Genitourinary Disorders: Yes (RENAL INSUFICIENCY 3,UTI) - Psychiatric Hx Psychophysiologic Disorder: Yes Hx Anxiety: Yes Hx Substance Use: No - Past Surgical History Past Surgical History: No Previous - Surgical History Other/Comment: HX L BREAST BX/BENIGN - Anesthesia Hx Anesthesia: Yes Hx Anesthesia Reactions: No Hx Malignant Hyperthermia: No - Suicidal Assessment Feels Threatened In Home Enviroment: No Family/Social History - Physician Review Nursing Documentation Reviewed: Yes Family/Social History: No Known Family HX Smoking Status: Never Smoked Hx Alcohol Use: No Hx Substance Use: No Hx Substance Use Treatment: No Allergies/Home Meds Allergies/Adverse Reactions: Allergies levofloxacin [From Levaquin] Allergy (Severe, Verified 04/17/18 12:43) ANGIOEDEMA swelling , rash lactose Adverse Reaction (Verified 04/17/18 12:43) NAUSEA bloating diarrhea Home Medications: Home Meds Medication Instructions Recorded Confirmed Furosemide [Lasix] 20 mg PO TID 05/26/17 04/17/18 Metoprolol Tartrate [Lopressor] 25 mg PO BID 05/26/17 04/17/18 Simvastatin [Zocor] 20 mg PO HS 05/26/17 04/17/18 Enalapril Maleate [Vasotec] 2.5 mg PO DAILY 01/24/18 04/17/18 Famotidine [Pepcid] 40 mg PO HS 01/24/18 04/17/18 Fluticasone/Umeclidin/Vilanter 1 puff NEB DAILY 01/24/18 04/17/18 [Trelegy Ellipta 100-62.5-25] Naproxen [Naprosyn Tab] 375 mg PO BID 04/17/18 04/17/18 Review of Systems - Physician Review All systems were reviewed & negative as marked: Yes - Review of Systems Constitutional: absent: Fevers Respiratory: absent: SOB, Cough Cardiovascular: absent: Chest Pain, LYN Gastrointestinal: Other (Rectal bleeding). absent: Abdominal Pain, Stool Changes, Diarrhea, Nausea, Vomiting Genitourinary Female: absent: Urine Output Changes Musculoskeletal: absent: Back Pain, Neck Pain Skin: Rash Neurological: absent: Headache, Dizziness Physical Exam Vital Signs Reviewed: Yes Vital Signs Temp Pulse Resp BP Pulse Ox 04/17/18 12:47 98.6 F 64 20 146/80 95 Temperature: Afebrile Blood Pressure: Normal Pulse: Regular Respiratory Rate: Normal Appearance: Positive for: Well-Appearing, Non-Toxic, Comfortable Pain Distress: None Mental Status: Positive for: Alert and Oriented X 3 - Systems Exam Head: Present: Atraumatic, Normocephalic Pupils: Present: PERRL Extroacular Muscles: Present: EOMI Conjunctiva: Present: Normal Mouth: Present: Moist Mucous Membranes Neck: Present: Normal Range of Motion Respiratory/Chest: Present: Clear to Auscultation, Good Air Exchange, Decreased Breath Sounds (diminished breath sounds bilaterally.). No: Respiratory Distress, Accessory Muscle Use, Wheezes, Rhonchi Cardiovascular: Present: Regular Rate and Rhythm, Normal S1, S2. No: Murmurs Abdomen: Present: Other (vesicular, non- blanching rash extending from the periumbilical area to the right lower quadrant and toward the back. Does not cross midline.). No: Tenderness, Distention, Peritoneal Signs Rectal: Present: Hemorrhoids (Non- thrombosed, external hemorrhoid in the 6 o'clock position. Internal hemorrhoids palpated. ), Other (No pain with insertion of finger. Hemoccult negative.) Back: Present: Normal Inspection Upper Extremity: Present: Normal Inspection. No: Cyanosis, Edema Lower Extremity: Present: Normal Inspection. No: Edema Neurological: Present: GCS=15, CN II-XII Intact, Speech Normal Skin: Present: Warm, Dry, Rashes (vesicular, non- blanchin rash extending from the periumbilical area to the righ tlower quadrant toward the back. Does not cross midline.), Normal Color Psychiatric: Present: Alert, Oriented x 3, Normal Insight, Normal Concentration Medical Decision Making ED Course and Treatment: 04/17/18 13:15 Impression: An 88 year old female presents to the emergency department for a complaint of painful rash on the right lower back radiating towards the right abdomen and rectal bleeding. Differential Diagnosis included but are not limited to: Shingles Hemorrhoids Contact Dermatitis Plan: -- Zovirax -- Reassess and disposition Prior Visits: Notes and results from previous visits were reviewed. Progress Notes: On re-evaluation, patient is in no acute distress. I have discussed the results and plan with the patient, who expresses understanding. Patient in agreement with plan to be discharged home. Patient is stable for discharge. Patient was instructed to follow up with physician or return if symptoms worsen or new concerning symptoms arise. - Scribe Statement The provider has reviewed the documentation as recorded by the Scribe Umm Winston Provider Scribe Attestation: All medical record entries made by the Scribe were at my direction and personally dictated by me. I have reviewed the chart and agree that the record accurately reflects my personal performance of the history, physical exam, medical decision making, and the department course for this patient. I have also personally directed, reviewed, and agree with the discharge instructions and disposition. Disposition/Present on Arrival - Present on Arrival History of DVT/PE: No History of Uncontrolled Diabetes: No Urinary Catheter: No History of Decub. Ulcer: No History Surgical Site Infection Following: None - Disposition Diagnosis: Shingles rash, Acute hemorrhoid Disposition: HOME/ ROUTINE Patient Problems: Current Active Problems Problem Status Onset Shingles rash Acute Acute hemorrhoid Acute Condition: STABLE Discharge Instructions (ExitCare): Hemorrhoids (DC), Shingles (DC), Shingles (ED) Print Language: FAROESE Additional Instructions: All medical record entries made by the Scribe were at my direction and personally dictated by me. I have reviewed the chart and agree that the record accurately reflects my personal performance of the history, physical exam, medical decision making, and the department course for this patient. I have also personally directed, reviewed, and agree with the discharge instructions and disposition. Please use Sitz bath, preparation H and Metamucil for the care of your hemorrhoids Please take medication as prescribed Prescriptions: Acyclovir 800 mg PO 5XD 10 Days #50 tablet Phenyleph/Pramoxin/Glycr/W.pet [Preparation H Cream] 26 gm RC DAILY #1 cream..g. Psyllium Husk/Aspartame [Metamucil Fiber Singles Packet] 3.4 gm PO DAILY #1 powd.pack Referrals: Marce Gold MD [Staff Provider] - Follow up with primary Sampson Wise MD [Staff Provider] - Follow up with primary Forms: [employer] (Tanzanian)
== END 2018-04-17 13:48 | disposition home or self-care (01) ==
LOC: ED 12:25
DX: B02.9 Zoster without complications (principal); K64.4 Residual hemorrhoidal skin tags; E11.9 Type 2 diabetes mellitus without complications; I50.9 Heart failure, unspecified; I10 Essential (primary) hypertension; E03.9 Hypothyroidism, unspecified
CPT/HCPCS: 99282; J8499

== ENCOUNTER 2018-05-15 11:52 | Emergency (ER) | payer MEDICARE, OTHER ==
[2018-05-15 11:53] VITALS: BMI 24.3
[2018-05-15 12:08] VITALS: TEMP 98.2; O2SAT 98
--- NOTE | 2018-05-15 13:05 | ED PDOC ---
Arrival/HPI - General Chief Complaint: Shortness Of Breath Time Seen by Provider: 05/15/18 12:01 Historian: Patient - History of Present Illness Narrative History of Present Illness (Text): 05/15/18 12:59 A 88 year old female, whose past medical history includes pulmonary fibrosis, CHF, diverticulitis, asthmatic bronchitis, COPD (on home 3.5 L of O2), who is accompanied by daughter, presents to the emergency department complaining of shortness of breath. Patient reports also experiencing cough associated with headaches, palpitations, and sinus pain. Per patient, patient's O2 has not been able to subside shortness of breath. She mentions patient was taken to see PMD today, who instructed for patient to be evaluated in the ER. Patient denies any fever, chills, or any other complaints at this time. PMD: Dr. Gold Past Medical History - Provider Review Nursing Documentation Reviewed: Yes - Infectious Disease Hx of Infectious Diseases: None - Tetanus Immunization Tetanus Immunization: Unknown - Cardiac Hx Cardiac Disorders: Yes Hx Hypertension: Yes - Pulmonary Hx Respiratory Disorders: Yes Hx Asthma: Yes Hx Chronic Obstructive Pulmonary Disease (COPD): Yes Hx Emphysema: Yes - Neurological Hx Neurological Disorder: Yes HX Cerebrovascular Accident: Yes - HEENT Hx HEENT Disorder: Yes Other/Comment: WEARS RX GLASSES - Renal Hx Renal Disorder: Yes Hx Renal Failure: Yes - Endocrine/Metabolic Hx Endocrine Disorders: Yes Hx Diabetes Mellitus Type 2: Yes Hx Hypothyroidism: Yes - Hematological/Oncological Hx Blood Disorders: No - Integumentary Hx Dermatological Disorder: No - Musculoskeletal/Rheumatological Hx Musculoskeletal Disorders: Yes Hx Arthritis: Yes - Gastrointestinal Hx Gastrointestinal Disorders: Yes (GERD,RECTAL PROLAPSE) - Genitourinary/Gynecological Hx Genitourinary Disorders: Yes (RENAL INSUFICIENCY 3,UTI) - Psychiatric Hx Psychophysiologic Disorder: Yes Hx Anxiety: Yes Hx Substance Use: No - Past Surgical History Past Surgical History: No Previous - Surgical History Other/Comment: HX L BREAST BX/BENIGN - Anesthesia Hx Anesthesia: Yes Hx Anesthesia Reactions: No Hx Malignant Hyperthermia: No - Suicidal Assessment Feels Threatened In Home Enviroment: No Family/Social History - Physician Review Nursing Documentation Reviewed: Yes Family/Social History: No Known Family HX Smoking Status: Never Smoked Hx Alcohol Use: No Hx Substance Use: No Hx Substance Use Treatment: No Allergies/Home Meds Allergies/Adverse Reactions: Allergies levofloxacin [From Levaquin] Allergy (Severe, Verified 05/15/18 12:08) ANGIOEDEMA swelling , rash lactose Adverse Reaction (Verified 05/15/18 12:08) NAUSEA bloating diarrhea Home Medications: Home Meds Medication Instructions Recorded Confirmed RX: Furosemide [Lasix] 20 mg PO TID 05/26/17 05/15/18 RX: Metoprolol Tartrate [Lopressor] 25 mg PO BID 05/26/17 05/15/18 RX: Simvastatin [Zocor] 20 mg PO HS 05/26/17 05/15/18 RX: Enalapril Maleate [Vasotec] 2.5 mg PO DAILY 01/24/18 05/15/18 RX: Famotidine [Pepcid] 40 mg PO HS 01/24/18 05/15/18 RX: Fluticasone/Umeclidin/Vilanter 1 puff NEB DAILY 01/24/18 05/15/18 [Trelegy Ellipta 100-62.5-25] RX: Naproxen [Naprosyn Tab] 375 mg PO BID 04/17/18 05/15/18 Review of Systems - Physician Review All systems were reviewed & negative as marked: Yes - Review of Systems Constitutional: absent: Fevers, Night Sweats ENT: Other (sinus pain) Respiratory: SOB, Cough Cardiovascular: Palpitations Neurological: Headache Physical Exam Vital Signs Reviewed: Yes Vital Signs Temp Pulse Resp BP Pulse Ox 05/15/18 12:07 98.2 F 67 20 156/75 H 98 Temperature: Afebrile Blood Pressure: Normal Pulse: Regular Respiratory Rate: Normal Appearance: Positive for: Well-Appearing, Non-Toxic, Comfortable Pain Distress: None Mental Status: Positive for: Alert and Oriented X 3 - Systems Exam Head: Present: Atraumatic, Normocephalic Pupils: Present: PERRL Extroacular Muscles: Present: EOMI Conjunctiva: Present: Normal Mouth: Present: Moist Mucous Membranes Nose (Internal): No: Other (no sinus tenderness) Respiratory/Chest: Present: Clear to Auscultation (left-side), Good Air Exchange, Rhonchi (right-side). No: Respiratory Distress, Accessory Muscle Use Cardiovascular: Present: Regular Rate and Rhythm, Normal S1, S2. No: Murmurs Abdomen: No: Tenderness, Distention, Peritoneal Signs Upper Extremity: Present: Normal Inspection. No: Cyanosis, Edema Lower Extremity: Present: Normal Inspection. No: Edema Neurological: Present: GCS=15, CN II-XII Intact, Speech Normal Skin: Present: Warm, Dry, Normal Color. No: Rashes Psychiatric: Present: Alert, Oriented x 3, Normal Insight, Normal Concentration Medical Decision Making ED Course and Treatment: 05/15/18 13:02 Impression: 88 year old female with shortness of breath. Physical exam shows rhonchi to right lung field, clear left lung field. Differential Diagnosis included but are not limited to: Pneumonia vs. CHF vs. COPD Exacerbation. Plan: -- EKG -- Chest X-ray -- Venous Blood Gas -- Duoneb -- Lasix -- Blood Culture -- Urine Culture -- SOLU-Medrol -- Urinalysis -- Reassess and disposition Progress Notes: EKG: Ordered, reviewed, and independently interpreted the EKG. Rate : 61 BPM Rhythm : NSR Interpretation : No ST-segment elevations or depressions, no T-wave inversions, normal intervals. Comparison : No previous EKG for comparison. 05/15/2018 13:49 Chest X-ray IMPRESSION: No active disease. Dictator: Rodrick Kerr MD 05/15/18 14:29 Patient feels 100% better after medications. She is able to stand up without shortness of breathe. No chest pain. Labs reviewed. WBC 12 and UTI noted. CXR negative. Discussed case with Dr. Gold who knows patient well and she states that if patient wants to go home she will need to see her as an outpatient on Sunday the 05/20/18 at 1pm. She has UTI's here and there she states because of medications she's on and recommends Bactrim SS because she has renal insuffuciency. Will d/c her on Bactrim SS BID x 3. I discussed with patient and daughter admission and they really want to go home because they say she feels 100% better. She will f/u with Dr. Gold and her and her daughter her advised to return to the ED with any concern of shortness of breathe, fever or any other concern. - Lab Interpretations I have reviewed the lab results: Yes - RAD Interpretation Radiology Orders: 05/15/18 12:53 CHEST PORTABLE [RAD] Stat - Medication Orders Current Medication Orders: Albuterol/Ipratropium (Duoneb 3 Mg/0.5 Mg (3 Ml) Ud) 3 ml IH Q15M JEREMY Stop: 05/15/18 13:31 Discontinued Medications Furosemide (Lasix) 40 mg IVP STAT STA Stop: 05/15/18 12:52 Methylprednisolone (Solu-Medrol) 125 mg IVP STAT STA Stop: 05/15/18 12:52 - Scribe Statement The provider has reviewed the documentation as recorded by the Marcelle Olguin Provider Scribe Attestation: All medical record entries made by the Scribe were at my direction and personally dictated by me. I have reviewed the chart and agree that the record accurately reflects my personal performance of the history, physical exam, medical decision making, and the department course for this patient. I have also personally directed, reviewed, and agree with the discharge instructions and disposition. Disposition/Present on Arrival - Present on Arrival Any Indicators Present on Arrival: No History of DVT/PE: No History of Uncontrolled Diabetes: No Urinary Catheter: No History of Decub. Ulcer: No History Surgical Site Infection Following: None - Disposition Have Diagnosis and Disposition been Completed?: Yes Diagnosis: COPD exacerbation, CHF (congestive heart failure), Urinary tract infection Disposition: HOME/ ROUTINE Disposition Time: 14:31 Patient Plan: Discharge Condition: IMPROVED Discharge Instructions (ExitCare): Heart Failure (ED), Urinary Tract Infections in Adults, Chronic Obstructive Pulmonary Disease (COPD), Including Emphysema, Heart Failure, Adult Additional Instructions: NAN MENDIOLA, thank you for letting us take care of you today. Your provider was Darci Estes DO and you were treated for COPD and CHF, UTI. The emergency medical care you received today was directed at your acute symptoms. If you were prescribed any medication, please fill it and take as directed. It may take several days for your symptoms to resolve. Return to the Emergency Department if your symptoms worsen, do not improve, or if you have any other problems. Make sure to follow up with Dr. Gold on Sunday05/20/18 at 1pm. If your symptoms worsen or any other concern please return to the ED as soon as possible. Please contact your doctor or call one of the physicians/clinics you have been referred to that are listed on the Patient Visit Information form that is included in your discharge packet. Bring any paperwork you were given at discharge with you along with any medications you are taking to your follow up visit. Our treatment cannot replace ongoing medical care by a primary care provider outside of the emergency department. Thank you for allowing the [facility] team to be part of your care today. If you had an X-Ray or CT scan: A Radiologist will review the ED reading if any change in treatment is needed we will contact you. If you had a blood, urine, or wound culture: It will take several days for the results, if any change in treatment is needed we will contact you. If you had an STI test: It will take 48 hours for the results. Please call after 1 week if you have not heard back. Prescriptions: RX: Albuterol HFA [Ventolin HFA 90 mcg/actuation (8 g)] 2 puff IH Q4 #1 puff RX: predniSONE [predniSONE Tab] 40 mg PO DAILY #8 tab Sulfamethoxazole/Trimethoprim [Bactrim SS 400 mg-80 mg] 1 tab PO BID #6 tab Referrals: Marce Gold MD [Staff Provider] - Follow up with primary Forms: [employer] (Malagasy)
[2018-05-15] MEDS: Albuterol-Ipratrop 3 mg / 0.5 (3 ml) UD IH SCH ×2 (13:25→13:45)
[2018-05-15 13:28] LABS: VENOUS BLOOD GAS BASE EXCESS 4.4 mmol/L (0.0-2.0); VENOUS BLOOD GAS PO2 27 mm/Hg (30-55); VENOUS BLOOD PH 7.31 (7.32-7.43)
[2018-05-15 13:47] LABS: BASO # 0.05 K/mm3 (0.0-2.0); BASO % 0.4 % (0.0-3.0); BLOOD UREA NITROGEN 36 mg/dL (7-21); CALCIUM 9.9 mg/dL (8.4-10.5); EOS # 0.1 (0.0-0.7); EOS % 1.1 % (1.5-5.0); GFR NON-AFRICAN AMERICAN 28; GRAN % 86.7 % (50.0-68.0); HEMOGLOBIN 12.2 g/dL (12.0-16.0); LYMPH # 0.6 (1.2-3.4); LYMPH % 4.9 % (22.0-35.0); MEAN CELL VOLUME 98.8 fl (80.0-105.0); MEAN CORPUSCULAR HEMOGLOBIN 29.5 pg (25.0-35.0); MEAN CORPUSCULAR HGB CONC 29.9 g/dl (31.0-37.0); MEAN PLATELET VOLUME 10.6 fl (7.0-11.0); MONO # 0.8 (0.1-0.6); MONO % 6.9 % (1.0-6.0); PLATELET COUNT 241 10^3/uL (120.0-450.0); RBC 4.13 10^6/uL (3.5-6.1); RED CELL DISTRIBUTION WIDTH 15.4 % (11.5-14.5); URINE BILIRUBIN NEGATIVE (NEGATIVE); URINE BLOOD NEGATIVE (NEGATIVE); URINE GLUCOSE (UA) NEGATIVE (NEGATIVE); URINE LEUKOCYTE ESTERASE MODERATE Leu/uL (NEGATIVE); URINE PROTEIN NEGATIVE mg/dL (<30 mg/dL); URINE UROBILINOGEN 0.2 E.U./dL (<1 E.U./dL)
[2018-05-15 13:50] LABS: INR 0.97
--- NOTE | 2018-05-15 13:52 | RAD ---
Date of service: 05/15/2018 HISTORY: sob and cough r/o pna h/o pulm fib/copd/chf COMPARISON: 01/31/2018 FINDINGS: LUNGS: Scarring with upward retraction of the jose miguel. No focal consolidation PLEURA: Extensive pleural calcifications on the right CARDIOVASCULAR: No aortic atherosclerotic calcification present. Normal cardiac size. No pulmonary vascular congestion. OSSEOUS STRUCTURES: No significant abnormalities. VISUALIZED UPPER ABDOMEN: Normal. OTHER FINDINGS: None. IMPRESSION: No active disease.
[2018-05-15 13:54] LABS: URINE APPEARANCE CLEAR (CLEAR); URINE COLOR YELLOW (YELLOW)
[2018-05-15 14:01] LABS: B-TYPE NATRIURETIC PEPTIDE 333 pg/mL (0-450); TROPONIN I < 0.01 ng/mL
[2018-05-15 14:10] LABS: LYMPHOCYTE 7 % (22.0-35.0); MONOCYTE 5 % (1.0-6.0); NEUTROPHIL 88 % (50.0-70.0); PLATELET ESTIMATE NORMAL (NORMAL)
[2018-05-15 14:11] LABS: ANISOCYTOSIS SLIGHT
[2018-05-15 14:16] LABS: URINE BACTERIA MANY /hpf; URINE WBC 15 - 20 /hpf (0-6)
[2018-05-15] MEDS ORDERED: Tmp-Smz 400 mg-80 mg SS Tab PO STA (14:28)
[2018-05-15 15:31] VITALS: BP 135/76; PULSE 69; RESP 20
--- NOTE | 2018-05-15 23:06 | CARD ---
APPROVED REPORT Date of service: 05/15/2018 EKG Measurement Heart [id number] <Conclusion> Normal sinus rhythm Normal ECG
--- NOTE | 2018-05-16 13:21 | CON ---
DATE: 05/15/2018 EMERGENCY ROOM EVALUATION HISTORY OF PRESENT ILLNESS: This 88-year-old female presented to the [facility] ER earlier this morning complaining of shortness of breath. The patient has a past medical history that is significant for pulmonary fibrosis, congestive heart failure, chronic obstructive pulmonary disease as well as asthmatic bronchitis. She also suffers with diverticulitis, chronic renal failure stage III, stable atherosclerotic heart disease, hypertension, hyperlipidemia and chronic anxiety neurosis. MEDICATIONS: The patient on outpatient medication takes Ecotrin, dual nebulizers, Singulair, Lopressor, Lasix, Ellipta inhaler, Pepcid, Vasotec, oral prednisone, Zocor, and Ventolin inhaler. ALLERGIES: SHE HAS ALLERGIES TO LEVOFLOXACIN AND LACTOSE PRODUCTS. SOCIAL HISTORY: She is a nondrinker, nonsmoker, non IV drug misuser. 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 FAMILY HISTORY: Noncontributory. REVIEW OF SYSTEMS: CONSTITUTIONAL REVIEW: Denied fever or chills. HEAD: No headache or seizure. EYES: No change in visual acuity. EARS: No hearing loss. THROAT: No swallowing difficulty. NECK: No stiffness. CARDIAC REVIEW: As per HPI. PULMONARY: Chronic pulmonary fibrosis, chronic obstructive pulmonary disease and chronic asthmatic bronchitis. GI: Dyspepsia. : Intermittent dysuria. SKIN: No rash. VASCULAR: No claudication. PSYCHOLOGICAL: Chronic anxiety. NEUROLOGICAL: No knowledge of stroke. PHYSICAL EXAMINATION: VITAL SIGNS: Her temperature 98.2, respirations 20, pulse 67, blood pressure 156/75. Pulse ox was 98% on 2 liters nasal O2. HEENT: Head: Normocephalic, atraumatic. Eyes: No icterus. Ears: Clear. Throat: Noninjected. NECK: Supple. HEART: Regular S1, S2. No pathological rubs, murmurs or gallops. LUNGS: With occasional rhonchi that cleared with coughing. ABDOMEN: Soft. EXTREMITIES: No edema. SKIN: Without rash. NEUROLOGICAL: Intact. PSYCHOLOGICAL: Anxious. VASCULAR: Legs warm to touch. LABORATORY DATA: White count 12,000, hemoglobin 12.2, hematocrit 40.8, platelets 241,000. PT/INR 0.97, PTT 30. Sodium 139, K 4.7, chloride 101, bicarb 30, BUN 36, creatinine 1.7. Estimated GFR 28 ml per minute, glucose 95, calcium 9.9. Magnesium 2. CPK 58. Troponin less than 0.01. BNP 333. Urinalysis showed bacteria. Serology showed negative influenza A and B. EKG was reviewed. It showed normal sinus rhythm. Chest x-ray was reviewed. It showed chronic obstructive pulmonary disease, chronic scarring with upper retraction of the hilum of her lung. No focal consolidation was noted. She does have extensive chronic pleural calcifications on the right and there was no evidence of pulmonary vascular congestion. IMPRESSION: An 88-year-old female with exacerbation of chronic obstructive pulmonary disease and comorbidities as listed above. The patient was given therapy with IV Solu-Medrol, dual nebulizers and nasal O2 and insisted on discharge to home. A urine culture was sent that will be followed up in my office and I have advised the patient to see me on 05/20/2018, in the office for further followup of the above. All of the above was reviewed with the patient and her daughter, Ida Alves, as well as Dr. Estes, emergency room physician. All questions were answered. Marce Gold MD KIANA
== END 2018-05-15 15:20 | disposition home or self-care (01) ==
LOC: ED 11:52
DX: J44.1 Chronic obstructive pulmonary disease with (acute) exacerbation (principal); I11.0 Hypertensive heart disease with heart failure; I50.9 Heart failure, unspecified; N39.0 Urinary tract infection, site not specified; E11.22 Type 2 diabetes mellitus with diabetic chronic kidney disease; Z86.73 Personal history of transient ischemic attack (TIA), and cerebral infarction without residual deficits; Z99.81 Dependence on supplemental oxygen
CPT/HCPCS: 71045; 80048; 81001; 82550; 82803; 83615; 83735; 83880; 84484; 85025; 85610; 85730; 87040; 87086; 87804; 93005; 96374; 96375; 99284; J1940; J2930

== ENCOUNTER 2018-09-13 18:08 | Inpatient (IN) | payer MEDICARE, OTHER ==
[2018-09-13 18:19] VITALS: BMI 24.8
--- NOTE | 2018-09-13 18:50 | ED PDOC ---
Arrival/HPI - General Chief Complaint: Chest Pain Historian: Patient, Other (Daughter) - History of Present Illness Narrative History of Present Illness (Text): 09/13/18 18:45 An 88 year old female, whose past medical history includes pulmonary fibrosis, CHF, diverticulitis, asthmatic bronchitis, COPD (on home 3.5 L of O2), presents to the ED accompanied by daughter, complaining of chest pain. As per daughter, pain feels like "pressure on the chest." Daughter reports pain is associated with cough, wheezes, feeling like patient is about to vomit, and left lower abdominal pain. Patient denies any fevers, chills, headache, dizziness, breath, vomiting, diarrhea, back pain, neck pain, urinary/bowel changes, or any other complaints. PMD: Dr. Gold Time/Duration: < week Symptom Course: Unchanged Activities at Onset: Light Context: Home Past Medical History - Provider Review Nursing Documentation Reviewed: Yes - Infectious Disease Hx of Infectious Diseases: None - Tetanus Immunization Tetanus Immunization: Unknown - Cardiac Hx Cardiac Disorders: Yes Hx Hypertension: Yes - Pulmonary Hx Respiratory Disorders: Yes Hx Asthma: Yes Hx Chronic Obstructive Pulmonary Disease (COPD): Yes Hx Emphysema: Yes - Neurological Hx Neurological Disorder: Yes HX Cerebrovascular Accident: Yes - HEENT Hx HEENT Disorder: Yes Other/Comment: WEARS RX GLASSES - Renal Hx Renal Disorder: Yes Hx Renal Failure: Yes - Endocrine/Metabolic Hx Endocrine Disorders: Yes Hx Diabetes Mellitus Type 2: Yes Hx Hypothyroidism: Yes - Hematological/Oncological Hx Blood Disorders: No - Integumentary Hx Dermatological Disorder: No - Musculoskeletal/Rheumatological Hx Musculoskeletal Disorders: Yes Hx Arthritis: Yes - Gastrointestinal Hx Gastrointestinal Disorders: Yes (GERD,RECTAL PROLAPSE) - Genitourinary/Gynecological Hx Genitourinary Disorders: Yes (RENAL INSUFICIENCY 3,UTI) - Psychiatric Hx Psychophysiologic Disorder: Yes Hx Anxiety: Yes Hx Substance Use: No - Past Surgical History Past Surgical History: No Previous - Surgical History Other/Comment: HX L BREAST BX/BENIGN - Anesthesia Hx Anesthesia: Yes Hx Anesthesia Reactions: No Hx Malignant Hyperthermia: No - Suicidal Assessment Feels Threatened In Home Enviroment: No Family/Social History - Physician Review Nursing Documentation Reviewed: Yes Family/Social History: No Known Family HX Smoking Status: Never Smoked Hx Alcohol Use: No Hx Substance Use: No Hx Substance Use Treatment: No Allergies/Home Meds Allergies/Adverse Reactions: Allergies levofloxacin [From Levaquin] Allergy (Severe, Verified 09/13/18 18:18) ANGIOEDEMA swelling , rash lactose Adverse Reaction (Verified 09/13/18 18:18) NAUSEA bloating diarrhea Home Medications: Home Meds Medication Instructions Recorded Confirmed Furosemide [Lasix] 20 mg PO TID 05/26/17 05/15/18 Metoprolol Tartrate [Lopressor] 25 mg PO BID 05/26/17 05/15/18 Simvastatin [Zocor] 20 mg PO HS 05/26/17 05/15/18 Enalapril Maleate [Vasotec] 2.5 mg PO DAILY 01/24/18 05/15/18 Famotidine [Pepcid] 40 mg PO HS 01/24/18 05/15/18 Fluticasone/Umeclidin/Vilanter 1 puff NEB DAILY 01/24/18 05/15/18 [Trelegy Ellipta 100-62.5-25] Naproxen [Naprosyn Tab] 375 mg PO BID 04/17/18 05/15/18 Review of Systems - Physician Review All systems were reviewed & negative as marked: Yes - Review of Systems Respiratory: Cough Cardiovascular: Chest Pain Gastrointestinal: Abdominal Pain Neurological: absent: Dizziness Physical Exam Vital Signs Reviewed: Yes Vital Signs Temp Pulse Resp BP Pulse Ox 09/13/18 18:27 98.9 F 45 L 19 114/58 L 100 Temperature: Afebrile Blood Pressure: Normal Pulse: Bradycardic Respiratory Rate: Normal Appearance: Positive for: Well-Appearing, Non-Toxic, Comfortable Pain Distress: Mild Mental Status: Positive for: Alert and Oriented X 3 Medical Decision Making ED Course and Treatment: 09/13/18 18:54 Impression: An 88 year old female who presents to the ED for chest pain. Plan: -- Labs -- VBG -- Chest X-Ray -- Duoneb -- Atropine -- Blood Culture -- Urine Culture -- IV Fluids -- Urinalysis -- Reassess and disposition Prior Visits: Notes and results from previous visits were reviewed. Patient was last seen in the emergency department on Progress Notes: 09/13/18 19:42 Patient given troponin, heart rate is 55. Second attempt to call Dr. Gold (PCP). Spoke to Dr. Llamas (boiler washer) who recommends dopamine dnp at 205 mcg/hour and tele admission. 09/13/18 19:[address] Gold, who agrees with plan of admission and accepts patient under his service. Labs reviewed, hyperkalemia to 5.8. - RAD Interpretation Radiology Orders: 09/13/18 18:30 CHEST PORTABLE [RAD] Stat - EKG Interpretation EKG Interpretation (Text): 09/13/18 20:00 EKG: Sinus bradycardia w intermittent junctional rhythm @ 42 bpm. Peaked T waves. - Medication Orders Current Medication Orders: Albuterol/Ipratropium (Duoneb 3 Mg/0.5 Mg (3 Ml) Ud) 3 ml IH Q15M JEREMY Stop: 09/13/18 19:16 - Scribe Statement The provider has reviewed the documentation as recorded by the Marcelle Lopez Provider Scribe Attestation: All medical record entries made by the Scribe were at my direction and personally dictated by me. I have reviewed the chart and agree that the record accurately reflects my personal performance of the history, physical exam, medical decision making, and the department course for this patient. I have also personally directed, reviewed, and agree with the discharge instructions and disposition. Disposition/Present on Arrival - Present on Arrival History of DVT/PE: No History of Uncontrolled Diabetes: No Urinary Catheter: No History of Decub. Ulcer: No History Surgical Site Infection Following: None - Disposition Forms: [employer] ([place])
[2018-09-13] MEDS: Albuterol-Ipratrop 3 mg / 0.5 (3 ml) UD IH SCH ×3 (19:00→19:15)
[2018-09-13 19:02] LABS: VENOUS BLOOD GAS BASE EXCESS 12.1 mmol/L (0.0-2.0); VENOUS BLOOD GAS PO2 30 mm/Hg (30-55); VENOUS BLOOD PH 7.39 (7.32-7.43)
[2018-09-13 19:12] LABS: BASO # 0.05 K/mm3 (0.0-2.0); BASO % 0.5 % (0.0-3.0); EOS # 0.2 (0.0-0.7); EOS % 2.5 % (1.5-5.0); HEMOGLOBIN 11.4 g/dL (12.0-16.0); LYMPH # 0.8 (1.2-3.4); LYMPH % 8.3 % (22.0-35.0); MEAN CELL VOLUME 95.7 fl (80.0-105.0); MEAN CORPUSCULAR HEMOGLOBIN 29.2 pg (25.0-35.0); MEAN CORPUSCULAR HGB CONC 30.5 g/dl (31.0-37.0); MEAN PLATELET VOLUME 10.8 fl (7.0-11.0); MONO % 10.2 % (1.0-6.0); RBC 3.91 10^6/uL (3.5-6.1); RED CELL DISTRIBUTION WIDTH 13.8 % (11.5-14.5); WHITE BLOOD COUNT 9.7 10^3/uL (4.5-11.0)
[2018-09-13 19:19] LABS: INR 1.01; PARTIAL THROMBOPLASTIN TIME 29.7 Seconds (26.9-38.3); PROTHROMBIN TIME 11.2 SECONDS (9.4-12.5)
[2018-09-13 19:32] LABS: B-TYPE NATRIURETIC PEPTIDE 868 pg/mL (0-450); TROPONIN I < 0.01 ng/mL
[2018-09-13] MEDS ORDERED: DOPamine 400mg/250ml D5W 400 MG/250 ML BAG IV PRN (19:33)
[2018-09-13 19:38] LABS: ALB/GLOB RATIO 1.4 (1.1-1.8); ALBUMIN 3.7 g/dL (3.0-4.8); ALT/SGPT 21 U/L (7-56); AST/SGOT 27 U/L (14-36); BLOOD UREA NITROGEN 45 mg/dL (7-21); CALCIUM 9.8 mg/dL (8.4-10.5); GFR NON-AFRICAN AMERICAN 21
[2018-09-13] MEDS ORDERED: Sodium Bicarbonate (8.4%) 50 Meq Syringe IVP ONE (19:42)
[2018-09-13] MEDS ORDERED: Albuterol 0.083% Inhal Sol (2.5 mg/3 mL) UD INH STA (19:42)
[2018-09-13] MEDS ORDERED: Dextrose 50% SYRINGE Inj (50 ml) IVP STA (19:42)
[2018-09-13] MEDS ORDERED: Insulin Regular 1 UNITS/0.01 ML ML IVP ONE (19:44)
--- NOTE | 2018-09-14 09:49 | RAD ---
Date of service: 09/13/2018 HISTORY: chest pain COMPARISON: Chest radiograph dated 05/15/2018. TECHNIQUE: 1 view obtained. FINDINGS: LUNGS: Stable chronic prominence of the bilateral interstitial markings. Scarring with upward retraction of the jose miguel. No focal consolidation. PLEURA: Extensive right pleural calcifications on the right no pneumothorax apparent. CARDIOVASCULAR: Aortic atherosclerotic calcifications. Cardiomediastinal silhouette within normal limits. OSSEOUS STRUCTURES: Unchanged. VISUALIZED UPPER ABDOMEN: Normal. OTHER FINDINGS: None. IMPRESSION: No active disease.
--- NOTE | 2018-09-14 10:06 | CP.PCM.CON ---
History of Present Illness - History of Present Illness History of Present Illness: Awake, alert, no distress Reason for consultation: Cardiac follow up of bradycardia and chest pain Brief history of present illness: An 88 year old female who came in to the ER due to abdominal pain with nausea. She complaints of chest discomfort associated with cough. Poor historian. Chart reviewed. History of CHF, diverticulitis, asthma, COPD with home oxygen, emphysema, CVA, renal insufficency,hypothyroidism, arthritis, GERD, anxiety. In ER , found to be bradycardic. Started on Dopamine in the ER and transferred to telemetry. Seen and examined by me and Dr. Llamas Review of Systems - Review of Systems All systems: reviewed and no additional remarkable complaints except Review of Systems: as per HPI Past Patient History - Infectious Disease Hx of Infectious Diseases: None - Tetanus Immunizations Tetanus Immunization: Unknown - Past Social History Smoking Status: Never Smoked - CARDIAC Hx Cardiac Disorders: Yes Hx Congestive Heart Failure: Yes Hx Hypertension: Yes - PULMONARY Hx Respiratory Disorders: Yes Hx Asthma: Yes Hx Chronic Obstructive Pulmonary Disease (COPD): Yes - NEUROLOGICAL Hx Neurological Disorder: No - HEENT Hx HEENT Problems: No - RENAL Hx Chronic Kidney Disease: No - ENDOCRINE/METABOLIC Hx Endocrine Disorders: No - HEMATOLOGICAL/ONCOLOGICAL Hx Blood Disorders: No - INTEGUMENTARY Hx Dermatological Problems: No - MUSCULOSKELETAL/RHEUMATOLOGICAL Hx Musculoskeletal Disorders: No Hx Falls: Yes - GASTROINTESTINAL Hx Gastrointestinal Disorders: No - GENITOURINARY/GYNECOLOGICAL Hx Genitourinary Disorders: No - PSYCHIATRIC Hx Psychophysiologic Disorder: No - SURGICAL HISTORY Hx Surgeries: Yes - ANESTHESIA Hx Anesthesia: Yes Hx Anesthesia Reactions: No Hx Malignant Hyperthermia: No Meds Allergies/Adverse Reactions: Allergies Allergy/AdvReac Type Severity Reaction Status Date / Time levofloxacin [From Levaquin] Allergy Severe ANGIOEDEMA Verified 09/13/18 18:18 lactose AdvReac NAUSEA Verified 09/13/18 18:18 - Medications Medications: Current Medications Dopamine HCl/Dextrose (Dopamine 400mg/250ml D5w) 400 mg in 250 mls @ 5.783 mls/ hr IV .Q24H PRN PRN Reason: Other Physical Exam - Constitutional Appears: Non-toxic, No Acute Distress - Head Exam Head Exam: NORMAL INSPECTION, NORMOCEPHALIC - Eye Exam Eye Exam: Normal appearance Pupil Exam: NORMAL ACCOMODATION - ENT Exam ENT Exam: Mucous Membranes Moist, Normal Exam - Respiratory Exam Respiratory Exam: Decreased Breath Sounds, Clear to Auscultation Bilateral, NORMAL BREATHING PATTERN - Cardiovascular Exam Cardiovascular Exam: REGULAR RHYTHM, +S1, +S2 - GI/Abdominal Exam GI & Abdominal Exam: Normal Bowel Sounds, Soft - Extremities Exam Extremities exam: Positive for: full ROM, normal capillary refill - Neurological Exam Neurological exam: Alert, Oriented x3 - Psychiatric Exam Psychiatric exam: Normal Affect, Normal Mood - Skin Skin Exam: Dry, Normal Color, Warm Results - Vital Signs Recent Vital Signs: Last Vital Signs Temp 98.7 F 09/14/18 06:00 Pulse 69 09/14/18 06:00 Resp 19 09/14/18 06:00 BP 129/74 09/14/18 06:00 Pulse Ox 100 09/13/18 20:45 - Labs Result Diagrams: 09/13/18 19:02 09/13/18 19:02 Labs: Laboratory Results - last 24 hr 09/13/18 09/13/18 09/13/18 18:52 19:02 19:02 WBC 9.7 RBC 3.91 Hgb 11.4 L Hct 37.4 MCV 95.7 D MCH 29.2 MCHC 30.5 L RDW 13.8 Plt Count 225 MPV 10.8 Neut % (Auto) 78.5 H Lymph % (Auto) 8.3 L [place] % (Auto) 10.2 H Eos % (Auto) 2.5 Baso % (Auto) 0.5 Lymph # (Auto) 0.8 L [place] # (Auto) 1.0 H Eos # (Auto) 0.2 Baso # (Auto) 0.05 Absolute Neuts (auto) 7.60 H PT 11.2 INR 1.01 APTT 29.7 pO2 30 VBG pH 7.39 VBG pCO2 66.0 H* VBG HCO3 40.0 H VBG Total CO2 42.0 H VBG O2 Sat (Calc) 58.8 VBG Base Excess 12.1 H VBG Potassium 5.7 H Sodium 135.0 Chloride 99.0 Glucose 80 Lactate 1.1 FiO2 21.0 Crit Value Called To Dr lindquist Crit Value Called By Conchis Blood Gas Notified Time 1900 Potassium Carbon Dioxide Anion Gap BUN Creatinine Est GFR ( Amer) Est GFR (Non-Af Amer) Random Glucose Calcium Magnesium Total Bilirubin AST ALT Alkaline Phosphatase Troponin I NT-Pro-B Natriuret Pep Total Protein Albumin Globulin Albumin/Globulin Ratio Venous Blood Potassium 5.7 H 09/13/18 19:02 WBC RBC Hgb Hct MCV MCH MCHC RDW Plt Count MPV Neut % (Auto) Lymph % (Auto) [place] % (Auto) Eos % (Auto) Baso % (Auto) Lymph # (Auto) [place] # (Auto) Eos # (Auto) Baso # (Auto) Absolute Neuts (auto) PT INR APTT pO2 VBG pH VBG pCO2 VBG HCO3 VBG Total CO2 VBG O2 Sat (Calc) VBG Base Excess VBG Potassium Sodium 137 Chloride 96 L Glucose Lactate FiO2 Crit Value Called To Crit Value Called By Blood Gas Notified Time Potassium 5.8 H* D Carbon Dioxide 35 H Anion Gap 12 BUN 45 H Creatinine 2.2 H Est GFR ( Amer) 25 Est GFR (Non-Af Amer) 21 Random Glucose 82 Calcium 9.8 Magnesium 2.3 H Total Bilirubin 0.3 AST 27 ALT 21 Alkaline Phosphatase 49 Troponin I < 0.01 NT-Pro-B Natriuret Pep 868 H Total Protein 6.4 Albumin 3.7 Globulin 2.7 Albumin/Globulin Ratio 1.4 Venous Blood Potassium Assessment & Plan - Assessment and Plan (Free Text) Assessment: An 88 year old female who came in to the ER due to abdominal pain with nausea. She complaints of chest discomfort associated with cough. Poor historian. Chart reviewed. History of CHF, diverticulitis, asthma, COPD with home oxygen, emphysema, CVA, renal insufficency,hypothyroidism, arthritis, GERD, anxiety. In ER , found to be bradycardic. Cardiac consult was called. Troponin negative. EKG sinus bradycardia. Echo done on 05/03/17 showed LVEF 50%, normal valves, grade 1 transmitral doppler flow. Chest X ray no congestion/unremarkable.Rule out acute coronary sundrome. Bradycardia due to betablocker. On Lopressor at home. Started Dopamine in ER. Will order echo to evaluate LV function. Heart rate normal sinus rhythm now 60-70's/min. Plan: No distress, denies chest pain Heart rate NSR 60-70's No betablocker Discontinue Dopamine Blood pressure stable On ASA 81 mg daily, Lipitor 20 mg daily Lovenox for DVT prophylaxis Continue current medications Continue current treatment Echo to evaluate LV function TSH,lipid panel HgbA1c Will follow up Plan and treatment discussed with Dr. Llamas Thank you Dr. Gold for the opportunity of taking care Eloina Kennedy - Date & Time Date: 09/14/18 Time: 06:20
[2018-09-14] MEDS ORDERED: Albuterol 0.083% Inhal Sol (2.5 mg/3 mL) UD INH PRN (10:48)
[2018-09-14] MEDS: Enoxaparin 30 mg Syringe SC SCH (11:08)
--- NOTE | 2018-09-14 11:53 | CARD ---
APPROVED REPORT Date of service: 09/13/2018 EKG Measurement Heart [id number] <Conclusion> Marked sinus bradycardia with AV dissociation and Junctional bradycardia with sinus/atrial capture Abnormal ECG
--- NOTE | 2018-09-14 13:13 | CARD ---
APPROVED REPORT Date of service: 09/14/2018 EXAM: Two-dimensional and M-mode echocardiogram with Doppler and color Doppler. INDICATION Chest Pain 2D DIMENSIONS Left Atrium (2D)3.4 (1.6-4.0cm)IVSd0.9 (0.7-1.1cm) LVDd3.9 (3.9-5.9cm)PWd1.1 (0.7-1.1cm) LVDs2.4 (2.5-4.0cm)FS (%) 37.7 % LVEF (%)68.4 (>50%) M-Mode DIMENSIONS Aortic Root3.20 (2.2-3.7cm)Aortic Cusp Exc.1.50 (1.5-2.0cm) Aortic Valve AoV Peak Nbkuheba434.0cm/Lamin Peak GR.14mmHg Mitral Valve MV E Rqdeerrg11.5cm/sMV A Ibdgghrp382.0cm/sE/A ratio0.7 TDI Lateral E' Peak V8.19cm/sMedial E' Peak V7.60cm/sE/Lateral E'9.3 E/Medial E'10.1 Pulmonary Valve PV Peak Diuptzhw83.1cm/sPV Peak Grad.4mmHg LEFT VENTRICLE The left ventricle is normal size. There is normal left ventricular wall thickness. The left ventricular function is normal.EF-65% There is normal LV segmental wall motion. Transmitral Doppler flow pattern is Grade III-reversible restrictive diastolic dysfunction. No left ventricle thrombus noted on this study. There is no ventricular septal defect visualized. There is no left ventricular aneurysm. There is no mass noted in the left ventricle. RIGHT VENTRICLE The right ventricle is normal size. There is normal right ventricular wall thickness. The right ventricular systolic function is normal. ATRIA The left atrium size is normal. The right atrium size is normal. The interatrial septum is intact with no evidence for an atrial septal defect. AORTIC VALVE The aortic valve is moderately sclerotic. Trivial AR. Aortic sclerosis Vs mild There is no aortic valvular vegetation. MITRAL VALVE The mitral valve is thickened but opens well. Trivial MR There is no mitral valve stenosis. There is no evidence of mitral valve prolapse. TRICUSPID VALVE The tricuspid valve leaflets are thickened , but open well. There is trace tricuspid regurgitation. There is no tricuspid valve stenosis. There is no tricuspid valve prolapse or vegetation. PULMONIC VALVE The pulmonary valve is normal in structure. There is no pulmonic valvular regurgitation. There is no pulmonic valvular stenosis. GREAT VESSELS The aortic root is normal in size. The ascending aorta is normal in size. The pulmonary artery is normal. The IVC is normal in size and collapses >50% with inspiration. PERICARDIAL EFFUSION There is no pleural effusion. There is no pericardial effusion. <Conclusion> The left ventricle is normal size. The left ventricular function is normal.EF-65% Trivial AR/MR/TR There is no pericardial effusion. The IVC is normal in size and collapses >50% with inspiration. No Vegetation or thrombus noted.
[2018-09-14] MEDS ORDERED: guaiFENesin DM 100 mg-10 mg/5 ml UD PO ONE (17:36)
[2018-09-14] MEDS: guaiFENesin DM 100 mg-10 mg/5 ml UD PO SCH ×2 (17:49→23:37)
[2018-09-14] MEDS: Budesonide 0.25 mg/2 ml Inhal Susp UD IH SCH (20:00)
[2018-09-14] MEDS ORDERED: Arformoterol 15 mcg/2 ml Inh Sol IH SCH (20:00)
[2018-09-14] MEDS: Arformoterol 15 mcg/2 ml Inh Sol IH SCH (20:00)
[2018-09-14] MEDS: Levalbuterol 0.63 MG/3 ML Inhal Soln UD IH SCH (20:01)
[2018-09-15 00:06] LABS: CALCIUM 9.5 mg/dL (8.4-10.5)
[2018-09-15 05:14] VITALS: O2SAT 98
[2018-09-15] MEDS: guaiFENesin DM 100 mg-10 mg/5 ml UD PO SCH ×2 (05:37→12:21)
[2018-09-15 06:29] LABS: BASO # 0.01 K/mm3 (0.0-2.0); BASO % 0.1 % (0.0-3.0); LYMPH # 0.3 (1.2-3.4); MEAN CORPUSCULAR HEMOGLOBIN 28.8 pg (25.0-35.0); MEAN CORPUSCULAR HGB CONC 30.3 g/dl (31.0-37.0); MEAN PLATELET VOLUME 10.7 fl (7.0-11.0); MONO # 0.1 (0.1-0.6); MONO % 0.8 % (1.0-6.0); PLATELET COUNT 203 10^3/uL (120.0-450.0); RBC 3.82 10^6/uL (3.5-6.1); RED CELL DISTRIBUTION WIDTH 13.4 % (11.5-14.5); WHITE BLOOD COUNT 7.2 10^3/uL (4.5-11.0)
[2018-09-15 07:44] LABS: ALB/GLOB RATIO 1.3 (1.1-1.8); ALBUMIN 3.5 g/dL (3.0-4.8); CALCIUM 9.5 mg/dL (8.4-10.5)
[2018-09-15] MEDS: Levalbuterol 0.63 MG/3 ML Inhal Soln UD IH SCH ×3 (07:54→14:34)
[2018-09-15] MEDS: Arformoterol 15 mcg/2 ml Inh Sol IH SCH (07:54)
[2018-09-15] MEDS: Budesonide 0.25 mg/2 ml Inhal Susp UD IH SCH (07:54)
--- NOTE | 2018-09-15 08:02 | CP.PCM.PN ---
Subjective - Date & Time of Evaluation Date of Evaluation: 09/15/18 Time of Evaluation: 06:15 - Subjective Subjective: Awake, alert, no distress Reason for consultation and follow up: Cardiac evaluation of bradycardia, on betablocker, history of CHF, diverticulitis, asthma, COPD with home oxygen, emphysema, CVA, Seen and examined by me and Dr. Llamas Objective - Vital Signs/Intake and Output Vital Signs (last 24 hours): Temp Pulse Resp BP Pulse Ox 98.0 F 83 19 115/66 98 09/15/18 05:13 09/15/18 05:14 09/15/18 05:13 09/15/18 05:13 09/15/18 05:13 Intake and Output: 09/15/18 09/15/18 06:59 18:59 Intake Total 120 Output Total 0 Balance 120 - Medications Medications: Current Medications Acetaminophen (Tylenol 325mg Tab) 650 mg PO Q6H PRN PRN Reason: pain or fever Albuterol Sulfate (Albuterol 0.083% Inhal Camille (2.5 Mg/3 Ml) Ud) 2.5 mg INH [id number] PRN PRN Reason: Shortness of Breath Last Admin: 09/14/18 11:40 Dose: 2.5 mg Arformoterol Tartrate (Brovana) 15 mcg IH [id number] [facility] Last Admin: 09/15/18 07:54 Dose: 15 mcg Aspirin (Ecotrin) 81 mg PO DAILY [facility] Last Admin: 09/14/18 11:08 Dose: 81 mg Atorvastatin Calcium (Lipitor) 20 mg PO DIN [facility] Last Admin: 09/14/18 17:00 Dose: 20 mg Budesonide (Pulmicort Respules) 0.25 mg IH [id number] [facility] Last Admin: 09/15/18 07:54 Dose: 0.25 mg Enoxaparin Sodium (Lovenox) 30 mg SC DAILY [facility]; Protocol Last Admin: 09/14/18 11:08 Dose: 30 mg Famotidine (Pepcid) 20 mg PO 1000,2200 [facility] Last Admin: 09/14/18 21:37 Dose: 20 mg Guaifenesin/Dextromethorphan (Robitussin Dm) 5 ml PO Q6 [facility] Last Admin: 09/15/18 05:37 Dose: Not Given Levalbuterol HCl (Xopenex) 0.63 mg IH TIDRESP [facility] Last Admin: 09/15/18 07:54 Dose: 0.63 mg Methylprednisolone (Solu-Medrol) 60 mg IVP Q6 [facility] Last Admin: 09/15/18 05:37 Dose: 60 mg Metoprolol Tartrate (Lopressor) 12.5 mg PO BID [facility] Montelukast Sodium (Singulair) 10 mg PO HS [facility] Last Admin: 09/14/18 21:37 Dose: 10 mg Ondansetron HCl (Zofran Inj) 4 mg IVP Q6H PRN PRN Reason: Nausea/Vomiting Prednisone (Prednisone Tab) 5 mg PO DAILY [facility] Last Admin: 09/14/18 14:02 Dose: 5 mg - Labs Labs: 09/15/18 06:00 09/15/18 06:00 PT 11.2 SECONDS (9.4-12.5) 09/13/18 19:02 INR 1.01 09/13/18 19:02 APTT 29.7 Seconds (26.9-38.3) 09/13/18 19:02 - Constitutional Appears: Non-toxic, No Acute Distress - Head Exam Head Exam: NORMAL INSPECTION, NORMOCEPHALIC - Eye Exam Eye Exam: Normal appearance Pupil Exam: NORMAL ACCOMODATION - ENT Exam ENT Exam: Mucous Membranes Moist, Normal Exam - Respiratory Exam Respiratory Exam: Decreased Breath Sounds, Clear to Ausculation Bilateral, NORMAL BREATHING PATTERN - Cardiovascular Exam Cardiovascular Exam: REGULAR RHYTHM, +S1, +S2 Additional comments: Telemetry 70-80's - GI/Abdominal Exam GI & Abdominal Exam: Soft, Normal Bowel Sounds - Extremities Exam Extremities Exam: Full ROM, Normal Capillary Refill - Neurological Exam Neurological Exam: Alert, Awake, Oriented x3 - Psychiatric Exam Psychiatric exam: Normal Affect, Normal Mood - Skin Skin Exam: Dry, Normal Color, Warm Assessment and Plan - Assessment and Plan (Free Text) Assessment: An 88 year old female who came in to the ER due to abdominal pain with nausea. She complaints of chest discomfort associated with cough. Poor historian. Chart reviewed. History of CHF, diverticulitis, asthma, COPD with home oxygen, emphysema, CVA, renal insufficency,hypothyroidism, arthritis, GERD, anxiety. In ER , found to be bradycardic. Cardiac consult was called. Troponin negative. EKG sinus bradycardia. Echo done on 05/03/17 showed LVEF 50%, normal valves, grade 1 transmitral doppler flow. Chest X ray no congestion/unremarkable.Rule out acute coronary sundrome. Bradycardia due to betablocker. On Lopressor at home.Started Dopamine in ER. Dopamine discontinued. Echo done and showed LVEF 65%, trivial AR/MR/TR. Heart rate improved back to normal sinus rhythm 70-80's/min. No need for permanent pacemaker. Low dose betablocker today. Plan: No distress Heart rate improved, Heart rate NSR 70-80's Blood pressure stable On ASA 81 mg daily, Lipitor 20 mg daily Lovenox for DVT prophylaxis Continue current medications Continue current treatment Low dose betablocker today Discharge planning No further cardiac work up at this point Will follow up Plan and treatment discussed with Dr. Llamas
[2018-09-15 08:57] LABS: LYMPHOCYTE 3 % (22.0-35.0); MONOCYTE 1 % (1.0-6.0); NEUTROPHIL 96 % (50.0-70.0); PLATELET ESTIMATE NORMAL (NORMAL)
[2018-09-15] MEDS: Enoxaparin 30 mg Syringe SC SCH (09:14)
--- NOTE | 2018-09-15 10:44 | CARD ---
APPROVED REPORT Date of service: 09/15/2018 EKG Measurement Heart [id number] <Conclusion> Normal sinus rhythm Normal ECG
[2018-09-15 14:27] VITALS: BP 142/73; PULSE 72; RESP 18; TEMP 97.9
--- NOTE | 2018-09-17 16:59 | HP ---
DATE OF EXAM: 09/14/2018 HISTORY OF PRESENT ILLNESS: This 88-year-old female was examined on the [facility] on the afternoon of 09/14/2018. Present for this interview was the patient, multiple family members and case was reviewed in detail with nurse Megan Lemus, registered nurse. Mrs. Kennedy presented to the emergency room on the evening of 09/13/2018 and was evaluated by Dr. Irwin. She was evaluated by Dr. Irwin emergency room physician for a chief complaint of chest discomfort. The patient has chronic pulmonary fibrosis, chronic obstructive pulmonary disease, chronic shortness of breath and has home O2 was well as a portable oxygen and in the emergency room she was noted to be severely bradycardic with a pulse rate of 42. The patient has medical problems complicating this process including chronic hypertension, peptic ulcer disease with gastroesophageal reflux disease, history of congestive heart failure, chronic renal failure, stage III, diet-controlled diabetes mellitus, chronic hypertension, asthma, hyperlipidemia, recurrent urinary tract infections, degenerative arthritis and anxiety neurosis. OUTPATIENT MEDICATIONS: Include prednisone, Lopressor, Pepcid, Ecotrin, Lasix, Trelegy Ellipta inhaler, enalapril, dual nebulizer inhaler, Ventolin inhaler, Zocor, Singulair. ALLERGIES: THE PATIENT HAS ALLERGIES TO LEVOFLOXACIN AND LACTOSE. FAMILY HISTORY: Noncontributory. SOCIAL HISTORY: She is a nondrinker, nonsmoker, non IV drug misuser. REVIEW OF SYSTEMS: CONSTITUTIONAL REVIEW: No fever. No chills. HEENT: Head: No headache or seizures. Eyes: No change in visual acuity. Ears: No hearing loss. Throat: No swallowing difficulty. NECK: No stiffness. CARDIAC: Now with bradycardia. PULMONARY: As per HPI. GI: History of peptic ulcer disease with gastroesophageal reflux disease and diverticulosis. : Recurrent urinary tract infections. VASCULAR: No claudication. PSYCHOLOGICAL: Chronic anxiety. NEUROLOGICAL: No stroke. VASCULAR: No claudication. PHYSICAL EXAMINATION: GENERAL: At the time of my interview, the patient now was in a sinus rhythm. The patient had been seen by Dr. Llamas in the emergency room and started on IV dopamine and her metoprolol tartrate was withheld. VITAL SIGNS: Her temperature was 97.9, respirations 20, pulse 83 and blood pressure 114/62. HEENT: Head: Normocephalic, atraumatic. Eyes: No icterus. Ears: Clear. Throat: Noninjected. NECK: Supple. HEART: S1, S2. No pathological rubs, murmurs or gallops. LUNGS: Clear. ABDOMEN: Soft. EXTREMITIES: No edema. SKIN: Without rash. NEUROLOGICAL: Intact. PSYCHOLOGICAL: Anxious. VASCULAR: Legs warm to touch. LABORATORY DATA: White count 9700, hemoglobin 11.4, hematocrit 37.4, platelets 225,000. PT/INR 1.01, PTT 29.7. Sodium 136, K 5.2, chloride 95, bicarb 35, BUN 44, creatinine 2.2. Estimated GFR 21 mL per minute, blood sugar 168, calcium 9.5, magnesium 2.3, bilirubin 0.3, AST 27, ALT 21, alk phos 49. Troponin less than 0.01. EKG was reviewed from the emergency room. It showed marked sinus bradycardia with AV dissociation and junctional bradycardia with a pulse rate of 42. Chest x-ray was reviewed. It showed no active pulmonary disease. She does have stable chronic prominence of her interstitial markings and scarring and upward retraction of her jose miguel with no focal consolidation as well as she does have extensive right pleural calcifications with no pneumothorax appreciated. Cardiac silhouette was within normal limits. Her echocardiogram done earlier today was reviewed. It showed normal left ventricle size and function. Estimated ejection fraction 65% with trivial aortic regurgitation, trivial mitral regurgitation, trivial tricuspid regurgitation and no pericardial effusion. IMPRESSION: An 88-year-old female with multiple medical problems as listed above, severe anxiety neurosis, Chronic obstructive pulmonary disease with probable shortness of breath and chest discomfort in the setting of probable induced bradycardia. PLAN: The plan as discussed with Cardiology will be to discontinue her dopamine. We will hold her Lopressor for today. Monitor her cardiac status and the patient and family are anxious for discharge to home in a.m. if medically stable. Greater than 75 minutes was spent in the care management review of labs, orders, x-rays and discussion of this patient with herself. Family at bedside and nurse Mariah. All questions were answered. Marce Gold MD
--- NOTE | 2018-09-18 01:52 | DS ---
FINAL DIAGNOSES: Symptomatic bradycardia resolved, comorbidities of chronic obstructive pulmonary disease, chronic pulmonary fibrosis advanced, peptic ulcer disease with gastroesophageal reflux disease, stable atherosclerotic heart disease, history of congestive heart failure, chronic renal failure stage III, diet-controlled diabetes mellitus, chronic hypertension, hyperlipidemia, and degenerative arthritis. DISPOSITION: Home. FOLLOWUP: Follow up in my office in 48 hours. DISCHARGE MEDICATIONS: Prednisone 5 mg p.o. daily, Lopressor was decreased to 12.5 mg b.i.d., Pepcid 40 mg p.o. at bedtime, Ecotrin 81 mg p.o. daily, Lasix 20 mg p.o. daily, enalapril 2.5 mg p.o. daily, Duonebulizer inhaler therapy every 6 hours, Ventolin 2 puffs every 4 hours p.r.n., Zocor 20 mg p.o. at bedtime, Singulair 10 mg p.o. at bedtime, and Trelegy one puff daily. SUMMARY: This 88-year-old female who was admitted with symptomatic bradycardia causing shortness of breath and increased anxiety, was seen in consultation by Dr. Llamas from Cardiology in the emergency room, had Lopressor discontinued, IV dopamine instituted, and was treated with pulmonary toiletry and underwent diagnostic testing including followup EKG that showed normal sinus rhythm with a pulse rate of 87 and echocardiogram was done that showed no remarkable findings and the patient was cleared for discharged to home. PHYSICAL EXAMINATION: VITAL SIGNS: At the time of discharge; vital signs showed temperature 97.9, respirations 18, pulse 72, and blood pressure 142/73. LABORATORY DATA: Discharge labs showed sodium 137, K 5.1, chloride 96, bicarb 34, BUN 41, creatinine 2, random blood sugar 163, hemoglobin A1c 5.5, magnesium 2.3, calcium 9.5, phosphorous 4.3, and all liver enzymes normal. Cholesterol 137, triglycerides 62, LDL 67, and HDL 52. TSH normal at 0.81. White count 7200, hemoglobin 11, hematocrit 36.3, MCV 95, and platelets 203. PT/INR 1.01 and PTT 29.7. Case was reviewed with the patient and daughter, Ida Alves as well as nurse, Lauren Lemus, all discharge instructions were reviewed. The patient will follow up in my office, 09/18/2018 and has been advised for any change in signs and symptoms to present directly to [facility] ER. Greater than 35 minutes was spent in the discharge management of this patient today. All questions were answered. Marce Gold MD
== END 2018-09-15 17:17 | disposition home or self-care (01) | DRG 313 ==
LOC: ED 18:08 → ERH 19:48 → 2RNO 20:51
PROVIDERS: ADMIT Internal Medicine; ATTEND Internal Medicine
DX: R07.89 Other chest pain (principal); R00.1 Bradycardia, unspecified; T44.7X5A Adverse effect of beta-adrenoreceptor antagonists, initial encounter; E03.9 Hypothyroidism, unspecified; J43.9 Emphysema, unspecified; I11.0 Hypertensive heart disease with heart failure; I50.9 Heart failure, unspecified; J84.10 Pulmonary fibrosis, unspecified; E11.9 Type 2 diabetes mellitus without complications; K21.9 Gastro-esophageal reflux disease without esophagitis; F41.9 Anxiety disorder, unspecified; Z99.81 Dependence on supplemental oxygen; Z86.73 Personal history of transient ischemic attack (TIA), and cerebral infarction without residual deficits